=== PATIENT | female | born 1965 | race Caucasian/White ===

== ENCOUNTER 2016-03-11 06:13 | Emergency (ER) | payer MEDICAID ==
[2016-03-11] MEDS ORDERED: IPRATROPIUM/ALBUTEROL 0.5-2.5 MG/3 ML AMPUL NEB ONE (06:28)
--- NOTE | 2016-03-11 06:48 | ER Document Report ---
ED Respiratory Problem - General Mode of Arrival: Medic Information source: Patient TRAVEL OUTSIDE OF THE [place] IN LAST 30 DAYS: No - HPI Patient complains to provider of: Cough, Short of breath Onset: Yesterday Duration: Worse/persistent Quality of pain: No pain Severity: Moderate Pain Level: 0 Context: Hx COPD Short of Breath: Moderate Similar symptoms previously: Yes Recently seen / treated by doctor: Yes <PRABHAKAR RODRÍGUEZ - Last Filed: 03/11/16 10:29> <NORM DA SILVA - Last Filed: 03/11/16 23:45> - General Chief Complaint: COPD Exacerbation Stated Complaint: DIFFICULTIY BREATHING Notes: Patient is a 50-year-old female that presents to the emergency department today with complaints of shortness of breath. Patient is frequently seen in this emergency department for respiratory failure. Patient states that she feels like she needs to cough however she "just cannot cough". Patient has been intubated 3 times in the past for respiratory failure. Patient admits to cocaine usage yesterday. Patient also complains of a headache and blurry vision. (PRABHAKAR RODRÍGUEZ) - Related Data Allergies/Adverse Reactions: No Known Allergies Allergy (Verified 09/16/15 05:50) Home Medications: Current Home Medications Furosemide [Lasix 40 mg Tablet] 40 mg PO QAM 03/11/16 [History] Omeprazole 40 mg PO BID 03/11/16 [History] Past Medical History - General Information source: Patient, [facility] Records - Social History Smoking Status: Current Every Day Smoker Cigarette use (# per day): Yes Frequency of alcohol use: Occasional Drug Abuse: Cocaine Lives with: Family Family History: Reviewed & Not Pertinent, Other - Mother with COPD - Past Medical History Cardiac Medical History: Reports: Hx Congestive Heart Failure, Hx Hypertension Pulmonary Medical History: Reports: Hx Asthma, Hx Bronchitis, Hx COPD, Hx Pneumonia, Hx Intubation, Hx Respiratory Failure, Hx Sleep Apnea Endocrine Medical History: Reports: Hx Diabetes Mellitus Type 2 GI Medical History: Reports: Hx Hepatitis - HEP-C Musculoskeltal Medical History: Reports Hx Arthritis Skin Medical History: Reports Hx Cellulitis Psychiatric Medical History: Reports: Hx Anxiety, Hx Bipolar Disorder, Hx Depression Infectious Medical History: Reports: Hx Hepatitis - HEP-C Past Surgical History: Reports: Hx Cardiac Catheterization, Hx Hysterectomy - Immunizations Immunizations up to date: Yes Hx Diphtheria, Pertussis, Tetanus Vaccination: Yes Hx Pneumococcal Vaccination: 04/10/10 <PRABHAKAR RODRÍGUEZ - Last Filed: 03/11/16 10:29> Review of Systems - Review of Systems Constitutional: No symptoms reported EENT: See HPI, Blurred vision Cardiovascular: No symptoms reported Respiratory: See HPI, Short of breath Gastrointestinal: No symptoms reported Genitourinary: No symptoms reported Female Genitourinary: No symptoms reported Musculoskeletal: No symptoms reported Skin: No symptoms reported Hematologic/Lymphatic: No symptoms reported Neurological/Psychological: See HPI, Headaches -: Yes All other systems reviewed and negative <PRABHAKAR RODRÍGUEZ - Last Filed: 03/11/16 10:29> Physical Exam - General General appearance: Alert In distress: Mild - HEENT Head: Normocephalic, Atraumatic Eyes: Normal Cornea: Normal Extraocular movements intact: Yes - Respiratory Respiratory status: Respiratory distress - mild, Retractions - slight intracostal retractions Breath sounds: Decreased air movement - Cardiovascular Rhythm: Regular Heart sounds: Normal auscultation - Abdominal Inspection: Obese Tenderness: Nontender - Extremities General upper extremity: Normal inspection, Nontender, Normal ROM General lower extremity: Normal inspection, Nontender, Normal ROM - Neurological Neuro grossly intact: Yes Cognition: Normal Orientation: AAOx4 - Psychological Associated symptoms: Normal affect, Normal mood - Skin Skin Temperature: Warm Skin Moisture: Dry Skin Color: Normal <PRABHAKAR RODRÍGUEZ - Last Filed: 03/11/16 10:29> Course - Laboratory Result Diagrams: 03/11/16 06:45 03/11/16 06:45 <JERMAINE RODRÍGUEZON - Last Filed: 03/11/16 10:29> - Laboratory Result Diagrams: 03/11/16 06:45 03/11/16 06:45 <NORM DA SILVA - Last Filed: 03/11/16 23:45> - Re-evaluation Re-evalutation: 03/11/16 11:57 I personally performed the services described in the documentation, reviewed and edited the documentation which was dictated to my scribe in my presence, and it accurately records my words and actions. Patient seen and evaluated for COPD exacerbation. On ED arrival O2 sat 97% on room air the necessary put her on the BiPAP machine because she comes here frequently COPD and requires that. She was awake and alert not hypoxic a little tachypneic. Acute chest x-ray shows COPD with comparison to the previous. She signs out AMA prior to the full radiology report I do not see any consolidation. Patient clinically does not have Rales or peripheral edema no acute clinical concerns for KS PE or dissection. Long discussion with the patient off BiPAP satting 98% with close friend at the bedside. We talked for about 15 minutes about her wanting to sign out AGAINST MEDICAL ADVICE. She has to go home and take care of her nieces is no one else to do so. I told her specifically that the treatment that we gave her here was merely temporizing measure and that she could get sick very quickly likely willing could even as a result of that she is alert and oriented 3 with no altered mental status despite recent use of cocaine is of sound mind and judgment able to make her own decisions family members at bedside confirming this. She does have a stable right home at this point and at this point I do not feel like I can force her to stay here against her will. So she is signing out AMA. Told her take her breathing treatments at home I encouraged her to return in 6-12 hours for recheck reevaluation primary care physician one to 2 days and discussed specifically reasons for ED return sooner 03/11/16 23:45 (NORM DA SILVA) - Vital Signs Vital signs: Temp Pulse Resp BP Pulse Ox 98.2 F 78 16 110/60 94 03/11/16 06:18 03/11/16 06:18 03/11/16 12:00 03/11/16 11:59 03/11/16 12:00 (PRABHAKAR RODRÍGUEZ) (NORM DA SILVA) - Laboratory Laboratory results interpreted by me: 03/11/16 03/11/16 03/11/16 06:45 06:45 06:45 Hgb 11.0 L Hct 34.5 L MCV 74 L MCH 23.6 L MCHC 31.8 L RDW 21.0 H Carbonic Acid 1.56 H ABG pCO2 51.9 H ABG HCO3 31.6 H ABG Total CO2 33.2 H Glucose 125 H Urine Blood 03/11/16 09:23 Hgb Hct MCV MCH MCHC RDW Carbonic Acid ABG pCO2 ABG HCO3 ABG Total CO2 Glucose Urine Blood SMALL H (NORM DA SILVA) - EKG Interpretation by Me Additional EKG results interpreted by me: 03/11/16 23:45 KG interpreted myself to reveal sinus rhythm at [address] depression in V1 and V2 and V3 compared to EKG on 02/12/16. (NORM DA SILVA) Discharge <PRABHAKAR RODRÍGUEZ - Last Filed: 03/11/16 10:29> <NORM DA SILVA - Last Filed: 03/11/16 23:45> - Discharge Clinical Impression: Obstructive chronic bronchitis with exacerbation, Cocaine abuse, Left against medical advice Condition: Stable Disposition: HOME, SELF-CARE Instructions: Chronic Obstructive Lung Disease ([facility]) Forms: Smoking Cessation Education Referrals: BLAYNE CHO DO [Primary Care Provider] - Follow up as needed (Return to the emergency department for recheck reevaluation in 6-12 hours sooner for increasing worsening or new symptoms follow primary care physician one to 2 days please stop smoking and cocaine.) Scribe Documentation - Scribe Written by Manju:: Manju Retana, 1040 03/11/2016 acting as scribe for :: Greg <PRABHAKAR RODRÍGUEZ - Last Filed: 03/11/16 10:29>
[2016-03-11] MEDS ORDERED: METHYLPREDNISOLONE INJ 125 MG/2 ML SDV IV ONE (06:54)
[2016-03-11] MEDS: MAGNESIUM SULFATE/D5W 100 ML IV SCH ×2 (07:03→08:29)
[2016-03-11] MEDS ORDERED: IPRATROPIUM BROMIDE 0.02% NEB 0.5 MG/2.5 ML AMPUL NEB ONE (07:10)
[2016-03-11] MEDS ORDERED: ALBUTEROL SULFATE 0.083% NEB 2.5 MG/3 ML AMPUL NEB ONE (07:10)
[2016-03-11 07:12] LABS: ABSOLUTE BASOPHILS # (AUTO) 0.1 10^3/uL (0.0-0.2); ABSOLUTE EOSINOPHILS # (AUTO) 0.2 10^3/uL (0.0-0.6); ABSOLUTE LYMPHOCYTES (AUTO) 1.6 10^3/uL (0.5-4.7); ABSOLUTE MONOCYTES (AUTO) 0.7 10^3/uL (0.1-1.4); ABSOLUTE NEUT (AUTO) 7.1 10^3/uL (1.7-8.2); BASOPHILS % (AUTO) 0.6 % (0-2); EOSINOPHILS % (AUTO) 2.4 % (0-6); HEMATOCRIT 34.5 % (36.0-47.0); HGB HCT DIFFERENCE -1.5; LYMPHOCYTES % (AUTO) 16.8 % (13-45); MEAN CORPUSCULAR HEMOGLOBIN 23.6 pg (27.0-33.4); MEAN CORPUSCULAR HGB CONC 31.8 g/dL (32.0-36.0); MEAN CORPUSCULAR VOLUME 74 fl (80-97); MONOCYTES % (AUTO) 7.1 % (3-13); RED BLOOD COUNT 4.64 10^6/uL (3.72-5.28); SEGMENTED NEUTROPHILS % (AUTO) 73.1 % (42-78); WHITE BLOOD COUNT 9.7 10^3/uL (4.0-10.5)
[2016-03-11 07:23] LABS: ANION GAP 12 (5-19); BLOOD UREA NITROGEN 20 mg/dL (7-20); CARBON DIOXIDE 30 mmol/L (22-30); CHLORIDE 99 mmol/L (98-107); CREATININE RESULT 0.59 mg/dL (0.52-1.25); GLUCOSE 125 mg/dL (75-110); POTASSIUM 4.2 mmol/L (3.6-5.0); SODIUM 140.8 mmol/L (137-145)
[2016-03-11 07:25] LABS: ARTERIAL BLOOD BASE EXCESS 5.7 mmol/L; ARTERIAL BLOOD O2 SATURATION 97.4 % (94-98)
[2016-03-11 07:35] LABS: CREATINE KINASE MB 0.36 ng/mL (<4.55)
[2016-03-11 07:36] LABS: TROPONIN I < 0.012 ng/mL
--- NOTE | 2016-03-11 09:20 | EKG REPORT ---
SEVERITY:- NORMAL ECG - SINUS RHYTHM : Confirmed by: Jacob Garrison 11-Mar-2016 09:18:49
[2016-03-11 09:38] LABS: APPEARANCE,URINE CLEAR; BILIRUBIN,URINE NEGATIVE (NEGATIVE); GLUCOSE, URINE NEGATIVE (NEGATIVE); KETONES,URINE NEGATIVE (NEGATIVE); LEUKOCYTE ESTERASE,URINE NEGATIVE (NEGATIVE); NITRITE,URINE NEGATIVE (NEGATIVE); PROTEIN,URINE NEGATIVE (NEGATIVE); URINE SPECIFIC GRAVITY 1.005; UROBILINOGEN,URINE NEGATIVE mg/dL (<2.0)
[2016-03-11 09:54] LABS: URINE BARBITURATES SCREEN NEGATIVE; URINE METHADONE SCREEN NEGATIVE; URINE PHENCYCLIDINE SCREEN NEGATIVE
[2016-03-11 12:06] VITALS: BP 110/60
== END 2016-03-11 12:06 | disposition home or self-care (01) ==
LOC: ER 06:13
DX: J44.1 Chronic obstructive pulmonary disease with (acute) exacerbation (principal); F14.90 Cocaine use, unspecified, uncomplicated; R05 Cough; R06.02 Shortness of breath; F17.210 Nicotine dependence, cigarettes, uncomplicated; I50.9 Heart failure, unspecified; I10 Essential (primary) hypertension; J45.909 Unspecified asthma, uncomplicated; E11.9 Type 2 diabetes mellitus without complications; Z86.19 Personal history of other infectious and parasitic diseases; Z90.710 Acquired absence of both cervix and uterus
CPT/HCPCS: 93005; 94640 ×2; 99285; 51701; 96375; 96365; 96366; 36415; 82553; 82803; 83605; 85025; 80048; 81001; 84484; 83880; 71010; 93010; 94660; G0479; J2930; J3475; J3490; J7620; 80307

== ENCOUNTER 2016-03-28 14:33 | Emergency (ER) | payer MEDICAID ==
[2016-03-28] MEDS ORDERED: METHYLPREDNISOLONE INJ 125 MG/2 ML SDV IV ONE (14:49)
[2016-03-28] MEDS ORDERED: IPRATROPIUM/ALBUTEROL 0.5-2.5 MG/3 ML AMPUL NEB ONE (14:49)
[2016-03-28] MEDS ORDERED: LIDOCAINE 1% INJ-PF (10 MG/ML) 30 ML SDV INJ ONE (15:11)
[2016-03-28] MEDS ORDERED: HYDROMORPHONE HCL INJ/PF 2 MG/ML AMPULE IV ONE ×2 (15:11→15:45)
[2016-03-28 15:12] LABS: ABSOLUTE BASOPHILS # (AUTO) 0.1 10^3/uL (0.0-0.2); ABSOLUTE EOSINOPHILS # (AUTO) 0.1 10^3/uL (0.0-0.6); ABSOLUTE LYMPHOCYTES (AUTO) 1.2 10^3/uL (0.5-4.7); ABSOLUTE MONOCYTES (AUTO) 0.8 10^3/uL (0.1-1.4); ABSOLUTE NEUT (AUTO) 12.4 10^3/uL (1.7-8.2); BASOPHILS % (AUTO) 0.7 % (0-2); HEMATOCRIT 33.1 % (36.0-47.0); HGB HCT DIFFERENCE -3.1; LYMPHOCYTES % (AUTO) 8.1 % (13-45); MEAN CORPUSCULAR HEMOGLOBIN 22.9 pg (27.0-33.4); MEAN CORPUSCULAR HGB CONC 30.2 g/dL (32.0-36.0); MEAN CORPUSCULAR VOLUME 76 fl (80-97); MONOCYTES % (AUTO) 5.4 % (3-13); RED BLOOD COUNT 4.37 10^6/uL (3.72-5.28); RED CELL DISTRIBUTION WIDTH 20.5 % (11.5-14.0); SEGMENTED NEUTROPHILS % (AUTO) 84.8 % (42-78); WHITE BLOOD COUNT 14.7 10^3/uL (4.0-10.5)
[2016-03-28 15:31] LABS: ALANINE AMINOTRANSFERASE 18 U/L (9-52); ALBUMIN 3.4 g/dL (3.5-5.0); ALKALINE PHOSPHATASE 61 U/L (38-126); ANION GAP 12 (5-19); ASPARTATE AMINO TRANSFERASE 12 U/L (14-36); BILIRUBIN,TOTAL 0.7 mg/dL (0.2-1.3); BLOOD UREA NITROGEN 23 mg/dL (7-20); CALCIUM 8.7 mg/dL (8.4-10.2); CARBON DIOXIDE 30 mmol/L (22-30); CHLORIDE 97 mmol/L (98-107); CREATININE RESULT 0.57 mg/dL (0.52-1.25); GLUCOSE 100 mg/dL (75-110); MAGNESIUM 1.8 mg/dL (1.6-2.3); POTASSIUM 4.1 mmol/L (3.6-5.0); SODIUM 138.7 mmol/L (137-145)
[2016-03-28 15:32] LABS: CREATINE KINASE < 20 U/L (30-135)
[2016-03-28 15:41] LABS: CREATINE KINASE MB 0.22 ng/mL (<4.55); TROPONIN I < 0.012 ng/mL
--- NOTE | 2016-03-28 17:09 | ER Document Report ---
[id number] 4Bd Clinical Impression: COPD (chronic obstructive pulmonary disease), Abscess Condition: Stable Disposition: HOME, SELF-CARE Instructions: Abscess ([facility]), Cephalexin ([facility]), Oral Narcotic Medication ([facility]), Post Incision and Drainage, Trimethoprim-Sulfa ([facility]) Additional Instructions: Return to emergency Department in 2 days for reevaluation and possible repacking of your abscess Prescriptions: Cephalexin Monohydrate [Keflex 500 mg Capsule] 500 mg PO QID #40 capsule Sulfamethoxazole/Trimethoprim [Bactrim Ds Tablet] 1 each PO BID #20 tablet Tramadol HCl 50 mg PO BID #14 tablet Referrals: BLAYNE CHO DO [Primary Care Provider] - Follow up as needed Original Note: ED General - General Chief Complaint: Abscess Stated Complaint: DIFFICULTY BREATHING Time seen by provider: 14:40 Mode of Arrival: Medic Information source: Patient Notes: 50-year-old female who complains about a 2 day history of pain redness and swelling in her left axilla. Patient says she had 5 pimples in that area and she says that she held a safety pin to the flame and then attempted to puncture one of them. He says that since that time a different area inferior to the area where she worked has become very red swollen and tender. She reports no prior history of symptoms like this. 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 She denies fever, chills, nausea, vomiting, cough worse than baseline, shortness of breath worse than baseline, chest pain, abdominal pain, back pain, or swelling to extremities worse than her baseline. Physical Exam: General: Alert, appears well. HEENT: Normocephalic. Atraumatic. PERRLA. Extraocular movements intact. Oropharynx clear. Neck: Supple. Non-tender. Respiratory: No respiratory distress. Scattered rhonchi bilaterally breath sounds equal good aeration no accessory muscle use Cardiovascular: Regular rate and rhythm. Abdominal: Normal Inspection. Soft, non-tender. No distension. Normal Bowel Sounds. Back: Non-tender. No deformity or step off. Extremities: Moves all four extremities. Examination left upper extremity shows a broad area of erythema in the axilla approximately 7 x 7 cm. There is a 3 x 3 cm area in the central portion of this which appears to have an eschar suggestive of maturing abscess. Closer to the arm itself there are 2 small pustules and one area of open skin approximately 5 mm long with a hole protruding to subcutaneous tissue. There is no active bleeding or purulent drainage from the site. Left upper trait otherwise is warm with 2+ pulses and brisk cap refill Right upper extremity has a 5 mm area of swelling in the axilla which is not tender to palpation in 2+ radial pulses and brisk cap refill Lower extremities warm with 2+ pulses of cyanosis no edema Neurological: Speech clear mentation normal moves extremities well Psychological: Normal affect. Normal Mood. Skin: Warm. Dry. Normal color. TRAVEL OUTSIDE OF THE [place] IN LAST 30 DAYS: No - Related Data Allergies/Adverse Reactions: No Known Allergies Allergy (Verified 09/16/15 05:50) Past Medical History - Social History Smoking Status: Current Every Day Smoker Family History: Reviewed & Not Pertinent, Other - Mother with COPD - Past Medical History Cardiac Medical History: Reports: Hx Congestive Heart Failure, Hx Hypertension Pulmonary Medical History: Reports: Hx Asthma, Hx Bronchitis, Hx COPD, Hx Pneumonia, Hx Intubation, Hx Respiratory Failure, Hx Sleep Apnea Endocrine Medical History: Reports: Hx Diabetes Mellitus Type 2 GI Medical History: Reports: Hx Hepatitis - HEP-C Musculoskeltal Medical History: Reports Hx Arthritis Skin Medical History: Reports Hx Cellulitis Psychiatric Medical History: Reports: Hx Anxiety, Hx Bipolar Disorder, Hx Depression Infectious Medical History: Reports: Hx Hepatitis - HEP-C Past Surgical History: Reports: Hx Cardiac Catheterization, Hx Hysterectomy - Immunizations Immunizations up to date: Yes Hx Diphtheria, Pertussis, Tetanus Vaccination: Yes Hx Pneumococcal Vaccination: 04/10/10 Review of Systems - Review of Systems Constitutional: denies: Chills, Fever EENT: denies: Ear pain, Throat pain Cardiovascular: Dyspnea. denies: Chest pain Respiratory: Cough, Short of breath Gastrointestinal: denies: Abdominal pain, Diarrhea, Nausea, Vomiting Genitourinary: denies: Burning, Dysuria Musculoskeletal: denies: Back pain Neurological/Psychological: denies: Weakness, Numbness Physical Exam - Vital signs Vitals: Temp Pulse Resp BP Pulse Ox 98.4 F 92 14 123/102 H 97 03/28/16 14:35 03/28/16 14:35 03/28/16 14:35 03/28/16 14:35 03/28/16 14:35 Course - Re-evaluation Re-evalutation: 03/28/16 18:13 Chest x-ray was read as congestive heart failure but clinically the patient did not have this intermittent Clem peptide was unremarkable. Her oxygen saturation improved probably just by placing her back on her baseline oxygen and she is and related about the department with no respiratory distress. She reports she believes her breathing status is at her baseline and I concur. I believe her leukocytosis is due to the abscess and cellulitis in her left axilla and she is going to be placed on antibiotics for that with instructions to return in 2 days for wound recheck and possible repacking. Given the size of the abscess she will also require pain medication and this will also be prescribed - Vital Signs Vital signs: Temp Pulse Resp BP Pulse Ox 98.4 F 92 14 117/92 H 95 03/28/16 14:35 03/28/16 14:35 03/28/16 16:25 03/28/16 16:25 03/28/16 16:25 - Laboratory Result Diagrams: 03/28/16 14:56 03/28/16 14:56 Laboratory results interpreted by me: 03/28/16 03/28/16 14:56 14:56 WBC 14.7 H Hgb 10.0 L Hct 33.1 L MCV 76 L MCH 22.9 L MCHC 30.2 L RDW 20.5 H Seg Neutrophils % 84.8 H Lymphocytes % 8.1 L Absolute Neutrophils 12.4 H Chloride 97 L BUN 23 H AST 12 L Creatine Kinase < 20 L Total Protein 6.0 L Albumin 3.4 L - Diagnostic Test Radiology reviewed: Image reviewed, Reports reviewed - EKG Interpretation by Me Additional EKG results interpreted by me: 03/28/16 18:09 EKG reviewed by myself sinus rhythm at 89. Minimal nonspecific T-wave changes Procedures - Incision and Drainage Left Anterior Shoulder Time completed: 17:55 Type: Complex Anesthetic type: 1% Lidocaine mL's of anesthetic: 5 Blade size: 11 I&D procedure: Shurclens applied, Iodoform packing placed, Sterile dressing applied Incision Method: Incision made by scalpel Amount/type of drainage: 5 mL purulent material Notes: 03/28/16 18:11 Patient had Dilaudid total of 2 mg IV prior to procedure and anesthesia with lidocaine plain 1% locally. Middle of the abscess was incised with prompt return of serous followed by purulent material. Wound was deeply probed and appears to extend anteriorly and superiorly. It did not communicate with the open wound more proximally in the axilla.. Several discrete loculations were broken up. Iodoform packing was placed. Patient tolerated procedure well and good hemostasis no complications Discharge - Discharge Clinical Impression: Abscess COPD (chronic obstructive pulmonary disease) Qualifiers: COPD type: COPD with acute exacerbation Qualified Code(s): J44.1 - Chronic obstructive pulmonary disease with (acute) exacerbation Condition: Stable Disposition: HOME, SELF-CARE Instructions: Abscess ([facility]), Oral Narcotic Medication ([facility]), Cephalexin ([facility]), Trimethoprim-Sulfa ([facility]), Post Incision and Drainage Prescriptions: Cephalexin Monohydrate [Keflex 500 mg Capsule] 500 mg PO QID #40 capsule Sulfamethoxazole/Trimethoprim [Bactrim Ds Tablet] 1 each PO BID #20 tablet Tramadol HCl 50 mg PO BID #14 tablet
[2016-03-28] MEDS ORDERED: SULFAMETHOXAZOLE/TRIMETHOPRIM 800-160 MG TABLET PO ONE (18:18)
[2016-03-28] MEDS ORDERED: CEPHALEXIN 500 MG CAPSULE PO ONE (18:18)
[2016-03-28 18:46] VITALS: BP 127/80
--- NOTE | 2016-03-28 19:09 | EKG REPORT ---
SEVERITY:- BORDERLINE ECG - SINUS RHYTHM PROBABLE LEFT ATRIAL ABNORMALITY LOW VOLTAGE IN FRONTAL LEADS NONSPECIFIC ST-T CHANGES ANTERIOR LEADS : Confirmed by: Jorge Luis Dee MD 28-Mar-2016 19:07:39
== END 2016-03-28 18:46 | disposition home or self-care (01) ==
LOC: ER 14:33
PROC: 0H9CXZZ Drainage of Left Upper Arm Skin, External Approach (ICD-10-PCS; principal; 2016-03-28)
DX: J44.9 Chronic obstructive pulmonary disease, unspecified (principal); L02.412 Cutaneous abscess of left axilla; F17.210 Nicotine dependence, cigarettes, uncomplicated
CPT/HCPCS: 93005; 96376; 94640; 99284; 96374; 96375; 36415; 82553; 82550; 83735; 85025; 80053; 84484; 83880; 71010; 93010; 10060; J3490 ×2; J2930; J1170; J7620

== ENCOUNTER 2016-05-27 15:53 | Inpatient (IN) | payer MEDICAID ==
[2016-05-27 17:07] LABS: VENOUS BLOOD BASE EXCESS 5.1 mmol/L; VENOUS BLOOD HCO3 35.2 mmol/L (20-32); VENOUS BLOOD PH 7.25 (7.30-7.42)
[2016-05-27 17:09] LABS: APPEARANCE,URINE CLEAR; BILIRUBIN,URINE NEGATIVE (NEGATIVE); GLUCOSE, URINE NEGATIVE (NEGATIVE); KETONES,URINE NEGATIVE (NEGATIVE); LEUKOCYTE ESTERASE,URINE NEGATIVE (NEGATIVE); NITRITE,URINE NEGATIVE (NEGATIVE); PROTEIN,URINE NEGATIVE (NEGATIVE); URINE SPECIFIC GRAVITY 1.003; UROBILINOGEN,URINE NEGATIVE mg/dL (<2.0)
[2016-05-27 17:11] LABS: VENOUS BLOOD PCO2 82.6 mmHg (35-63)
[2016-05-27] MEDS ORDERED: IPRATROPIUM/ALBUTEROL 0.5-2.5 MG/3 ML AMPUL NEB ONE ×2 (17:21→17:22)
[2016-05-27] MEDS ORDERED: METHYLPREDNISOLONE INJ 125 MG/2 ML SDV IV ONE (17:21)
[2016-05-27 17:25] LABS: URINE BARBITURATES SCREEN NEGATIVE; URINE METHADONE SCREEN NEGATIVE; URINE OPIATES LOW NEGATIVE; URINE PHENCYCLIDINE SCREEN NEGATIVE
[2016-05-27 17:26] LABS: ABSOLUTE EOSINOPHILS # (AUTO) 0.2 10^3/uL (0.0-0.6); ABSOLUTE LYMPHOCYTES (AUTO) 1.2 10^3/uL (0.5-4.7); ABSOLUTE MONOCYTES (AUTO) 0.5 10^3/uL (0.1-1.4); ABSOLUTE NEUT (AUTO) 6.6 10^3/uL (1.7-8.2); ALANINE AMINOTRANSFERASE 20 U/L (9-52); ALBUMIN 3.8 g/dL (3.5-5.0); ALKALINE PHOSPHATASE 75 U/L (38-126); ANION GAP 12 (5-19); ASPARTATE AMINO TRANSFERASE 16 U/L (14-36); BASOPHILS % (AUTO) 0.1 % (0-2); BILIRUBIN,DIRECT 0.3 mg/dL (0.0-0.4); BILIRUBIN,TOTAL 0.5 mg/dL (0.2-1.3); BLOOD UREA NITROGEN 17 mg/dL (7-20); CALCIUM 9.2 mg/dL (8.4-10.2); CARBON DIOXIDE 31 mmol/L (22-30); CHLORIDE 100 mmol/L (98-107); CREATININE RESULT 0.62 mg/dL (0.52-1.25); EOSINOPHILS % (AUTO) 1.8 % (0-6); GLUCOSE 103 mg/dL (75-110); HEMATOCRIT 38.5 % (36.0-47.0); HEMOGLOBIN 11.7 g/dL (12.0-15.5); HGB HCT DIFFERENCE -3.4; LYMPHOCYTES % (AUTO) 14.4 % (13-45); MEAN CORPUSCULAR HEMOGLOBIN 22.4 pg (27.0-33.4); MEAN CORPUSCULAR HGB CONC 30.5 g/dL (32.0-36.0); MEAN CORPUSCULAR VOLUME 74 fl (80-97); MONOCYTES % (AUTO) 5.7 % (3-13); POTASSIUM 4.5 mmol/L (3.6-5.0); RED BLOOD COUNT 5.23 10^6/uL (3.72-5.28); RED CELL DISTRIBUTION WIDTH 20.5 % (11.5-14.0); SODIUM 143.3 mmol/L (137-145); WHITE BLOOD COUNT 8.5 10^3/uL (4.0-10.5)
--- NOTE | 2016-05-27 17:39 | ER Document Report ---
ED Respiratory Problem - General Chief Complaint: Shortness Of Breath Stated Complaint: RESPIRATORY DISTRESS Mode of Arrival: Medic Information source: Patient, Emergency Med Personnel, [facility] Records Notes: This patient is a 50 year old female with past medical history of COPD, chronic respiratory failure, pneumonia, tobacco abuse, cocaine abuse, left ventricular diastolic dysfunction that presents with increasing shortness of breath for the past day. She states she has been using her breathing treatments all day. She is concerned that she might have pneumonia again. Of note she was admitted here from February 11 through 02/15/2016 with COPD, respiratory failure, and pneumonia. She has been seen multiple times for respiratory failure and has required BiPAP and at times intubation in the past. She denies any fevers. She does state she has been coughing up yellow sputum. TRAVEL OUTSIDE OF THE [place] IN LAST 30 DAYS: No - Related Data Allergies/Adverse Reactions: No Known Allergies Allergy (Verified 09/16/15 05:50) Home Medications: Current Home Medications Albuterol Sulfate [Proair Hfa Inhalation Aerosol 8.5 gm Mdi] 2 puff IH Q6HP PRN 05/27/16 [History] Carvedilol [Coreg 3.125 mg Tablet] 3.125 mg PO Q12 05/27/16 [History] Escitalopram Oxalate [Lexapro 10 mg Tablet] 10 mg PO QHS 05/27/16 [History] Furosemide [Lasix] 40 mg PO DAILY 05/27/16 [History] Lisinopril [Prinivil 5 mg Tablet] 5 mg PO DAILY 05/27/16 [History] Metformin HCl [Glucophage] 500 mg PO BID 05/27/16 [History] Omeprazole 40 mg PO BIDACBS 05/27/16 [History] Past Medical History - General Information source: Patient, [facility] Records - Social History Smoking Status: Current Every Day Smoker Drug Abuse: Cocaine Lives with: Alone Family History: Reviewed & Not Pertinent, Other - Mother with COPD - Past Medical History Cardiac Medical History: Reports: Hx Congestive Heart Failure, Hx Hypertension Pulmonary Medical History: Reports: Hx Asthma, Hx Bronchitis, Hx COPD, Hx Pneumonia, Hx Intubation, Hx Respiratory Failure, Hx Sleep Apnea Endocrine Medical History: Reports: Hx Diabetes Mellitus Type 2 GI Medical History: Reports: Hx Hepatitis - HEP-C Musculoskeltal Medical History: Reports Hx Arthritis Skin Medical History: Reports Hx Cellulitis Psychiatric Medical History: Reports: Hx Anxiety, Hx Bipolar Disorder, Hx Depression Infectious Medical History: Reports: Hx Hepatitis - HEP-C Past Surgical History: Reports: Hx Cardiac Catheterization, Hx Hysterectomy - Immunizations Immunizations up to date: Yes Hx Diphtheria, Pertussis, Tetanus Vaccination: Yes Hx Pneumococcal Vaccination: 04/10/10 Review of Systems - Review of Systems Constitutional: denies: Chills, Fever EENT: No symptoms reported Cardiovascular: See HPI, Dyspnea. denies: Chest pain Respiratory: See HPI, Cough, Short of breath, Sputum, Wheezing. denies: Hurts to breathe Gastrointestinal: No symptoms reported Genitourinary: No symptoms reported Musculoskeletal: No symptoms reported Skin: No symptoms reported Neurological/Psychological: No symptoms reported Physical Exam - Vital signs Vitals: Resp Pulse Ox 19 97 05/27/16 16:20 05/27/16 16:20 - Notes Notes: PHYSICAL EXAMINATION: GENERAL: Ill-appearing, obese female who is disheveled but alert and conversant. Mild to moderate respiratory distress. HEAD: Atraumatic, normocephalic. EYES: Pupils equal round and reactive to light, extraocular movements intact, sclera anicteric, conjunctiva are normal. ENT: nares patent, oropharynx clear without exudates. Mucous membranes somewhat dry. NECK: Normal range of motion, supple without lymphadenopathy LUNGS: Breath sounds are tight bilaterally with scattered inspiratory and expiratory wheezes. No rhonchi. HEART: Regular rate and rhythm without murmurs ABDOMEN: Soft, obese nontender, normoactive bowel sounds. No guarding, no rebound. EXTREMITIES: Normal range of motion NEUROLOGICAL: Cranial nerves grossly intact. Normal speech. No gross focal motor or sensory deficits appreciated. PSYCH: Normal mood, somewhat anxious affect SKIN: Warm, Dry, normal turgor, no rashes or lesions noted. Course - Re-evaluation Re-evalutation: 05/27/16 17:36 Patient noted to be alert and conversant but in mild respiratory distress and her PCO2 is about 80 on her VBG. BiPAP has been ordered, as well as DuoNeb's and IV Solu-Medrol. 05/27/16 18:25 Patient is showing improvement on BiPAP. She does admit to recent cocaine use in the past couple of days. Her troponin is negative. Her chest x-ray does not show sign of infiltrate. As discussed with hospitalist Dr. Kumar patient to be admitted to the [facility] [place] 05/27/16 23:39 Patient has been admitted to the hospitalist however she is still awaiting bed placement upstairs. It was noted that she has become upset and agitated with her long wait. She had pulled herself off the monitors and started walking down the quiroz to leave. Her nurse and I were able to convince her to walk back to the room and she still had an IV in place. I had a discussion with the patient regarding her diagnosis and my concerns for her to clinically worse and should she leave without completing her medical therapy. At this time patient decides to stay. She is alert and oriented and neurologically intact. She does appear competent to make her own decisions. At this time she states that she will stay as long as she can have something to eat and drink. - Vital Signs Vital signs: Temp Pulse Resp BP Pulse Ox 17 144/76 H 95 05/27/16 22:01 05/27/16 22:01 05/27/16 22:01 - Laboratory Result Diagrams: 05/27/16 16:45 05/27/16 16:45 Laboratory results interpreted by me: 05/27/16 05/27/16 05/27/16 16:45 16:45 16:45 Hgb MCV MCH MCHC RDW VBG pH 7.25 L VBG pCO2 82.6 H* VBG HCO3 35.2 H Carbon Dioxide 31 H Creatine Kinase Urine Blood SMALL H 05/27/16 05/27/16 16:45 16:45 Hgb 11.7 L MCV 74 L MCH 22.4 L MCHC 30.5 L RDW 20.5 H VBG pH VBG pCO2 VBG HCO3 Carbon Dioxide Creatine Kinase 26 L Urine Blood - EKG Interpretation by Me Additional EKG results interpreted by me: 05/27/16 17:39 EKG at 1617 pressure is normal sinus rhythm with a rate of 78. She does have T- wave changes anteriorly which are unchanged from her prior EKG. There is no ST segment elevation or depression. Discharge - Discharge Clinical Impression: Obstructive chronic bronchitis with exacerbation, Cocaine abuse Acute respiratory failure Qualifiers: Respiratory failure complication: hypercapnia Qualified Code(s): J96.02 - Acute respiratory failure with hypercapnia Condition: Fair Disposition: ADMITTED INPATIENT Admitting Provider: Hospitalist - Dr Kumar Unit Admitted: [facility]
[2016-05-27 17:47] LABS: CREATINE KINASE MB 0.45 ng/mL (<4.55)
[2016-05-27 17:50] LABS: TROPONIN I < 0.012 ng/mL
[2016-05-27] MEDS ORDERED: LEVOFLOXACIN 750 MG/D5W RTU 150 ML IV ONE (18:16)
--- NOTE | 2016-05-27 18:35 | EKG REPORT ---
SEVERITY:- BORDERLINE ECG - SINUS RHYTHM BORDERLINE T ABNORMALITIES, ANTERIOR LEADS : Confirmed by: Jorge Luis Dee MD 27-May-2016 18:34:52
[2016-05-27] MEDS ORDERED: ACETAMINOPHEN 325 MG TABLET PO PRN (18:50)
[2016-05-27] MEDS ORDERED: ONDANSETRON HCL INJ/PF 4 MG/2 ML SDV IV PRN (18:50)
[2016-05-27] MEDS ORDERED: ALBUTEROL SULFATE 0.083% NEB 2.5 MG/3 ML AMPUL NEB PRN (18:50)
[2016-05-27] MEDS ORDERED: DEXTROSE 40% GEL 15 GM TUBE PO PRN ×2 (19:11)
[2016-05-27] MEDS ORDERED: DEXTROSE 50%-WATER 25 GM/50 ML DISP.SYRIN IV PRN ×2 (19:11)
[2016-05-27] MEDS ORDERED: GLUCAGON,HUMAN RECOMB 1 MG INJ IM PRN (19:11)
--- NOTE | 2016-05-27 19:11 | PDOC H&P ---
History of Present Illness Admission Date/PCP: BLAYNE CHO DO Patient complains of: Difficulty breathing History of Present Illness: POLLY CRESPO is a 50 year old female who has a long history of COPD, cocaine abuse, tobacco abuse who presents with shortness of breath. Patient reports that she's been using her nebulizer all day and since yesterday. She last used cocaine yesterday but has continued to smoke. The patient related this to the emergency physician however by the time I saw her she was responding to painful stimuli but would not answer any questions. The history is taken from the vertex the room physician as well as medical records. Patient was started on Levaquin because of the possibility of recurrent pneumonia although chest x-ray looks clear she has had wheezing. Past Medical History Cardiac Medical History: Reports: Congestive Heart Failure - Diastolic dysfunction, Hypertension Pulmonary Medical History: Reports: Asthma, Bronchitis, Chronic Obstructive Pulmonary Disease (COPD), Intubation, Pneumonia, Respiratory Failure, Sleep Apnea Endocrine Medical History: Reports: Diabetes Mellitus Type 2 Malignancy Medical History: Reports: None GI Medical History: Reports: Hepatitis - HEP-C Musculoskeltal Medical History: Reports: Arthritis Psychiatric Medical History: Reports: Bipolar Disorder, Depression, Substance Abuse Hematology: Denies: Anemia Past Surgical History Past Surgical History: Reports: Cardiac Catheterization, Hysterectomy Social History Information Source: Emergency Med Personnel, ON LICENSE OF [facility] Records Lives with: Alone Smoking Status: Current Every Day Smoker Frequency of Alcohol Use: None Hx Recreational Drug Use: Yes Drugs: Cocaine Hx Prescription Drug Abuse: No - Advance Directive Resuscitation Status: Full Code Surrogate healthcare decision maker:: Unknown Family History Family History: Other - Mother with COPD Parental Family History Reviewed: No - patient unable to give any history Children Family History Reviewed: No Sibling(s) Family History Reviewed.: No Medication/Allergy Home Medications: Albuterol Sulfate [Proair HFA] 1 - 2 puff IH Q4 PRN #1 [email or web address] 02/09/15 Allergies/Adverse Reactions: No Known Allergies Allergy (Verified 09/16/15 05:50) Review of Systems ROS unobtainable: Due to mental status Physical Exam Vital Signs: Temp Pulse Resp BP Pulse Ox 14 98 05/27/16 17:35 05/27/16 17:35 General appearance: PRESENT: disheveled, morbidly obese, severe distress Head exam: PRESENT: atraumatic, normocephalic Eye exam: PRESENT: conjunctiva pink, EOMI, PERRLA. ABSENT: scleral icterus Ear exam: PRESENT: normal external ear exam Neck exam: ABSENT: carotid bruit, JVD, lymphadenopathy, thyromegaly Respiratory exam: PRESENT: tachypnea, wheezes - Bilateral expiratory wheezes. Cardiovascular exam: PRESENT: RRR. ABSENT: diastolic murmur, rubs, systolic murmur Vascular exam: PRESENT: normal capillary refill GI/Abdominal exam: PRESENT: normal bowel sounds, soft. ABSENT: distended, guarding, mass, organolmegaly, rebound, tenderness Extremities exam: ABSENT: calf tenderness, clubbing, pedal edema Neurological exam: PRESENT: alert, awake, oriented to person, oriented to place , oriented to time, oriented to situation, CN II-XII grossly intact. ABSENT: motor sensory deficit Psychiatric exam: PRESENT: other - Unable to assess Skin exam: PRESENT: dry, intact, warm. ABSENT: cyanosis, rash Results Laboratory Results: 05/27/16 16:45 05/27/16 16:45 05/27/16 05/27/16 05/27/16 16:45 16:45 16:45 WBC RBC Hgb Hct MCV MCH MCHC RDW Plt Count Seg Neutrophils % Lymphocytes % Monocytes % Eosinophils % Basophils % Absolute Neutrophils Absolute Lymphocytes Absolute Monocytes Absolute Eosinophils Absolute Basophils VBG pH 7.25 L VBG pCO2 82.6 H* VBG HCO3 35.2 H VBG Base Excess 5.1 Sodium 143.3 Cancelled Potassium 4.5 Cancelled Chloride 100 Cancelled Carbon Dioxide 31 H Cancelled Anion Gap 12 Cancelled BUN 17 Cancelled Creatinine 0.62 Cancelled Est GFR ( Amer) > 60 Cancelled Est GFR (Non-Af Amer) > 60 Cancelled Glucose 103 Cancelled Calcium 9.2 Cancelled Total Bilirubin 0.5 AST 16 ALT 20 Alkaline Phosphatase 75 Total Protein 7.0 Albumin 3.8 Urine Color Urine Appearance Urine pH Ur Specific Goodrich Urine Protein Urine Glucose (UA) Urine Ketones Urine Blood Urine Nitrite Ur Leukocyte Esterase Urine WBC (Auto) Urine RBC (Auto) 05/27/16 05/27/16 16:45 16:45 WBC 8.5 RBC 5.23 Hgb 11.7 L Hct 38.5 MCV 74 L MCH 22.4 L MCHC 30.5 L RDW 20.5 H Plt Count 270 Seg Neutrophils % 78.0 Lymphocytes % 14.4 Monocytes % 5.7 Eosinophils % 1.8 Basophils % 0.1 Absolute Neutrophils 6.6 Absolute Lymphocytes 1.2 Absolute Monocytes 0.5 Absolute Eosinophils 0.2 Absolute Basophils 0.0 VBG pH VBG pCO2 VBG HCO3 VBG Base Excess Sodium Potassium Chloride Carbon Dioxide Anion Gap BUN Creatinine Est GFR ( Amer) Est GFR (Non-Af Amer) Glucose Calcium Total Bilirubin AST ALT Alkaline Phosphatase Total Protein Albumin Urine Color COLORLESS Urine Appearance CLEAR Urine pH 6.0 Ur Specific Goodrich 1.003 Urine Protein NEGATIVE Urine Glucose (UA) NEGATIVE Urine Ketones NEGATIVE Urine Blood SMALL H Urine Nitrite NEGATIVE Ur Leukocyte Esterase NEGATIVE Urine WBC (Auto) 0 Urine RBC (Auto) 0 05/27/16 05/27/16 16:45 16:45 Creatine Kinase 26 L CK-MB (CK-2) 0.45 Troponin I < 0.012 Impressions: Chest X-Ray 05/27/16 17:23 IMPRESSION: NO ACUTE RADIOGRAPHIC FINDING IN THE CHEST. Assessment & Plan - Diagnosis (1) Acute respiratory failure Qualifiers: Respiratory failure complication: hypercapnia Qualified Code(s): J96.02 - Acute respiratory failure with hypercapnia Is this a current diagnosis for this admission?: YesPlan: The patient has had a decreased mental status. An ABG has been ordered but has not yet obtained. We will admit the patient to the intensive care unit and continue the BiPAP until the results of the ABG are known. If the ABG is better enough we may need to intubate however we can hopefully just treat with BiPAP. Patient's respiratory failure most likely secondary to acute COPD exacerbation. Patient has a history of congestive heart failure but appears to be euvolemic. She also has a history of pneumonia but does not have an obvious infiltrate on chest x-ray. (2) COPD exacerbation Is this a current diagnosis for this admission?: YesPlan: We'll check ABG. Continue with Solu-Medrol, nebulizers and BiPAP. (3) Cocaine abuse Is this a current diagnosis for this admission?: YesPlan: Patient tested positive for cocaine but told the emergency physician that she last used yesterday. (4) Acute encephalopathy Is this a current diagnosis for this admission?: YesPlan: Most likely this is secondary to carbon dioxide retention. Await ABG results. (5) Anemia Qualifiers: Anemia type: iron deficiency Iron deficiency anemia type: unspecified iron deficiency Qualified Code(s): D50.9 - Iron deficiency anemia, unspecified Is this a current diagnosis for this admission?: YesPlan: Patient most likely is anemia of chronic disease. No evidence for active bleeding. (6) Anxiety Is this a current diagnosis for this admission?: Yes (7) Arthritis Is this a current diagnosis for this admission?: Yes (8) Diabetes Is this a current diagnosis for this admission?: YesPlan: We'll cover with sliding scale insulin. (9) Diastolic dysfunction Is this a current diagnosis for this admission?: YesPlan: Patient appears to be euvolemic at this time. (10) Hypertension Is this a current diagnosis for this admission?: Yes (11) Depression Is this a current diagnosis for this admission?: Yes (12) Hepatitis C Qualifiers: Viral hepatitis chronicity: unspecified Hepatic coma status: without hepatic coma Qualified Code(s): B19.20 - Unspecified viral hepatitis C without hepatic coma Is this a current diagnosis for this admission?: Yes - Time Time Spent: 50 to 70 Minutes - Inpatient Certification Medical Necessity: Need Close Monitoring Due to Risk of Patient Decompensation, Need for IV Antibiotics - Plan Summary Plan Summary: Patient is a full code. Will admit to the intensive care unit as a regular admission as this will require greater than 2 midnight stay because of her acute on chronic respiratory failure
[2016-05-27] MEDS ORDERED: ENOXAPARIN SODIUM INJ 40 MG/0.4 ML DISP.SYRIN SUBCUT ONE (20:00)
[2016-05-27 20:57] LABS: CREATINE KINASE MB 0.51 ng/mL (<4.55)
[2016-05-27 21:00] LABS: TROPONIN I < 0.012 ng/mL
[2016-05-27 21:13] LABS: ARTERIAL BLOOD O2 SATURATION 92.9 % (94-98)
[2016-05-27] MEDS ORDERED: NALOXONE HCL INJ 2 MG/2 ML DISP.SYRIN IV ONE (22:00)
[2016-05-27] MEDS: FAMOTIDINE INJ/PF 20 MG/2 ML SDV IV SCH (22:59)
[2016-05-28] MEDS: METHYLPREDNISOLONE INJ 40 MG/1 ML SDV IV SCH ×2 (02:00→09:03)
[2016-05-28 02:32] LABS: CREATINE KINASE MB 0.41 ng/mL (<4.55)
[2016-05-28 02:36] LABS: TROPONIN I < 0.012 ng/mL
[2016-05-28] MEDS: INSULIN LISPRO 100 UNIT/ML 3 ML VIAL SUBCUT PRN ×2 (02:42→12:54)
[2016-05-28] MEDS ORDERED: ENOXAPARIN SODIUM INJ 40 MG/0.4 ML DISP.SYRIN SUBCUT SCH (08:00)
[2016-05-28 08:01] LABS: ABSOLUTE LYMPHOCYTES (AUTO) 0.5 10^3/uL (0.5-4.7); ABSOLUTE MONOCYTES (AUTO) 0.2 10^3/uL (0.1-1.4); ABSOLUTE NEUT (AUTO) 6.7 10^3/uL (1.7-8.2); BASOPHILS % (AUTO) 0.1 % (0-2); HEMATOCRIT 38.9 % (36.0-47.0); HGB HCT DIFFERENCE -2.9; LYMPHOCYTES % (AUTO) 7.1 % (13-45); MEAN CORPUSCULAR HEMOGLOBIN 22.6 pg (27.0-33.4); MEAN CORPUSCULAR HGB CONC 30.8 g/dL (32.0-36.0); MEAN CORPUSCULAR VOLUME 73 fl (80-97); MONOCYTES % (AUTO) 2.2 % (3-13); SEGMENTED NEUTROPHILS % (AUTO) 90.6 % (42-78); WHITE BLOOD COUNT 7.4 10^3/uL (4.0-10.5)
[2016-05-28 08:24] LABS: ALANINE AMINOTRANSFERASE 25 U/L (9-52); ALBUMIN 3.8 g/dL (3.5-5.0); ALKALINE PHOSPHATASE 68 U/L (38-126); ANION GAP 12 (5-19); ASPARTATE AMINO TRANSFERASE 13 U/L (14-36); BILIRUBIN,DIRECT 0.3 mg/dL (0.0-0.4); BILIRUBIN,TOTAL 0.4 mg/dL (0.2-1.3); BLOOD UREA NITROGEN 20 mg/dL (7-20); CALCIUM 9.8 mg/dL (8.4-10.2); CARBON DIOXIDE 34 mmol/L (22-30); CHLORIDE 101 mmol/L (98-107); CREATININE RESULT 0.58 mg/dL (0.52-1.25); GLUCOSE 127 mg/dL (75-110); POTASSIUM 5.3 mmol/L (3.6-5.0); SODIUM 146.9 mmol/L (137-145); TOTAL PROTEIN 7.1 g/dL (6.3-8.2)
[2016-05-28 08:32] LABS: CREATINE KINASE MB 0.33 ng/mL (<4.55)
[2016-05-28 08:37] LABS: TROPONIN I < 0.012 ng/mL
[2016-05-28] MEDS: FAMOTIDINE INJ/PF 20 MG/2 ML SDV IV SCH (09:04)
[2016-05-28] MEDS ORDERED: 1/2 NORMAL SALINE 1,000 ML IV PRN (11:39)
--- NOTE | 2016-05-28 11:51 | PDOC PROGRESS REPORT ---
Subjective Progress Note for:: 05/28/16 Subjective:: Patient voiced no complaints but sleepy and lethargic. He remained on the BiPAP. Patient got agitated last night after Narcan was given. No reported respiratory distress, temperature spikes, nausea or vomiting, nor diarrhea. Physical Exam Vital Signs: Temp Pulse Resp BP Pulse Ox 97.6 F 77 18 129/59 H 98 05/28/16 07:43 05/28/16 07:43 05/28/16 07:43 05/28/16 07:43 05/28/16 07:43 Intake & Output 05/27/16 05/28/16 05/29/16 06:59 06:59 06:59 Intake Total 5 Output Total 300 Balance -295 Weight 100.2 kg General appearance: PRESENT: no acute distress, morbidly obese, other - On BiPAP Head exam: PRESENT: normocephalic Eye exam: PRESENT: conjunctiva pink Mouth exam: PRESENT: moist, neck supple Neck exam: ABSENT: JVD Respiratory exam: PRESENT: decreased breath sounds. ABSENT: rhonchi, unlabored , wheezes Cardiovascular exam: PRESENT: RRR. ABSENT: gallop GI/Abdominal exam: PRESENT: hypoactive bowel sounds, soft. ABSENT: distended, tenderness Extremities exam: ABSENT: pedal edema Neurological exam: PRESENT: altered - Lethargic but arousable Skin exam: PRESENT: dry, warm. ABSENT: cyanosis Results Laboratory Results: 05/28/16 07:27 05/28/16 07:27 05/27/16 05/28/16 05/28/16 20:54 07:27 07:27 WBC 7.4 RBC 5.30 H Hgb 12.0 Hct 38.9 MCV 73 L MCH 22.6 L MCHC 30.8 L RDW 20.0 H Plt Count 311 Seg Neutrophils % 90.6 H Lymphocytes % 7.1 L Monocytes % 2.2 L Eosinophils % 0.0 Basophils % 0.1 Absolute Neutrophils 6.7 Absolute Lymphocytes 0.5 Absolute Monocytes 0.2 Absolute Eosinophils 0.0 Absolute Basophils 0.0 Carbonic Acid 2.44 H HCO3/H2CO3 Ratio 14:1 ABG pH 7.25 L ABG pCO2 81.0 H* ABG pO2 78.4 L ABG HCO3 34.8 H ABG O2 Saturation 92.9 L ABG Base Excess 5.0 FiO2 40% Sodium 146.9 H Potassium 5.3 H Chloride 101 Carbon Dioxide 34 H Anion Gap 12 BUN 20 Creatinine 0.58 Est GFR ( Amer) > 60 Est GFR (Non-Af Amer) > 60 Glucose 127 H Calcium 9.8 Total Bilirubin 0.4 AST 13 L ALT 25 Alkaline Phosphatase 68 Total Protein 7.1 Albumin 3.8 05/27/16 05/27/16 05/28/16 20:04 20:04 01:55 Creatine Kinase 24 L 23 L CK-MB (CK-2) 0.51 Troponin I < 0.012 05/28/16 05/28/16 05/28/16 01:55 07:27 07:27 Creatine Kinase < 20 L CK-MB (CK-2) 0.41 0.33 Troponin I < 0.012 < 0.012 Impressions: Chest X-Ray 05/27/16 17:23 IMPRESSION: NO ACUTE RADIOGRAPHIC FINDING IN THE CHEST. Assessment & Plan - Diagnosis (1) Acute respiratory failure Qualifiers: Respiratory failure complication: hypercapnia Qualified Code(s): J96.02 - Acute respiratory failure with hypercapnia Is this a current diagnosis for this admission?: Yes (2) COPD exacerbation Is this a current diagnosis for this admission?: Yes (3) Cocaine abuse Is this a current diagnosis for this admission?: Yes (4) Hypernatremia Is this a current diagnosis for this admission?: Yes (5) Hyperkalemia Is this a current diagnosis for this admission?: Yes (6) Anemia Qualifiers: Anemia type: unspecified type Qualified Code(s): D64.9 - Anemia, unspecified Is this a current diagnosis for this admission?: Yes (7) Arthritis Is this a current diagnosis for this admission?: Yes (8) Diabetes Qualifiers: Diabetes mellitus type: type 2 Diabetes mellitus complication status: with unspecified complications Diabetes mellitus terminologist insulin use: without detention use Qualified Code(s): E11.8 - Type 2 diabetes mellitus with unspecified complications Is this a current diagnosis for this admission?: Yes (9) Hypertension Qualifiers: Hypertension type: essential hypertension Qualified Code(s): I10 - Essential (primary) hypertension Is this a current diagnosis for this admission?: Yes (10) Depression Qualifiers: Depression Type: unspecified Qualified Code(s): F32.9 - Major depressive disorder, single episode, unspecified Is this a current diagnosis for this admission?: Yes (11) Hepatitis C Qualifiers: Viral hepatitis chronicity: unspecified Hepatic coma status: without hepatic coma Qualified Code(s): B19.20 - Unspecified viral hepatitis C without hepatic coma Is this a current diagnosis for this admission?: Yes (12) Anemia of chronic disease Is this a current diagnosis for this admission?: Yes (13) Obstructive sleep apnea Is this a current diagnosis for this admission?: Yes (14) Bipolar disorder Qualifiers: Active/Remission status: remission status unspecified Qualified Code (s): F31.9 - Bipolar disorder, unspecified Is this a current diagnosis for this admission?: Yes (15) Diastolic heart failure Qualifiers: Heart failure chronicity: chronic Qualified Code(s): I50.32 - Chronic diastolic (congestive) heart failure Is this a current diagnosis for this admission?: Yes - Time Time Spent with patient: 25-34 minutes - Plan Summary Plan Summary: We will do a follow-up ABG on current setting. Reportedly patient without any sedatives at this time. Mental status improved with Narcan however. And continue antibiotics, steroids, nebulizer. Give Kayexalate, begin gentle IV hydration and recheck electrolytes in the morning. We will continue to monitor.
[2016-05-28] MEDS ORDERED: SODIUM POLYSTYRENE SULFONATE 15 GM/60 ML PO ONE (12:00)
[2016-05-28 12:34] VITALS: BP 148/62
[2016-05-28 13:00] LABS: ARTERIAL BLOOD BASE EXCESS 6.6 mmol/L; ARTERIAL BLOOD O2 SATURATION 97.1 % (94-98)
[2016-05-28] MEDS ORDERED: NICOTINE 21 MG/24 HR PATCH.TD24 TD ONE (13:30)
[2016-05-28] MEDS ORDERED: LEVOFLOXACIN 750 MG/D5W RTU 750 MG/150 ML RTUPB IV SCH (18:00)
--- NOTE | 2016-05-28 18:25 | PDOC DISCHARGE SUMMARY ---
General - Admit/Disc Date/PCP Admission Date/Primary Care Provider: 05/27/16 18:50 BLAYNE CHO, Discharge Date: 05/28/16 - Discharge Diagnosis (1) Acute respiratory failure Is this a current diagnosis for this admission?: Yes (2) COPD exacerbation Is this a current diagnosis for this admission?: Yes (3) Cocaine abuse Is this a current diagnosis for this admission?: Yes (4) Hypernatremia Is this a current diagnosis for this admission?: Yes (5) Hyperkalemia Is this a current diagnosis for this admission?: Yes (6) Anemia Is this a current diagnosis for this admission?: Yes (7) Arthritis Is this a current diagnosis for this admission?: Yes (8) Diabetes Is this a current diagnosis for this admission?: Yes (9) Hypertension Is this a current diagnosis for this admission?: Yes (10) Depression Is this a current diagnosis for this admission?: Yes (11) Hepatitis C Is this a current diagnosis for this admission?: Yes (12) Anemia of chronic disease Is this a current diagnosis for this admission?: Yes (13) Obstructive sleep apnea Is this a current diagnosis for this admission?: Yes (14) Bipolar disorder Is this a current diagnosis for this admission?: Yes (15) Diastolic heart failure Is this a current diagnosis for this admission?: Yes - Additional Information Resuscitation Status: Full Code Home Medications: Albuterol Sulfate [Proair HFA] 1 - 2 puff IH Q4 PRN #1 [email or web address] 02/09/15 Albuterol Sulfate [Proair Hfa Inhalation Aerosol 8.5 gm Mdi] 2 puff IH Q6HP PRN 05/27/16 Carvedilol [Coreg 3.125 mg Tablet] 3.125 mg PO Q12 05/27/16 Escitalopram Oxalate [Lexapro 10 mg Tablet] 10 mg PO QHS 05/27/16 Furosemide [Lasix] 40 mg PO DAILY 05/27/16 Lisinopril [Prinivil 5 mg Tablet] 5 mg PO DAILY 05/27/16 Metformin HCl [Glucophage] 500 mg PO BID 05/27/16 Omeprazole 40 mg PO BIDACBS 05/27/16 Additional Information: Return to the emergency room if symptoms recur or condition worsens History of Present Illness Patient complains of: Shortness of breath History of Present Illness: POLLY CRESPO is a 50 year old female, with history of COPD, cocaine abuse, tobacco abuse presents to the hospital because of shortness of breath for a few days without significant relief from using her nebulizers. The patient abuses cocaine, and continues to smoke. Patient was given Levaquin in the emergency room for possible recurrent pneumonia and was referred for admission. For details please refer to history and physical examination performed by the admitting physician. Hospital Course Hospital Course: The patient initially was admitted to the intensive care unit but downgraded to [facility]. She was started on intravenous steroids, antibiotics, and nebulizers. She was placed on BiPAP as on ABG, carbon dioxide level was high, and her PTH was low. On-call physician gave the patient Narcan and eventually the patient' s mental status from initially which is altered significantly improved. The patient awake and wants to leave the hospital. Patient however decided to stay overnight instead of leaving. The following morning the patient's ABG was repeated and still with some improvement in the pH, and oxygenation, but her PCO2 remained high. Her oxygen was therefore decreased. Subsequently the patient woke up and was awake and alert and oriented. She called her uncle and told her uncle because her up as she was going to be discharged. Eventually when the family arrived in the hospital the patient wants to leave AGAINST MEDICAL ADVICE. Her BiPAP was discontinued and her respiratory status did not worsen. No alteration in level of consciousness was noted. She was counseled to stay but she refused. Family was at bedside and unable to convince the patient as well. Family reports that she does this all the time when she gets admitted to the hospital and symptoms improved somehow. Instruction was given to the family to bring her back to the emergency room if her condition worsens or symptoms recur. Patient eventually left the hospital AGAINST MEDICAL ADVICE. Physical Exam Vital Signs: Temp Pulse Resp BP Pulse Ox 97.2 F 75 254 H 148/62 H 98 05/28/16 11:30 05/28/16 11:30 05/28/16 11:55 05/28/16 11:30 05/28/16 11:55 Intake & Output 05/27/16 05/28/16 05/29/16 06:59 06:59 06:59 Intake Total 5 695 Output Total 300 Balance -295 695 Weight 100.2 kg Patient left the hospital AGAINST MEDICAL ADVICE Results Laboratory Results: 05/28/16 07:27 05/28/16 07:27 05/27/16 05/28/16 05/28/16 20:54 07:27 07:27 WBC 7.4 RBC 5.30 H Hgb 12.0 Hct 38.9 MCV 73 L MCH 22.6 L MCHC 30.8 L RDW 20.0 H Plt Count 311 Seg Neutrophils % 90.6 H Lymphocytes % 7.1 L Monocytes % 2.2 L Eosinophils % 0.0 Basophils % 0.1 Absolute Neutrophils 6.7 Absolute Lymphocytes 0.5 Absolute Monocytes 0.2 Absolute Eosinophils 0.0 Absolute Basophils 0.0 Carbonic Acid 2.44 H HCO3/H2CO3 Ratio 14:1 ABG pH 7.25 L ABG pCO2 81.0 H* ABG pO2 78.4 L ABG HCO3 34.8 H ABG O2 Saturation 92.9 L ABG Base Excess 5.0 FiO2 40% Sodium 146.9 H Potassium 5.3 H Chloride 101 Carbon Dioxide 34 H Anion Gap 12 BUN 20 Creatinine 0.58 Est GFR ( Amer) > 60 Est GFR (Non-Af Amer) > 60 Glucose 127 H Calcium 9.8 Total Bilirubin 0.4 AST 13 L ALT 25 Alkaline Phosphatase 68 Total Protein 7.1 Albumin 3.8 05/28/16 11:55 WBC RBC Hgb Hct MCV MCH MCHC RDW Plt Count Seg Neutrophils % Lymphocytes % Monocytes % Eosinophils % Basophils % Absolute Neutrophils Absolute Lymphocytes Absolute Monocytes Absolute Eosinophils Absolute Basophils Carbonic Acid 2.44 H HCO3/H2CO3 Ratio 14:1 ABG pH 7.27 L ABG pCO2 81.2 H* ABG pO2 108.6 H ABG HCO3 36.4 H ABG O2 Saturation 97.1 ABG Base Excess 6.6 FiO2 45% Sodium Potassium Chloride Carbon Dioxide Anion Gap BUN Creatinine Est GFR ( Amer) Est GFR (Non-Af Amer) Glucose Calcium Total Bilirubin AST ALT Alkaline Phosphatase Total Protein Albumin 05/27/16 05/27/16 05/28/16 20:04 20:04 01:55 Creatine Kinase 24 L 23 L CK-MB (CK-2) 0.51 Troponin I < 0.012 05/28/16 05/28/16 05/28/16 01:55 07:27 07:27 Creatine Kinase < 20 L CK-MB (CK-2) 0.41 0.33 Troponin I < 0.012 < 0.012 Impressions: Chest X-Ray 05/27/16 17:23 IMPRESSION: NO ACUTE RADIOGRAPHIC FINDING IN THE CHEST. Qualifiers PATEINT BEING DISCHARGED WITH ANY OF THE FOLLOWING DIAGNOSIS?: No Plan Discharge Plan: Patient left the hospital AGAINST MEDICAL ADVICE. Advised to see her primary physician in 24-48 hours. Time Spent: Less than 30 Minutes
[2016-05-29] MEDS ORDERED: NICOTINE 21 MG/24 HR PATCH.TD24 TD SCH (10:00)
== END 2016-05-28 15:16 | disposition left against medical advice (07) | DRG 190 ==
LOC: ER 15:53 → EH 18:50 → 3S 05-28 03:47
PROVIDERS: ADMIT Internal Medicine; ATTEND Internal Medicine
PROC: 5A09357 Assistance with Respiratory Ventilation, Less than 24 Consecutive Hours, Continuous Positive Airway Pressure (ICD-10-PCS; principal; 2016-05-27)
PROC: 3E0F73Z Introduction of Anti-inflammatory into Respiratory Tract, Via Natural or Artificial Opening (ICD-10-PCS; 2016-05-28)
DX: J44.1 Chronic obstructive pulmonary disease with (acute) exacerbation (principal); J96.02 Acute respiratory failure with hypercapnia; E87.0 Hyperosmolality and hypernatremia; I50.32 Chronic diastolic (congestive) heart failure; F14.10 Cocaine abuse, uncomplicated; E87.6 Hypokalemia; M19.90 Unspecified osteoarthritis, unspecified site; B19.20 Unspecified viral hepatitis C without hepatic coma; D63.8 Anemia in other chronic diseases classified elsewhere; G47.33 Obstructive sleep apnea (adult) (pediatric); F31.9 Bipolar disorder, unspecified; I11.0 Hypertensive heart disease with heart failure; E11.8 Type 2 diabetes mellitus with unspecified complications; F17.210 Nicotine dependence, cigarettes, uncomplicated; J45.909 Unspecified asthma, uncomplicated; F41.9 Anxiety disorder, unspecified; D50.9 Iron deficiency anemia, unspecified; Z53.21 Procedure and treatment not carried out due to patient leaving prior to being seen by health care provider; Z79.899 Other long term (current) drug therapy; Z90.710 Acquired absence of both cervix and uterus; Z82.5 Family history of asthma and other chronic lower respiratory diseases
CPT/HCPCS: 36415; 36600; 71010; 80053; 80307; 81001; 82550; 82553; 82803; 82962; 84484; 85025; 87040; 93005; 93010; 94640; 94660; 96365; 96375; 99285; J1650; J1815; J1956; J2310; J2920; J2930; J3490; J7620; S0028

== ENCOUNTER 2016-07-21 10:30 | Emergency (ER) | payer MEDICAID ==
--- NOTE | 2016-07-21 10:57 | ER Document Report ---
ED General - General Stated Complaint: SHORTNESS OF BREATH Time Seen by Provider: 07/21/16 10:38 Mode of Arrival: Medic Information source: Patient, [facility] Records Notes: This is a 50-year-old female with a history of oxygen-dependent COPD, ongoing tobacco use, and substance abuse including cocaine as recently as yesterday, among other medical problems, who presents after an episode of breathing difficulty. Patient states that she fell asleep on her recliner without her CPAP machine last night. She states that this morning her roommate had to wake her up because she "stopped breathing". Her roommate placed her CPAP machine on her and gave her a neb treatment and she began breathing better. On EMS arrival she was not wheezing and she did not receive another neb in route. Patient states that she was breathing much better now and her only complaint at this time is that of a headache for the past 2 days. She denies any fevers or chills. No nausea or vomiting. No change in vision. No neck pain or stiffness. No paresthesias or weakness. Of note she was last admitted on May 27 for COPD exacerbation and left the next day AGAINST MEDICAL ADVICE. TRAVEL OUTSIDE OF THE [place] IN LAST 30 DAYS: No - Related Data Allergies/Adverse Reactions: No Known Allergies Allergy (Verified 09/16/15 05:50) Past Medical History - General Information source: [facility] Records - Social History Smoking Status: Current Every Day Smoker Frequency of alcohol use: Rare Drug Abuse: Cocaine Lives with: Friend Family History: Reviewed & Not Pertinent, Other - Mother with COPD - Past Medical History Cardiac Medical History: Reports: Hx Congestive Heart Failure, Hx Hypertension Pulmonary Medical History: Reports: Hx Asthma, Hx Bronchitis, Hx COPD, Hx Pneumonia, Hx Intubation, Hx Respiratory Failure, Hx Sleep Apnea Endocrine Medical History: Reports: Hx Diabetes Mellitus Type 2 GI Medical History: Reports: Hx Hepatitis - HEP-C Musculoskeltal Medical History: Reports Hx Arthritis Skin Medical History: Reports Hx Cellulitis Psychiatric Medical History: Reports: Hx Anxiety, Hx Bipolar Disorder, Hx Depression Infectious Medical History: Reports: Hx Hepatitis - HEP-C Past Surgical History: Reports: Hx Cardiac Catheterization, Hx Hysterectomy - Immunizations Immunizations up to date: Yes Hx Diphtheria, Pertussis, Tetanus Vaccination: Yes Hx Pneumococcal Vaccination: 04/10/10 Review of Systems - Review of Systems Notes: REVIEW OF SYSTEMS: CONSTITUTIONAL : Denies fever, chills, or sweats. Denies recent illness. EENT: Denies eye, ear, throat, or mouth pain or symptoms. Denies nasal or sinus congestion. CARDIOVASCULAR: Denies chest pain. RESPIRATORY: As per history of present illness GASTROINTESTINAL: Denies abdominal pain. Denies nausea, vomiting, or diarrhea. Denies constipation. GENITOURINARY: Denies difficulty urinating, painful urination, burning, frequency, or blood in urine. MUSCULOSKELETAL: Denies neck or back pain or joint pain or swelling. SKIN: Denies rash or skin lesions. HEMATOLOGIC : Denies easy bruising or bleeding. LYMPHATIC: Denies swollen, enlarged glands. NEUROLOGICAL: As per history of present illness PSYCHIATRIC: Denies anxiety or stress or depression. ALL OTHER SYSTEMS REVIEWED AND NEGATIVE. Physical Exam - Vital signs Vitals: Resp 11 L 07/21/16 10:41 - Notes Notes: PHYSICAL EXAMINATION: GENERAL: Well-appearing, well-nourished and in no acute distress. Alert, conversant in full sentences without dyspnea HEAD: Atraumatic, normocephalic. EYES: Pupils equal round and reactive to light, extraocular movements intact, sclera anicteric, conjunctiva are normal. ENT: nares patent, oropharynx clear without exudates. Moist mucous membranes. NECK: Normal range of motion, supple without lymphadenopathy LUNGS: Breath sounds clear to auscultation bilaterally and equal. No wheezes rales or rhonchi. HEART: Regular rate and rhythm without murmurs ABDOMEN: Soft, obese, nontender, normoactive bowel sounds. No guarding, no rebound. No masses appreciated. EXTREMITIES: Normal range of motion. No edema. NEUROLOGICAL: Cranial nerves grossly intact. Normal speech. No gross focal motor or sensory deficits appreciated. PSYCH: Normal mood, normal affect. Course - Re-evaluation Re-evalutation: 07/21/16 13:22 Patient states that she has already called her cab and she is ready to go. Discussed results of head CT and labwork which is reassuring. Again had discussion regarding the ongoing tobacco and cocaine abuse... she is resistant to changing this lifestyle and states that "all of my medical problems cannot be blamed just on cocaine". We discussed dangers of drug use. She is to follow up PCP. Return precautions discussed. - Vital Signs Vital signs: Temp Pulse Resp BP Pulse Ox 98.0 F 79 27 H 140/103 H 96 07/21/16 10:51 07/21/16 10:51 07/21/16 12:14 07/21/16 12:14 07/21/16 12:14 - Laboratory Result Diagrams: 07/21/16 10:40 07/21/16 10:40 Laboratory results interpreted by me: 07/21/16 07/21/16 10:40 10:40 Hgb 11.7 L Hct 35.7 L MCV 74 L MCH 24.3 L RDW 20.4 H Seg Neutrophils % 79.1 H Carbon Dioxide 31 H BUN 23 H Glucose 125 H Discharge - Discharge Clinical Impression: Noncompliance, Cocaine abuse COPD (chronic obstructive pulmonary disease) Qualifiers: COPD type: unspecified COPD Qualified Code(s): J44.9 - Chronic obstructive pulmonary disease, unspecified Condition: Stable Disposition: HOME, SELF-CARE Additional Instructions: HEADACHE: The physician does not feel that the headache you are experiencing has a serious underlying cause. Most headaches are due to emotional stress, with resultant muscle tension (tension headache). Occasionally, headaches are secondary to changes in the blood vessels of the scalp (vascular headache and migraine headache). Sometimes, a headache is the first symptom of another developing illness, such as a viral infection. You have no evidence of stroke, bleeding, meningitis, or other serious cause of your headache. The treatment of headaches varies with the severity and cause of the pain. Not all headaches need pain shots. In fact, there is evidence that using narcotics for headaches may make them worse in the long run. The physician will determine the therapy that's in your best interest. If you develop a fever, if the headache is different from any you've previously experienced, or if the headache progressively worsens, then call your physician at once or go to the emergency room. Chronic Obstructive Lung Disease You have chronic obstructive lung disease (COPD). The symptoms come from emphysema (damage to small airways, with trapping of air in large sacks in the lung) and chronic bronchitis (repeated infection and damage to larger airways). The cause is almost always cigarette smoking, although dust exposure, asthma, and infections contribute. You should avoid fumes, dust, and smoke (especially tobacco smoke). Your condition will flare from time to time. There is no cure, but the symptoms can be treated. Bronchodilators (asthma medicine) are often helpful. Antibiotics help when infection is present. When shortness of breath is severe, we may prescribe cortisone medication. If medicine doesn't help enough, we can arrange for you to have an oxygen tank at home. Notify your doctor at once if sputum becomes thick, foul, or bloody, if you develop a fever or chest pain, or if your shortness of breath worsens. SMOKING: If you smoke, you should stop smoking. The tar and chemicals in cigarette smoke are harmful. Smoking has been shown to cause: emphysema chronic bronchitis lung cancer mouth and throat cancer stomach and pancreas cancer premature aging defects In addition, smoking increases ear and lung infections in children of smokers. FOLLOW-UP CARE: If you have been referred to a physician for follow-up care, call the physician s office for an appointment as you were instructed or within the next two days. If you experience worsening or a significant change in your symptoms, notify the physician immediately or return to the Emergency Department at any time for re-evaluation. Referrals: BLAYNE CHO, [Primary Care Provider] - Follow up tomorrow
[2016-07-21 11:04] LABS: ABSOLUTE EOSINOPHILS # (AUTO) 0.1 10^3/uL (0.0-0.6); ABSOLUTE LYMPHOCYTES (AUTO) 1.3 10^3/uL (0.5-4.7); ABSOLUTE MONOCYTES (AUTO) 0.5 10^3/uL (0.1-1.4); ABSOLUTE NEUT (AUTO) 7.1 10^3/uL (1.7-8.2); BASOPHILS % (AUTO) 0.2 % (0-2); HEMATOCRIT 35.7 % (36.0-47.0); HEMOGLOBIN 11.7 g/dL (12.0-15.5); HGB HCT DIFFERENCE -0.6; LYMPHOCYTES % (AUTO) 14.1 % (13-45); MEAN CORPUSCULAR HEMOGLOBIN 24.3 pg (27.0-33.4); MEAN CORPUSCULAR HGB CONC 32.7 g/dL (32.0-36.0); MEAN CORPUSCULAR VOLUME 74 fl (80-97); MONOCYTES % (AUTO) 5.6 % (3-13); RED CELL DISTRIBUTION WIDTH 20.4 % (11.5-14.0); SEGMENTED NEUTROPHILS % (AUTO) 79.1 % (42-78)
[2016-07-21 11:20] LABS: ALANINE AMINOTRANSFERASE 23 U/L (9-52); ALBUMIN 3.5 g/dL (3.5-5.0); ALKALINE PHOSPHATASE 69 U/L (38-126); ANION GAP 7 (5-19); ASPARTATE AMINO TRANSFERASE 17 U/L (14-36); BILIRUBIN,DIRECT 0.4 mg/dL (0.0-0.4); BILIRUBIN,TOTAL 0.6 mg/dL (0.2-1.3); BLOOD UREA NITROGEN 23 mg/dL (7-20); CALCIUM 9.1 mg/dL (8.4-10.2); CARBON DIOXIDE 31 mmol/L (22-30); CHLORIDE 102 mmol/L (98-107); GLUCOSE 125 mg/dL (75-110); POTASSIUM 4.2 mmol/L (3.6-5.0); SODIUM 140.1 mmol/L (137-145); TOTAL PROTEIN 6.7 g/dL (6.3-8.2)
--- NOTE | 2016-07-21 11:46 | EKG REPORT ---
SEVERITY:- BORDERLINE ECG - SINUS RHYTHM BORDERLINE T ABNORMALITIES, ANTERIOR LEADS : Confirmed by: Jacob Garrison 21-Jul-2016 11:44:39
[2016-07-21 13:08] LABS: URINE BARBITURATES SCREEN NEGATIVE; URINE METHADONE SCREEN NEGATIVE; URINE OPIATES LOW NEGATIVE; URINE PHENCYCLIDINE SCREEN NEGATIVE
[2016-07-21 19:35] VITALS: BP 164/93
== END 2016-07-21 14:20 | disposition home or self-care (01) ==
LOC: ER 10:30
DX: J44.9 Chronic obstructive pulmonary disease, unspecified (principal); Z99.81 Dependence on supplemental oxygen; Z91.19 Patient's noncompliance with other medical treatment and regimen; F14.10 Cocaine abuse, uncomplicated; R51 Headache; E11.9 Type 2 diabetes mellitus without complications; F17.200 Nicotine dependence, unspecified, uncomplicated
CPT/HCPCS: 36415; 70450; 71010; 80053; 80307; 85025; 87040; 93005; 93010; 99285

== ENCOUNTER 2016-10-03 18:45 | Emergency (ER) | payer MEDICAID ==
[2016-10-03 18:52] VITALS: BP 139/82
[2016-10-03] MEDS ORDERED: MUPIROCIN 2% OINTMENT 22 GM TP ONE (19:12)
[2016-10-03] MEDS ORDERED: CEPHALEXIN 500 MG CAPSULE PO ONE (19:12)
[2016-10-03] MEDS ORDERED: SULFAMETHOXAZOLE/TRIMETHOPRIM 800-160 MG TABLET PO ONE (19:12)
--- NOTE | 2016-10-03 19:18 | ER Document Report ---
HPI - HPI Patient complains to provider of: skin wounds Onset: Other - 2 wks Onset/Duration: Persistent Quality of pain: Burning Pain Level: 5 Context: Complains of skin wounds to her axilla and right breast. Patient states she has had these for the past 2 weeks. 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 Patient states that she does use cocaine and is concerned that her skin looks like "sheep goat", she explains is a skin condition that people develop after using cocaine that has been cut with other substances. States that she has not tested positive for MRSA in the past. Associated Symptoms: Other - Skin wounds Exacerbated by: Denies Relieved by: Denies Similar symptoms previously: Yes Recently seen / treated by doctor: Yes - ROS ROS below otherwise negative: Yes Systems Reviewed and Negative: Yes All other systems reviewed and negative - CONSTITUTIONAL Constitutional: REPORTS: Fever. DENIES: Chills - CARDIOVASCULAR Cardiovascular: DENIES: Chest pain - RESPIRATORY Respiratory: DENIES: Coughing - GASTROINTESTINAL Gastrointestinal: DENIES: Nausea - REPRODUCTIVE Reproductive: DENIES: : - DERM Skin Color: Normal Notes: skin wounds Past Medical History - General Information source: Patient - Social History Smoking Status: Current Every Day Smoker Chew tobacco use (# tins/day): No Frequency of alcohol use: None Drug Abuse: Cocaine Occupation: none Family History: Reviewed & Not Pertinent, Other - Mother with COPD - Past Medical History Cardiac Medical History: Reports: Hx Congestive Heart Failure, Hx Hypertension Pulmonary Medical History: Reports: Hx Asthma, Hx Bronchitis, Hx COPD, Hx Pneumonia, Hx Intubation, Hx Respiratory Failure, Hx Sleep Apnea Endocrine Medical History: Reports: Hx Diabetes Mellitus Type 2 Renal/ Medical History: Denies: Hx Peritoneal Dialysis GI Medical History: Reports: Hx Hepatitis - HEP-C Musculoskeltal Medical History: Reports Hx Arthritis Skin Medical History: Reports Hx Cellulitis Psychiatric Medical History: Reports: Hx Anxiety, Hx Bipolar Disorder, Hx Depression Infectious Medical History: Reports: Hx Hepatitis - HEP-C Past Surgical History: Reports: Hx Cardiac Catheterization, Hx Hysterectomy - Immunizations Immunizations up to date: Yes Hx Diphtheria, Pertussis, Tetanus Vaccination: Yes Hx Pneumococcal Vaccination: 04/10/10 Vertical Provider Document - CONSTITUTIONAL Agree With Documented VS: Yes Exam Limitations: No Limitations General Appearance: WD/WN, No Apparent Distress - INFECTION CONTROL TRAVEL OUTSIDE OF THE [place] IN LAST 30 DAYS: No - HEENT HEENT: Atraumatic, Normocephalic - NECK Neck: Normal Inspection - RESPIRATORY Respiratory: Breath Sounds Normal, No Respiratory Distress O2 Sat by Pulse Oximetry: 96 - CARDIOVASCULAR Cardiovascular: Regular Rate, Regular Rhythm, No Murmur - BACK Back: Normal Inspection - MUSCULOSKELETAL/EXTREMETIES Musculoskeletal/Extremeties: CYDNEY MORIN - NEURO Level of Consciousness: Awake, Alert, Appropriate Motor/Sensory: No Motor Deficit - DERM Integumentary: Warm, Dry. negative: Abscess Adult Front & Back Diagram: 1 - open skin wound with honey colored crust Notes: Patient with bilateral axilla with multiple wounds in various stages of healing , no drainable abscess, no concern for cellulitis Course - Re-evaluation Re-evalutation: 10/03/16 19:15 Patient advised that the wound to her breast is not concerning for any kind of drainable abscess. Patient advised that she will need to follow-up with her primary doctor to reevaluate this wound as well as to be evaluated for possible outpatient mammogram. Patient advised that certain types of breast cancer can have atypical presentation and that she should see her primary doctor for further evaluation. Pt encouraged to abstain from using cocaine. - Vital Signs Vital signs: Temp Pulse Resp BP Pulse Ox 99.0 F 75 24 H 139/82 H 96 10/03/16 18:51 10/03/16 18:51 10/03/16 18:51 10/03/16 18:51 10/03/16 18:51 Discharge - Discharge Clinical Impression: Cocaine abuse, Multiple wounds of skin, Impetigo Disposition: HOME, SELF-CARE Instructions: Bactroban Ointment ([facility]), Impetigo ([facility]), Cephalexin ([facility]), Trimethoprim-Sulfa ([facility]) Additional Instructions: Return immediately for any new or worsening symptoms Followup with your primary care provider, call tomorrow to make a followup appointment. Your doctor can give you orders for outpatient mammogram. Avoid using cocaine Keep wound covered with a nonadherent dressing while it continues to heal You may take Tylenol or Motrin [id number] to help with your pain symptoms Prescriptions: Cephalexin Monohydrate [Keflex 500 mg Capsule] 500 mg PO Q6H 5 Days Mupirocin [Bactroban 2% Ointment 22 gm] 1 applic TP TID #22 gm Sulfamethoxazole/Trimethoprim [Bactrim Ds Tablet] 1 each PO BID #20 tablet Referrals: BLAYNE CHO DO [NO LOCAL MD] - Follow up tomorrow YONG YUSUF DO [ACTIVE STAFF] - Follow up in 3-5 days
== END 2016-10-03 19:15 | disposition home or self-care (01) ==
LOC: ER 18:45
DX: L01.00 Impetigo, unspecified (principal); F14.10 Cocaine abuse, uncomplicated; F17.200 Nicotine dependence, unspecified, uncomplicated; I10 Essential (primary) hypertension; J44.9 Chronic obstructive pulmonary disease, unspecified; E11.9 Type 2 diabetes mellitus without complications
CPT/HCPCS: 99283; J3490 ×2

== ENCOUNTER 2016-10-17 05:43 | Inpatient (IN) | payer MEDICAID ==
[2016-10-17] MEDS ORDERED: METHYLPREDNISOLONE INJ 125 MG/2 ML SDV ONE (05:59)
[2016-10-17] MEDS ORDERED: IPRATROPIUM/ALBUTEROL 0.5-2.5 MG/3 ML AMPUL NEB ONE ×4 (05:59→06:33)
[2016-10-17] MEDS ORDERED: METHYLPREDNISOLONE INJ 125 MG/2 ML SDV IV ONE (06:00)
[2016-10-17] MEDS ORDERED: ALBUTEROL SULFATE 0.083% NEB 2.5 MG/3 ML AMPUL NEB SCH ×2 (06:15→14:00)
[2016-10-17 06:24] LABS: ABSOLUTE EOSINOPHILS # (AUTO) 0.2 10^3/uL (0.0-0.6); ABSOLUTE LYMPHOCYTES (AUTO) 1.8 10^3/uL (0.5-4.7); ABSOLUTE MONOCYTES (AUTO) 0.6 10^3/uL (0.1-1.4); ABSOLUTE NEUT (AUTO) 5.8 10^3/uL (1.7-8.2); BASOPHILS % (AUTO) 0.3 % (0-2); EOSINOPHILS % (AUTO) 2.2 % (0-6); HEMATOCRIT 35.9 % (36.0-47.0); HEMOGLOBIN 11.5 g/dL (12.0-15.5); HGB HCT DIFFERENCE -1.4; LYMPHOCYTES % (AUTO) 21.2 % (13-45); MEAN CORPUSCULAR HEMOGLOBIN 25.5 pg (27.0-33.4); MEAN CORPUSCULAR HGB CONC 32.1 g/dL (32.0-36.0); MEAN CORPUSCULAR VOLUME 80 fl (80-97); MONOCYTES % (AUTO) 6.7 % (3-13); RED BLOOD COUNT 4.51 10^6/uL (3.72-5.28); RED CELL DISTRIBUTION WIDTH 18.9 % (11.5-14.0); SEGMENTED NEUTROPHILS % (AUTO) 69.6 % (42-78); WHITE BLOOD COUNT 8.3 10^3/uL (4.0-10.5)
--- NOTE | 2016-10-17 06:32 | ER Document Report ---
ED General - General Chief Complaint: Respiratory Distress Stated Complaint: TROUBLE BREATHING Time Seen by Provider: 10/17/16 06:07 Mode of Arrival: Medic Information source: Patient Notes: 50-year-old female history of chronic respiratory issues presents in respiratory distress. Patient notes she has been unable to breathe for past 20 minutes. Patient noted to be hypoxic, tachypneic tachycardic . Pt admits to recent cocaine use. Patient states her cough is productive is unable to explain color of sputum TRAVEL OUTSIDE OF THE [place] IN LAST 30 DAYS: No - HPI Onset: Just prior to arrival Onset/Duration: Sudden Quality of pain: Achy Severity: Severe Pain Level: 1 Associated symptoms: Productive cough, Shortness of breath Exacerbated by: Coughing, Deep breathing Relieved by: Denies Similar symptoms previously: Yes Recently seen / treated by doctor: Yes - Related Data Allergies/Adverse Reactions: No Known Allergies Allergy (Verified 10/17/16 05:44) Past Medical History - Social History Smoking Status: Current Every Day Smoker Cigarette use (# per day): Yes Chew tobacco use (# tins/day): No Smoking Education Provided: Yes Frequency of alcohol use: None Drug Abuse: Cocaine Family History: Reviewed & Not Pertinent, Other - Mother with COPD - Past Medical History Cardiac Medical History: Reports: Hx Congestive Heart Failure, Hx Hypertension Pulmonary Medical History: Reports: Hx Asthma, Hx Bronchitis, Hx COPD, Hx Pneumonia, Hx Intubation, Hx Respiratory Failure, Hx Sleep Apnea Endocrine Medical History: Reports: Hx Diabetes Mellitus Type 2 Renal/ Medical History: Denies: Hx Peritoneal Dialysis GI Medical History: Reports: Hx Hepatitis - HEP-C Musculoskeltal Medical History: Reports Hx Arthritis Skin Medical History: Reports Hx Cellulitis Psychiatric Medical History: Reports: Hx Anxiety, Hx Bipolar Disorder, Hx Depression Infectious Medical History: Reports: Hx Hepatitis - HEP-C Past Surgical History: Reports: Hx Cardiac Catheterization, Hx Hysterectomy - Immunizations Immunizations up to date: Yes Hx Diphtheria, Pertussis, Tetanus Vaccination: Yes Hx Pneumococcal Vaccination: 04/10/10 Review of Systems - Review of Systems Notes: REVIEW OF SYSTEMS: CONSTITUTIONAL : Denies fever, chills, or sweats. Denies recent illness. EENT: Denies eye, ear, throat, or mouth pain or symptoms. Denies nasal or sinus congestion or discharge. Denies throat, tongue, or mouth swelling or difficulty swallowing. CARDIOVASCULAR: Denies chest pain. Denies palpitations or racing or irregular heart beat. Denies ankle edema. RESPIRATORY: Admits to shortness of breath difficulty breathing coarse cough GASTROINTESTINAL: Denies abdominal pain or distention. Denies nausea, vomiting , or diarrhea. Denies blood in vomitus, stools, or per rectum. Denies black, tarry stools. Denies constipation. GENITOURINARY: Denies difficulty urinating, painful urination, burning, frequency, blood in urine, or discharge. FEMALE GENITOURINARY: Denies vaginal bleeding, heavy or abnormal periods, irregular periods. Denies vaginal discharge or odor. MUSCULOSKELETAL: Denies back or neck pain or stiffness. Denies joint pain or swelling. SKIN: Denies rash, lesions or sores. HEMATOLOGIC : Denies easy bruising or bleeding. LYMPHATIC: Denies swollen, enlarged glands. NEUROLOGICAL: Denies confusion or altered mental status. Denies passing out or loss of consciousness. Denies dizziness or lightheadedness. Denies headache. Denies weakness or paralysis or loss of use of either side. Denies problems with gait or speech. Denies sensory loss, numbness, or tingling. Denies seizures. PSYCHIATRIC: Denies anxiety or stress. Denies depression, suicidal ideation, or homicidal ideation. ALL OTHER SYSTEMS REVIEWED AND NEGATIVE. PHYSICAL EXAMINATION: GENERAL:chronically ill appearing and in significant resp distress. HEAD: Atraumatic, normocephalic. EYES: Pupils equal round and reactive to light, extraocular movements intact, conjunctiva are normal. ENT: Nares patent, oropharynx clear without exudates. Moist mucous membranes. NECK: Normal range of motion, supple without lymphadenopathy LUNGS: Intercostal and subclavicular retractions noted significant respiratory distress immediately placed on BiPAP coarse rhonchi all throughout HEART: Regular rate and rhythm without murmurs ABDOMEN: Soft, nontender, nondistended abdomen. No guarding, no rebound. No masses appreciated. Female : deferred Musculoskeletal: Normal range of motion, no pitting or edema. No cyanosis. NEUROLOGICAL: Cranial nerves grossly intact. Normal speech, normal gait. Normal sensory, motor exams PSYCH: Normal mood, normal affect. SKIN: Warm, Dry, normal turgor, no rashes or lesions noted. Dictation was performed using [employer] recognition software Physical Exam - Vital signs Vitals: Temp Pulse Resp BP Pulse Ox 98.6 F 106 H 26 H 121/73 88 L 10/17/16 05:44 10/17/16 05:44 10/17/16 05:44 10/17/16 05:44 10/17/16 05:44 Course - Re-evaluation Re-evalutation: 10/17/16 06:32 Patient was immediately placed on BiPAP, overall ill-appearing chronic female in significant respiratory distress 10/17/16 06:32 10/17/16 07:40 Patient will be admitted for COPD exacerbation on BiPAP - Vital Signs Vital signs: Temp Pulse Resp BP Pulse Ox 98.5 F 83 17 138/70 H 97 10/17/16 06:23 10/17/16 06:23 10/17/16 07:03 10/17/16 07:03 10/17/16 07:03 - Laboratory Result Diagrams: 10/17/16 06:12 10/17/16 06:12 Laboratory results interpreted by me: 10/17/16 10/17/16 10/17/16 06:12 06:12 07:05 Hgb 11.5 L Hct 35.9 L MCH 25.5 L RDW 18.9 H Carbon Dioxide 31 H BUN 22 H Glucose 155 H AST 13 L Urine Blood SMALL H - Diagnostic Test Radiology reviewed: Image reviewed, Reports reviewed - EKG Interpretation by Me EKG shows normal: Sinus rhythm, Beatrice, Intervals, QRS Complexes Critical Care Note - Critical Care Note Total time excluding time spent on procedures (mins): 34 Comments: 34 minutes of critical care time spent in direct contact evaluating and reevaluating the patient, treating symptoms, reviewing labs and studies and speaking with family and consultants excluding any procedures Discharge - Discharge Clinical Impression: Tobacco abuse, Cocaine abuse, Obstructive chronic bronchitis with exacerbation Acute and chronic respiratory failure Qualifiers: Respiratory failure complication: hypercapnia Qualified Code(s): J96.22 - Acute and chronic respiratory failure with hypercapnia Hepatitis C Qualifiers: Viral hepatitis chronicity: unspecified Hepatic coma status: without hepatic coma Qualified Code(s): B19.20 - Unspecified viral hepatitis C without hepatic coma Condition: Fair Disposition: ADMITTED INPATIENT Admitting Provider: Hospitalist Unit Admitted: [facility]
[2016-10-17 06:37] LABS: VENOUS BLOOD HCO3 29.3 mmol/L (20-32); VENOUS BLOOD PCO2 52.4 mmHg (35-63); VENOUS BLOOD PH 7.37 (7.30-7.42)
[2016-10-17 06:39] LABS: ALANINE AMINOTRANSFERASE 25 U/L (9-52); ALBUMIN 3.7 g/dL (3.5-5.0); ALKALINE PHOSPHATASE 75 U/L (38-126); ANION GAP 9 (5-19); ASPARTATE AMINO TRANSFERASE 13 U/L (14-36); BILIRUBIN,DIRECT 0.3 mg/dL (0.0-0.4); BILIRUBIN,TOTAL 0.4 mg/dL (0.2-1.3); BLOOD UREA NITROGEN 22 mg/dL (7-20); CALCIUM 8.9 mg/dL (8.4-10.2); CARBON DIOXIDE 31 mmol/L (22-30); CHLORIDE 103 mmol/L (98-107); CREATINE KINASE 31 U/L (30-135); CREATININE RESULT 0.64 mg/dL (0.52-1.25); GLUCOSE 155 mg/dL (75-110); POTASSIUM 4.1 mmol/L (3.6-5.0); SODIUM 142.7 mmol/L (137-145); TOTAL PROTEIN 6.6 g/dL (6.3-8.2)
[2016-10-17 06:52] LABS: CREATINE KINASE MB 0.92 ng/mL (<4.55)
[2016-10-17 06:53] LABS: TROPONIN I < 0.012 ng/mL
--- NOTE | 2016-10-17 06:53 | RADIOLOGY REPORT (SQ) ---
EXAM DESCRIPTION: CHEST SINGLE VIEW COMPLETED DATE/TIME: 10/17/2016 6:30 am REASON FOR STUDY: shortness of breath COMPARISON: 07/21/2016. EXAM PARAMETERS: NUMBER OF VIEWS: One view. TECHNIQUE: Single frontal radiographic view of the chest acquired. RADIATION DOSE: NA LIMITATIONS: None. FINDINGS: LUNGS AND PLEURA: With mild interstitial markings. Moderate lung volume. MEDIASTINUM AND HILAR STRUCTURES: No masses. Contour normal. HEART AND VASCULAR STRUCTURES: Heart normal in size. Normal vasculature. BONES: No acute findings. HARDWARE: None in the chest. OTHER: No other significant finding. IMPRESSION: No acute cardiopulmonary findings. TECHNICAL DOCUMENTATION: JOB ID: [id number]
[2016-10-17 07:23] LABS: APPEARANCE,URINE CLEAR; BILIRUBIN,URINE NEGATIVE (NEGATIVE); GLUCOSE, URINE NEGATIVE (NEGATIVE); KETONES,URINE NEGATIVE (NEGATIVE); LEUKOCYTE ESTERASE,URINE NEGATIVE (NEGATIVE); NITRITE,URINE NEGATIVE (NEGATIVE); PROTEIN,URINE NEGATIVE (NEGATIVE); URINE SPECIFIC GRAVITY 1.021; UROBILINOGEN,URINE NEGATIVE mg/dL (<2.0)
[2016-10-17 07:44] LABS: URINE BARBITURATES SCREEN NEGATIVE; URINE METHADONE SCREEN NEGATIVE; URINE OPIATES LOW NEGATIVE; URINE PHENCYCLIDINE SCREEN NEGATIVE
[2016-10-17] MEDS ORDERED: ALBUTEROL SULFATE 0.083% NEB 2.5 MG/3 ML AMPUL NEB PRN (08:07)
[2016-10-17] MEDS ORDERED: GLUCAGON,HUMAN RECOMB 1 MG INJ SUBCUT PRN (08:09)
[2016-10-17] MEDS ORDERED: DEXTROSE 40% GEL 15 GM TUBE PO PRN ×2 (08:09)
[2016-10-17] MEDS ORDERED: DEXTROSE 50%-WATER 25 GM/50 ML DISP.SYRIN IV PRN ×2 (08:09)
[2016-10-17] MEDS ORDERED: ACETAMINOPHEN 325 MG TABLET PO PRN (08:09)
[2016-10-17] MEDS ORDERED: NORMAL SALINE 1000 ML 1,000 ML IV PRN (08:09)
[2016-10-17] MEDS ORDERED: INSULIN LISPRO 100 UNIT/ML 3 ML VIAL SUBCUT PRN ×2 (08:11→11:11)
[2016-10-17] MEDS ORDERED: HYDRALAZINE HCL INJ/PF 20 MG/1 ML SDV IV PRN (08:12)
[2016-10-17] MEDS ORDERED: FAMOTIDINE INJ/PF 20 MG/2 ML SDV IV SCH (10:00)
[2016-10-17] MEDS ORDERED: METHYLPREDNISOLONE INJ 40 MG/1 ML SDV IV SCH (10:00)
--- NOTE | 2016-10-17 13:30 | EKG REPORT ---
SEVERITY:- ABNORMAL ECG - SINUS RHYTHM BORDERLINE R WAVE PROGRESSION, ANTERIOR LEADS PROLONGED QT INTERVAL : Confirmed by: Jacbo Garrison 17-Oct-2016 13:28:26
[2016-10-17] MEDS ORDERED: HEPARIN SOD (PORCINE) 5,000 UNIT/ML 1 ML SYRINGE SUBCUT SCH (14:00)
[2016-10-17 15:03] VITALS: BP 129/62
--- NOTE | 2016-10-17 16:03 | PDOC H&P ---
History of Present Illness Admission Date/PCP: 10/17/16 08:09 BLAYNE CHO DO Patient complains of: Shortness of breath History of Present Illness: POLLY CRESPO is a 50 year old female with past medical history of COPD, tobacco abuse, cocaine abuse, diabetes, hypertension presents with shortness of breath. I cannot obtain much history from patient as she is drowsy and on BiPAP at the time of my visit. Past Medical History Cardiac Medical History: Reports: Congestive Heart Failure, Hypertension Pulmonary Medical History: Reports: Asthma, Bronchitis, Chronic Obstructive Pulmonary Disease (COPD), Intubation, Pneumonia, Respiratory Failure, Sleep Apnea Endocrine Medical History: Reports: Diabetes Mellitus Type 2 GI Medical History: Reports: Hepatitis - HEP-C Musculoskeltal Medical History: Reports: Arthritis Psychiatric Medical History: Reports: Bipolar Disorder, Depression Hematology: Denies: Anemia Past Surgical History Past Surgical History: Reports: Cardiac Catheterization, Hysterectomy Social History Smoking Status: Current Every Day Smoker Frequency of Alcohol Use: Social Hx Recreational Drug Use: Yes Drugs: Cocaine Hx Prescription Drug Abuse: No - Advance Directive Resuscitation Status: Full Code Family History Family History: Other - Mother with COPD Parental Family History Reviewed: Yes Children Family History Reviewed: Yes Sibling(s) Family History Reviewed.: Yes Medication/Allergy Home Medications: Albuterol Sulfate [Proair HFA] 1 - 2 puff IH Q4 PRN #1 [email or web address] 02/09/15 Carvedilol [Coreg 3.125 mg Tablet] 3.125 mg PO Q12 10/17/16 Ipratropium/Albuterol Sulfate [Duoneb 3 ml Ampul] 3 ml NEB RTQID 10/17/16 Lisinopril [Prinivil 5 mg Tablet] 5 mg PO DAILY 10/17/16 Metformin HCl [Glucophage] 500 mg PO BID 10/17/16 Omeprazole 40 mg PO DAILY 10/17/16 Allergies/Adverse Reactions: No Known Allergies Allergy (Verified 10/17/16 05:44) Review of Systems ROS unobtainable: Due to mental status Physical Exam Vital Signs: Temp Pulse Resp BP Pulse Ox 98.4 F 90 20 129/62 H 94 10/17/16 14:55 10/17/16 14:57 10/17/16 14:55 10/17/16 14:55 10/17/16 14:55 Intake & Output 10/16/16 10/17/16 10/18/16 06:59 06:59 06:59 Weight 107.2 kg PHYSICAL EXAM: GENERAL: Drowsy, on BiPAP HEENT: Normocephalic, no scleral icterus, conjunctiva clear, EOEM intact, PERRLA , moist mucous membranes, edentulous NECK: trachea midline, no thyromegally RESPIRATORY: Bilateral inspiratory and expiratory wheezes, bilateral rhonchi. CARDIAC: Regular rate and rhythm, no murmur/marino/rub ABDOMEN: Soft, no distension, no tenderness, no guarding, normal bowel sounds, negative Villa sign RECTAL: deferred : deferred EXTREMITIES: No edema, cyanosis, clubbing MUSCULOSKELETAL: No joint swelling or deformity VASCULAR: normal peripheral pulses NEUROLOGIC: Drowsy, disoriented SKIN: No rash, no wounds, no worrisome skin lesions Results Laboratory Results: Labs- All tests 24 hr 10/17/16 10/17/16 10/17/16 06:12 06:12 06:12 WBC 8.3 RBC 4.51 Hgb 11.5 L Hct 35.9 L MCV 80 MCH 25.5 L MCHC 32.1 RDW 18.9 H Plt Count 270 Seg Neutrophils % 69.6 Lymphocytes % 21.2 Monocytes % 6.7 Eosinophils % 2.2 Basophils % 0.3 Absolute Neutrophils 5.8 Absolute Lymphocytes 1.8 Absolute Monocytes 0.6 Absolute Eosinophils 0.2 Absolute Basophils 0.0 VBG pH VBG pCO2 VBG HCO3 VBG Base Excess Sodium 142.7 Potassium 4.1 Chloride 103 Carbon Dioxide 31 H Anion Gap 9 BUN 22 H Creatinine 0.64 Est GFR ( Amer) > 60 Est GFR (Non-Af Amer) > 60 Glucose 155 H POC Glucose Calcium 8.9 Total Bilirubin 0.4 Direct Bilirubin 0.3 Indirect Bilirubin Not Reportable Neonat Total Bilirubin Not Reportable AST 13 L ALT 25 Alkaline Phosphatase 75 Creatine Kinase 31 CK-MB (CK-2) 0.92 Troponin I < 0.012 NT-Pro-B Natriuret Pep 68 Total Protein 6.6 Albumin 3.7 Urine Color Urine Appearance Urine pH Ur Specific [place] Urine Protein Urine Glucose (UA) Urine Ketones Urine Blood Urine Nitrite Urine Bilirubin Urine Urobilinogen Ur Leukocyte Esterase Urine WBC (Auto) Urine RBC (Auto) Squamous Epi Cells Auto Urine Mucus (Auto) Urine Ascorbic Acid Urine Opiates Screen Urine Methadone Screen Ur Barbiturates Screen Ur Phencyclidine Scrn Ur Amphetamines Screen U Benzodiazepines Scrn Urine Cocaine Screen U Marijuana (THC) Screen 10/17/16 10/17/16 10/17/16 06:12 07:05 07:05 WBC RBC Hgb Hct MCV MCH MCHC RDW Plt Count Seg Neutrophils % Lymphocytes % Monocytes % Eosinophils % Basophils % Absolute Neutrophils Absolute Lymphocytes Absolute Monocytes Absolute Eosinophils Absolute Basophils VBG pH 7.37 VBG pCO2 52.4 VBG HCO3 29.3 VBG Base Excess 3.0 Sodium Potassium Chloride Carbon Dioxide Anion Gap BUN Creatinine Est GFR ( Amer) Est GFR (Non-Af Amer) Glucose POC Glucose Calcium Total Bilirubin Direct Bilirubin Indirect Bilirubin Neonat Total Bilirubin AST ALT Alkaline Phosphatase Creatine Kinase CK-MB (CK-2) Troponin I NT-Pro-B Natriuret Pep Total Protein Albumin Urine Color YELLOW Urine Appearance CLEAR Urine pH 5.0 Ur Specific [place] 1.021 Urine Protein NEGATIVE Urine Glucose (UA) NEGATIVE Urine Ketones NEGATIVE Urine Blood SMALL H Urine Nitrite NEGATIVE Urine Bilirubin NEGATIVE Urine Urobilinogen NEGATIVE Ur Leukocyte Esterase NEGATIVE Urine WBC (Auto) 2 Urine RBC (Auto) 2 Squamous Epi Cells Auto 1 Urine Mucus (Auto) FEW Urine Ascorbic Acid NEGATIVE Urine Opiates Screen NEGATIVE Urine Methadone Screen NEGATIVE Ur Barbiturates Screen NEGATIVE Ur Phencyclidine Scrn NEGATIVE Ur Amphetamines Screen NEGATIVE U Benzodiazepines Scrn NEGATIVE Urine Cocaine Screen UNCONFIRMED POSITIVE U Marijuana (THC) Screen NEGATIVE 10/17/16 09:09 WBC RBC Hgb Hct MCV MCH MCHC RDW Plt Count Seg Neutrophils % Lymphocytes % Monocytes % Eosinophils % Basophils % Absolute Neutrophils Absolute Lymphocytes Absolute Monocytes Absolute Eosinophils Absolute Basophils VBG pH VBG pCO2 VBG HCO3 VBG Base Excess Sodium Potassium Chloride Carbon Dioxide Anion Gap BUN Creatinine Est GFR ( Amer) Est GFR (Non-Af Amer) Glucose POC Glucose 118 H Calcium Total Bilirubin Direct Bilirubin Indirect Bilirubin Neonat Total Bilirubin AST ALT Alkaline Phosphatase Creatine Kinase CK-MB (CK-2) Troponin I NT-Pro-B Natriuret Pep Total Protein Albumin Urine Color Urine Appearance Urine pH Ur Specific [place] Urine Protein Urine Glucose (UA) Urine Ketones Urine Blood Urine Nitrite Urine Bilirubin Urine Urobilinogen Ur Leukocyte Esterase Urine WBC (Auto) Urine RBC (Auto) Squamous Epi Cells Auto Urine Mucus (Auto) Urine Ascorbic Acid Urine Opiates Screen Urine Methadone Screen Ur Barbiturates Screen Ur Phencyclidine Scrn Ur Amphetamines Screen U Benzodiazepines Scrn Urine Cocaine Screen U Marijuana (THC) Screen Impressions: Chest X-Ray 10/17/16 05:49 IMPRESSION: No acute cardiopulmonary findings. Assessment & Plan - Diagnosis (1) Acute and chronic respiratory failure Qualifiers: Respiratory failure complication: hypercapnia Qualified Code(s): J96.22 - Acute and chronic respiratory failure with hypercapnia Is this a current diagnosis for this admission?: YesPlan: Continue BiPAP and oxygen supplementation. (2) COPD exacerbation Is this a current diagnosis for this admission?: YesPlan: IV Solu-Medrol. Nebulizer treatments. (3) Acute encephalopathy Is this a current diagnosis for this admission?: YesPlan: Secondary to acute illness. Supportive care. (4) Cocaine abuse Is this a current diagnosis for this admission?: Yes (5) Hepatitis C Qualifiers: Viral hepatitis chronicity: unspecified Hepatic coma status: without hepatic coma Qualified Code(s): B19.20 - Unspecified viral hepatitis C without hepatic coma Is this a current diagnosis for this admission?: Yes (6) Tobacco abuse Is this a current diagnosis for this admission?: Yes (7) Bipolar disorder Qualifiers: Active/Remission status: remission status unspecified Qualified Code (s): F31.9 - Bipolar disorder, unspecified Is this a current diagnosis for this admission?: Yes (8) Diabetes Qualifiers: Diabetes mellitus type: type 2 Diabetes mellitus complication status: with unspecified complications Diabetes mellitus 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 (9) Noncompliance Is this a current diagnosis for this admission?: Yes - Time Time Spent: Greater than 70 Minutes Anticipated discharge: Home
--- NOTE | 2016-10-17 17:22 | PDOC DISCHARGE SUMMARY ---
General - Admit/Disc Date/PCP Admission Date/Primary Care Provider: 10/17/16 08:09 BLAYNE MARQUIS, Discharge Date: 10/17/16 - Discharge Diagnosis (1) Left against medical advice Is this a current diagnosis for this admission?: Yes (2) Acute and chronic respiratory failure Is this a current diagnosis for this admission?: Yes (3) COPD exacerbation Is this a current diagnosis for this admission?: Yes (4) Acute encephalopathy Is this a current diagnosis for this admission?: Yes (5) Cocaine abuse Is this a current diagnosis for this admission?: Yes (6) Hepatitis C Is this a current diagnosis for this admission?: Yes (7) Tobacco abuse Is this a current diagnosis for this admission?: Yes (8) Bipolar disorder Is this a current diagnosis for this admission?: Yes (9) Diabetes Is this a current diagnosis for this admission?: Yes (10) Noncompliance Is this a current diagnosis for this admission?: Yes - Additional Information Resuscitation Status: Full Code Home Medications: Albuterol Sulfate [Proair HFA] 1 - 2 puff IH Q4 PRN #1 [email or web address].ad 02/09/15 Carvedilol [Coreg 3.125 mg Tablet] 3.125 mg PO Q12 10/17/16 Ipratropium/Albuterol Sulfate [Duoneb 3 ml Ampul] 3 ml NEB RTQID 10/17/16 Lisinopril [Prinivil 5 mg Tablet] 5 mg PO DAILY 10/17/16 Metformin HCl [Glucophage] 500 mg PO BID 10/17/16 Omeprazole 40 mg PO DAILY 10/17/16 History of Present Illness Patient complains of: Shortness of breath History of Present Illness: POLLY CRESPO is a 50 year old female with past medical history of COPD, tobacco abuse, cocaine abuse, diabetes, hypertension presents with shortness of breath. I cannot obtain much history from patient as she is drowsy and on BiPAP at the time of my visit. Hospital Course Hospital Course: Patient admitted for hypoxemic respiratory failure and COPD exacerbation. History of tobacco and cocaine abuse. Frequently leaves AGAINST MEDICAL ADVICE during hospitalization in the past. Patient's condition improved quickly during hospitalization and she decided to leave AGAINST MEDICAL ADVICE again. Physical Exam Vital Signs: Temp Pulse Resp BP Pulse Ox 98.4 F 90 20 129/62 H 92 10/17/16 14:55 10/17/16 14:57 10/17/16 14:55 10/17/16 14:55 10/17/16 16:05 Intake & Output 10/16/16 10/17/16 10/18/16 06:59 06:59 06:59 Weight 107.2 kg Exam not performed as patient left AGAINST MEDICAL ADVICE Results Impressions: Chest X-Ray 10/17/16 05:49 IMPRESSION: No acute cardiopulmonary findings. Plan Time Spent: Less than 30 Minutes
== END 2016-10-17 17:32 | disposition left against medical advice (07) | DRG 189 ==
LOC: ER 05:43 → UNDOADMIN 07:45 → EH 07:45 → 3W 14:45
PROVIDERS: ADMIT Family Medicine; ATTEND Family Medicine
DX: J96.22 Acute and chronic respiratory failure with hypercapnia (principal); G93.40 Encephalopathy, unspecified; J44.1 Chronic obstructive pulmonary disease with (acute) exacerbation; I50.9 Heart failure, unspecified; I11.0 Hypertensive heart disease with heart failure; E11.9 Type 2 diabetes mellitus without complications; B19.20 Unspecified viral hepatitis C without hepatic coma; F31.9 Bipolar disorder, unspecified; F14.10 Cocaine abuse, uncomplicated; F17.210 Nicotine dependence, cigarettes, uncomplicated; Z71.6 Tobacco abuse counseling; Z79.84 Long term (current) use of oral hypoglycemic drugs; Z79.51 Long term (current) use of inhaled steroids; Z79.899 Other long term (current) drug therapy; Z91.19 Patient's noncompliance with other medical treatment and regimen
CPT/HCPCS: 36415; 71010; 80053; 80307; 81001; 82550; 82553; 82803; 82962; 83880; 84484; 85025; 93005; 93010; 94640; 94660; 96374; 99291; J1644; J2920; J2930; J7030; J7620; S0028

== ENCOUNTER 2016-11-11 06:42 | Emergency (ER) | payer MEDICAID ==
[2016-11-11] MEDS ORDERED: IPRATROPIUM/ALBUTEROL 0.5-2.5 MG/3 ML AMPUL NEB ONE (06:52)
[2016-11-11] MEDS ORDERED: MAGNESIUM SULFATE/D5W 1 GM/100 ML RTUPB IV ONE (06:53)
[2016-11-11 07:18] LABS: VENOUS BLOOD BASE EXCESS 4.7 mmol/L; VENOUS BLOOD HCO3 32.1 mmol/L (20-32); VENOUS BLOOD PH 7.34 (7.30-7.42)
[2016-11-11 07:20] LABS: ABSOLUTE EOSINOPHILS # (AUTO) 0.2 10^3/uL (0.0-0.6); ABSOLUTE LYMPHOCYTES (AUTO) 1.9 10^3/uL (0.5-4.7); ABSOLUTE MONOCYTES (AUTO) 0.7 10^3/uL (0.1-1.4); ABSOLUTE NEUT (AUTO) 6.4 10^3/uL (1.7-8.2); BASOPHILS % (AUTO) 0.5 % (0-2); EOSINOPHILS % (AUTO) 2.2 % (0-6); HEMATOCRIT 36.1 % (36.0-47.0); HEMOGLOBIN 11.9 g/dL (12.0-15.5); HGB HCT DIFFERENCE -0.4; LYMPHOCYTES % (AUTO) 20.3 % (13-45); MEAN CORPUSCULAR HEMOGLOBIN 26.1 pg (27.0-33.4); MEAN CORPUSCULAR HGB CONC 32.9 g/dL (32.0-36.0); MEAN CORPUSCULAR VOLUME 79 fl (80-97); MONOCYTES % (AUTO) 7.2 % (3-13); RED BLOOD COUNT 4.55 10^6/uL (3.72-5.28); RED CELL DISTRIBUTION WIDTH 18.6 % (11.5-14.0); SEGMENTED NEUTROPHILS % (AUTO) 69.8 % (42-78); WHITE BLOOD COUNT 9.1 10^3/uL (4.0-10.5)
[2016-11-11 07:35] LABS: ALANINE AMINOTRANSFERASE 24 U/L (9-52); ALBUMIN 3.6 g/dL (3.5-5.0); ALKALINE PHOSPHATASE 78 U/L (38-126); ANION GAP 8 (5-19); ASPARTATE AMINO TRANSFERASE 14 U/L (14-36); BILIRUBIN,DIRECT 0.4 mg/dL (0.0-0.4); BILIRUBIN,TOTAL 0.7 mg/dL (0.2-1.3); BLOOD UREA NITROGEN 28 mg/dL (7-20); CALCIUM 8.9 mg/dL (8.4-10.2); CARBON DIOXIDE 33 mmol/L (22-30); CHLORIDE 101 mmol/L (98-107); CREATINE KINASE 37 U/L (30-135); GLUCOSE 86 mg/dL (75-110); MAGNESIUM 1.9 mg/dL (1.6-2.3); POTASSIUM 4.3 mmol/L (3.6-5.0); SODIUM 141.8 mmol/L (137-145); TOTAL PROTEIN 6.4 g/dL (6.3-8.2)
--- NOTE | 2016-11-11 07:46 | RADIOLOGY REPORT (SQ) ---
EXAM DESCRIPTION: CHEST SINGLE VIEW COMPLETED DATE/TIME: 11/11/2016 7:35 am REASON FOR STUDY: sob COMPARISON: Chest x-ray 10/17/2016. EXAM PARAMETERS: NUMBER OF VIEWS: One view. TECHNIQUE: Single frontal radiographic view of the chest acquired. RADIATION DOSE: NA LIMITATIONS: None. FINDINGS: LUNGS AND PLEURA: No consolidation, pneumothorax or pleural effusion. MEDIASTINUM AND HILAR STRUCTURES: No masses. Contour normal. HEART AND VASCULAR STRUCTURES: The heart is upper normal limit in size. No overt vascular congestion . BONES: Healed fracture at the right 6th rib. HARDWARE: None in the chest. IMPRESSION: No acute radiographic finding in the chest. TECHNICAL DOCUMENTATION: JOB ID: [id number]
[2016-11-11] MEDS ORDERED: LIDOCAINE 5% (700 MG) TRANSDERMAL ADH..PATCH TP ONE (09:09)
--- NOTE | 2016-11-11 09:13 | EKG REPORT ---
SEVERITY:- BORDERLINE ECG - SINUS RHYTHM NONSPECIFIC ANTERIOR ST-T CHANGES : Confirmed by: Jorge Luis Dee MD 11-Nov-2016 09:13:18
[2016-11-11 09:47] LABS: URINE BARBITURATES SCREEN NEGATIVE; URINE METHADONE SCREEN NEGATIVE; URINE OPIATES LOW UNCONFIRMED POSITIVE; URINE PHENCYCLIDINE SCREEN NEGATIVE
--- NOTE | 2016-11-11 10:00 | RADIOLOGY REPORT (SQ) ---
EXAM DESCRIPTION: HAND LEFT 3 VIEWS COMPLETED DATE/TIME: 11/11/2016 9:49 am REASON FOR STUDY: pain COMPARISON: None. EXAM PARAMETERS: NUMBER OF VIEWS: Three views. TECHNIQUE: AP, lateral and oblique radiographic images acquired of the left hand. LIMITATIONS: None. FINDINGS: MINERALIZATION: Normal. BONES: No acute fracture or dislocation. No worrisome bone lesions. JOINTS: Mild diffuse osteoarthritis predominately affecting the IP joints. SOFT TISSUES: No soft tissue swelling. No foreign body. OTHER: No other significant finding. IMPRESSION: MILD DIFFUSE OSTEOARTHRITIS. NO RADIOGRAPHIC EVIDENCE OF ACUTE INJURY. TECHNICAL DOCUMENTATION: JOB ID: [id number] [employer]- All Rights Reserved
[2016-11-11] MEDS ORDERED: KETOROLAC TROMETHAMINE INJ/PF 30 MG/1 ML SDV IV ONE (10:12)
--- NOTE | 2016-11-11 10:12 | ER Document Report ---
ED General - General Chief Complaint: Breathing Difficulty Stated Complaint: DIFFICULTY BREATHING Time Seen by Provider: 11/11/16 06:56 TRAVEL OUTSIDE OF THE [place] IN LAST 30 DAYS: No - HPI Patient complains to provider of: Difficulty breathing left hand pain Notes: Patient is well-known to this ER patient has a history of cocaine abuse history of respiratory failure after cocaine abuse and history of signing out AGAINST MEDICAL ADVICE after admissions. Patient coming in today for evaluation of left hand pain and difficulty breathing. Upon my evaluation patient is hysterical crying waiting her left arm around stating that it is very painful requesting to cut it off. Otherwise patient has no other obvious injuries. Patient is on her home O2 vital signs are otherwise unremarkable. No obvious injuries to the left arm. Patient denies fevers chills nausea vomiting patient denies any recent or current drug abuse. - Related Data Allergies/Adverse Reactions: No Known Allergies Allergy (Verified 10/17/16 05:44) Past Medical History - Social History Smoking Status: Unknown if Ever Smoked Family History: Other - Mother with COPD - Past Medical History Cardiac Medical History: Reports: Hx Congestive Heart Failure, Hx Hypertension Pulmonary Medical History: Reports: Hx Asthma, Hx Bronchitis, Hx COPD, Hx Pneumonia, Hx Intubation, Hx Respiratory Failure, Hx Sleep Apnea Endocrine Medical History: Reports: Hx Diabetes Mellitus Type 2 Renal/ Medical History: Denies: Hx Peritoneal Dialysis GI Medical History: Reports: Hx Hepatitis - HEP-C Musculoskeltal Medical History: Reports Hx Arthritis Skin Medical History: Reports Hx Cellulitis Psychiatric Medical History: Reports: Hx Anxiety, Hx Bipolar Disorder, Hx Depression Infectious Medical History: Reports: Hx Hepatitis - HEP-C Past Surgical History: Reports: Hx Cardiac Catheterization, Hx Hysterectomy - Immunizations Immunizations up to date: Yes Hx Diphtheria, Pertussis, Tetanus Vaccination: Yes Hx Pneumococcal Vaccination: 04/10/10 Review of Systems - Review of Systems Constitutional: No symptoms reported EENT: No symptoms reported Cardiovascular: No symptoms reported Respiratory: No symptoms reported, Short of breath Gastrointestinal: No symptoms reported Genitourinary: No symptoms reported Female Genitourinary: No symptoms reported Musculoskeletal: Other - Left hand pain Skin: No symptoms reported Hematologic/Lymphatic: No symptoms reported Neurological/Psychological: No symptoms reported Physical Exam - Vital signs Vitals: Resp BP Pulse Ox 19 133/82 H 96 11/11/16 07:01 11/11/16 07:01 11/11/16 07:01 Interpretation: Normal - General General appearance: Appears well, Alert - HEENT Head: Normocephalic, Atraumatic Eyes: Normal Pupils: PERRL - Respiratory Respiratory status: No respiratory distress Chest status: Nontender Breath sounds: Wheezing Chest palpation: Normal - Cardiovascular Rhythm: Regular Heart sounds: Normal auscultation Murmur: No - Abdominal Inspection: Normal Distension: No distension Bowel sounds: Normal Tenderness: Nontender Organomegaly: No organomegaly - Back Back: Normal, Nontender - Extremities General upper extremity: Normal inspection, Nontender, Normal color, Normal ROM , Normal temperature, Other - Left hand evaluated range of motion seems to be intact. Patient moving all 4 extremities. Patient has no swelling of the hand capillary refill intact. Compartments of the forearm upper arm and hand all seem to be within normal limits. There is no swelling noted General lower extremity: Normal inspection, Nontender, Normal color, Normal ROM , Normal temperature, Normal weight bearing. No: Moris's sign - Neurological Neuro grossly intact: Yes Cognition: Normal Orientation: AAOx4 [place] Coma Scale Eye Opening: Spontaneous [place] Coma Scale Verbal: Oriented [place] Coma Scale Motor: Obeys Commands Angela Coma Scale Total: 15 Speech: Normal Motor strength normal: LUE, RUE, LLE, RLE Sensory: Normal - Psychological Associated symptoms: Normal affect, Normal mood - Skin Skin Temperature: Warm Skin Moisture: Dry Skin Color: Normal Course - Re-evaluation Re-evalutation: 11/11/16 14:09 Patient coming in for evaluation left hand pain and shortness of breath. Laboratory studies not show any acute findings. Patient's urine drug screen is positive for cocaine and opiates again. Patient was seen multiple times sleeping and resting currently. Upon my evaluation patient is waving her hand in the air stating that is extremely painful. Pulses are intact range of motion of all digits are intact. Patient underwent an x-ray of her hand showing early arthritic changes according to the radiologist. Again reevaluated patient offered a lidocaine patch and Motrin. Capillary refill still intact no other traumatic findings apartments of the arm and all of the hand are all within normal limits to palpation. No swelling patient will be discharged home - Vital Signs Vital signs: Temp Pulse Resp BP Pulse Ox 98 F 79 18 130/85 H 94 11/11/16 07:22 11/11/16 10:33 11/11/16 10:33 11/11/16 10:33 11/11/16 10:33 - Laboratory Result Diagrams: 11/11/16 07:05 11/11/16 07:05 Laboratory results interpreted by me: 11/11/16 11/11/16 11/11/16 07:05 07:05 07:05 Hgb 11.9 L MCV 79 L MCH 26.1 L RDW 18.6 H VBG HCO3 32.1 H Carbon Dioxide 33 H BUN 28 H Discharge - Discharge Clinical Impression: SOB (shortness of breath) Hand pain Qualifiers: Laterality: left Qualified Code(s): M79.642 - Pain in left hand Condition: Good Disposition: HOME, SELF-CARE Instructions: Dyspnea, Nonspecific ([facility]), Myalagia (Muscle Pain) ([facility]) Additional Instructions: Follow-up with your primary care physician. Your lab today shows no signs of any significant pathology. Your lab work did return positive for opiates and cocaine. Please stop using illicit substances. Your hand pain is more likely related to arthritis that was all in your x-ray. Recommend taking anti-inflammatory medications. Return to ER symptoms worsen. Prescriptions: Ibuprofen [Motrin 600 Mg Tablet] 600 mg PO TID #30 tablet Referrals: BLAYNE CHO DO [Primary Care Provider] - Follow up as needed
[2016-11-11] MEDS ORDERED: KETOROLAC TROMETHAMINE 60 MG/2 ML SDV IM ONE (10:16)
[2016-11-11 10:34] VITALS: BP 130/85
== END 2016-11-11 10:36 | disposition home or self-care (01) ==
LOC: ER 06:42
DX: J44.9 Chronic obstructive pulmonary disease, unspecified (principal); Z99.81 Dependence on supplemental oxygen; M19.042 Primary osteoarthritis, left hand; M79.642 Pain in left hand; R06.02 Shortness of breath; I10 Essential (primary) hypertension; E11.9 Type 2 diabetes mellitus without complications; Z87.01 Personal history of pneumonia (recurrent); Z82.5 Family history of asthma and other chronic lower respiratory diseases
CPT/HCPCS: 93005; 99285; 96372; 96365; 36415; 82550; 83735; 85025; 80053; 84484; 80307; 82803; 71010; 73130; 93010; J1885; J3475; J3490; J7620

== ENCOUNTER 2016-12-27 13:57 | Emergency (ER) | payer MEDICAID ==
[2016-12-27 14:05] VITALS: BP 136/70
--- NOTE | 2016-12-27 14:19 | ER Document Report ---
ED Medical Screen (RME) - General Chief Complaint: Cyst Stated Complaint: LT LEG INJURY Time Seen by Provider: 12/27/16 14:16 Mode of Arrival: Wheelchair Information source: Patient TRAVEL OUTSIDE OF THE [place] IN LAST 30 DAYS: No - HPI Patient complains to provider of: Leg lesion Onset: Other - Pt. thinks she may have been bitten by a spider in L knee area. - Related Data Allergies/Adverse Reactions: No Known Allergies Allergy (Verified 10/17/16 05:44) Past Medical History - Past Medical History Cardiac Medical History: Reports: Hx Congestive Heart Failure, Hx Hypertension Pulmonary Medical History: Reports: Hx Asthma, Hx Bronchitis, Hx COPD, Hx Pneumonia, Hx Intubation, Hx Respiratory Failure, Hx Sleep Apnea Endocrine Medical History: Reports: Hx Diabetes Mellitus Type 2 Renal/ Medical History: Denies: Hx Peritoneal Dialysis GI Medical History: Reports: Hx Hepatitis - HEP-C Musculoskeltal Medical History: Reports Hx Arthritis Skin Medical History: Reports Hx Cellulitis Psychiatric Medical History: Reports: Hx Anxiety, Hx Bipolar Disorder, Hx Depression Infectious Medical History: Reports: Hx Hepatitis - HEP-C Past Surgical History: Reports: Hx Cardiac Catheterization, Hx Hysterectomy - Immunizations Immunizations up to date: Yes Hx Diphtheria, Pertussis, Tetanus Vaccination: Yes Physical Exam - Vital signs Vitals: Temp Pulse Resp BP Pulse Ox 97.9 F 107 H 22 H 136/70 H 93 12/27/16 13:58 12/27/16 13:58 12/27/16 13:58 12/27/16 13:58 12/27/16 13:58 Course - Vital Signs Vital signs: Temp Pulse Resp BP Pulse Ox 97.9 F 107 H 22 H 136/70 H 93 12/27/16 13:58 12/27/16 13:58 12/27/16 13:58 12/27/16 13:58 12/27/16 13:58
[2016-12-27] MEDS ORDERED: SULFAMETHOXAZOLE/TRIMETHOPRIM 800-160 MG TABLET PO ONE (14:39)
[2016-12-27] MEDS ORDERED: LIDOCAINE 1% INJ-PF (10 MG/ML) 30 ML SDV INJ ONE (14:39)
[2016-12-27] MEDS ORDERED: OXYCODONE-ACETAMINOPHEN 5-325 MG TABLET PO ONE (14:39)
[2016-12-27 14:41] LABS: ABSOLUTE BASOPHILS # (AUTO) 0.1 10^3/uL (0.0-0.2); ABSOLUTE EOSINOPHILS # (AUTO) 0.1 10^3/uL (0.0-0.6); ABSOLUTE LYMPHOCYTES (AUTO) 1.9 10^3/uL (0.5-4.7); ABSOLUTE MONOCYTES (AUTO) 0.7 10^3/uL (0.1-1.4); ABSOLUTE NEUT (AUTO) 10.2 10^3/uL (1.7-8.2); EOSINOPHILS % (AUTO) 1.1 % (0-6); HEMATOCRIT 38.7 % (36.0-47.0); HEMOGLOBIN 12.8 g/dL (12.0-15.5); HGB HCT DIFFERENCE -0.3; LYMPHOCYTES % (AUTO) 14.3 % (13-45); MEAN CORPUSCULAR HEMOGLOBIN 26.5 pg (27.0-33.4); MEAN CORPUSCULAR HGB CONC 33.1 g/dL (32.0-36.0); MEAN CORPUSCULAR VOLUME 80 fl (80-97); MONOCYTES % (AUTO) 5.3 % (3-13); RED BLOOD COUNT 4.83 10^6/uL (3.72-5.28); RED CELL DISTRIBUTION WIDTH 17.3 % (11.5-14.0); SEGMENTED NEUTROPHILS % (AUTO) 78.3 % (42-78)
--- NOTE | 2016-12-27 14:57 | ER Document Report ---
ED Skin Rash/Insect Bite/Abscs - General Chief Complaint: Cyst Stated Complaint: LT LEG INJURY Time Seen by Provider: 12/27/16 14:16 Mode of Arrival: Wheelchair Information source: Patient TRAVEL OUTSIDE OF THE [place] IN LAST 30 DAYS: No - HPI Patient complains to provider of: Tender/swollen area Onset: Yesterday Onset/Duration: Persistent Quality of pain: Pressure Severity: Moderate Skin Character: Abscess Skin Temperature: Warm Quality of rash: Painful Exacerbated by: Denies Relieved by: Denies Notes: Patient is a 51-year-old female presenting to the emergency room today complaining of tender swollen area just above the left knee that has been present for the past 2-3 days, she is concerned that she may have been bitten by a brown recluse spider because she googled what it would look like and her lesion appears to be the same, she does not know of any spider biting her and did not see any spiders at her house recently, she denies any history of similar symptoms previously, no fevers, no injury, she did attempt to stick a safety pin into the area to see if she could get any pus out and was unable to - Related Data Allergies/Adverse Reactions: No Known Allergies Allergy (Verified 10/17/16 05:44) Past Medical History - General Information source: Patient - Social History Smoking Status: Current Every Day Smoker Chew tobacco use (# tins/day): No Frequency of alcohol use: None Drug Abuse: Cocaine Family History: Other - Mother with COPD Patient has suicidal ideation: No Patient has homicidal ideation: No - Past Medical History Cardiac Medical History: Reports: Hx Congestive Heart Failure, Hx Hypertension Pulmonary Medical History: Reports: Hx Asthma, Hx Bronchitis, Hx COPD, Hx Pneumonia, Hx Intubation, Hx Respiratory Failure, Hx Sleep Apnea Endocrine Medical History: Reports: Hx Diabetes Mellitus Type 2 Renal/ Medical History: Denies: Hx Peritoneal Dialysis GI Medical History: Reports: Hx Hepatitis - HEP-C Musculoskeltal Medical History: Reports Hx Arthritis Skin Medical History: Reports Hx Cellulitis Psychiatric Medical History: Reports: Hx Anxiety, Hx Bipolar Disorder, Hx Depression Infectious Medical History: Reports: Hx Hepatitis - HEP-C Past Surgical History: Reports: Hx Cardiac Catheterization, Hx Hysterectomy - Immunizations Immunizations up to date: Yes Hx Diphtheria, Pertussis, Tetanus Vaccination: Yes Hx Pneumococcal Vaccination: 04/10/10 Review of Systems - Review of Systems Constitutional: No symptoms reported EENT: No symptoms reported Cardiovascular: No symptoms reported Respiratory: No symptoms reported Gastrointestinal: No symptoms reported Genitourinary: No symptoms reported Female Genitourinary: No symptoms reported Musculoskeletal: No symptoms reported Skin: See HPI Hematologic/Lymphatic: No symptoms reported Neurological/Psychological: No symptoms reported -: Yes All other systems reviewed and negative Physical Exam - Vital signs Vitals: Temp Pulse Resp BP Pulse Ox 97.9 F 107 H 22 H 136/70 H 93 12/27/16 13:58 12/27/16 13:58 12/27/16 13:58 12/27/16 13:58 12/27/16 13:58 - Notes Notes: - General General appearance: Appears well, Alert In distress: None - HEENT Head: Normocephalic, Atraumatic Eyes: Normal Conjunctiva: Normal Extraocular movements intact: Yes Eyelashes: Normal Pupils: PERRL - Respiratory Respiratory status: No respiratory distress - Cardiovascular Rhythm: Regular - Abdominal Inspection: Normal - Back Back: Normal - Extremities General upper extremity: Normal inspection General lower extremity: Just proximal to the left knee is an area of approximately 6 cm of erythema, induration, with central scabbing and slight necrosis, small amount of purulent drainage from the area, tender to palpate, distal sensation and motor is intact - Neurological Neuro grossly intact: Yes Orientation: AAOx4 Warren Coma Scale Eye Opening: Spontaneous [place] Coma Scale Verbal: Oriented Angela Coma Scale Motor: Obeys Commands Angela Coma Scale Total: 15 - Psychological Associated symptoms: Normal affect, Normal mood - Skin Skin Temperature: Warm Skin Moisture: Dry Skin Color: Normal Course - Re-evaluation Re-evalutation: 12/27/16 15:53 Incision and drainage was performed with small amount of purulent drainage, patient started on antibiotics and provided with pain medication, advised to return if symptoms worsen, patient acknowledges understanding and agreement with this plan - Vital Signs Vital signs: Temp Pulse Resp BP Pulse Ox 97.9 F 107 H 22 H 136/70 H 93 12/27/16 13:58 12/27/16 13:58 12/27/16 13:58 12/27/16 13:58 12/27/16 13:58 - Laboratory Result Diagrams: 12/27/16 14:28 12/27/16 14:28 Laboratory results interpreted by me: 12/27/16 12/27/16 14:28 14:28 WBC 13.0 H MCH 26.5 L RDW 17.3 H Seg Neutrophils % 78.3 H Absolute Neutrophils 10.2 H Carbon Dioxide 31 H BUN 21 H Procedures - Incision and Drainage Left Leg Time completed: 15:54 Type: Simple Anesthetic type: 1% Lidocaine mL's of anesthetic: 15 Blade size: 11 I&D procedure: Chlorprep applied Incision Method: Incision made with needle Amount/type of drainage: Small amount of purulent drainage Discharge - Discharge Clinical Impression: Abscess Condition: Stable Disposition: HOME, SELF-CARE Instructions: Abscess ([facility]), Oral Narcotic Medication ([facility]), Post Incision and Drainage, Trimethoprim-Sulfa ([facility]) Additional Instructions: Follow up with your primary care provider in one to 2 days. Return to the emergency room immediately if symptoms worsen or any additional concerns. Prescriptions: Oxycodone HCl/Acetaminophen [Percocet 5-325 mg Tablet] 1 - 2 tab PO ASDIR PRN # 15 tablet PRN Reason: Sulfamethoxazole/Trimethoprim [Bactrim Ds Tablet] 1 each PO BID #20 tablet
[2016-12-27 15:02] LABS: ALANINE AMINOTRANSFERASE 27 U/L (9-52); ALBUMIN 4.1 g/dL (3.5-5.0); ALKALINE PHOSPHATASE 80 U/L (38-126); ANION GAP 11 (5-19); ASPARTATE AMINO TRANSFERASE 17 U/L (14-36); BILIRUBIN,DIRECT 0.3 mg/dL (0.0-0.4); BILIRUBIN,TOTAL 0.5 mg/dL (0.2-1.3); BLOOD UREA NITROGEN 21 mg/dL (7-20); CALCIUM 9.1 mg/dL (8.4-10.2); CARBON DIOXIDE 31 mmol/L (22-30); CHLORIDE 100 mmol/L (98-107); CREATININE RESULT 0.76 mg/dL (0.52-1.25); GLUCOSE 90 mg/dL (75-110); POTASSIUM 4.3 mmol/L (3.6-5.0); SODIUM 141.9 mmol/L (137-145)
== END 2016-12-27 15:33 | disposition home or self-care (01) ==
LOC: ER 13:57
PROC: 0H9LXZZ Drainage of Left Lower Leg Skin, External Approach (ICD-10-PCS; principal; 2016-12-27)
DX: L02.416 Cutaneous abscess of left lower limb (principal); F17.200 Nicotine dependence, unspecified, uncomplicated; I50.9 Heart failure, unspecified; I11.0 Hypertensive heart disease with heart failure; J44.9 Chronic obstructive pulmonary disease, unspecified; E11.9 Type 2 diabetes mellitus without complications; Z86.19 Personal history of other infectious and parasitic diseases; Z90.710 Acquired absence of both cervix and uterus
CPT/HCPCS: 99283; 36415; 85025; 80053; 10060; J3490 ×2

== ENCOUNTER 2017-02-28 03:20 | Inpatient (IN) | payer MEDICAID ==
[2017-02-28] MEDS ORDERED: IPRATROPIUM/ALBUTEROL 0.5-2.5 MG/3 ML AMPUL NEB ONE ×3 (03:28→03:34)
[2017-02-28] MEDS ORDERED: PREDNISONE 20 MG TABLET PO ONE (03:28)
[2017-02-28] MEDS ORDERED: MAGNESIUM SULFATE/D5W 2 GM/200 ML RTUPB IV ONE (03:33)
[2017-02-28] MEDS ORDERED: METHYLPREDNISOLONE INJ 125 MG/2 ML SDV IV ONE (03:34)
[2017-02-28] MEDS ORDERED: MAGNESIUM SULFATE/D5W 1 GM/100 ML RTUPB IV PRN (03:34)
--- NOTE | 2017-02-28 03:37 | ER Document Report ---
ED Respiratory Problem - General Chief Complaint: Breathing Difficulty Stated Complaint: DIFFICULTY BREATHING Time Seen by Provider: 02/28/17 03:28 Notes: Patient is a 51-year-old female that comes emergency department for chief complaint of increased difficulty breathing, sweats, and chills for the past 2 days. She smokes, she has a history of COPD, she is on 2 L nasal cannula at all times, she also has a history of congestive heart failure and cocaine abuse. She reports chest tightness but denies chest pain. She states she feels like she has pneumonia. She denies any other complaints including nausea , vomiting, abdominal pain. She does have a history of hospital admissions and has been intubated in the past. TRAVEL OUTSIDE OF THE [place] IN LAST 30 DAYS: No - Related Data Allergies/Adverse Reactions: No Known Allergies Allergy (Verified 01/09/17 12:24) Past Medical History - General Information source: Patient - Social History Smoking Status: Former Smoker Frequency of alcohol use: None Drug Abuse: Cocaine Lives with: Family Family History: Other - Mother with COPD - Past Medical History Cardiac Medical History: Reports: Hx Congestive Heart Failure, Hx Hypertension Pulmonary Medical History: Reports: Hx Asthma, Hx Bronchitis, Hx COPD, Hx Pneumonia, Hx Intubation, Hx Respiratory Failure, Hx Sleep Apnea Endocrine Medical History: Reports: Hx Diabetes Mellitus Type 2 Renal/ Medical History: Denies: Hx Peritoneal Dialysis GI Medical History: Reports: Hx Hepatitis - HEP-C Musculoskeltal Medical History: Reports Hx Arthritis Skin Medical History: Reports Hx Cellulitis Psychiatric Medical History: Reports: Hx Anxiety, Hx Bipolar Disorder, Hx Depression Infectious Medical History: Reports: Hx Hepatitis - HEP-C Past Surgical History: Reports: Hx Cardiac Catheterization, Hx Hysterectomy - Immunizations Immunizations up to date: Yes Hx Diphtheria, Pertussis, Tetanus Vaccination: Yes Hx Pneumococcal Vaccination: 04/10/10 Review of Systems - Review of Systems Constitutional: See HPI EENT: No symptoms reported Cardiovascular: See HPI Respiratory: See HPI Gastrointestinal: No symptoms reported Genitourinary: No symptoms reported Female Genitourinary: No symptoms reported Musculoskeletal: No symptoms reported Skin: No symptoms reported Hematologic/Lymphatic: No symptoms reported Neurological/Psychological: No symptoms reported Physical Exam - Vital signs Vitals: Temp Pulse Resp BP Pulse Ox 97.8 F 73 32 H 145/81 H 94 02/28/17 03:24 02/28/17 03:24 12/22/17 03:24 02/28/17 03:24 02/28/17 03:24 Interpretation: Normal - General General appearance: Anxious In distress: Moderate - HEENT Head: Normocephalic, Atraumatic Eyes: Normal Pupils: PERRL - Respiratory Respiratory status: Respiratory distress - Moderate respiratory distress, Labored, Tachypnea Chest status: Nontender Breath sounds: Decreased air movement, Wheezing Chest palpation: Normal - Cardiovascular Rhythm: Regular Heart sounds: Normal auscultation Murmur: No - Abdominal Inspection: Normal Distension: No distension Bowel sounds: Normal Tenderness: Nontender. No: Tender, Guarding - Back Back: Normal, Nontender. No: Tender - Extremities General upper extremity: Normal inspection, Nontender, Normal ROM, Normal strength General lower extremity: Normal inspection, Nontender, Normal ROM, Normal strength. No: Edema - Neurological Neuro grossly intact: Yes Cognition: Normal Orientation: AAOx4 Angela Coma Scale Eye Opening: Spontaneous Angela Coma Scale Verbal: Oriented [place] Coma Scale Motor: Obeys Commands Angela Coma Scale Total: 15 Speech: Normal Motor strength normal: LUE, RUE, LLE, RLE Sensory: Normal - Psychological Associated symptoms: Anxious - Skin Skin Temperature: Warm Skin Moisture: Dry Skin Color: Flushed Course - Re-evaluation Re-evalutation: Patient presented to the emergency department and moderate respiratory distress with tachypnea and labored breathing, decreased breath sounds and wheezing. Patient immediately given DuoNeb's, magnesium, Solu-Medrol, placed on oxygen, calling respiratory to obtain BiPAP. Perform close reevaluation, patient is moving air much better, she has frequent coughing now, still has tachypnea but this is improved. Oxygen saturation trending downwards to 91 and 90%. After placed on BiPAP tachypnea resolved, labored breathing resolved, patient much more comfortable. She remains arousable. EKG showing sinus rhythm at a rate of 73, no ST segment changes, minimal T-wave inversions in V2 and V3, no significant change from prior. Chest x-ray with no acute findings. Venous blood gas showing hypercapnia at 69.8. No acidosis. Chemistry generally unremarkable, troponin not elevated, BNP not elevated. On reexamination still arousable. Discussed with Dr. Junior, internal medicine, patient will be admitted to telemetry for COPD exacerbation with hypercapnia and acute on chronic respiratory failure. - Vital Signs Vital signs: Temp Pulse Resp BP Pulse Ox 97.8 F 65 22 H 123/70 95 02/28/17 03:24 02/28/17 05:23 02/28/17 05:23 02/28/17 05:23 02/28/17 05:23 - Laboratory Result Diagrams: 02/28/17 03:40 02/28/17 03:40 Laboratory results interpreted by me: 02/28/17 02/28/17 02/28/17 03:40 03:40 03:40 RDW 18.2 H Seg Neutrophils % 79.3 H Lymphocytes % 12.2 L VBG pCO2 69.8 H* VBG HCO3 37.6 H Sodium 145.1 H Carbon Dioxide 37 H Creatine Kinase 23 L Critical Care Note - Critical Care Note Total time excluding time spent on procedures (mins): 31 - Respiratory distress , hypercapnia, hypoxia, COPD exacerbation Comments: Please allow 31 minutes of critical care time for evaluation and treatment of patient with respiratory distress, hypercarbia, hypoxia, COPD exacerbation requiring magnesium, duo nebs, Solu-Medrol, BiPAP therapy, multiple re- evaluations, consultation and admission to the hospital. Discharge - Discharge Clinical Impression: COPD exacerbation, Hypoxia Respiratory failure with hypercapnia Qualifiers: Chronicity: acute on chronic Qualified Code(s): J96.22 - Acute and chronic respiratory failure with hypercapnia Condition: Stable Disposition: ADMITTED INPATIENT Admitting Provider: Hospitalist Unit Admitted: Telemetry
[2017-02-28] MEDS ORDERED: ALBUTEROL SULFATE 0.083% NEB 2.5 MG/3 ML AMPUL NEB SCH (03:44)
[2017-02-28 03:53] LABS: VENOUS BLOOD BASE EXCESS 9.2 mmol/L; VENOUS BLOOD HCO3 37.6 mmol/L (20-32); VENOUS BLOOD PH 7.35 (7.30-7.42)
[2017-02-28 03:54] LABS: VENOUS BLOOD PCO2 69.8 mmHg (35-63)
[2017-02-28 04:03] LABS: ABSOLUTE EOSINOPHILS # (AUTO) 0.1 10^3/uL (0.0-0.6); ABSOLUTE LYMPHOCYTES (AUTO) 1.2 10^3/uL (0.5-4.7); ABSOLUTE MONOCYTES (AUTO) 0.7 10^3/uL (0.1-1.4); ABSOLUTE NEUT (AUTO) 7.7 10^3/uL (1.7-8.2); ALANINE AMINOTRANSFERASE 28 U/L (9-52); ALKALINE PHOSPHATASE 73 U/L (38-126); ANION GAP 10 (5-19); ASPARTATE AMINO TRANSFERASE 17 U/L (14-36); BASOPHILS % (AUTO) 0.2 % (0-2); BILIRUBIN,DIRECT 0.3 mg/dL (0.0-0.4); BILIRUBIN,TOTAL 0.4 mg/dL (0.2-1.3); BLOOD UREA NITROGEN 16 mg/dL (7-20); CALCIUM 9.6 mg/dL (8.4-10.2); CARBON DIOXIDE 37 mmol/L (22-30); CHLORIDE 98 mmol/L (98-107); CREATINE KINASE 23 U/L (30-135); GLUCOSE 108 mg/dL (75-110); HEMATOCRIT 40.4 % (36.0-47.0); HEMOGLOBIN 13.3 g/dL (12.0-15.5); LYMPHOCYTES % (AUTO) 12.2 % (13-45); MEAN CORPUSCULAR HEMOGLOBIN 27.1 pg (27.0-33.4); MEAN CORPUSCULAR HGB CONC 32.9 g/dL (32.0-36.0); MEAN CORPUSCULAR VOLUME 82 fl (80-97); MONOCYTES % (AUTO) 7.3 % (3-13); PLATELET COUNT 234 10^3/uL (150-450); RED CELL DISTRIBUTION WIDTH 18.2 % (11.5-14.0); SEGMENTED NEUTROPHILS % (AUTO) 79.3 % (42-78); SODIUM 145.1 mmol/L (137-145); TOTAL CELLS COUNTED % (AUTO) 100 %; TOTAL PROTEIN 6.5 g/dL (6.3-8.2); WHITE BLOOD COUNT 9.7 10^3/uL (4.0-10.5)
[2017-02-28 04:20] LABS: NT PRO BNP 36 pg/mL (5-900)
[2017-02-28 04:22] LABS: TROPONIN I < 0.012 ng/mL
--- NOTE | 2017-02-28 05:01 | RADIOLOGY REPORT (SQ) ---
EXAM DESCRIPTION: CHEST SINGLE VIEW CLINICAL HISTORY: 51 years, Female, SOB COMPARISON: 11/11/2016. LIMITATIONS: None. FINDINGS: Prominent interstitium, moderate lung volume, mild enlargement of the cardiac silhouette. Mild right sixth posterior rib deformity. Stable. IMPRESSION: No acute cardiopulmonary findings. 2011 [employer]- All Rights Reserved
[2017-02-28] MEDS ORDERED: NALOXONE HCL INJ 2 MG/2 ML DISP.SYRIN IV ONE (05:08)
[2017-02-28] MEDS ORDERED: MAGNESIUM HYDROXIDE SUSP 30 ML UDCUP PO PRN (05:36)
[2017-02-28] MEDS ORDERED: GLUCAGON,HUMAN RECOMB 1 MG INJ IM PRN (05:36)
[2017-02-28] MEDS ORDERED: DEXTROSE 40% GEL 15 GM TUBE PO PRN ×2 (05:36)
[2017-02-28] MEDS ORDERED: INSULIN LISPRO 100 UNIT/ML 3 ML VIAL SUBCUT PRN (05:36)
[2017-02-28] MEDS ORDERED: DEXTROSE 50%-WATER 25 GM/50 ML DISP.SYRIN IV PRN ×2 (05:36)
[2017-02-28 05:41] LABS: URINE AMPHETAMINES SCREEN NEGATIVE; URINE BARBITURATES SCREEN NEGATIVE; URINE BENZODIAZEPINES SCREEN NEGATIVE; URINE COCAINE SCREEN UNCONFIRMED POSITIVE; URINE MARIJUANA (THC) SCREEN NEGATIVE; URINE METHADONE SCREEN NEGATIVE; URINE PHENCYCLIDINE SCREEN NEGATIVE
--- NOTE | 2017-02-28 06:21 | PDOC H&P ---
History of Present Illness Admission Date/PCP: 02/28/17 05:10 Patient complains of: Shortness of breath History of Present Illness: POLLY CRESPO is a 51 year old female with a past medical history of morbid obesity, obstructive sleep apnea, diabetes, hypertension, COPD with ongoing tobacco dependence and cocaine abuse. Patient presents short of breath several hours after crack cocaine use. She is found to have tachypnea, PCO2 of 70 and bicarb of 37 on chemistry. She started on BiPAP and referred to the hospitalist for admission. During interview she is able to remain awake and conversational. She denies chest pain nausea or vomiting. She admits noncompliance with medications and lifestyle. Past Medical History Cardiac Medical History: Reports: Congestive Heart Failure, Hypertension Pulmonary Medical History: Reports: Asthma, Bronchitis, Chronic Obstructive Pulmonary Disease (COPD), Intubation, Pneumonia, Respiratory Failure, Sleep Apnea Endocrine Medical History: Reports: Diabetes Mellitus Type 2 GI Medical History: Reports: Hepatitis - HEP-C Musculoskeltal Medical History: Reports: Arthritis Psychiatric Medical History: Reports: Bipolar Disorder, Depression, Substance Abuse, Tobacco Dependency Hematology: Denies: Anemia Past Surgical History Past Surgical History: Reports: Cardiac Catheterization, Hysterectomy Social History Information Source: Patient, [facility] Records Smoking Status: Current Every Day Smoker Frequency of Alcohol Use: Social Hx Recreational Drug Use: Yes Drugs: Cocaine Hx Prescription Drug Abuse: No - Advance Directive Resuscitation Status: Full Code Family History Family History: COPD, Other - Mother with COPD Parental Family History Reviewed: Yes Children Family History Reviewed: Yes Sibling(s) Family History Reviewed.: Yes Medication/Allergy Home Medications: Carvedilol [Coreg 3.125 mg Tablet] 3.125 mg PO Q12 10/17/16 Ipratropium/Albuterol Sulfate [Duoneb 3 ml Ampul] 3 ml NEB RTQID 10/17/16 Lisinopril [Prinivil 5 mg Tablet] 5 mg PO DAILY 10/17/16 Metformin HCl [Glucophage] 500 mg PO BID 10/17/16 Omeprazole 40 mg PO DAILY 10/17/16 Ibuprofen [Motrin 600 Mg Tablet] 600 mg PO TID #30 tablet 11/11/16 Oxycodone HCl/Acetaminophen [Percocet 5-325 mg Tablet] 1 - 2 tab PO ASDIR PRN # 15 tablet 12/27/16 Sulfamethoxazole/Trimethoprim [Bactrim Ds Tablet] 1 each PO BID #20 tablet 12/27 Diclofenac Sodium [Voltaren 50 Mg Tablet.] 50 mg PO BID #20 tablet. Allergies/Adverse Reactions: No Known Allergies Allergy (Verified 01/09/17 12:24) Review of Systems ROS unobtainable: Due to mental status Physical Exam Vital Signs: Temp Pulse Resp BP Pulse Ox 97.8 F 65 22 H 123/70 95 02/28/17 03:24 02/28/17 05:23 02/28/17 05:23 02/28/17 05:23 02/28/17 05:23 General appearance: PRESENT: obese, severe distress Head exam: PRESENT: atraumatic, normocephalic Eye exam: PRESENT: conjunctiva pink, EOMI, PERRLA. ABSENT: scleral icterus Ear exam: PRESENT: normal external ear exam Mouth exam: PRESENT: moist, tongue midline Neck exam: ABSENT: carotid bruit, JVD, lymphadenopathy, thyromegaly Respiratory exam: PRESENT: accessory muscle use, crackles, prolonged expiratory phas, retraction, symmetrical, tachypnea. ABSENT: rhonchi, stridor, wheezes Cardiovascular exam: PRESENT: RRR. ABSENT: diastolic murmur, rubs, systolic murmur Pulses: PRESENT: normal dorsalis pedis pul Vascular exam: PRESENT: normal capillary refill GI/Abdominal exam: PRESENT: normal bowel sounds, soft. ABSENT: distended, guarding, mass, organolmegaly, rebound, tenderness Rectal exam: PRESENT: deferred Extremities exam: PRESENT: calf tenderness Neurological exam: PRESENT: alert, awake, oriented to person, oriented to place , oriented to time, oriented to situation, CN II-XII grossly intact. ABSENT: motor sensory deficit Psychiatric exam: PRESENT: appropriate affect, normal mood. ABSENT: homicidal ideation, suicidal ideation Skin exam: PRESENT: dry, intact, warm. ABSENT: cyanosis, rash Results Impressions: Chest X-Ray 02/28/17 03:29 IMPRESSION: No acute cardiopulmonary findings. 2010 [employer]- All Rights Reserved Assessment & Plan - Diagnosis (1) COPD exacerbation Is this a current diagnosis for this admission?: Yes Plan: Telemetry bed admission, albuterol and Atrovent, incentive spirometry and BiPAP (2) Respiratory failure with hypercapnia Qualifiers: Chronicity: acute on chronic Qualified Code(s): J96.22 - Acute and chronic respiratory failure with hypercapnia Is this a current diagnosis for this admission?: Yes Plan: BiPAP and education, avoid sedation given respiratory depression (3) Cocaine abuse Is this a current diagnosis for this admission?: Yes Plan: Supportive care and education (4) Diabetes Qualifiers: Diabetes mellitus type: type 2 Diabetes mellitus complication status: with unspecified complications Diabetes mellitus mcc insulin use: without middle or intermediate school principal use Qualified Code(s): E11.8 - Type 2 diabetes mellitus with unspecified complications Is this a current diagnosis for this admission?: Yes Plan: Sliding scale insulin, holding metformin - Time Time Spent: 50 to 70 Minutes - Inpatient Certification Medical Necessity: Need Close Monitoring Due to Risk of Patient Decompensation
--- NOTE | 2017-02-28 07:53 | EKG REPORT ---
SEVERITY:- NORMAL ECG - SINUS RHYTHM : Confirmed by: Jorge Luis Dee MD 28-Feb-2017 07:53:00
[2017-02-28] MEDS: IPRATROPIUM/ALBUTEROL 0.5-2.5 MG/3 ML AMPUL NEB SCH ×3 (07:59→19:31)
[2017-02-28] MEDS ORDERED: INFLUENZA ADLT QUAD (36MOS+) 2017-18 VAC 0.5 ML SYR IM PRN (08:24)
[2017-02-28] MEDS ORDERED: LANSOPRAZOLE 30 MG TAB.RAP.DR PO SCH (10:00)
[2017-02-28] MEDS: LISINOPRIL 5 MG TABLET PO SCH (10:31)
[2017-02-28] MEDS: CARVEDILOL 3.125 MG TABLET PO SCH ×2 (10:31→22:27)
[2017-02-28] MEDS: HEPARIN SOD (PORCINE) 5,000 UNIT/ML 1 ML SYRINGE SUBCUT SCH ×3 (10:31→22:27)
[2017-02-28] MEDS: ACETAMINOPHEN 325 MG TABLET PO PRN ×2 (10:32→19:51)
[2017-02-28] MEDS: DOCUSATE SODIUM 100 MG CAPSULE PO SCH ×2 (10:32→17:16)
[2017-02-28] MEDS ORDERED: OXYCODONE-ACETAMINOPHEN 5-325 MG TABLET PO PRN (13:04)
[2017-02-28] MEDS ORDERED: BENZONATATE 100 MG CAPSULE PO PRN (13:06)
--- NOTE | 2017-02-28 13:21 | Progress Note ---
Provider Note Provider Note: Pt seen, examine, and chart reviewed. Will restart home medications. Will place on Steroids Q8hrs.
[2017-02-28] MEDS ORDERED: (PENDING PHARMACY ID) (Diclofenac Sodium [Voltaren] 1 APPLIC) TP SCH (14:00)
[2017-02-28] MEDS ORDERED: NICOTINE 21 MG/24 HR PATCH.TD24 TD ONE (14:00)
[2017-02-28] MEDS: METHYLPREDNISOLONE INJ 40 MG/1 ML SDV IV SCH ×2 (14:07→22:27)
[2017-02-28 14:16] LABS: ARTERIAL BLOOD BASE EXCESS 6.9 mmol/L; ARTERIAL BLOOD H2CO3 2.22 mmol/L (1.05-1.35); ARTERIAL BLOOD O2 SATURATION 87.5 % (94-98); ARTERIAL BLOOD PH 7.31 (7.35-7.45); ARTERIAL BLOOD TOTAL CO2 38.3 mmol/L (21-25)
[2017-02-28 14:17] LABS: ARTERIAL BLOOD FIO2 3 L
[2017-02-28 14:18] LABS: ARTERIAL BLOOD PCO2 73.8 mmHg (35-45)
[2017-02-28] MEDS: LANSOPRAZOLE 30 MG TAB.RAP.DR PO SCH (16:01)
[2017-02-28] MEDS: ALPRAZOLAM 0.25 MG TABLET PO PRN (22:34)
[2017-03-01] MEDS: IPRATROPIUM/ALBUTEROL 0.5-2.5 MG/3 ML AMPUL NEB SCH ×6 (02:27→23:40)
[2017-03-01 04:55] LABS: ABSOLUTE LYMPHOCYTES (AUTO) 0.7 10^3/uL (0.5-4.7); ABSOLUTE MONOCYTES (AUTO) 0.3 10^3/uL (0.1-1.4); ABSOLUTE NEUT (AUTO) 10.3 10^3/uL (1.7-8.2); BASOPHILS % (AUTO) 0.2 % (0-2); EOSINOPHILS % (AUTO) 0.1 % (0-6); HEMATOCRIT 42.5 % (36.0-47.0); HEMOGLOBIN 13.6 g/dL (12.0-15.5); MEAN CORPUSCULAR HEMOGLOBIN 26.5 pg (27.0-33.4); MEAN CORPUSCULAR VOLUME 83 fl (80-97); MONOCYTES % (AUTO) 2.8 % (3-13); PLATELET COUNT 229 10^3/uL (150-450); RED BLOOD COUNT 5.12 10^6/uL (3.72-5.28); RED CELL DISTRIBUTION WIDTH 18.2 % (11.5-14.0); SEGMENTED NEUTROPHILS % (AUTO) 90.9 % (42-78); TOTAL CELLS COUNTED % (AUTO) 100 %; WHITE BLOOD COUNT 11.3 10^3/uL (4.0-10.5)
[2017-03-01] MEDS: HEPARIN SOD (PORCINE) 5,000 UNIT/ML 1 ML SYRINGE SUBCUT SCH ×3 (05:53→21:27)
[2017-03-01] MEDS: METHYLPREDNISOLONE INJ 40 MG/1 ML SDV IV SCH ×3 (05:53→21:26)
[2017-03-01 06:14] LABS: ANION GAP 8 (5-19); BLOOD UREA NITROGEN 19 mg/dL (7-20); CALCIUM 9.5 mg/dL (8.4-10.2); CARBON DIOXIDE 36 mmol/L (22-30); CHLORIDE 100 mmol/L (98-107); GLUCOSE 196 mg/dL (75-110); SODIUM 144.4 mmol/L (137-145)
[2017-03-01] MEDS: FLUTICASONE NASAL SPRAY 50 MCG/SPRY 120 SPRAY/16 GM NASL SCH ×2 (09:41→21:27)
[2017-03-01] MEDS: LEVOFLOXACIN 750 MG/D5W RTU 750 MG/150 ML RTUPB IV SCH (09:41)
[2017-03-01] MEDS: NICOTINE 21 MG/24 HR PATCH.TD24 TD SCH (09:42)
[2017-03-01] MEDS: MELOXICAM 15 MG TABLET PO SCH (09:42)
[2017-03-01] MEDS: LISINOPRIL 5 MG TABLET PO SCH (09:43)
[2017-03-01] MEDS: DOCUSATE SODIUM 100 MG CAPSULE PO SCH ×2 (09:43→17:40)
[2017-03-01] MEDS: CARVEDILOL 3.125 MG TABLET PO SCH ×2 (09:44→21:26)
[2017-03-01] MEDS: LANSOPRAZOLE 30 MG TAB.RAP.DR PO SCH ×2 (09:44→17:40)
[2017-03-01] MEDS ORDERED: LISINOPRIL 5 MG TABLET PO SCH (10:00)
--- NOTE | 2017-03-01 14:30 | PDOC PROGRESS REPORT ---
Subjective Progress Note for:: 03/01/17 Subjective:: Patient with COPD exacerbation. Patient states that she is not doing well. Patient states her chest is tight and that the breathing treatments are not helping. Patient requesting CPT. States she does not want to leave the hospital until she is well. Reason For Visit: POLYSUBSTANCE ABUSE, ACUTE ON CHRONIC RESP Physical Exam Vital Signs: Temp Pulse Resp BP Pulse Ox 97.5 F 75 16 113/73 97 03/01/17 11:33 03/01/17 12:13 03/01/17 12:13 03/01/17 11:33 03/01/17 12:13 Intake & Output 02/28/17 03/01/17 03/02/17 06:59 06:59 06:59 Intake Total 2895 Balance 2895 Weight 105.3 kg 104.6 kg General appearance: PRESENT: disheveled, mild distress, obese Head exam: PRESENT: normocephalic Eye exam: PRESENT: EOMI. ABSENT: scleral icterus Ear exam: PRESENT: normal external ear exam Mouth exam: PRESENT: moist Neck exam: ABSENT: carotid bruit, JVD, lymphadenopathy, thyromegaly Respiratory exam: PRESENT: clear to auscultation tara, decreased breath sounds. ABSENT: rales, rhonchi, wheezes Cardiovascular exam: PRESENT: RRR. ABSENT: diastolic murmur, rubs, systolic murmur GI/Abdominal exam: PRESENT: normal bowel sounds, soft. ABSENT: distended, guarding, mass, organolmegaly, rebound, tenderness Rectal exam: PRESENT: deferred Extremities exam: PRESENT: full ROM. ABSENT: calf tenderness, clubbing, pedal edema Neurological exam: PRESENT: alert, awake, oriented to person, oriented to place , oriented to time, oriented to situation, CN II-XII grossly intact. ABSENT: motor sensory deficit Psychiatric exam: PRESENT: appropriate affect, normal mood. ABSENT: homicidal ideation, suicidal ideation Skin exam: PRESENT: dry, intact, warm. ABSENT: cyanosis, rash Results Laboratory Results: 03/01/17 04:18 03/01/17 05:48 02/28/17 03/01/17 03/01/17 12:10 04:18 04:18 WBC 11.3 H RBC 5.12 Hgb 13.6 Hct 42.5 MCV 83 MCH 26.5 L MCHC 32.0 RDW 18.2 H Plt Count 229 Seg Neutrophils % 90.9 H Lymphocytes % 6.0 L Monocytes % 2.8 L Eosinophils % 0.1 Basophils % 0.2 Absolute Neutrophils 10.3 H Absolute Lymphocytes 0.7 Absolute Monocytes 0.3 Absolute Eosinophils 0.0 Absolute Basophils 0.0 Carbonic Acid 2.22 H HCO3/H2CO3 Ratio 16:1 ABG pH 7.31 L ABG pCO2 73.8 H* ABG pO2 60.0 L ABG HCO3 36.0 H ABG O2 Saturation 87.5 L ABG Base Excess 6.9 FiO2 3 L Sodium Cancelled Potassium Cancelled Chloride Cancelled Carbon Dioxide Cancelled Anion Gap Cancelled BUN Cancelled Creatinine Cancelled Est GFR ( Amer) Cancelled Est GFR (Non-Af Amer) Cancelled Glucose Cancelled Calcium Cancelled Magnesium 03/01/17 03/01/17 05:48 05:48 WBC RBC Hgb Hct MCV MCH MCHC RDW Plt Count Seg Neutrophils % Lymphocytes % Monocytes % Eosinophils % Basophils % Absolute Neutrophils Absolute Lymphocytes Absolute Monocytes Absolute Eosinophils Absolute Basophils Carbonic Acid HCO3/H2CO3 Ratio ABG pH ABG pCO2 ABG pO2 ABG HCO3 ABG O2 Saturation ABG Base Excess FiO2 Sodium 144.4 Potassium 5.0 Chloride 100 Carbon Dioxide 36 H Anion Gap 8 BUN 19 Creatinine 0.57 Est GFR ( Amer) > 60 Est GFR (Non-Af Amer) > 60 Glucose 196 H Calcium 9.5 Magnesium 2.2 Impressions: Chest X-Ray 02/28/17 03:29 IMPRESSION: No acute cardiopulmonary findings. 2010 [email or web address]- All Rights Reserved Assessment & Plan - Diagnosis (1) Acute and chronic respiratory failure Qualifiers: Respiratory failure complication: hypoxia and hypercapnia Qualified Code(s) : J96.21 - Acute and chronic respiratory failure with hypoxia; J96.22 - Acute and chronic respiratory failure with hypercapnia; J96.22 - Acute and chronic respiratory failure with hypercapnia; J96.22 - Acute and chronic respiratory failure with hypercapnia Is this a current diagnosis for this admission?: Yes Plan: Secondary to COPD exacerbation. Patient currently on BiPAP. Patient still with hypercapnia and hypoxia which is chronic for her. Patient is noncompliant with using her BiPAP at home. (2) COPD exacerbation Is this a current diagnosis for this admission?: Yes Plan: Possibly secondary to continued tobacco abuse and or acute viral infection. Patient started on Levaquin. Patient duo nebs increased to every 4 hours with IV steroids. Patient started on budesonide, Singulair and Mucomyst with CPT. (3) Cocaine abuse Is this a current diagnosis for this admission?: Yes Plan: She was counseled on cessation. She believes that cocaine use is not harmful and that she cannot overdose this drug. Patient was informed that she can in fact overdose on a drug that patient cause her to have strokes and/or heart attacks. (4) Diabetes Qualifiers: Diabetes mellitus type: type 2 Diabetes mellitus complication status: with unspecified complications Diabetes mellitus termite control servicer insulin use: without termite control servicer use Qualified Code(s): E11.8 - Type 2 diabetes mellitus with unspecified complications Is this a current diagnosis for this admission?: Yes Plan: Continue with sliding scale insulin patient blood glucoses have been less than 200. Will monitor closely especially with patient being on high-dose steroids for her COPD exacerbation. (5) Hypertension Qualifiers: Hypertension type: essential hypertension Qualified Code(s): I10 - Essential (primary) hypertension Plan: Blood pressures pretty well controlled. Will continue home medications. (6) Tobacco abuse Plan: Patient counseled on smoking cessation as this can induce a COPD exacerbation and can lead to other health conditions. Nicotine patch in place. - Time Time Spent with patient: 15-24 minutes Anticipated discharge: Home Within: within 72 hours - Inpatient Certification Medical Necessity: Need Close Monitoring Due to Risk of Patient Decompensation, Need for IV Antibiotics, Risk of Complication if Not Cared For in Hospital
[2017-03-01] MEDS: ACETAMINOPHEN 325 MG TABLET PO PRN (17:40)
[2017-03-01] MEDS: BUDESONIDE NEB 0.5 MG/2 ML AMPUL NEB SCH (20:39)
[2017-03-01] MEDS: ACETYLCYSTEINE 20% SOLN 800 MG/4 ML VIAL.NEB NEB SCH (20:39)
[2017-03-01] MEDS: ALPRAZOLAM 0.25 MG TABLET PO PRN (21:27)
[2017-03-01] MEDS ORDERED: MONTELUKAST SODIUM 10 MG TABLET PO SCH (22:00)
[2017-03-02] MEDS: IPRATROPIUM/ALBUTEROL 0.5-2.5 MG/3 ML AMPUL NEB SCH ×4 (04:08→16:24)
[2017-03-02] MEDS: METHYLPREDNISOLONE INJ 40 MG/1 ML SDV IV SCH ×2 (05:15→14:23)
[2017-03-02] MEDS: HEPARIN SOD (PORCINE) 5,000 UNIT/ML 1 ML SYRINGE SUBCUT SCH ×2 (05:15→14:25)
[2017-03-02 05:37] LABS: ANION GAP 12 (5-19); BLOOD UREA NITROGEN 26 mg/dL (7-20); CALCIUM 9.4 mg/dL (8.4-10.2); CARBON DIOXIDE 32 mmol/L (22-30); CHLORIDE 98 mmol/L (98-107); GLUCOSE 276 mg/dL (75-110); MAGNESIUM 1.9 mg/dL (1.6-2.3); POTASSIUM 4.5 mmol/L (3.6-5.0); SODIUM 141.8 mmol/L (137-145)
[2017-03-02] MEDS: CARVEDILOL 3.125 MG TABLET PO SCH (09:18)
[2017-03-02] MEDS: LANSOPRAZOLE 30 MG TAB.RAP.DR PO SCH ×2 (09:18→15:13)
[2017-03-02] MEDS: LISINOPRIL 5 MG TABLET PO SCH (09:19)
[2017-03-02] MEDS: NICOTINE 21 MG/24 HR PATCH.TD24 TD SCH (09:21)
[2017-03-02] MEDS: ALPRAZOLAM 0.25 MG TABLET PO PRN (09:21)
[2017-03-02] MEDS: LEVOFLOXACIN 750 MG/D5W RTU 750 MG/150 ML RTUPB IV SCH (09:22)
[2017-03-02] MEDS: DOCUSATE SODIUM 100 MG CAPSULE PO SCH ×2 (09:22→18:34)
[2017-03-02] MEDS: MELOXICAM 15 MG TABLET PO SCH (09:23)
[2017-03-02] MEDS: FLUTICASONE NASAL SPRAY 50 MCG/SPRY 120 SPRAY/16 GM NASL SCH (09:23)
[2017-03-02] MEDS: BUDESONIDE NEB 0.5 MG/2 ML AMPUL NEB SCH (09:25)
[2017-03-02] MEDS: ACETYLCYSTEINE 20% SOLN 800 MG/4 ML VIAL.NEB NEB SCH (09:26)
[2017-03-02] MEDS ORDERED: OXYCODONE-ACETAMINOPHEN 5-325 MG TABLET PO PRN (13:39)
[2017-03-02] MEDS ORDERED: SODIUM CHLORIDE NASAL SPRAY 44 ML NASL SCH (16:00)
--- NOTE | 2017-03-02 16:16 | PDOC PROGRESS REPORT ---
Subjective Progress Note for:: 03/02/17 Subjective:: Patient with COPD exacerbation. Patient states that she is not doing well. Patient states she feels a little better. She reports that her oxygen is low but it has not been lower than 90. Patient is requesting pain medications and nasal saline. Reason For Visit: POLYSUBSTANCE ABUSE, ACUTE ON CHRONIC RESP Physical Exam Vital Signs: Temp Pulse Resp BP Pulse Ox 97.7 F 91 25 H 142/84 H 97 03/02/17 12:00 03/02/17 14:00 03/02/17 15:13 03/02/17 12:00 03/02/17 12:00 Intake & Output 03/01/17 03/02/17 03/03/17 06:59 06:59 06:59 Intake Total 2895 2123 236 Output Total 200 675 Balance 2895 1923 -439 Weight 104.6 kg General appearance: PRESENT: no acute distress, obese Head exam: PRESENT: normocephalic Eye exam: PRESENT: EOMI. ABSENT: scleral icterus Ear exam: PRESENT: normal external ear exam Mouth exam: PRESENT: moist Neck exam: ABSENT: carotid bruit, JVD, lymphadenopathy, thyromegaly Respiratory exam: PRESENT: decreased breath sounds. ABSENT: rales, rhonchi, wheezes Cardiovascular exam: PRESENT: RRR. ABSENT: diastolic murmur, rubs, systolic murmur GI/Abdominal exam: PRESENT: normal bowel sounds, soft. ABSENT: distended, guarding, mass, organolmegaly, rebound, tenderness Rectal exam: PRESENT: deferred Extremities exam: PRESENT: full ROM. ABSENT: calf tenderness, clubbing, pedal edema Neurological exam: PRESENT: alert, awake, oriented to person, oriented to place , oriented to time, oriented to situation, CN II-XII grossly intact. ABSENT: motor sensory deficit Psychiatric exam: PRESENT: agitated, anxious, normal mood. ABSENT: homicidal ideation, suicidal ideation Skin exam: PRESENT: dry, intact, warm. ABSENT: cyanosis, rash Results Laboratory Results: 03/01/17 04:18 03/02/17 03:41 03/02/17 03:41 Sodium 141.8 Potassium 4.5 Chloride 98 Carbon Dioxide 32 H Anion Gap 12 BUN 26 H Creatinine 0.61 Est GFR ( Amer) > 60 Est GFR (Non-Af Amer) > 60 Glucose 276 H Calcium 9.4 Magnesium 1.9 Impressions: Chest X-Ray 02/28/17 03:29 IMPRESSION: No acute cardiopulmonary findings. 2010 [employer]- All Rights Reserved Assessment & Plan - Diagnosis (1) Acute and chronic respiratory failure Qualifiers: Respiratory failure complication: hypoxia and hypercapnia Qualified Code(s) : J96.21 - Acute and chronic respiratory failure with hypoxia; J96.22 - Acute and chronic respiratory failure with hypercapnia; J96.22 - Acute and chronic respiratory failure with hypercapnia; J96.22 - Acute and chronic respiratory failure with hypercapnia Is this a current diagnosis for this admission?: Yes Plan: Secondary to COPD exacerbation. Patient currently on BiPAP. Appears more comfortable. Will repeat ABG in the morning. Patient is noncompliant with using her BiPAP at home. (2) COPD exacerbation Is this a current diagnosis for this admission?: Yes Plan: Possibly secondary to continued tobacco abuse and or acute viral infection. Continue Levaquin, duonebs, IV steroid, mucomycst, CPT and singulair. (3) Cocaine abuse Is this a current diagnosis for this admission?: Yes Plan: She was counseled on cessation. She believes that cocaine use is not harmful and that she cannot overdose this drug. Patient was informed that she can in fact overdose on a drug that patient cause her to have strokes and/or heart attacks. (4) Hypertension Qualifiers: Hypertension type: essential hypertension Qualified Code(s): I10 - Essential (primary) hypertension Plan: Continue home medications. (5) Tobacco abuse Plan: Patient counseled on smoking cessation as this can induce a COPD exacerbation and can lead to other health conditions. Nicotine patch in place. (6) Diabetes Qualifiers: Diabetes mellitus type: type 2 Diabetes mellitus complication status: with unspecified complications Diabetes mellitus terminal manager insulin use: without terminal manager use Qualified Code(s): E11.8 - Type 2 diabetes mellitus with unspecified complications Is this a current diagnosis for this admission?: Yes Plan: Continue SSI. Blood glucoses may be higher than usual due to the use of high dose steroids for her COPD exacerbation. (7) Obesity (BMI 30-39.9) Is this a current diagnosis for this admission?: Yes Plan: Patient counseled on the importance of healthy diet, weight loss and physical activity as a healthy weight can allow her to better control her diabetes, hypertension and [place]. - Time Time Spent with patient: 15-24 minutes Anticipated discharge: Home Within: within 72 hours - Inpatient Certification Medical Necessity: Significant Comorbidiites Make Outpatient Treatment Too Risky , Need Close Monitoring Due to Risk of Patient Decompensation, Need for IV Antibiotics
[2017-03-02 18:07] VITALS: BP 152/79
--- NOTE | 2017-03-03 11:29 | PDOC DISCHARGE SUMMARY ---
General - Admit/Disc Date/PCP Admission Date/Primary Care Provider: 02/28/17 05:10 Discharge Date: 03/03/17 - Discharge Diagnosis (1) Acute and chronic respiratory failure Is this a current diagnosis for this admission?: Yes (2) COPD exacerbation Is this a current diagnosis for this admission?: Yes (3) Cocaine abuse Is this a current diagnosis for this admission?: Yes (6) Diabetes Is this a current diagnosis for this admission?: Yes (7) Obesity (BMI 30-39.9) Is this a current diagnosis for this admission?: Yes - Additional Information Resuscitation Status: Full Code Home Medications: Albuterol Sulfate [Proair HFA] 2 puff IH Q4 PRN 02/28/17 Alprazolam [Xanax 0.25 mg Tablet] 0.25 mg PO BIDP PRN 02/28/17 Carvedilol [Coreg 3.125 mg Tablet] 3.125 mg PO Q12 02/28/17 Diclofenac Sodium [Voltaren] 1 applic TP QID 02/28/17 Ipratropium/Albuterol Sulfate [Duoneb 3 ml Ampul] 3 ml NEB RTQID 02/28/17 Lisinopril [Prinivil 5 mg Tablet] 5 mg PO DAILY 02/28/17 Meloxicam [Mobic] 15 mg PO DAILY 02/28/17 Metformin HCl [Glucophage 500 mg Tablet] 500 mg PO BIDACBS 02/28/17 Omeprazole 40 mg PO BIDBS 02/28/17 Oxycodone HCl/Acetaminophen [Oxycodone-Acetaminophen 5-325] 1 tab PO Q6HP PRN History of Present Illness History of Present Illness: POLLY CRESPO is a 51 year old female presenting with shortness of breath. Patient has history of morbid obesity, obstructive sleep apnea, diabetes, hypertension, COPD and polysubstance abuse (cocaine and tobacco). Patient has a history of noncompliance. Please refer to H&P dictated by Dr. Junior for complete details. Hospital Course Hospital Course: Patient presented with COPD exacerbation. Patient was started on steroids, antibiotics and nebulizers. Patient was also placed on Bipap. Patient with hypercapnic and hypoxic on ABG. Patient does have a history of chronic hypoxic hypercapnic respiratory failure however she is noncompliant with her BiPAP at home. Patient with Mucomyst with was added thereafter as patient states that what normally works for her. Patient was placed on continuous BiPAP however she was not showing any signs of distress. Chest x-ray did not show any acute findings. Her presentation was most likely consistent with acute bronchitis with COPD exacerbation. Unfortunately, patient is noncompliant with her medications at home and continues to smoke and use cocaine. Patient UDS was positive for cocaine. She was counseled on drug and tobacco cessation. Patient was offered a nicotine patch. Patient has a history of hypertension however her blood pressures are stable on home medications. Patient also has type 2 diabetes. Initially, blood glucoses were stable on sliding scale insulin however with the continuation of high-dose steroids patient's blood glucoses became elevated. Aggressive coverage with sliding scale insulin was continued. Patient also has obesity with a BMI of 38.4. Patient was counseled on healthy diet, weight loss and physical activity as this will help her better control her obstructive sleep apnea, hypertension and diabetes. Unfortunately, patient left AMA overnight stating that she had to leave. Physical Exam Vital Signs: Temp Pulse Resp BP Pulse Ox 98.5 F 92 16 152/79 H 95 03/02/17 16:00 03/02/17 16:24 03/02/17 16:24 03/02/17 16:00 03/02/17 16:00 Intake & Output 03/02/17 03/03/17 03/04/17 06:59 06:59 06:59 Intake Total 2123 1536 Output Total 200 1825 Balance 1923 -289 Results Laboratory Results: 03/01/17 04:18 03/02/17 03:41 Impressions: Chest X-Ray 02/28/17 03:29 IMPRESSION: No acute cardiopulmonary findings. 2010 [employer]- All Rights Reserved Qualifiers PATEINT BEING DISCHARGED WITH ANY OF THE FOLLOWING DIAGNOSIS?: No Plan Time Spent: Less than 30 Minutes
== END 2017-03-02 19:45 | disposition left against medical advice (07) | DRG 189 ==
LOC: ER 03:20 → EH 05:10 → 5 06:50
PROVIDERS: ADMIT Internal Medicine; ATTEND Internal Medicine
PROC: 5A09457 Assistance with Respiratory Ventilation, 24-96 Consecutive Hours, Continuous Positive Airway Pressure (ICD-10-PCS; principal; 2017-02-28)
DX: J96.21 Acute and chronic respiratory failure with hypoxia (principal); J44.1 Chronic obstructive pulmonary disease with (acute) exacerbation; J44.0 Chronic obstructive pulmonary disease with (acute) lower respiratory infection; J96.22 Acute and chronic respiratory failure with hypercapnia; J20.9 Acute bronchitis, unspecified; E66.9 Obesity, unspecified; Z68.38 Body mass index [BMI] 38.0-38.9, adult; B19.20 Unspecified viral hepatitis C without hepatic coma; F31.9 Bipolar disorder, unspecified; F14.10 Cocaine abuse, uncomplicated; I10 Essential (primary) hypertension; E11.9 Type 2 diabetes mellitus without complications; G47.33 Obstructive sleep apnea (adult) (pediatric); Z79.84 Long term (current) use of oral hypoglycemic drugs; Z79.899 Other long term (current) drug therapy; F17.210 Nicotine dependence, cigarettes, uncomplicated; Z90.710 Acquired absence of both cervix and uterus
CPT/HCPCS: 36415; 36600; 71010; 80048; 80053; 80307; 82550; 82803; 83735; 83880; 84484; 85025; 87040; 87070; 87077; 87186; 87205; 93005; 93010; 94640; 94660; 94668; 96374; 96375; 99291; J1644; J1956; J2310; J2920; J2930; J3475; J3490; J7620

== ENCOUNTER 2017-04-16 23:12 | Emergency (ER) | payer MEDICAID ==
[2017-04-16] MEDS ORDERED: METHYLPREDNISOLONE INJ 125 MG/2 ML SDV IV ONE (23:18)
[2017-04-16] MEDS ORDERED: IPRATROPIUM/ALBUTEROL 0.5-2.5 MG/3 ML AMPUL NEB ONE (23:18)
[2017-04-16] MEDS: ALBUTEROL SULFATE 0.083% NEB 2.5 MG/3 ML AMPUL NEB SCH ×2 (23:25→23:57)
[2017-04-16] MEDS: MAGNESIUM SULFATE/D5W 1 GM/100 ML RTUPB IV SCH ×2 (23:57→23:59)
--- NOTE | 2017-04-16 23:57 | RADIOLOGY REPORT (SQ) ---
EXAM DESCRIPTION: CHEST SINGLE VIEW COMPLETED DATE/TIME: 04/16/2017 11:32 pm REASON FOR STUDY: difficulty breathing COMPARISON: 02/28/2017 EXAM PARAMETERS: NUMBER OF VIEWS: One view. TECHNIQUE: Single frontal radiographic view of the chest acquired. RADIATION DOSE: NA LIMITATIONS: None. FINDINGS: LUNGS AND PLEURA: No acute opacities, masses or pneumothorax. No pleural effusion. MEDIASTINUM AND HILAR STRUCTURES: Stable. HEART AND VASCULAR STRUCTURES: Stable. BONES: No acute findings. HARDWARE: None in the chest. OTHER: No other significant finding. IMPRESSION: NO ACUTE RADIOGRAPHIC FINDING IN THE CHEST. TECHNICAL DOCUMENTATION: JOB ID: [id number] [place]-72 2010 [employer]- All Rights Reserved
[2017-04-17 00:18] LABS: ABSOLUTE BASOPHILS # (AUTO) 0.1 10^3/uL (0.0-0.2); ABSOLUTE EOSINOPHILS # (AUTO) 0.1 10^3/uL (0.0-0.6); ABSOLUTE LYMPHOCYTES (AUTO) 1.8 10^3/uL (0.5-4.7); ABSOLUTE MONOCYTES (AUTO) 0.7 10^3/uL (0.1-1.4); ABSOLUTE NEUT (AUTO) 7.8 10^3/uL (1.7-8.2); BASOPHILS % (AUTO) 0.8 % (0-2); EOSINOPHILS % (AUTO) 1.1 % (0-6); HEMATOCRIT 38.2 % (36.0-47.0); HEMOGLOBIN 12.7 g/dL (12.0-15.5); LYMPHOCYTES % (AUTO) 17.4 % (13-45); MEAN CORPUSCULAR HEMOGLOBIN 27.8 pg (27.0-33.4); MEAN CORPUSCULAR HGB CONC 33.2 g/dL (32.0-36.0); MEAN CORPUSCULAR VOLUME 84 fl (80-97); MONOCYTES % (AUTO) 6.7 % (3-13); PLATELET COUNT 235 10^3/uL (150-450); RED BLOOD COUNT 4.56 10^6/uL (3.72-5.28); TOTAL CELLS COUNTED % (AUTO) 100 %; WHITE BLOOD COUNT 10.5 10^3/uL (4.0-10.5)
[2017-04-17 00:34] LABS: ALANINE AMINOTRANSFERASE 25 U/L (9-52); ALBUMIN 3.7 g/dL (3.5-5.0); ALKALINE PHOSPHATASE 61 U/L (38-126); ANION GAP 8 (5-19); ASPARTATE AMINO TRANSFERASE 18 U/L (14-36); BILIRUBIN,DIRECT 0.2 mg/dL (0.0-0.4); BILIRUBIN,TOTAL 0.3 mg/dL (0.2-1.3); BLOOD UREA NITROGEN 22 mg/dL (7-20); CARBON DIOXIDE 32 mmol/L (22-30); CHLORIDE 101 mmol/L (98-107); GLUCOSE 120 mg/dL (75-110); POTASSIUM 3.9 mmol/L (3.6-5.0); SODIUM 141.3 mmol/L (137-145)
[2017-04-17 02:38] LABS: VENOUS BLOOD BASE EXCESS -2.5 mmol/L; VENOUS BLOOD HCO3 24.7 mmol/L (20-32); VENOUS BLOOD PCO2 53.4 mmHg (35-63); VENOUS BLOOD PH 7.28 (7.30-7.42)
[2017-04-17 02:55] VITALS: BP 132/67
[2017-04-17] MEDS ORDERED: ALBUTEROL SULFATE 0.083% NEB 2.5 MG/3 ML AMPUL NEB ONE (03:06)
--- NOTE | 2017-04-17 03:07 | ER Document Report ---
ED General - General Chief Complaint: Shortness Of Breath Stated Complaint: SHORTNESS OF BREATH Time Seen by Provider: 04/16/17 23:31 Notes: She is 51-year-old female with a history of COPD who is very well-known to our ER who presents with complaint difficulty breathing. She says she knows at home oxygen saturation was in the 80s therefore she came to the ER. She usually wears 2-3 L of oxygen via nasal cannula at home. She continues to smoke. She does have history of cocaine abuse and in the past some of her exacerbations are made worse after she used cocaine. She says "last time I used powder was 1-2 days ago". Denies any fevers. No vomiting. No chest pain. She says she has had an intermittent headache. No other complaints at this time. TRAVEL OUTSIDE OF THE [place] IN LAST 30 DAYS: No - Related Data Allergies/Adverse Reactions: No Known Allergies Allergy (Verified 01/09/17 12:24) Past Medical History - Social History Smoking Status: Current Every Day Smoker Frequency of alcohol use: None Drug Abuse: Cocaine Family History: Other - Mother with COPD Patient has suicidal ideation: No Patient has homicidal ideation: No - Past Medical History Cardiac Medical History: Reports: Hx Congestive Heart Failure, Hx Hypertension Pulmonary Medical History: Reports: Hx Asthma, Hx Bronchitis, Hx COPD, Hx Pneumonia, Hx Intubation, Hx Respiratory Failure, Hx Sleep Apnea Endocrine Medical History: Reports: Hx Diabetes Mellitus Type 2 Renal/ Medical History: Denies: Hx Peritoneal Dialysis GI Medical History: Reports: Hx Hepatitis - HEP-C Musculoskeltal Medical History: Reports Hx Arthritis Skin Medical History: Reports Hx Cellulitis Psychiatric Medical History: Reports: Hx Anxiety, Hx Bipolar Disorder, Hx Depression Infectious Medical History: Reports: Hx Hepatitis - HEP-C Past Surgical History: Reports: Hx Cardiac Catheterization, Hx Hysterectomy - Immunizations Immunizations up to date: Yes Hx Diphtheria, Pertussis, Tetanus Vaccination: Yes Hx Pneumococcal Vaccination: 04/10/10 Review of Systems - Review of Systems Notes: My Normal Review Basic REVIEW OF SYSTEMS: CONSTITUTIONAL : Denies fever, chills, or sweats. Denies recent illness. EENT: Denies eye, ear, throat, or mouth pain or symptoms. Denies nasal or sinus congestion. CARDIOVASCULAR: Denies chest pain. RESPIRATORY: Wheezing and difficulty breathing. GASTROINTESTINAL: Denies abdominal pain. Denies nausea, vomiting, or diarrhea. MUSCULOSKELETAL: Denies neck or back pain or joint pain or swelling. SKIN: Denies rash or skin lesions. NEUROLOGICAL: Denies altered mental status or loss of consciousness. Denies headache. Denies weakness or paralysis or loss of use of either side. Denies problems with gait or speech. Denies sensory or motor loss. ALL OTHER SYSTEMS REVIEWED AND NEGATIVE. Physical Exam - Vital signs Vitals: Pulse Ox 92 04/16/17 23:21 - Notes Notes: General Appearance: Well nourished, alert, cooperative, mild acute distress, no obvious discomfort. Vitals: reviewed, See vital signs table. Head: no swelling or tenderness to the head Eyes: PERRL, EOMI, Conjuctiva clear Mouth: No decreasd moisture Throat: No tonsillar inflammation, Neck: Supple, no neck tenderness, No thyromegaly Lungs: Scattered wheezing. Good to fair air movement. No accessory muscle use. mild Tachypnea. Able to speak in full sentences. Heart: Normal rate, Regular rythm, No murmur, no rub Abdomen: Normal BS, soft, No rigidity, No abdominal tenderness, No guarding, no rebound, no abdominal masses, no organomegaly Extremities: strength 5/5 in all extremities, good pulses in all extremities, no swelling or tenderness in the extremities, no edema. Skin: warm, dry, appropriate color, no rash Neuro: speech clear, oriented x 3, normal affect, responds appropriately to questions. Course - Re-evaluation Re-evalutation: 04/17/17 03:06 Patient's lung garay are sounding improved, but she still has some scattered wheezing. i will give another breathing treatment. She currently looks well and is actually sitting at the end of her bed of oxygen and her O2 sat is 92%. 04/17/17 04:34 She is lungs are much better auscultations.. She still has some scattered wheezing but not much. She is good air movement. She wants to leave. She refuses to stay for any further treatments. I informed her that she could get worse especially if she continues not wear her oxygen. Patient showed understanding of this but it is very stubborn at the same time. She was I left the room the patient took off her oxygen and again walk to the bathroom. She claims a headache. I informed her that she has a headache but she continues to not wear oxygen move around and she becomes hypoxic. She is requesting opiate medications. I informed her will not give her opiates as I do not want to suppress respiratory drive to being that she is a COPD patient. I offered Tylenol but patient refused. I informed her that she needs to stop smoking also stop using cocaine as both both of these will have make her continue to have difficulty breathing and make her breathing worse. I informed her that she continues to use his medications and also does not wear oxygen she will eventually most likely . Patient demonstrates understanding of this but I am not convinced that she will be compliant as in the past she never has been. I informed her that we want to take care of her and I strongly encouraged her to return to ER immediately if she has worsening difficulty breathing or she feels unwell in any way. Patient agrees with plan will be discharged home as she requests. Patient's oxygen is 96% on her home 2 L. - Vital Signs Vital signs: Temp Pulse Resp BP Pulse Ox 22 H 132/67 H 92 04/17/17 04:00 04/17/17 02:03 04/17/17 04:00 - Laboratory Result Diagrams: 04/17/17 00:00 04/17/17 00:00 Laboratory results interpreted by me: 04/17/17 04/17/17 04/17/17 00:00 00:00 02:25 RDW 18.0 H VBG pH 7.28 L Carbon Dioxide 32 H BUN 22 H Glucose 120 H Total Protein 6.0 L - EKG Interpretation by Me Additional EKG results interpreted by me: 04/17/17 04:30 EKG is reviewed and interpreted by me. EKG shows normal sinus rhythm with rate of [address] segment elevation or depression. No ischemic T-wave inversions. NH interval, QRS duration, QTc intervals are within normal range. Old EKG for comparison is from February 28, 2017. Discharge - Discharge Clinical Impression: COPD exacerbation Condition: Good Disposition: HOME, SELF-CARE Additional Instructions: Chronic Obstructive Lung Disease You have chronic obstructive lung disease (COPD). The symptoms come from emphysema (damage to small airways, with trapping of air in large sacks in the lung) and chronic bronchitis (repeated infection and damage to larger airways). The cause is almost always cigarette smoking, although dust exposure, asthma, and infections contribute. You should avoid fumes, dust, and smoke (especially tobacco smoke). Your condition will flare from time to time. There is no cure, but the symptoms can be treated. Bronchodilators (asthma medicine) are often helpful. Antibiotics help when infection is present. When shortness of breath is severe, we may prescribe cortisone medication. If medicine doesn't help enough, we can arrange for you to have an oxygen tank at home. Notify your doctor at once if sputum becomes thick, foul, or bloody, if you develop a fever or chest pain, or if your shortness of breath worsens. PLesae use the inhaler as 2 puffs every 4 hours for diffiuclty breathing. Please return to [facility] ER if you have recurrent wheezing not responding to your inhaler, fever,s worsening difficulty breathing, or if you feel unwell. Please quit smoking. Plesae stop using cocaine. Please wear your oxygen. If you do not wear your oxygen your oxygen level will drop which can lead to a heart attack and kill you. Follow up with your doctor tomorrow for reevaluation. Prescriptions: Prednisone [Deltasone 20 mg Tablet] 3 tab PO DAILY 4 Days tablet
[2017-04-17] MEDS ORDERED: ALBUTEROL SULFATE HFA (90 MCG/PUFF) 8 GM MDI (1 MDI/ER DISP) IH ONE (04:29)
--- NOTE | 2017-04-17 09:22 | EKG REPORT ---
SEVERITY:- ABNORMAL ECG - SINUS RHYTHM PROBABLE ANTEROSEPTAL INFARCT, AGE INDETERM : Confirmed by: Jacob Garrison 17-Apr-2017 09:21:13
== END 2017-04-17 04:49 | disposition home or self-care (01) ==
LOC: ER 23:12
DX: J44.1 Chronic obstructive pulmonary disease with (acute) exacerbation (principal); F17.200 Nicotine dependence, unspecified, uncomplicated; I50.9 Heart failure, unspecified; I11.0 Hypertensive heart disease with heart failure; E11.9 Type 2 diabetes mellitus without complications; Z99.81 Dependence on supplemental oxygen; Z86.19 Personal history of other infectious and parasitic diseases; Z90.710 Acquired absence of both cervix and uterus
CPT/HCPCS: 93005; 94640 ×2; 99285; 96375; 96365; 36415; 85025; 80053; 82803; 83880; 71045; 93010; J2930; J3475; J3490; J7620

== ENCOUNTER 2017-06-14 04:58 | Emergency (ER) | payer MEDICAID ==
[2017-06-14] MEDS ORDERED: IPRATROPIUM/ALBUTEROL 0.5-2.5 MG/3 ML AMPUL NEB ONE (05:11)
[2017-06-14] MEDS ORDERED: MAGNESIUM SULFATE/D5W 1 GM/100 ML RTUPB IV ONE (05:12)
[2017-06-14] MEDS ORDERED: METHYLPREDNISOLONE INJ 125 MG/2 ML SDV IV ONE (05:13)
[2017-06-14 05:21] LABS: ABSOLUTE BASOPHILS # (AUTO) 0.1 10^3/uL (0.0-0.2); ABSOLUTE EOSINOPHILS # (AUTO) 0.2 10^3/uL (0.0-0.6); ABSOLUTE LYMPHOCYTES (AUTO) 2.1 10^3/uL (0.5-4.7); ABSOLUTE MONOCYTES (AUTO) 1.1 10^3/uL (0.1-1.4); ABSOLUTE NEUT (AUTO) 10.3 10^3/uL (1.7-8.2); BASOPHILS % (AUTO) 0.5 % (0-2); EOSINOPHILS % (AUTO) 1.2 % (0-6); HEMATOCRIT 42.1 % (36.0-47.0); HEMOGLOBIN 13.6 g/dL (12.0-15.5); LYMPHOCYTES % (AUTO) 15.2 % (13-45); MEAN CORPUSCULAR HEMOGLOBIN 27.3 pg (27.0-33.4); MEAN CORPUSCULAR HGB CONC 32.4 g/dL (32.0-36.0); MEAN CORPUSCULAR VOLUME 84 fl (80-97); MONOCYTES % (AUTO) 8.2 % (3-13); PLATELET COUNT 246 10^3/uL (150-450); RED BLOOD COUNT 4.99 10^6/uL (3.72-5.28); RED CELL DISTRIBUTION WIDTH 16.9 % (11.5-14.0); SEGMENTED NEUTROPHILS % (AUTO) 74.9 % (42-78); TOTAL CELLS COUNTED % (AUTO) 100 %; WHITE BLOOD COUNT 13.8 10^3/uL (4.0-10.5)
[2017-06-14 05:22] LABS: VENOUS BLOOD BASE EXCESS 4.5 mmol/L; VENOUS BLOOD HCO3 33.1 mmol/L (20-32); VENOUS BLOOD PH 7.31 (7.30-7.42)
[2017-06-14 05:27] LABS: INTERNATIONAL RATION (INR) 0.96; PROTHROMBIN TIME 13.3 SEC (11.4-15.4)
[2017-06-14 05:31] LABS: VENOUS BLOOD PCO2 67.6 mmHg (35-63)
[2017-06-14 05:36] LABS: ALANINE AMINOTRANSFERASE 23 U/L (9-52); ALBUMIN 3.1 g/dL (3.5-5.0); ALKALINE PHOSPHATASE 61 U/L (38-126); ASPARTATE AMINO TRANSFERASE 11 U/L (14-36); BILIRUBIN,DIRECT 0.1 mg/dL (0.0-0.4); BILIRUBIN,TOTAL 0.2 mg/dL (0.2-1.3); BLOOD UREA NITROGEN 21 mg/dL (7-20); CALCIUM 7.8 mg/dL (8.4-10.2); GLUCOSE 60 mg/dL (75-110); POTASSIUM 3.7 mmol/L (3.6-5.0); TOTAL PROTEIN 5.3 g/dL (6.3-8.2)
--- NOTE | 2017-06-14 05:39 | ER Document Report ---
ED Medical Screen (RME) - General Chief Complaint: Breathing Difficulty Stated Complaint: DIFFICULTY BREATHING Time Seen by Provider: 06/14/17 05:13 TRAVEL OUTSIDE OF THE [place] IN LAST 30 DAYS: No - HPI Notes: 06/14/17 05:38 Patient very well-known to the ER for multiple visits respiratory distress. Patient coming in at the 12 hours of difficulty breathing. Patient states currently is smoking 2 packs a day. Patient was requesting BiPAP which she has at home upon arrival here in the ER. Patient was mildly tachypneic with respiratory rate 20-25. Patient was placed on BiPAP and tolerating BiPAP well. Lung garay wheezy throughout Solu-Medrol magnesium and bronchodilator therapy has been ordered for the patient. Patient feeling better at the BiPAP denies any chest pain hip pain abdominal pain upon my initial quick evaluation. 06/14/17 05:39 - Related Data Allergies/Adverse Reactions: No Known Allergies Allergy (Verified 01/09/17 12:24) Past Medical History - Past Medical History Cardiac Medical History: Reports: Hx Congestive Heart Failure, Hx Hypertension Pulmonary Medical History: Reports: Hx Asthma, Hx Bronchitis, Hx COPD, Hx Pneumonia, Hx Intubation, Hx Respiratory Failure, Hx Sleep Apnea Endocrine Medical History: Reports: Hx Diabetes Mellitus Type 2 Renal/ Medical History: Denies: Hx Peritoneal Dialysis GI Medical History: Reports: Hx Hepatitis - HEP-C Musculoskeltal Medical History: Reports Hx Arthritis Skin Medical History: Reports Hx Cellulitis Psychiatric Medical History: Reports: Hx Anxiety, Hx Bipolar Disorder, Hx Depression Infectious Medical History: Reports: Hx Hepatitis - HEP-C Past Surgical History: Reports: Hx Cardiac Catheterization, Hx Hysterectomy - Immunizations Immunizations up to date: Yes Hx Diphtheria, Pertussis, Tetanus Vaccination: Yes History of Influenza Vaccine for 12/2016 - 05/2017 Season: No Review of Systems - Review of Systems Constitutional: Other - Shortness of breath Physical Exam - Vital signs Vitals: Temp Pulse Resp BP Pulse Ox 98.2 F 96 22 H 109/69 95 06/14/17 05:05 06/14/17 05:05 06/14/17 05:05 06/14/17 05:05 06/14/17 05:05 - Respiratory Breath sounds: Rhonchi, Wheezing Course - Re-evaluation Re-evalutation: 06/14/17 05:40 I have greeted and performed a rapid initial assessment of this patient. A comprehensive ED assessment and evaluation of the patient, analysis of test results and completion of the medical decision making process will be conducted by additional ED providers. - Vital Signs Vital signs: Temp Pulse Resp BP Pulse Ox 98.2 F 96 22 H 109/69 95 06/14/17 05:05 06/14/17 05:05 06/14/17 05:05 06/14/17 05:05 06/14/17 05:05 - Laboratory Result Diagrams: 06/14/17 05:10 06/14/17 05:10 Laboratory results interpreted by me: 06/14/17 06/14/17 05:10 05:10 WBC 13.8 H RDW 16.9 H Absolute Neutrophils 10.3 H VBG pCO2 67.6 H* VBG HCO3 33.1 H Doctor's Discharge - Discharge Referrals: BLAYNE CHO DO [Primary Care Provider] - Follow up as needed
[2017-06-14 05:42] LABS: CARBON DIOXIDE 35 mmol/L (22-30); CHLORIDE 107 mmol/L (98-107); SODIUM 145.5 mmol/L (137-145)
[2017-06-14 05:47] LABS: ANION GAP 4 (5-19)
--- NOTE | 2017-06-14 06:06 | RADIOLOGY REPORT (SQ) ---
EXAM DESCRIPTION: CHEST SINGLE VIEW CLINICAL HISTORY: sob COMPARISON: None. FINDINGS: Single frontal view of the chest. 30 megaly. Low lung volumes. Leads overlie the chest. Linear left basilar opacities. No large effusion or pneumothorax. Right rib fracture. No acute osseous abnormality. Upper abdominal soft tissues are unremarkable. IMPRESSION: 1. Streaky bibasilar opacities may be related to low lung volumes and subsegmental atelectasis. 2. Cardiomegaly.
[2017-06-14 06:20] LABS: APPEARANCE,URINE CLEAR; BILIRUBIN,URINE NEGATIVE (NEGATIVE); COLOR,URINE STRAW; GLUCOSE, URINE NEGATIVE (NEGATIVE); KETONES,URINE NEGATIVE (NEGATIVE); LEUKOCYTE ESTERASE,URINE NEGATIVE (NEGATIVE); NITRITE,URINE NEGATIVE (NEGATIVE); PROTEIN,URINE NEGATIVE (NEGATIVE); URINE SPECIFIC GRAVITY 1.008; UROBILINOGEN,URINE NEGATIVE mg/dL (<2.0)
[2017-06-14 06:37] LABS: URINE AMPHETAMINES SCREEN NEGATIVE; URINE BARBITURATES SCREEN NEGATIVE; URINE BENZODIAZEPINES SCREEN NEGATIVE; URINE COCAINE SCREEN UNCONFIRMED POSITIVE; URINE MARIJUANA (THC) SCREEN NEGATIVE; URINE METHADONE SCREEN NEGATIVE; URINE PHENCYCLIDINE SCREEN NEGATIVE
--- NOTE | 2017-06-14 06:50 | ER Document Report ---
ED General - General Chief Complaint: Breathing Difficulty Stated Complaint: DIFFICULTY BREATHING Time Seen by Provider: 06/14/17 05:13 Mode of Arrival: Ambulatory Information source: Patient Notes: 51-year-old female history of COPD presents with complaints of difficulty breathing. Patient is on 2 L nasal cannula at home, notes that she has been getting short of breath when she sleeps. She denies any fevers or chills admits intermittent productive cough no symptoms worsen over the past week patient admits to still using cocaine TRAVEL OUTSIDE OF THE [place] IN LAST 30 DAYS: No - HPI Onset: Last week Onset/Duration: Persistent Quality of pain: No pain Severity: Mild Pain Level: 1 Associated symptoms: Nonproductive cough, Productive cough, Shortness of breath Exacerbated by: Walking, Deep breathing Relieved by: Denies Similar symptoms previously: Yes Recently seen / treated by doctor: Yes - Related Data Allergies/Adverse Reactions: No Known Allergies Allergy (Verified 01/09/17 12:24) Past Medical History - Social History Smoking Status: Current Every Day Smoker Cigarette use (# per day): Yes Chew tobacco use (# tins/day): No Smoking Education Provided: Yes - Patient counselled regarding cessation for 4 minutes Drug Abuse: None Family History: Other - Mother with COPD Patient has suicidal ideation: No Patient has homicidal ideation: No - Past Medical History Cardiac Medical History: Reports: Hx Congestive Heart Failure, Hx Hypertension Pulmonary Medical History: Reports: Hx Asthma, Hx Bronchitis, Hx COPD, Hx Pneumonia, Hx Intubation, Hx Respiratory Failure, Hx Sleep Apnea Endocrine Medical History: Reports: Hx Diabetes Mellitus Type 2 Renal/ Medical History: Denies: Hx Peritoneal Dialysis GI Medical History: Reports: Hx Hepatitis - HEP-C Musculoskeltal Medical History: Reports Hx Arthritis Skin Medical History: Reports Hx Cellulitis Psychiatric Medical History: Reports: Hx Anxiety, Hx Bipolar Disorder, Hx Depression Infectious Medical History: Reports: Hx Hepatitis - HEP-C Past Surgical History: Reports: Hx Cardiac Catheterization, Hx Hysterectomy - Immunizations Immunizations up to date: Yes Hx Diphtheria, Pertussis, Tetanus Vaccination: Yes Hx Pneumococcal Vaccination: 04/10/10 Review of Systems - Review of Systems Notes: REVIEW OF SYSTEMS: CONSTITUTIONAL : Denies fever, chills, or sweats. Denies recent illness. EENT: Denies eye, ear, throat, or mouth pain or symptoms. Denies nasal or sinus congestion or discharge. Denies throat, tongue, or mouth swelling or difficulty swallowing. CARDIOVASCULAR: Denies chest pain. Denies palpitations or racing or irregular heart beat. Denies ankle edema. RESPIRATORY: Admits to cough shortness of breath GASTROINTESTINAL: Denies abdominal pain or distention. Denies nausea, vomiting , or diarrhea. Denies blood in vomitus, stools, or per rectum. Denies black, tarry stools. Denies constipation. GENITOURINARY: Denies difficulty urinating, painful urination, burning, frequency, blood in urine, or discharge. FEMALE GENITOURINARY: Denies vaginal bleeding, heavy or abnormal periods, irregular periods. Denies vaginal discharge or odor. MUSCULOSKELETAL: Denies back or neck pain or stiffness. Denies joint pain or swelling. SKIN: Denies rash, lesions or sores. HEMATOLOGIC : Denies easy bruising or bleeding. LYMPHATIC: Denies swollen, enlarged glands. NEUROLOGICAL: Denies confusion or altered mental status. Denies passing out or loss of consciousness. Denies dizziness or lightheadedness. Denies headache. Denies weakness or paralysis or loss of use of either side. Denies problems with gait or speech. Denies sensory loss, numbness, or tingling. Denies seizures. PSYCHIATRIC: Denies anxiety or stress. Denies depression, suicidal ideation, or homicidal ideation. ALL OTHER SYSTEMS REVIEWED AND NEGATIVE. PHYSICAL EXAMINATION: GENERAL: Morbidly obese female on BiPAP. HEAD: Atraumatic, normocephalic. EYES: Pupils equal round and reactive to light, extraocular movements intact, conjunctiva are normal. ENT: Nares patent, oropharynx clear without exudates. Moist mucous membranes. NECK: Normal range of motion, supple without lymphadenopathy LUNGS: Faint inspiratory expiratory wheezing all throughout HEART: Regular rate and rhythm without murmurs ABDOMEN: Soft, nontender, nondistended abdomen. No guarding, no rebound. No masses appreciated. Female : deferred Musculoskeletal: Normal range of motion, no pitting or edema. No cyanosis. NEUROLOGICAL: Cranial nerves grossly intact. Normal speech, normal gait. Normal sensory, motor exams PSYCH: Normal mood, normal affect. SKIN: Warm, Dry, normal turgor, no rashes or lesions noted. Dictation was performed using [employer] voice recognition software Physical Exam - Vital signs Vitals: Pulse Ox 92 06/14/17 05:00 Course - Re-evaluation Re-evalutation: 06/14/17 09:01 She was initially placed on BiPAP given breathing treatments magnesium, it is noted that her breathing had improved significantly, imaging lab work is consistent with elevated white count and streaky opacities concerning for pneumonia, she overall looks well is in no distress at this time was taken off her BiPAP and put on nasal cannula and her sats were at 93-94% which is above her baseline. I discussed with the patient very strict return precautions patient states she understands and wishes to go home, I will discharge her home at this time with understand that she must return immediately for any other concerns. I have encouraged her to stop using cocaine and to stop smoking After performing a Medical Screening Examination, I estimate there is LOW risk for ACUTE CORONARY SYNDROME, PULMONARY EMBOLI, RESPIRATORY FAILURE, SEPSIS OR MENINGITIS, thus I consider the discharge disposition reasonable. I have reevaluated this patient multiple times and no significant life threatening changes are noted. The patient and I have discussed the diagnosis and risks, and we agree with discharging home with close follow-up. We also discussed returning to the Emergency Department immediately if new or worsening symptoms occur. We have discussed the symptoms which are most concerning (e.g., changing or worsening pain, trouble swallowing or breathing, neck stiffness, fever) that necessitate immediate return. - Vital Signs Vital signs: Temp Pulse Resp BP Pulse Ox 98.7 F 96 20 145/78 H 93 06/14/17 07:10 06/14/17 05:05 06/14/17 06:01 06/14/17 06:01 06/14/17 06:01 - Laboratory Result Diagrams: 06/14/17 05:10 06/14/17 05:10 Laboratory results interpreted by me: 06/14/17 06/14/17 06/14/17 05:10 05:10 05:10 WBC 13.8 H RDW 16.9 H Absolute Neutrophils 10.3 H VBG pCO2 67.6 H* VBG HCO3 33.1 H Sodium 145.5 H Carbon Dioxide 35 H Anion Gap 4 L BUN 21 H Glucose 60 L Calcium 7.8 L AST 11 L Total Protein 5.3 L Albumin 3.1 L Urine Blood 06/14/17 05:30 WBC RDW Absolute Neutrophils VBG pCO2 VBG HCO3 Sodium Carbon Dioxide Anion Gap BUN Glucose Calcium AST Total Protein Albumin Urine Blood SMALL H - Diagnostic Test Radiology reviewed: Image reviewed - Streaky bibasilar opacities concerning for pneumonia, Reports reviewed Discharge - Discharge Clinical Impression: COPD exacerbation, Cocaine use, Encounter for smoking cessation counseling Pneumonia Qualifiers: Pneumonia type: due to unspecified organism Laterality: bilateral Lung location : lower lobe of lung Qualified Code(s): J18.1 - Lobar pneumonia, unspecified organism Condition: Stable Disposition: HOME, SELF-CARE Instructions: Chronic Obstructive Lung Disease ([facility]) Prescriptions: Levofloxacin [Levaquin 750 mg Tablet] 750 mg PO DAILY #5 tablet Prednisone [Deltasone 20 mg Tablet] 3 tab PO DAILY 5 Days tablet Referrals: BLAYNE CHO DO [Primary Care Provider] - Follow up tomorrow
[2017-06-14 06:54] VITALS: BP 145/78
--- NOTE | 2017-06-14 10:14 | EKG REPORT ---
SEVERITY:- BORDERLINE ECG - SINUS RHYTHM BORDERLINE T ABNORMALITIES, ANT-LAT LEADS : Confirmed by: Jacob Garrison 14-Jun-2017 10:13:40
== END 2017-06-14 07:11 | disposition home or self-care (01) ==
LOC: ER 04:58
DX: J44.0 Chronic obstructive pulmonary disease with (acute) lower respiratory infection (principal); J18.1 Lobar pneumonia, unspecified organism; R06.02 Shortness of breath; F14.90 Cocaine use, unspecified, uncomplicated; R05 Cough; Z99.81 Dependence on supplemental oxygen; Z71.6 Tobacco abuse counseling; F17.210 Nicotine dependence, cigarettes, uncomplicated; I10 Essential (primary) hypertension; E11.9 Type 2 diabetes mellitus without complications
CPT/HCPCS: 93005; 94640; 99285; 96375; 96365; 36415; 87040; 87086; 82962; 85025; 85610; 80053; 81001; 80307; 82803; 83880; 71045; 93010; 94660; J2930; J3475; J7620

== ENCOUNTER → 2017-08-19 | Outpatient (CLI) | payer MEDICAID ==
--- NOTE | 2017-08-19 15:21 | RADIOLOGY REPORT (SQ) ---
EXAM DESCRIPTION: KNEE LEFT 4 VIEW COMPLETED DATE/TIME: 08/19/2017 3:00 pm REASON FOR STUDY: BILATERAL CHRONIC KNEE PAIN (M25.562, M25.561) M25.562 PAIN IN LEFT KNEE M25.561 PAIN IN RIGHT KNEE COMPARISON: None. NUMBER OF VIEWS: Four views. TECHNIQUE: AP, lateral, and both oblique radiographic images acquired of the left knee. LIMITATIONS: None. FINDINGS: MINERALIZATION: Normal. BONES: No acute fracture or dislocation. No worrisome bone lesions. JOINT: No effusion. Mild symmetrical degenerative narrowing of the knee joint compartments. SOFT TISSUES: No soft tissue swelling. No radio-opaque foreign body. OTHER: No other significant finding. IMPRESSION: Mild symmetrical degenerative narrowing of the knee joint compartments. TECHNICAL DOCUMENTATION: JOB ID: [email or web address]- All Rights Reserved Reading location - IP/workstation name: [email or web address]
--- NOTE | 2017-08-19 15:23 | RADIOLOGY REPORT (SQ) ---
EXAM DESCRIPTION: KNEE RIGHT 4 VIEWS COMPLETED DATE/TIME: 08/19/2017 3:00 pm REASON FOR STUDY: BILATERAL CHRONIC KNEE PAIN (M25.562, M25.561) M25.562 PAIN IN LEFT KNEE M25.561 PAIN IN RIGHT KNEE COMPARISON: None. NUMBER OF VIEWS: Four views. TECHNIQUE: AP, lateral, and both oblique radiographic images acquired of the right knee. LIMITATIONS: None. FINDINGS: MINERALIZATION: Normal. BONES: No acute fracture or dislocation. No worrisome bone lesions. Degenerative spurring medial join t compartment JOINT: No effusion. Mild to moderate degenerative compromise medial joint compartment. Mild degener ative compromise lateral compartment. OTHER: No other significant finding. IMPRESSION: Degenerative compromise -mild to moderate medial compartment with associated hypertrophi c spurring and mild lateral compartment. TECHNICAL DOCUMENTATION: JOB ID: [id number] [email or web address]- All Rights Reserved Reading location - IP/workstation name: [email or web address]
== END ==
LOC: RAD 14:24
PROVIDERS: ATTEND Family Medicine
DX: M25.562 Pain in left knee (principal); M25.561 Pain in right knee; M17.0 Bilateral primary osteoarthritis of knee

== ENCOUNTER 2017-10-20 06:06 | Emergency (ER) | payer MEDICAID ==
[2017-10-20] MEDS ORDERED: RACEPINEPHRINE HCL 2.25% NEB 0.5 ML AMPUL NEB ONE ×2 (06:19→06:20)
--- NOTE | 2017-10-20 06:21 | ER Document Report ---
ED Respiratory Problem - General Mode of Arrival: Medic Information source: Patient TRAVEL OUTSIDE OF THE [place] IN LAST 30 DAYS: No <PRABHAKAR RODRÍGUEZ - Last Filed: 10/20/17 08:21> <GINGER SAMPSON - Last Filed: 10/20/17 12:22> - General Chief Complaint: Shortness Of Breath Stated Complaint: DIFFICULTY BREATHING Time Seen by Provider: 10/20/17 06:13 Notes: 51-year-old female that presents to the emergency department today with complaints of shortness of breath. Patient has COPD and still smokes. Patient states she has a BiPAP at home that she wears most of the day, not just at night. She states that she "uses it when she needs it". Patient also complains of a cough and a hoarse voice. (PRABHAKAR RODRÍGUEZ) - Related Data Allergies/Adverse Reactions: No Known Allergies Allergy (Verified 01/09/17 12:24) Past Medical History - General Information source: Patient, [facility] Records - Social History Smoking Status: Current Every Day Smoker Cigarette use (# per day): Yes Frequency of alcohol use: None Drug Abuse: None Lives with: Family Family History: Reviewed & Not Pertinent, Other - Mother with COPD - Past Medical History Cardiac Medical History: Reports: Hx Congestive Heart Failure, Hx Hypertension Pulmonary Medical History: Reports: Hx Asthma, Hx Bronchitis, Hx COPD, Hx Pneumonia, Hx Intubation, Hx Respiratory Failure, Hx Sleep Apnea, Other - right upper lobe spiculated mass-mass just above the arytenoid cartilage Endocrine Medical History: Reports: Hx Diabetes Mellitus Type 2 GI Medical History: Reports: Hx Hepatitis - HEP-C Musculoskeletal Medical History: Reports Hx Arthritis Skin Medical History: Reports Hx Cellulitis Psychiatric Medical History: Reports: Hx Anxiety, Hx Bipolar Disorder, Hx Depression Infectious Medical History: Reports: Hx Hepatitis - HEP-C Past Surgical History: Reports: Hx Cardiac Catheterization, Hx Hysterectomy - Immunizations Immunizations up to date: Yes Hx Diphtheria, Pertussis, Tetanus Vaccination: Yes Hx Pneumococcal Vaccination: 04/10/10 <PRABHAKAR RODRÍGUEZ - Last Filed: 10/20/17 08:21> Review of Systems - Review of Systems Constitutional: denies: Fever EENT: See HPI, Other - hoarse voice Cardiovascular: No symptoms reported Respiratory: See HPI, Cough, Short of breath Gastrointestinal: No symptoms reported Genitourinary: No symptoms reported Female Genitourinary: No symptoms reported Musculoskeletal: No symptoms reported Skin: No symptoms reported Hematologic/Lymphatic: No symptoms reported Neurological/Psychological: No symptoms reported -: Yes All other systems reviewed and negative <MARCOSPRABHAKAR - Last Filed: 10/20/17 08:21> Physical Exam <MARCOSPRABHAKAR - Last Filed: 10/20/17 08:21> <GINGER SAMPSON - Last Filed: 10/20/17 12:22> - Vital signs Vitals: BP Pulse Ox 141/86 H 96 10/20/17 06:11 10/20/17 06:11 - Notes Notes: Physical Exam: General: Alert. HEENT: Normocephalic. Atraumatic. PERRL. Extraocular movements intact. Oropharynx clear. Symmetric uvula edema and erythema, no tongue swelling. Neck: Supple. Non-tender. Respiratory: Mild to moderate respiratory distress. Tachypneic. Wheezing and rhonchi bilaterally. Cardiovascular: Regular rate and rhythm. Abdominal: Obese. Non-tender. No distension. Normal Bowel Sounds. Back: Non-tender. No deformity or step off. Extremities: Moves all four extremities. Upper extremities: Normal inspection. Normal ROM. Lower extremities: Normal inspection. No edema. Normal ROM. Neurological: Normal cognition. AAOx4. Normal speech. Psychological: Normal affect. Normal Mood. Skin: Warm. Dry. Normal color. (PRABHAKAR RODRÍGUEZ) Course - Laboratory Result Diagrams: 10/20/17 06:15 10/20/17 06:15 <MARCOSPRABHAKAR - Last Filed: 10/20/17 08:21> - Laboratory Result Diagrams: 10/20/17 06:15 10/20/17 06:15 - Diagnostic Test Radiology reviewed: Image reviewed, Reports reviewed - Chest x-ray and soft tissue neck films do not show acute abnormalities. - EKG Interpretation by Ca EKG shows normal: Sinus rhythm, [place], Intervals, QRS Complexes. abnormal: ST-T Waves - Borderline anterolateral T abnormalities Rate: Normal - 76 Rhythm: NSR - Consults Dr. Wilma Velasquez Time consulted: 12:15 Consulted provider: will come to ER <GINGER SAMPSON - Last Filed: 10/20/17 12:22> - Re-evaluation Re-evalutation: 10/20/17 07:24 The patient was placed on BiPAP when she returned from the x-ray department for the portable soft tissue neck. She was brought back from the x-ray department on 15 L O2 nonrebreather. BiPAP was set at 40% FiO2 and 12/6 settings. A blood gas was drawn after she got set on the BiPAP, I expect the O2 sat will be very high due to having been on the 15 L nonrebreather. I also asked the respiratory therapist to humidify the air as the patient clinically has findings of croup-like problem in addition to her COPD exacerbation. 10/20/17 11:34 The blood gas was drawn shortly after the patient was changed from 15 L nonrebreather mask to 40% FiO2 BiPAP. That blood gas showed a pH of 7.30, PCO2 of 69.5, PO2 of 94.7 Repeat blood gas was eventually attempted by the nurse and rejected by the lab, respiratory came to try the blood gas and the patient refused to have anymore done. (GINGER SAMPSON) - Vital Signs Vital signs: Temp Pulse Resp BP Pulse Ox 98.6 F 85 16 146/86 H 96 10/20/17 06:16 10/20/17 06:16 10/20/17 12:02 10/20/17 11:01 10/20/17 12:02 - Laboratory Laboratory results interpreted by me: 10/20/17 10/20/17 10/20/17 06:15 06:15 06:30 RBC 5.38 H MCH 25.7 L MCHC 31.6 L RDW 18.3 H Carbonic Acid ABG pH ABG pCO2 ABG HCO3 ABG Total CO2 Carbon Dioxide 33 H POC Glucose 111 H Creatine Kinase 29 L Urine Blood Ur Leukocyte Esterase 10/20/17 10/20/17 07:05 07:50 RBC MCH MCHC RDW Carbonic Acid 2.09 H ABG pH 7.30 L ABG pCO2 69.5 H* ABG HCO3 33.3 H ABG Total CO2 35.4 H Carbon Dioxide POC Glucose Creatine Kinase Urine Blood SMALL H Ur Leukocyte Esterase LARGE H Critical Care Note - Critical Care Note Total time excluding time spent on procedures (mins): 40 <GINGER SAMPSON - Last Filed: 10/20/17 12:22> Discharge <PRABHAKAR RODRÍGUEZ - Last Filed: 10/20/17 08:21> - Discharge Admitting Provider: Hospitalist Unit Admitted: Telemetry <GINGER SAMPSON - Last Filed: 10/20/17 12:22> - Discharge Clinical Impression: COPD exacerbation, Acute respiratory failure with hypoxia and hypercarbia, Cocaine abuse Condition: Stable Disposition: ADMITTED INPATIENT Referrals: BLAYNE CHO DO [Primary Care Provider] - Follow up as needed Scribe Attestation: 10/20/17 08:07 I personally performed the services described in the documentation, reviewed and edited the documentation which was dictated to the scribe in my presence, and it accurately records my words and actions. (GINGER SAMPSON) Scribe Documentation - Scribe Written by Manju:: Manju Retana, 10/20/2017 0713 acting as scribe for :: Delonte <PRABHAKAR RODRÍGUEZ - Last Filed: 10/20/17 08:21>
--- NOTE | 2017-10-20 06:52 | RADIOLOGY REPORT (SQ) ---
EXAM DESCRIPTION: XR CHEST 1 VIEW COMPLETED DATE/TME: 10/20/2017 06:19 CLINICAL HISTORY: 51 years Female, SOB COMPARISON: 4.7.18 NUMBER OF VIEWS/TECHNIQUE: 1/AP FINDINGS: Adequate lung volume, prominent interstitium, normal cardiac silhouette, and mild chronic deformity of the right sixth posterior rib. IMPRESSION: No acute cardiopulmonary findings.
--- NOTE | 2017-10-20 07:08 | RADIOLOGY REPORT (SQ) ---
EXAM DESCRIPTION: XR NECK SOFT TISSUE COMPLETED DATE/TME: 10/20/2017 06:36 CLINICAL HISTORY: 51 years, Female, croup COMPARISON: CR, chest, same day. NUMBER OF VIEWS: 2 LIMITATIONS: None. FINDINGS: Patent nasopharynx and airway. No direct radiographic evidence of croup as queried. No epiglottitis. Normal appearance of the cervical spine. Prominent interstitium. IMPRESSION: No acute findings.
[2017-10-20 07:14] LABS: ABSOLUTE EOSINOPHILS # (AUTO) 0.1 10^3/uL (0.0-0.6); ABSOLUTE LYMPHOCYTES (AUTO) 1.7 10^3/uL (0.5-4.7); ABSOLUTE MONOCYTES (AUTO) 0.8 10^3/uL (0.1-1.4); ABSOLUTE NEUT (AUTO) 7.4 10^3/uL (1.7-8.2); BASOPHILS % (AUTO) 0.2 % (0-2); EOSINOPHILS % (AUTO) 0.9 % (0-6); HEMATOCRIT 43.7 % (36.0-47.0); HEMOGLOBIN 13.8 g/dL (12.0-15.5); LYMPHOCYTES % (AUTO) 17.3 % (13-45); MEAN CORPUSCULAR HEMOGLOBIN 25.7 pg (27.0-33.4); MEAN CORPUSCULAR HGB CONC 31.6 g/dL (32.0-36.0); MEAN CORPUSCULAR VOLUME 81 fl (80-97); MONOCYTES % (AUTO) 7.7 % (3-13); PLATELET COUNT 239 10^3/uL (150-450); RED BLOOD COUNT 5.38 10^6/uL (3.72-5.28); RED CELL DISTRIBUTION WIDTH 18.3 % (11.5-14.0); SEGMENTED NEUTROPHILS % (AUTO) 73.9 % (42-78); TOTAL CELLS COUNTED % (AUTO) 100 %; WHITE BLOOD COUNT 10.1 10^3/uL (4.0-10.5)
[2017-10-20 07:20] LABS: ALANINE AMINOTRANSFERASE 19 U/L (9-52); ALBUMIN 3.8 g/dL (3.5-5.0); ALKALINE PHOSPHATASE 61 U/L (38-126); ANION GAP 11 (5-19); ASPARTATE AMINO TRANSFERASE 15 U/L (14-36); BILIRUBIN,DIRECT 0.2 mg/dL (0.0-0.4); BILIRUBIN,TOTAL 0.4 mg/dL (0.2-1.3); BLOOD UREA NITROGEN 16 mg/dL (7-20); CALCIUM 9.4 mg/dL (8.4-10.2); CARBON DIOXIDE 33 mmol/L (22-30); CHLORIDE 99 mmol/L (98-107); CREATINE KINASE 29 U/L (30-135); GLUCOSE 105 mg/dL (75-110); POTASSIUM 4.2 mmol/L (3.6-5.0); SODIUM 142.8 mmol/L (137-145); TOTAL PROTEIN 7.2 g/dL (6.3-8.2)
[2017-10-20 07:31] LABS: CREATINE KINASE MB 0.73 ng/mL (<4.55)
[2017-10-20 07:31] LABS: ARTERIAL BLOOD BASE EXCESS 4.5 mmol/L; ARTERIAL BLOOD H2CO3 2.09 mmol/L (1.05-1.35); ARTERIAL BLOOD HCO3 33.3 mmol/L (20-26); ARTERIAL BLOOD O2 SATURATION 96.3 % (94-98); ARTERIAL BLOOD PO2 94.7 mmHg (80-100); ARTERIAL BLOOD TOTAL CO2 35.4 mmol/L (21-25)
[2017-10-20 07:32] LABS: TROPONIN I < 0.012 ng/mL
[2017-10-20 07:41] LABS: ARTERIAL BLOOD FIO2 80%
[2017-10-20 07:47] LABS: ARTERIAL BLOOD PCO2 69.5 mmHg (35-45)
[2017-10-20 08:27] LABS: APPEARANCE,URINE SLIGHTLY-CLOUDY; BILIRUBIN,URINE NEGATIVE (NEGATIVE); COLOR,URINE STRAW; GLUCOSE, URINE NEGATIVE (NEGATIVE); KETONES,URINE NEGATIVE (NEGATIVE); LEUKOCYTE ESTERASE,URINE LARGE (NEGATIVE); NITRITE,URINE NEGATIVE (NEGATIVE); PROTEIN,URINE NEGATIVE (NEGATIVE); URINE SPECIFIC GRAVITY 1.005; UROBILINOGEN,URINE NEGATIVE mg/dL (<2.0)
[2017-10-20 10:47] LABS: URINE AMPHETAMINES SCREEN NEGATIVE; URINE BARBITURATES SCREEN NEGATIVE; URINE BENZODIAZEPINES SCREEN NEGATIVE; URINE COCAINE SCREEN UNCONFIRMED POSITIVE; URINE MARIJUANA (THC) SCREEN NEGATIVE; URINE METHADONE SCREEN NEGATIVE; URINE PHENCYCLIDINE SCREEN NEGATIVE
--- NOTE | 2017-10-20 12:55 | EKG REPORT ---
SEVERITY:- BORDERLINE ECG - SINUS RHYTHM BORDERLINE T ABNORMALITIES, ANT-LAT LEADS : Confirmed by: Jorge Luis Dee MD 20-Oct-2017 12:55:05
[2017-10-20 16:56] VITALS: BP 144/88
--- NOTE | 2017-10-21 00:47 | PDOC H&P ---
History of Present Illness Admission Date/PCP: 10/20/17 12:33 BLAYNE CHO DO Patient complains of: Shortness of breath History of Present Illness: POLLY CRESPO is a 51 year old female seen in the emergency room for acute respiratory failure with hypercarbia and hypoxia. She states that she has frequent intermittent shortness of breath and it happened again so she came in. Patient discussed with patient about her tobacco abuse and her cocaine abuse and how threatening it is for her. Discussed with patient with the cocaine tobacco can both affect the heart and cause her to have a heart attack that it is In her interest for her health to abstain from substances and tobacco. Patient denies any chest pain right now Past Medical History Cardiac Medical History: Reports: Congestive Heart Failure, Hypertension Pulmonary Medical History: Reports: Asthma, Bronchitis, Chronic Obstructive Pulmonary Disease (COPD), Intubation, Pneumonia, Respiratory Failure, Sleep Apnea, Other - right upper lobe spiculated mass-mass just above the arytenoid cartilage Endocrine Medical History: Reports: Diabetes Mellitus Type 2 GI Medical History: Reports: Hepatitis - HEP-C Musculoskeltal Medical History: Reports: Arthritis Psychiatric Medical History: Reports: Bipolar Disorder, Depression Hematology: Denies: Anemia Past Surgical History Past Surgical History: Reports: Cardiac Catheterization, Hysterectomy Social History Lives with: Family Smoking Status: Current Every Day Smoker Frequency of Alcohol Use: None Hx Recreational Drug Use: Yes Drugs: Cocaine Hx Prescription Drug Abuse: No Family History Family History: Reviewed & Not Pertinent, Other - Mother with COPD Parental Family History Reviewed: Yes Children Family History Reviewed: NA Sibling(s) Family History Reviewed.: NA Medication/Allergy Home Medications: Albuterol Sulfate [Proair HFA Inhalation Aerosol 8.5 gm MDI] 2 puff IH Q4HP PRN 10/20/17 Carvedilol [Coreg 3.125 mg Tablet] 3.125 mg PO Q12 10/20/17 Diclofenac Sodium [Voltaren] 4 gm TOP QID 10/20/17 Fesoterodine Fumarate [Toviaz] 8 mg PO DAILY 10/20/17 Gabapentin [Neurontin 300 mg Capsule] 600 mg PO TID 10/20/17 Lisinopril [Zestril] 5 mg PO DAILY 10/20/17 Meloxicam [Mobic] 15 mg PO DAILY 10/20/17 Metformin HCl [Glucophage 500 mg Tablet] 500 mg PO DAILY 10/20/17 Omeprazole 40 mg PO BID 10/20/17 Allergies/Adverse Reactions: No Known Allergies Allergy (Verified 01/09/17 12:24) Review of Systems Constitutional: PRESENT: fatigue, weakness Cardiovascular: ABSENT: chest pain Respiratory: PRESENT: cough, dyspnea, sputum Physical Exam Vital Signs: Temp Pulse Resp BP Pulse Ox 98.6 F 85 26 H 144/88 H 95 10/20/17 06:16 10/20/17 06:16 10/20/17 16:25 10/20/17 16:01 10/20/17 16:25 General appearance: PRESENT: cooperative, morbidly obese Head exam: PRESENT: atraumatic, normocephalic Eye exam: PRESENT: conjunctival injection, EOMI Ear exam: PRESENT: normal external ear exam Respiratory exam: PRESENT: rhonchi Cardiovascular exam: PRESENT: RRR GI/Abdominal exam: PRESENT: normal bowel sounds, soft. ABSENT: tenderness Neurological exam: PRESENT: alert, awake, CN II-XII grossly intact Results Impressions: Chest X-Ray 10/20/17 06:19 IMPRESSION: No acute cardiopulmonary findings. Soft Tissue Neck X-Ray 10/20/17 06:36 IMPRESSION: No acute findings. Assessment & Plan - Diagnosis (1) Acute respiratory failure with hypoxia and hypercarbia Is this a current diagnosis for this admission?: Yes Plan: Patient to be admitted to the hospital for treatment of hypercarbic hypoxemic respiratory failure. Discussed with patient details about the risks of cocaine and tobacco abuse. Patient states she just wants something to eat and and she wants to go home because she wants to follow-up with her lung doctor. States that she has this machine at home that we are using in the emergency room.
== END 2017-10-20 18:00 | disposition other institution (70) ==
LOC: ER 06:06 → UNDOADMIN 12:33 → EH 12:33
DX: J96.02 Acute respiratory failure with hypercapnia (principal); J96.01 Acute respiratory failure with hypoxia; J44.1 Chronic obstructive pulmonary disease with (acute) exacerbation; F14.10 Cocaine abuse, uncomplicated; R05 Cough; R49.0 Dysphonia; F17.210 Nicotine dependence, cigarettes, uncomplicated; E11.9 Type 2 diabetes mellitus without complications; I10 Essential (primary) hypertension; G47.30 Sleep apnea, unspecified; Z99.89 Dependence on other enabling machines and devices; Z87.01 Personal history of pneumonia (recurrent)
CPT/HCPCS: 93005; 94640; 99291; 36415; 82553; 82962; 82803; 82550; 85025; 80053; 81001; 84484; 80307; 83605; 71045; 70360; 93010; 94660; J3490

== ENCOUNTER 2017-12-31 08:15 | Observation (INO) | payer MEDICAID ==
--- NOTE | 2017-12-31 09:31 | ER Document Report ---
ED Respiratory Problem - General Chief Complaint: Breathing Difficulty Stated Complaint: DIFFICULTY BREATHING Time Seen by Provider: 12/31/17 09:25 Notes: Patient says that she is here for difficulty breathing that is an ongoing problem. She says that she has COPD and has a home BiPAP machine, home oxygen, and uses home nebulizers. She says that she has had to be resuscitated twice in the past. Still, she smokes about a pack a day of cigarettes. Her reason for being here today she says is that she is weak and feeling very tired. She has a productive sounding cough. Unaware of any fever. TRAVEL OUTSIDE OF THE [place] IN LAST 30 DAYS: No - Related Data Allergies/Adverse Reactions: No Known Allergies Allergy (Verified 12/31/17 08:17) Past Medical History - Social History Smoking Status: Current Every Day Smoker Family History: Reviewed & Not Pertinent, Other - Mother with COPD - Past Medical History Cardiac Medical History: Reports: Hx Congestive Heart Failure, Hx Hypertension Pulmonary Medical History: Reports: Hx Asthma, Hx Bronchitis, Hx COPD, Hx Pneumonia, Hx Intubation, Hx Respiratory Failure, Hx Sleep Apnea Endocrine Medical History: Reports: Hx Diabetes Mellitus Type 2 GI Medical History: Reports: Hx Hepatitis - HEP-C Musculoskeletal Medical History: Reports Hx Arthritis Skin Medical History: Reports Hx Cellulitis Psychiatric Medical History: Reports: Hx Anxiety, Hx Bipolar Disorder, Hx Depression Infectious Medical History: Reports: Hx Hepatitis - HEP-C Past Surgical History: Reports: Hx Cardiac Catheterization, Hx Hysterectomy - Immunizations Immunizations up to date: Yes Hx Diphtheria, Pertussis, Tetanus Vaccination: Yes Hx Pneumococcal Vaccination: 04/10/10 Review of Systems - Review of Systems Notes: REVIEW OF SYSTEMS: CONSTITUTIONAL : Denies fever. EENT: Denies eye, ear, nose or mouth or throat pain or other symptoms. CARDIOVASCULAR: Denies chest pain. RESPIRATORY: See HPI.. GASTROINTESTINAL: Denies abdominal pain or nausea, vomiting, or diarrhea. GENITOURINARY: Denies difficulty or painful urinating, urinary frequency, blood in urine. MUSCULOSKELETAL: Denies back or neck pain. Denies joint pain or swelling. SKIN: Denies rash or skin lesions. NEUROLOGICAL: Denies LOC or altered mental status. Denies headache. Denies sensory loss or motor deficits. ALL OTHER SYSTEMS REVIEWED AND NEGATIVE. Physical Exam - Vital signs Vitals: Temp Pulse Resp BP Pulse Ox 97.8 F 77 20 137/70 H 94 12/31/17 08:26 12/31/17 08:26 12/31/17 08:26 12/31/17 08:26 12/31/17 08:26 Interpretation: Normal Notes: PHYSICAL EXAMINATION: GENERAL: Well-appearing, in no acute distress. Vital signs are all normal. HEAD: Atraumatic, normocephalic. EYES: Pupils equal round and reactive to light, extraocular movements intact. ENT: oropharynx clear without exudates. Moist mucous membranes. NECK: Normal range of motion, supple. LUNGS: Scattered expiratory wheezes, bilaterally. HEART: Regular rate and rhythm without murmurs. ABDOMEN: Soft, nontender. No guarding or rebound. No masses. BACK: No tenderness throughout entire back. EXTREMITIES: Normal range of motion without pain. No edema present. Negative Homans bilaterally. NEUROLOGICAL: Normal speech, normal gait. Normal sensory, motor, and reflex exams. Awake, alert, and oriented x3. Cranial nerves normal. PSYCH: Normal mood, normal affect. SKIN: Warm, dry, no rashes. Course - Re-evaluation Re-evalutation: 12/31/17 13:17 Patient's PCO2 is 76 on the venous blood gas specimen. She was started on BiPAP. All other labs essentially unremarkable. Chest x-ray is normal. Spoke with hospitalist who will admit her to [facility] on BiPAP. - Vital Signs Vital signs: Temp Pulse Resp BP Pulse Ox 97.6 F 70 18 121/50 L 95 01/01/18 12:23 01/01/18 12:23 01/01/18 12:23 01/01/18 12:23 01/01/18 12:23 - Laboratory Result Diagrams: 12/31/17 10:39 12/31/17 11:32 Laboratory results interpreted by me: 12/31/17 12/31/17 12/31/17 09:48 10:39 10:39 WBC 11.8 H RDW 18.3 H Seg Neutrophils % 81.4 H Lymphocytes % 11.6 L Absolute Neutrophils 9.6 H VBG pCO2 75.8 H* VBG HCO3 36.8 H Carbon Dioxide Anion Gap Ur Leukocyte Esterase TRACE H 12/31/17 11:32 WBC RDW Seg Neutrophils % Lymphocytes % Absolute Neutrophils VBG pCO2 VBG HCO3 Carbon Dioxide 38 H Anion Gap 4 L Ur Leukocyte Esterase Critical Care Note - Critical Care Note Total time excluding time spent on procedures (mins): 40 Discharge - Discharge Clinical Impression: COPD exacerbation, Hypercapnia Disposition: ADMITTED INPATIENT Admitting Provider: Hospitalist Unit Admitted: [facility]
[2017-12-31] MEDS ORDERED: METHYLPREDNISOLONE INJ 125 MG/2 ML SDV IV ONE (09:34)
[2017-12-31 10:19] LABS: APPEARANCE,URINE CLEAR; BILIRUBIN,URINE NEGATIVE (NEGATIVE); COLOR,URINE COLORLESS; GLUCOSE, URINE NEGATIVE (NEGATIVE); KETONES,URINE NEGATIVE (NEGATIVE); LEUKOCYTE ESTERASE,URINE TRACE (NEGATIVE); NITRITE,URINE NEGATIVE (NEGATIVE); PROTEIN,URINE NEGATIVE (NEGATIVE); URINE SPECIFIC GRAVITY 1.005; UROBILINOGEN,URINE NEGATIVE mg/dL (<2.0)
[2017-12-31 10:25] LABS: A TYPE INFLUENZA AG NEGATIVE (NEGATIVE); B INFLUENZA AG NEGATIVE (NEGATIVE)
[2017-12-31] MEDS: IPRATROPIUM/ALBUTEROL 0.5-2.5 MG/3 ML AMPUL NEB SCH ×8 (10:26→23:57)
--- NOTE | 2017-12-31 10:30 | RADIOLOGY REPORT (SQ) ---
EXAM DESCRIPTION: CHEST SINGLE VIEW COMPLETED DATE/TIME: 12/31/2017 10:06 am REASON FOR STUDY: COPD, difficulty breathing COMPARISON: Chest films 10/20/2017, 06/14/2017, 03/28/2016 EXAM PARAMETERS: NUMBER OF VIEWS: One view. TECHNIQUE: Single frontal radiographic view of the chest acquired. RADIATION DOSE: NA LIMITATIONS: None. FINDINGS: LUNGS AND PLEURA: No opacities, masses or pneumothorax. No pleural effusion. MEDIASTINUM AND HILAR STRUCTURES: No masses. Contour normal. HEART AND VASCULAR STRUCTURES: Moderate stable cardiomegaly BONES: No acute findings. HARDWARE: None in the chest. OTHER: No other significant finding. IMPRESSION: NO ACUTE RADIOGRAPHIC FINDING IN THE CHEST. TECHNICAL DOCUMENTATION: JOB ID: [id number] [employer]- All Rights Reserved Reading location - IP/workstation name: [email or web address]
[2017-12-31 10:58] LABS: ABSOLUTE BASOPHILS # (AUTO) 0.1 10^3/uL (0.0-0.2); ABSOLUTE EOSINOPHILS # (AUTO) 0.1 10^3/uL (0.0-0.6); ABSOLUTE LYMPHOCYTES (AUTO) 1.4 10^3/uL (0.5-4.7); ABSOLUTE MONOCYTES (AUTO) 0.6 10^3/uL (0.1-1.4); ABSOLUTE NEUT (AUTO) 9.6 10^3/uL (1.7-8.2); BASOPHILS % (AUTO) 0.6 % (0-2); HEMATOCRIT 42.1 % (36.0-47.0); HEMOGLOBIN 13.7 g/dL (12.0-15.5); LYMPHOCYTES % (AUTO) 11.6 % (13-45); MEAN CORPUSCULAR HEMOGLOBIN 27.2 pg (27.0-33.4); MEAN CORPUSCULAR HGB CONC 32.6 g/dL (32.0-36.0); MEAN CORPUSCULAR VOLUME 84 fl (80-97); MONOCYTES % (AUTO) 5.4 % (3-13); PLATELET COUNT 235 10^3/uL (150-450); RED BLOOD COUNT 5.05 10^6/uL (3.72-5.28); RED CELL DISTRIBUTION WIDTH 18.3 % (11.5-14.0); SEGMENTED NEUTROPHILS % (AUTO) 81.4 % (42-78); TOTAL CELLS COUNTED % (AUTO) 100 %; WHITE BLOOD COUNT 11.8 10^3/uL (4.0-10.5)
[2017-12-31 11:00] LABS: VENOUS BLOOD BASE EXCESS 7.5 mmol/L; VENOUS BLOOD HCO3 36.8 mmol/L (20-32); VENOUS BLOOD PH 7.3 (7.30-7.42)
[2017-12-31 11:10] LABS: VENOUS BLOOD PCO2 75.8 mmHg (35-63)
[2017-12-31 12:18] LABS: ALANINE AMINOTRANSFERASE 20 U/L (9-52); ALBUMIN 3.8 g/dL (3.5-5.0); ALKALINE PHOSPHATASE 67 U/L (38-126); ASPARTATE AMINO TRANSFERASE 16 U/L (14-36); BILIRUBIN,DIRECT 0.2 mg/dL (0.0-0.4); BILIRUBIN,TOTAL 0.7 mg/dL (0.2-1.3); BLOOD UREA NITROGEN 18 mg/dL (7-20); CALCIUM 8.8 mg/dL (8.4-10.2); CHLORIDE 101 mmol/L (98-107); GLUCOSE 101 mg/dL (75-110); POTASSIUM 4.7 mmol/L (3.6-5.0); TOTAL PROTEIN 6.8 g/dL (6.3-8.2)
[2017-12-31 12:23] LABS: CARBON DIOXIDE 38 mmol/L (22-30); SODIUM 142.5 mmol/L (137-145)
[2017-12-31 12:24] LABS: ANION GAP 4 (5-19)
[2017-12-31 12:30] LABS: CREATINE KINASE MB 1.19 ng/mL (<4.55); NT PRO BNP 49 pg/mL (5-900)
[2017-12-31 12:31] LABS: TROPONIN I < 0.012 ng/mL
[2017-12-31] MEDS ORDERED: AZITHROMYCIN 250 MG TABLET PO SCH (14:00)
[2017-12-31] MEDS ORDERED: BUTALB/ACETAMINOPHEN/CAFFEINE 1 TAB EACH PO ONE (14:30)
[2017-12-31] MEDS: METHYLPREDNISOLONE INJ 40 MG/1 ML SDV IV SCH ×2 (15:53→22:01)
[2017-12-31] MEDS ORDERED: ALPRAZOLAM 0.25 MG TABLET PO PRN (16:20)
[2017-12-31] MEDS ORDERED: INSULIN LISPRO 100 UNIT/ML 3 ML VIAL SUBCUT PRN (16:20)
[2017-12-31] MEDS ORDERED: GLUCAGON,HUMAN RECOMB 1 MG INJ IM PRN (16:20)
[2017-12-31] MEDS ORDERED: DEXTROSE 50%-WATER 25 GM/50 ML DISP.SYRIN IV PRN ×2 (16:20)
[2017-12-31] MEDS ORDERED: DEXTROSE 40% GEL 15 GM TUBE PO PRN ×2 (16:20)
[2017-12-31] MEDS ORDERED: CALCIUM GLUCONATE 1000 MG/10 ML INJ IV ONE (16:39)
[2017-12-31] MEDS ORDERED: INSULIN REG, HUMAN 100 UNIT/ML 3 ML VIAL (PYX) IV ONE (16:40)
--- NOTE | 2017-12-31 17:08 | PDOC H&P ---
History of Present Illness Admission Date/PCP: 12/31/17 13:25 BLAYNE CHO DO Patient complains of: cough, SOB History of Present Illness: POLLY CRESPO is a 52 year old female with a PMH of COPD, [place] on BIPAP at home, prior severe COPD exacerbations with history of intubations twice, history of right lung nodule, and hepatitis C who presented with worsening SOB and cough. Patient says h has baseline SOB and cough from his COPD but had worsening SOB and wheezing yesterday associated with cough slightly more productive than her baseline. In the ER, she was noted to have bilateral wheezing. Chest x-ray was negative for pneumonia. Patient was given breathing treatments and IV Solu-Medrol. Her VBG showed a PCO2 of 75. She was placed on BiPAP. Patient did not have any confusion or hypoxia. However she has not been compliant to the BiPAP. She does have multiple history of noncompliance and leaving AMA from the ER. Upon encounter, patient was not wearing her BiPAP. She says she does not want to use it as it makes her uncomfortable. Explained in length again the importance of using BiPAP. Patient did express that she wants to go home from the ER today. She says she wants to eat now and threatens that if she is unable to get any food in the next few minutes, she will just leave the ER [place]. Patient is coherent and is oriented x4. She verbalized that she knows she has COPD exacerbation but says that she has some steroids at home and she could just continue taking them at home. She says she has gotten some relief from the breathing treatments and thinks that she may be be able to do well at home. She also verbalized that she has chronic frontal headache and is asking if she could have some Percocet. She denies any dizziness, palpitation, nausea or vomiting. Past Medical History Cardiac Medical History: Reports: Congestive Heart Failure, Hypertension Pulmonary Medical History: Reports: Asthma, Bronchitis, Chronic Obstructive Pulmonary Disease (COPD), Intubation, Pneumonia, Respiratory Failure, Sleep Apnea Endocrine Medical History: Reports: Diabetes Mellitus Type 2 GI Medical History: Reports: Hepatitis - HEP-C Musculoskeltal Medical History: Reports: Arthritis Psychiatric Medical History: Reports: Bipolar Disorder, Depression Hematology: Denies: Anemia Past Surgical History Past Surgical History: Reports: Cardiac Catheterization, Hysterectomy Social History Smoking Status: Current Every Day Smoker Cigarettes Packs Per Day: 1 Last Time Smoked: 30 Frequency of Alcohol Use: None Hx Recreational Drug Use: Yes Drugs: Marijuana Hx Prescription Drug Abuse: No Family History Family History: Reviewed & Not Pertinent, Other - Mother with COPD Parental Family History Reviewed: Yes - no premature CAD Children Family History Reviewed: No Sibling(s) Family History Reviewed.: No Medication/Allergy Home Medications: Albuterol Sulfate [Proair HFA Inhalation Aerosol 8.5 gm MDI] 2 puff IH Q4HP PRN 12/31/17 Alprazolam [Xanax 0.25 mg Tablet] 0.25 mg PO BIDP PRN 12/31/17 Carvedilol [Coreg 3.125 mg Tablet] 3.125 mg PO Q12 12/31/17 Gabapentin [Neurontin 300 mg Capsule] 600 mg PO TID 12/31/17 Ibuprofen [Motrin 800 mg Tablet] 800 mg PO TID 12/31/17 Lisinopril [Zestril] 5 mg PO DAILY 12/31/17 Meloxicam [Mobic] 15 mg PO DAILY 12/31/17 Metformin HCl [Glucophage 500 mg Tablet] 500 mg PO BID 12/31/17 Mirabegron [Myrbetriq] 25 mg PO DAILY 12/31/17 Omeprazole 40 mg PO DAILY 12/31/17 Allergies/Adverse Reactions: No Known Allergies Allergy (Verified 12/31/17 08:17) Review of Systems All systems: reviewed and no additional remarkable complaints except as stated - as mentioned in HPI Physical Exam Vital Signs: Temp Pulse Resp BP Pulse Ox 98.8 F 99 20 121/50 L 94 12/31/17 15:07 12/31/17 15:07 12/31/17 15:07 12/31/17 15:07 12/31/17 15:07 Intake & Output 12/30/17 12/31/17 01/01/18 06:59 06:59 06:59 Weight 238 lb 15.697 oz General appearance: PRESENT: obese Head exam: PRESENT: atraumatic, normocephalic Eye exam: PRESENT: conjunctiva pink, EOMI, PERRLA. ABSENT: scleral icterus Ear exam: PRESENT: normal external ear exam Mouth exam: PRESENT: moist, tongue midline Neck exam: ABSENT: carotid bruit, JVD, lymphadenopathy, thyromegaly Respiratory exam: PRESENT: clear to auscultation tara, wheezes - moderate wheezes on the bases. ABSENT: rales, rhonchi Cardiovascular exam: PRESENT: RRR. ABSENT: diastolic murmur, rubs, systolic murmur Pulses: PRESENT: normal dorsalis pedis pul GI/Abdominal exam: PRESENT: normal bowel sounds, soft. ABSENT: distended, guarding, mass, organolmegaly, rebound, tenderness Rectal exam: PRESENT: deferred Neurological exam: PRESENT: alert, awake, oriented to person, oriented to place , oriented to time, oriented to situation, CN II-XII grossly intact. ABSENT: motor sensory deficit Results Impressions: Chest X-Ray 12/31/17 09:33 IMPRESSION: NO ACUTE RADIOGRAPHIC FINDING IN THE CHEST. Assessment & Plan - Diagnosis (1) Acute and chronic respiratory failure with hypercapnia Is this a current diagnosis for this admission?: Yes Plan: This is secondary to COPD exacerbation. Patient is being non-compliant to BIPAP and wanted to leave AMA. Discussed in length risks of doing so including further morbidity and . She agreed to stay but continues to be noncompliant to BIPAP. Even with her elevated CO2 which likely has some chronic component, she is competent. She is not confused. She is coherent and well oriented and is able to reason out with me. (2) COPD exacerbation Is this a current diagnosis for this admission?: Yes Plan: Will continue IV steroids and scheduled breathing treatments. Patient is being non-compliant to BIPAP. Discussed she is at risk for intubation if she continues to be very non-compliant. - Time Time Spent: 30 to 50 Minutes
[2017-12-31 18:25] LABS: ARTERIAL BLOOD BASE EXCESS 6.8 mmol/L; ARTERIAL BLOOD H2CO3 2.11 mmol/L (1.05-1.35); ARTERIAL BLOOD HCO3 35.6 mmol/L (20-24); ARTERIAL BLOOD PH 7.32 (7.35-7.45); ARTERIAL BLOOD PO2 56.4 mmHg (80-100); ARTERIAL BLOOD TOTAL CO2 37.7 mmol/L (21-25)
[2017-12-31 18:27] LABS: ARTERIAL BLOOD FIO2 3L
[2017-12-31 18:29] LABS: ARTERIAL BLOOD PCO2 70.1 mmHg (35-45)
[2017-12-31] MEDS ORDERED: GABAPENTIN 100 MG CAPSULE PO ONE (19:00)
[2017-12-31] MEDS: HEPARIN SOD (PORCINE) 5,000 UNIT/ML 1 ML SYRINGE SUBCUT SCH (22:01)
[2017-12-31] MEDS: ACETAMINOPHEN 325 MG TABLET PO PRN (22:02)
[2018-01-01] MEDS: IPRATROPIUM/ALBUTEROL 0.5-2.5 MG/3 ML AMPUL NEB SCH ×2 (04:27→07:56)
[2018-01-01] MEDS: METHYLPREDNISOLONE INJ 40 MG/1 ML SDV IV SCH (05:17)
[2018-01-01] MEDS: ACETAMINOPHEN 325 MG TABLET PO PRN (05:53)
[2018-01-01] MEDS: HEPARIN SOD (PORCINE) 5,000 UNIT/ML 1 ML SYRINGE SUBCUT SCH (10:04)
[2018-01-01 11:20] VITALS: BP 121/50
--- NOTE | 2018-01-01 12:15 | PDOC DISCHARGE SUMMARY ---
General - Admit/Disc Date/PCP Admission Date/Primary Care Provider: 12/31/17 13:25 BLAYNE CHO, Discharge Date: 01/01/18 - Discharge Diagnosis (1) Acute and chronic respiratory failure with hypercapnia Is this a current diagnosis for this admission?: Yes (2) COPD exacerbation Is this a current diagnosis for this admission?: Yes - Additional Information Discharge Diet: As Tolerated Discharge Activity: Activity As Tolerated Prescriptions: Albuterol Sulfate [Proair HFA Inhalation Aerosol 8.5 gm MDI] 2 puff IH Q4HP PRN #2 hfa.aer.ad PRN Reason: Shortness Of Breath Azithromycin [Zithromax 250 mg Tablet] 500 mg PO DAILY #2 tablet Budesonide/Formoterol Fumarate [Symbicort 160-4.5 Mcg Inhaler] 10.2 gm IH Q12 # 1 hfa.aer.ad Prednisone 20 mg PO BID #10 tablet Tiotropium [place] [Spiriva Handihaler 5 Cap/Kit (18 Mcg/Cap)] 1 cap IH DAILY # 5 capsule Home Medications: Carvedilol [Coreg 3.125 mg Tablet] 3.125 mg PO Q12 12/31/17 Lisinopril [Zestril] 5 mg PO DAILY 12/31/17 Metformin HCl [Glucophage 500 mg Tablet] 500 mg PO BID 12/31/17 Mirabegron [Myrbetriq] 25 mg PO DAILY 12/31/17 Omeprazole 40 mg PO DAILY 12/31/17 Albuterol Sulfate [Proair HFA Inhalation Aerosol 8.5 gm MDI] 2 puff IH Q4HP PRN #2 hfa.aer.ad 01/01/18 Azithromycin [Zithromax 250 mg Tablet] 500 mg PO DAILY #2 tablet 01/01/18 Budesonide/Formoterol Fumarate [Symbicort 160-4.5 Mcg Inhaler] 10.2 gm IH Q12 # 1 hfa.aer.ad 01/01/18 Prednisone 20 mg PO BID #10 tablet 01/01/18 Tiotropium [place] [Spiriva Handihaler 5 Cap/Kit (18 Mcg/Cap)] 1 cap IH DAILY # 5 capsule 01/01/18 History of Present Illness History of Present Illness: POLLY CRESPO is a 52 year old female with a PMH of COPD, [place] on BIPAP at home, prior severe COPD exacerbations with history of intubations twice, history of right lung nodule, and hepatitis C who presented with worsening SOB and cough. Patient says h has baseline SOB and cough from his COPD but had worsening SOB and wheezing yesterday associated with cough slightly more productive than her baseline. In the ER, she was noted to have bilateral wheezing. Chest x-ray was negative for pneumonia. Patient was given breathing treatments and IV Solu-Medrol. Her VBG showed a PCO2 of 75. She was placed on BiPAP. Patient did not have any confusion or hypoxia. However she has not been compliant to the BiPAP. She does have multiple history of noncompliance and leaving AMA from the ER. Patient eventually complied to using BIPAP last night. She says she needs to go home today or she'll be fired from work. She Hospital Course Hospital Course: Patient was admitted for COPD exacerbation. She was started on IV steroids, scheduled breathing treatments and azithromycin. Patient eventually complied to using BIPAP last night. She says she needs to go home today or she'll be fired from work. Her wheezing has resolved this morning and she feels she is back to her baseline. She is supposed to be using a BIPAP at home for her [place] but she claims she does not use it as nobody told her before the necessity of using the machine. This was discussed with her in length again. She feels she is at her baseline and denies SOB or chest pain. She will be discharged on azithromycin and 5 more days of PO steroids. She does not appear to be optimized on her COPD regimen despite multiple history of COPD exacerbation. She will be prescribed Symbicort and Spiriva as well as she only used a prn albuterol inhaler at home. She will ff-up with her PCP next week. Physical Exam Vital Signs: Temp Pulse Resp BP Pulse Ox 97.6 F 70 18 121/50 L 95 01/01/18 11:16 01/01/18 11:16 01/01/18 11:16 01/01/18 11:16 01/01/18 11:16 Intake & Output 12/31/17 01/01/18 01/02/18 06:59 06:59 06:59 Intake Total 1210 Output Total 3050 Balance -1840 Weight 241 lb 10.026 oz 241 lb 10.026 oz General appearance: PRESENT: obese Head exam: PRESENT: atraumatic, normocephalic Eye exam: PRESENT: conjunctiva pink, EOMI, PERRLA. ABSENT: scleral icterus Ear exam: PRESENT: normal external ear exam Mouth exam: PRESENT: moist, tongue midline Neck exam: ABSENT: carotid bruit, JVD, lymphadenopathy, thyromegaly Respiratory exam: PRESENT: clear to auscultation tara. ABSENT: rales, rhonchi, wheezes Cardiovascular exam: PRESENT: RRR. ABSENT: diastolic murmur, rubs, systolic murmur Pulses: PRESENT: normal dorsalis pedis pul GI/Abdominal exam: PRESENT: normal bowel sounds, soft. ABSENT: distended, guarding, mass, organolmegaly, rebound, tenderness Rectal exam: PRESENT: deferred Extremities exam: PRESENT: full ROM. ABSENT: calf tenderness, clubbing, pedal edema Neurological exam: PRESENT: alert, awake, oriented to person, oriented to place , oriented to time, oriented to situation, CN II-XII grossly intact. ABSENT: motor sensory deficit Results Laboratory Results: 12/31/17 18:10 Carbonic Acid 2.11 H HCO3/H2CO3 Ratio 16:1 ABG pH 7.32 L ABG pCO2 70.1 H* ABG pO2 56.4 L ABG HCO3 35.6 H ABG O2 Saturation 86.0 L ABG Base Excess 6.8 FiO2 3L Impressions: Chest X-Ray 12/31/17 09:33 IMPRESSION: NO ACUTE RADIOGRAPHIC FINDING IN THE CHEST. Qualifiers - * PATIENT BEING DISCHARGED WITH ANY OF THE FOLLOWING DIAGNOSIS: No
== END 2018-01-01 12:21 | disposition home or self-care (01) ==
LOC: ER 08:15 → EH 13:25 → INTOOBSV 13:25 → 3N 14:51
PROVIDERS: ADMIT Internal Medicine; ATTEND Internal Medicine
DX: J96.22 Acute and chronic respiratory failure with hypercapnia (principal); J44.1 Chronic obstructive pulmonary disease with (acute) exacerbation; G47.33 Obstructive sleep apnea (adult) (pediatric); E66.9 Obesity, unspecified; R51 Headache; F17.210 Nicotine dependence, cigarettes, uncomplicated; I10 Essential (primary) hypertension; Z79.899 Other long term (current) drug therapy; Z79.84 Long term (current) use of oral hypoglycemic drugs; Z91.14 Patient's other noncompliance with medication regimen; Z86.19 Personal history of other infectious and parasitic diseases; Z99.81 Dependence on supplemental oxygen; Z82.5 Family history of asthma and other chronic lower respiratory diseases; Z23 Encounter for immunization
CPT/HCPCS: 94640 ×4; 99291; 51702; 96374; 36415; 87040; 82553; 82962 ×2; 82803 ×2; 85025; 80053; 81001; 84484; 87804; 83880; 71045; 90686; 94660 ×2; G0378 ×3; J3490 ×5; J1644; Q0144; J2920 ×2; J2930; J7620 ×2

== ENCOUNTER 2018-01-30 05:32 | Inpatient (IN) | payer MEDICAID ==
[2018-01-30] MEDS ORDERED: IPRATROPIUM/ALBUTEROL 0.5-2.5 MG/3 ML AMPUL NEB ONE ×2 (05:36→05:40)
[2018-01-30] MEDS ORDERED: METHYLPREDNISOLONE INJ 125 MG/2 ML SDV IV ONE (05:40)
[2018-01-30] MEDS ORDERED: LORAZEPAM INJ 2 MG/1 ML VIAL IV ONE (05:41)
--- NOTE | 2018-01-30 05:43 | ER Document Report ---
Doctor's Note Notes: 01/30/18 05:42 I performed a quick triage evaluation of the patient. Patient is a 52-year-old female that is well-known to me. She has a history of COPD. Has history of continued tobacco use. Some previous history of cocaine use. She presents with complaint of difficulty breathing. She says she feels as if she cannot get air out of her lungs. She has some distress. She does not have a lot of wheezing or rhonchus breath sounds in her lung garay. She has some diminishment. She is using some accessory muscle use. She is 90% on room air. We will place her on BiPAP. Have ordered 3 DuoNeb treatments. I will give her magnesium and Solu-Medrol. Also give her a little bit of Ativan as she is usually extremely anxious when this occurs and the Ativan usually helps calm her down and makes her breathing much more well controlled. Dictation of this chart was performed using voice recognition software; therefore, there may be some unintended grammatical errors.
[2018-01-30] MEDS: MAGNESIUM SULFATE/D5W 1 GM/100 ML RTUPB IV SCH ×2 (05:45→05:54)
[2018-01-30 05:57] LABS: ABSOLUTE EOSINOPHILS # (AUTO) 0.1 10^3/uL (0.0-0.6); ABSOLUTE LYMPHOCYTES (AUTO) 1.5 10^3/uL (0.5-4.7); ABSOLUTE MONOCYTES (AUTO) 0.7 10^3/uL (0.1-1.4); ABSOLUTE NEUT (AUTO) 9.4 10^3/uL (1.7-8.2); BASOPHILS % (AUTO) 0.4 % (0-2); HEMATOCRIT 41.9 % (36.0-47.0); HEMOGLOBIN 13.7 g/dL (12.0-15.5); LYMPHOCYTES % (AUTO) 12.6 % (13-45); MEAN CORPUSCULAR HEMOGLOBIN 27.3 pg (27.0-33.4); MEAN CORPUSCULAR HGB CONC 32.8 g/dL (32.0-36.0); MEAN CORPUSCULAR VOLUME 83 fl (80-97); MONOCYTES % (AUTO) 5.7 % (3-13); PLATELET COUNT 232 10^3/uL (150-450); RED BLOOD COUNT 5.03 10^6/uL (3.72-5.28); RED CELL DISTRIBUTION WIDTH 17.8 % (11.5-14.0); SEGMENTED NEUTROPHILS % (AUTO) 80.3 % (42-78); TOTAL CELLS COUNTED % (AUTO) 100 %; WHITE BLOOD COUNT 11.6 10^3/uL (4.0-10.5)
[2018-01-30 05:59] LABS: VENOUS BLOOD BASE EXCESS 5.5 mmol/L; VENOUS BLOOD HCO3 32.8 mmol/L (20-32); VENOUS BLOOD PCO2 59.1 mmHg (35-63); VENOUS BLOOD PH 7.36 (7.30-7.42)
[2018-01-30 06:17] LABS: ALANINE AMINOTRANSFERASE 18 U/L (9-52); ALBUMIN 3.9 g/dL (3.5-5.0); ALKALINE PHOSPHATASE 79 U/L (38-126); ANION GAP 10 (5-19); ASPARTATE AMINO TRANSFERASE 16 U/L (14-36); BILIRUBIN,DIRECT 0.2 mg/dL (0.0-0.4); BILIRUBIN,TOTAL 0.4 mg/dL (0.2-1.3); BLOOD UREA NITROGEN 24 mg/dL (7-20); CALCIUM 9.1 mg/dL (8.4-10.2); CARBON DIOXIDE 34 mmol/L (22-30); CHLORIDE 99 mmol/L (98-107); GLUCOSE 120 mg/dL (75-110); POTASSIUM 4.6 mmol/L (3.6-5.0); SODIUM 142.6 mmol/L (137-145); TOTAL PROTEIN 6.6 g/dL (6.3-8.2)
--- NOTE | 2018-01-30 06:19 | RADIOLOGY REPORT (SQ) ---
EXAM DESCRIPTION: XR CHEST 1 VIEW COMPLETED DATE/TME: 01/30/2018 05:40 CLINICAL HISTORY: 52 years Female, dyspnea COMPARISON:12/31/2017 NUMBER OF VIEWS/TECHNIQUE: 1/AP FINDINGS: Adequate lung volume, clear parenchyma, moderate-severe enlargement of the cardiac silhouette, and intact bony thorax. IMPRESSION: No acute cardiopulmonary findings. Moderate to severe cardiac enlargement.
[2018-01-30] MEDS ORDERED: ALBUTEROL SULFATE 0.083% NEB 2.5 MG/3 ML AMPUL NEB ONE (06:31)
--- NOTE | 2018-01-30 06:32 | ER Document Report ---
ED Respiratory Problem - General Information source: [facility] Records TRAVEL OUTSIDE OF THE [place] IN LAST 30 DAYS: No <PRABHAKAR RODRÍGUEZ - Last Filed: 01/30/18 09:28> <EITAN GREENFIELD - Last Filed: 01/30/18 09:31> - General Chief Complaint: Shortness Of Breath Stated Complaint: BREATHING DIFFICULTY Time Seen by Provider: 01/30/18 05:41 Notes: 52-year-old female with a history of COPD and cocaine abuse the presents to the emergency department today with complaints of shortness of breath. Patient reported to the triage doctor that she feels as if she cannot get air out of her lungs. Patient was saturating at 90% on room air upon arrival. Patient was given Ativan because of her anxiety so history is limited. Patient denies fevers, chest pain, or a cough for the triage doctor. (PRABHAKAR RODRÍGUEZ) - Related Data Allergies/Adverse Reactions: No Known Allergies Allergy (Verified 01/30/18 08:23) Past Medical History - General Information source: [facility] Records - Social History Smoking Status: Current Every Day Smoker Cigarette use (# per day): Yes Chew tobacco use (# tins/day): No Frequency of alcohol use: Rare Drug Abuse: None Lives with: Family Family History: Reviewed & Not Pertinent, Other - Mother with COPD Patient has suicidal ideation: No Patient has homicidal ideation: No - Past Medical History Cardiac Medical History: Reports: Hx Congestive Heart Failure, Hx Hypertension Pulmonary Medical History: Reports: Hx Asthma, Hx Bronchitis, Hx COPD, Hx Pneumonia, Hx Intubation, Hx Respiratory Failure, Hx Sleep Apnea Endocrine Medical History: Reports: Hx Diabetes Mellitus Type 2 GI Medical History: Reports: Hx Hepatitis - HEP-C Musculoskeletal Medical History: Reports Hx Arthritis Skin Medical History: Reports Hx Cellulitis Psychiatric Medical History: Reports: Hx Anxiety, Hx Bipolar Disorder, Hx Depression Infectious Medical History: Reports: Hx Hepatitis - HEP-C Past Surgical History: Reports: Hx Cardiac Catheterization, Hx Hysterectomy - Immunizations Immunizations up to date: Yes Hx Diphtheria, Pertussis, Tetanus Vaccination: Yes Hx Pneumococcal Vaccination: 04/10/10 <PRABHAKAR RODRÍGUEZ - Last Filed: 01/30/18 09:28> Review of Systems - Review of Systems -: Yes ROS unobtainable due to patient's medical condition <PRABHAKAR RODRÍGUEZ - Last Filed: 01/30/18 09:28> Physical Exam <PRABHAKAR RODRÍGUEZ - Last Filed: 01/30/18 09:28> <EITAN GREENFIELD - Last Filed: 01/30/18 09:31> - Vital signs Vitals: Temp 97.9 F 01/30/18 05:35 - Notes Notes: PHYSICAL EXAM GENERAL: Sleeping, will not answer questions, was given 1mg of ativan prior to exam. Opens eyes to name and makes eye contact but falls right back asleep. Pulse oximetry interpretation: On BiPap, FiO2 of 30%,saturating at 92%, rises to 98% after cough, hypoxic, as interpreted by me. HEAD: Normocephalic, atraumatic. EYES: Pupils equal, round, and reactive to light. Extraocular movements intact. ENT: Oral mucosa moist, tongue midline. NECK: Supple. Trachea midline. LUNGS: Expiratory rhonchi and expiratory wheezing bilaterally. No rales. HEART: Mild tachycardia, regular rhythm. No murmurs, gallops, or rubs. ABDOMEN: Soft, non-tender. Non-distended. Bowel sounds present in all 4 quadrants. No guarding, rigidity, or rebound. EXTREMITIES: Moves all 4 extremities spontaneously. Trace pitting edema bilaterally, radial and dorsalis pedis pulses 2/4 bilaterally. No cyanosis. NEUROLOGICAL: Drowsy, wakes up and makes eye contact but does not answer questions. PSYCH: Unable to assess SKIN: Warm and dry. No rashes or lesions noted. (PRABHAKAR RODRÍGUEZ) Course - Laboratory Result Diagrams: 01/30/18 05:47 01/30/18 05:47 <PRABHAKAR RODRÍGUEZ - Last Filed: 01/30/18 09:28> - Laboratory Result Diagrams: 01/30/18 05:47 01/30/18 05:47 <EITAN GREENFIELD - Last Filed: 01/30/18 09:31> - Re-evaluation Re-evalutation: 01/30/18 07:53 CBC shows slight leukocytosis at 11.6, venous blood gas is a pH of 7.36, PCO2 of 59.1, bicarb of 32.8, CMP shows slightly elevated BUN at 24, slightly elevated CO2 at 34, glucose mildly elevated at 120 otherwise unremarkable, chest x-ray shows no acute process. Patient initially hypoxic, hypoxia did improve slightly with breathing treatments and magnesium, patient was started on BiPAP and given Ativan for her anxiety, patient did have intermittent episodes of hypoxia even when on the BiPAP that then cleared with cough. After being given Ativan the patient did become quite somnolent although she would wake up and look at you she would not answer questions. She did have some persistent wheezing and she was given steroids and for albuterol. Patient did not have fever or increased sputum production with her COPD exacerbation so she was not started on antibiotics. Discussed the case with Dr. Guajardo who agreed to admit the patient to his service on the IMCU given her somnolence. (EITAN GREENFIELD) - Vital Signs Vital signs: Temp Pulse Resp BP Pulse Ox 97.9 F 22 H 145/80 H 95 01/30/18 05:35 01/30/18 07:48 01/30/18 07:25 01/30/18 07:48 - Laboratory Laboratory results interpreted by me: 01/30/18 01/30/18 01/30/18 05:47 05:47 05:47 WBC 11.6 H RDW 17.8 H Seg Neutrophils % 80.3 H Lymphocytes % 12.6 L Absolute Neutrophils 9.4 H VBG HCO3 32.8 H Carbon Dioxide 34 H BUN 24 H Glucose 120 H - EKG Interpretation by Me Additional EKG results interpreted by me: 01/30/18 07:51 EKG shows sinus rhythm at a rate of 85, normal axis, normal intervals, no ST segment elevations or depressions, T wave flattening noted in aVL, T wave are biphasic in V2 and V3, poor R wave progression per my interpretation. (EITAN GREENFIELD) Critical Care Note - Critical Care Note Total time excluding time spent on procedures (mins): 45 <EITAN GREENFIELD - Last Filed: 01/30/18 09:31> Discharge <PRABHAKAR RODRÍGUEZ - Last Filed: 01/30/18 09:28> - Discharge Admitting Provider: Hospitalist - [facility] Unit Admitted: [facility] <EITAN GREENFIELD - Last Filed: 01/30/18 09:31> - Discharge Clinical Impression: COPD exacerbation, Acute respiratory failure with hypoxia Condition: Fair Disposition: ADMITTED INPATIENT Scribe Attestation: 01/30/18 09:31 I personally performed the services described in the documentation, reviewed and edited the documentation which was dictated to the scribe in my presence, and it accurately records my words and actions. (EITAN GREENFIELD) Scribe Documentation - Scribe Written by Manju:: Manju Retana, 01/30/2018 0900 acting as scribe for :: Avinash <PRABHAKAR RODRÍGUEZ - Last Filed: 01/30/18 09:28>
[2018-01-30] MEDS ORDERED: IPRATROPIUM/ALBUTEROL 0.5-2.5 MG/3 ML AMPUL NEB PRN (09:47)
--- NOTE | 2018-01-30 10:22 | PDOC H&P ---
History of Present Illness Admission Date/PCP: 01/30/18 07:53 BLAYNE CHO DO Patient complains of: Shortness of breath History of Present Illness: POLLY CRESPO is a 52 year old female past medical history of COPD with several exacerbation and multiple hospitalization and intubation, tobacco abuse, cocaine abuse, hepatitis C, diabetes, RICO, anxiety and CHF diastolic heart failure with history of medical noncompliance. Patient presented to ED complaining of worsening shortness of breath and generalized weakness. In ED she was found to be wheezing and mild respiratory distress with mild leukocytosis. Hospital was consulted for admission for COPD exacerbation. Patient denies any fever, chills, nausea, vomiting, chest pain, diarrhea, constipation or any urinary symptoms. Last hospitalization 12/31/2017 admitted for acute on chronic respiratory failure with hypercapnia and COPD exacerbation. Past Medical History Cardiac Medical History: Reports: Congestive Heart Failure, Hypertension Pulmonary Medical History: Reports: Asthma, Bronchitis, Chronic Obstructive Pulmonary Disease (COPD), Intubation, Pneumonia, Respiratory Failure, Sleep Apnea Endocrine Medical History: Reports: Diabetes Mellitus Type 2 GI Medical History: Reports: Hepatitis - HEP-C Musculoskeltal Medical History: Reports: Arthritis Psychiatric Medical History: Reports: Bipolar Disorder, Depression Hematology: Denies: Anemia Past Surgical History Past Surgical History: Reports: Cardiac Catheterization, Hysterectomy Social History Lives with: Family Smoking Status: Current Every Day Smoker Frequency of Alcohol Use: None Hx Recreational Drug Use: Yes Drugs: Marijuana Hx Prescription Drug Abuse: No Family History Family History: Reviewed & Not Pertinent, Other - Mother with COPD Parental Family History Reviewed: Yes Children Family History Reviewed: Yes Sibling(s) Family History Reviewed.: Yes Medication/Allergy Home Medications: Carvedilol [Coreg 3.125 mg Tablet] 3.125 mg PO Q12 12/31/17 Lisinopril [Zestril] 5 mg PO DAILY 12/31/17 Metformin HCl [Glucophage 500 mg Tablet] 500 mg PO BID 12/31/17 Mirabegron [Myrbetriq] 25 mg PO DAILY 12/31/17 Omeprazole 40 mg PO DAILY 12/31/17 Albuterol Sulfate [Proair HFA Inhalation Aerosol 8.5 gm MDI] 2 puff IH Q4HP PRN #2 hfa.aer.ad 01/01/18 Azithromycin [Zithromax 250 mg Tablet] 500 mg PO DAILY #2 tablet 01/01/18 Budesonide/Formoterol Fumarate [Symbicort 160-4.5 Mcg Inhaler] 10.2 gm IH Q12 # 1 hfa.aer.ad 01/01/18 Prednisone 20 mg PO BID #10 tablet 01/01/18 Tiotropium [place] [Spiriva Handihaler 5 Cap/Kit (18 Mcg/Cap)] 1 cap IH DAILY # 5 capsule 01/01/18 Allergies/Adverse Reactions: No Known Allergies Allergy (Verified 01/30/18 08:23) Review of Systems Review of Systems: As per HPI Physical Exam Vital Signs: Temp Pulse Resp BP Pulse Ox 97.9 F 17 143/72 H 94 01/30/18 05:35 01/30/18 09:08 01/30/18 09:08 01/30/18 09:08 General appearance: PRESENT: mild distress, morbidly obese Respiratory exam: PRESENT: crackles, decreased breath sounds, prolonged expiratory phas, wheezes - Prior to wheezes.. ABSENT: rales, rhonchi Cardiovascular exam: PRESENT: RRR. ABSENT: diastolic murmur, rubs, systolic murmur GI/Abdominal exam: PRESENT: normal bowel sounds, soft. ABSENT: distended, guarding, mass, organolmegaly, rebound, tenderness Neurological exam: PRESENT: alert, awake, oriented to person, oriented to place , oriented to time, oriented to situation, CN II-XII grossly intact. ABSENT: motor sensory deficit Skin exam: PRESENT: dry, intact, warm. ABSENT: cyanosis, rash Results Impressions: Chest X-Ray 01/30/18 05:40 IMPRESSION: No acute cardiopulmonary findings. Moderate to severe cardiac enlargement. Assessment & Plan - Diagnosis (1) Acute respiratory failure with hypoxia Is this a current diagnosis for this admission?: Yes Plan: Secondary to COPD exacerbation. Continue DuoNeb, BiPAP, IV steroids, long-acting anticholinergics and empiric antibiotics. (2) COPD exacerbation Is this a current diagnosis for this admission?: Yes Plan: Secondary to continued use of tobacco abuse. As problem #1. (3) Anxiety Is this a current diagnosis for this admission?: Yes Plan: As needed benzos. 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 A1c 5.8 in 2016. Will obtain new A1c. (5) Hypertension Qualifiers: Hypertension type: essential hypertension Qualified Code(s): I10 - Essential (primary) hypertension Is this a current diagnosis for this admission?: Yes Plan: Restart home meds. Avoid beta-blockers due to history of cocaine abuse. Adjust meds as needed. (6) Obstructive sleep apnea Is this a current diagnosis for this admission?: Yes Plan: Nocturnal BiPAP. Weight loss and lifestyle modification. (7) Tobacco abuse Is this a current diagnosis for this admission?: Yes Plan: Strongly advised on quitting. NicoDerm patch
[2018-01-30] MEDS ORDERED: FAMOTIDINE INJ/PF 20 MG/2 ML SDV IV SCH (11:00)
[2018-01-30] MEDS ORDERED: NICOTINE 14 MG/24 HR PATCH.TD24 TD SCH (11:00)
[2018-01-30] MEDS ORDERED: TIOTROPIUM BROMIDE DPI 5 CAP/KIT (18 MCG/CAP) IH SCH (11:00)
[2018-01-30] MEDS ORDERED: GUAIFENESIN 600 MG TABLET.SA PO SCH (11:00)
[2018-01-30] MEDS ORDERED: LISINOPRIL 5 MG TABLET PO SCH (11:00)
[2018-01-30] MEDS ORDERED: LEVOFLOXACIN 750 MG/D5W RTU 750 MG/150 ML RTUPB IV SCH (12:00)
[2018-01-30 12:17] LABS: URINE AMPHETAMINES SCREEN NEGATIVE; URINE BARBITURATES SCREEN NEGATIVE; URINE BENZODIAZEPINES SCREEN NEGATIVE; URINE COCAINE SCREEN UNCONFIRMED POSITIVE; URINE MARIJUANA (THC) SCREEN NEGATIVE; URINE METHADONE SCREEN NEGATIVE; URINE PHENCYCLIDINE SCREEN NEGATIVE
[2018-01-30 12:38] LABS: ARTERIAL BLOOD FIO2 2LNC
[2018-01-30 12:39] LABS: ARTERIAL BLOOD BASE EXCESS 0.6 mmol/L; ARTERIAL BLOOD H2CO3 1.94 mmol/L (1.05-1.35); ARTERIAL BLOOD HCO3 29.2 mmol/L (20-24); ARTERIAL BLOOD O2 SATURATION 88.3 % (94-98); ARTERIAL BLOOD PCO2 64.4 mmHg (35-45); ARTERIAL BLOOD PH 7.27 (7.35-7.45); ARTERIAL BLOOD PO2 62.6 mmHg (80-100); ARTERIAL BLOOD TOTAL CO2 31.2 mmol/L (21-25)
[2018-01-30] MEDS ORDERED: METHYLPREDNISOLONE INJ 40 MG/1 ML SDV IV SCH (14:00)
[2018-01-30] MEDS ORDERED: IPRATROPIUM/ALBUTEROL 0.5-2.5 MG/3 ML AMPUL NEB SCH (14:00)
[2018-01-30] MEDS ORDERED: HEPARIN SOD (PORCINE) 5,000 UNIT/ML 1 ML SYRINGE SUBCUT SCH (14:00)
[2018-01-30 14:21] VITALS: BP 142/74
--- NOTE | 2018-01-30 19:19 | EKG REPORT ---
SEVERITY:- BORDERLINE ECG - SINUS RHYTHM BORDERLINE T ABNORMALITIES, ANT-LAT LEADS : Confirmed by: Debra Lockwood MD 30-Jan-2018 19:17:53
--- NOTE | 2018-02-04 14:33 | PDOC DISCHARGE SUMMARY ---
General - Admit/Disc Date/PCP Admission Date/Primary Care Provider: 01/30/18 07:53 BLAYNE CHO, Discharge Date: 01/30/18 - Discharge Diagnosis (1) Acute respiratory failure with hypoxia Is this a current diagnosis for this admission?: Yes (2) COPD exacerbation Is this a current diagnosis for this admission?: Yes (3) Anxiety Is this a current diagnosis for this admission?: Yes (4) Diabetes Is this a current diagnosis for this admission?: No (5) Hypertension Is this a current diagnosis for this admission?: Yes (6) Obstructive sleep apnea Is this a current diagnosis for this admission?: Yes (7) Tobacco abuse Is this a current diagnosis for this admission?: Yes - Additional Information Home Medications: Carvedilol [Coreg 3.125 mg Tablet] 3.125 mg PO Q12 12/31/17 Lisinopril [Zestril] 5 mg PO DAILY 12/31/17 Metformin HCl [Glucophage 500 mg Tablet] 500 mg PO BID 12/31/17 Mirabegron [Myrbetriq] 25 mg PO DAILY 12/31/17 Omeprazole 40 mg PO BID 12/31/17 Albuterol Sulfate [Proair HFA Inhalation Aerosol 8.5 gm MDI] 2 puff IH Q4HP PRN #2 hfa.aer.ad 01/01/18 Tiotropium [place] [Spiriva Handihaler 5 Cap/Kit (18 Mcg/Cap)] 1 cap IH DAILY # 5 capsule 01/01/18 Alprazolam [Xanax 0.25 mg Tablet] 0.25 mg PO Q12HP PRN 01/30/18 Gabapentin [Neurontin 300 mg Capsule] 600 mg PO Q8 01/30/18 Ibuprofen [Motrin 800 mg Tablet] 800 mg PO MEALS 01/30/18 Meloxicam [Mobic] 15 mg PO DAILY 01/30/18 History of Present Illness History of Present Illness: POLLY CRESPO is a 52 year old female past medical history of COPD with several exacerbation and multiple hospitalization and intubation, tobacco abuse, cocaine abuse, hepatitis C, diabetes, [place], anxiety and CHF diastolic heart failure with history of medical noncompliance. Patient presented to ED complaining of worsening shortness of breath and generalized weakness. In ED she was found to be wheezing and mild respiratory distress with mild leukocytosis. Hospital was consulted for admission for COPD exacerbation. Patient denies any fever, chills, nausea, vomiting, chest pain, diarrhea, constipation or any urinary symptoms. Last hospitalization 12/31/2017 admitted for acute on chronic respiratory failure with hypercapnia and COPD exacerbation. Hospital Course Hospital Course: Left AMA because of "family emergency" Pt was counseled extensively about risk of leaving AMA 1) Acute respiratory failure with hypoxia Secondary to COPD exacerbation. Started Continue DuoNeb, BiPAP, IV steroids, long-acting anticholinergics and empiric antibiotics. (2) COPD exacerbation Secondary to continued use of tobacco abuse. As problem #1. (3) Anxiety As needed benzos. (4) Diabetes Was started on Accu-Chek, long-acting insulin, sliding scale, diabetic diet. A1c 5.8 in 2016. Will obtain new A1c. (5) Hypertension Restart home meds. Avoid beta-blockers due to history of cocaine abuse. Adjust meds as needed. (6) Obstructive sleep apnea Nocturnal BiPAP. Weight loss and lifestyle modification. (7) Tobacco abuse Strongly advised on quitting. NicoDerm patch Physical Exam Vital Signs: Temp Pulse Resp BP Pulse Ox 98.5 F 99 20 142/74 H 95 01/30/18 14:19 01/30/18 14:19 01/30/18 14:31 01/30/18 14:19 01/30/18 14:31 Results Laboratory Results: 01/30/18 11:33 Blood Blood Culture - Final NO GROWTH IN 5 DAYS 01/30/18 10:30 Blood Blood Culture - Final NO GROWTH IN 5 DAYS Impressions: Chest X-Ray 01/30/18 05:40 IMPRESSION: No acute cardiopulmonary findings. Moderate to severe cardiac enlargement. Qualifiers - * PATIENT BEING DISCHARGED WITH ANY OF THE FOLLOWING DIAGNOSIS: No
== END 2018-01-30 16:14 | disposition left against medical advice (07) | DRG 189 ==
LOC: ER 05:32 → EH 07:53 → 4N 13:57
PROVIDERS: ADMIT Internal Medicine; ATTEND Internal Medicine
PROC: 5A09357 Assistance with Respiratory Ventilation, Less than 24 Consecutive Hours, Continuous Positive Airway Pressure (ICD-10-PCS; principal; 2018-01-30)
DX: J96.01 Acute respiratory failure with hypoxia (principal); J44.1 Chronic obstructive pulmonary disease with (acute) exacerbation; I50.32 Chronic diastolic (congestive) heart failure; F41.9 Anxiety disorder, unspecified; I10 Essential (primary) hypertension; G47.33 Obstructive sleep apnea (adult) (pediatric); B19.20 Unspecified viral hepatitis C without hepatic coma; I11.0 Hypertensive heart disease with heart failure; E11.9 Type 2 diabetes mellitus without complications; M19.90 Unspecified osteoarthritis, unspecified site; F32.9 Major depressive disorder, single episode, unspecified; F14.10 Cocaine abuse, uncomplicated; Z90.710 Acquired absence of both cervix and uterus; F17.200 Nicotine dependence, unspecified, uncomplicated; Z79.51 Long term (current) use of inhaled steroids; Z82.5 Family history of asthma and other chronic lower respiratory diseases
CPT/HCPCS: 36415; 36600; 71045; 80053; 80307; 82803; 85025; 87040; 93005; 93010; 94640; 94660; 96365; 96375; 99285; J1644; J1956; J2060; J2920; J2930; J3475; J3490; J7620; S0028

== ENCOUNTER 2018-02-21 08:52 | Emergency (ER) | payer MEDICAID ==
[2018-02-21] MEDS ORDERED: IPRATROPIUM/ALBUTEROL 0.5-2.5 MG/3 ML AMPUL NEB ONE (09:44)
[2018-02-21] MEDS ORDERED: METHYLPREDNISOLONE INJ 125 MG/2 ML SDV IV ONE (09:53)
--- NOTE | 2018-02-21 10:05 | RADIOLOGY REPORT (SQ) ---
EXAM DESCRIPTION: CHEST SINGLE VIEW COMPLETED DATE/TIME: 02/21/2018 9:55 am REASON FOR STUDY: bed 4 db COMPARISON: 01/30/2018 NUMBER OF VIEWS: One view. TECHNIQUE: Single frontal radiographic view of the chest acquired. LIMITATIONS: Positioning. Body habitus. FINDINGS: LUNGS AND PLEURA: Airspace disease in the lung bases. No large effusions. MEDIASTINUM AND HILAR STRUCTURES: No masses or contour abnormality. HEART AND VASCULATURE: Cardiac enlargement. Vascular congestion. BONES: No acute findings. HARDWARE: None in the chest. OTHER: No other significant finding. IMPRESSION: CARDIAC ENLARGEMENT. VASCULAR CONGESTION. TECHNICAL DOCUMENTATION: JOB ID: [id number] [employer]- All Rights Reserved Reading location - IP/workstation name: [email or web address]
[2018-02-21 10:17] LABS: ABSOLUTE LYMPHOCYTES (AUTO) 1.4 10^3/uL (0.5-4.7); ABSOLUTE MONOCYTES (AUTO) 0.8 10^3/uL (0.1-1.4); ABSOLUTE NEUT (AUTO) 11.6 10^3/uL (1.7-8.2); BASOPHILS % (AUTO) 0.2 % (0-2); EOSINOPHILS % (AUTO) 0.3 % (0-6); HEMATOCRIT 40.7 % (36.0-47.0); HEMOGLOBIN 13.2 g/dL (12.0-15.5); MEAN CORPUSCULAR HEMOGLOBIN 27.1 pg (27.0-33.4); MEAN CORPUSCULAR HGB CONC 32.5 g/dL (32.0-36.0); MEAN CORPUSCULAR VOLUME 84 fl (80-97); MONOCYTES % (AUTO) 5.6 % (3-13); PLATELET COUNT 256 10^3/uL (150-450); RED BLOOD COUNT 4.87 10^6/uL (3.72-5.28); RED CELL DISTRIBUTION WIDTH 17.6 % (11.5-14.0); SEGMENTED NEUTROPHILS % (AUTO) 83.9 % (42-78); TOTAL CELLS COUNTED % (AUTO) 100 %; WHITE BLOOD COUNT 13.8 10^3/uL (4.0-10.5)
[2018-02-21] MEDS: IPRATROPIUM/ALBUTEROL 0.5-2.5 MG/3 ML AMPUL NEB SCH ×2 (10:19→10:39)
--- NOTE | 2018-02-21 10:30 | ER Document Report ---
ED Respiratory Problem - General Chief Complaint: Shortness Of Breath Stated Complaint: DIFFICULTY BREATHING Time Seen by Provider: 02/21/18 09:53 Information source: Patient Notes: Patient is a 52-year-old female with past medical history as recorded including COPD on 3 L of oxygen with intermittent BiPAP at home with previous history of intubation, who presents today with 2 days of runny nose, cough, without fevers , chest pain, calf pain or leg swelling. She denies any vomiting. She denies any diarrhea. On review of systems the patient states that last night she also had some pain to the top of her head and felt some transient blurry vision bilaterally. She denies any double vision. She denies any weakness or numbness to the arms or legs. Patient is requesting a Bull catheter. She states that "I always get a Bull when I come here". Patient states she has baseline incontinence. She denies any back pain, fevers, weakness or numbness of her legs. She wears pull-ups at home. TRAVEL OUTSIDE OF THE [place] IN LAST 30 DAYS: No - HPI Patient complains to provider of: Other - See above Onset: Other Duration: Continuous Initiating Event: Other - See above Quality of pain: No pain Severity: Moderate Pain Level: Denies Context: Other - See above Short of Breath: Moderate Associated symptoms: Other - See above Similar symptoms previously: Yes Recently seen / treated by doctor: Yes - Related Data Allergies/Adverse Reactions: No Known Allergies Allergy (Verified 02/21/18 08:58) Past Medical History - Social History Smoking Status: Current Every Day Smoker Frequency of alcohol use: None Drug Abuse: None Family History: Reviewed & Not Pertinent, Other - Mother with COPD Patient has suicidal ideation: No Patient has homicidal ideation: No - Past Medical History Cardiac Medical History: Reports: Hx Congestive Heart Failure, Hx Hypertension Pulmonary Medical History: Reports: Hx Asthma, Hx Bronchitis, Hx COPD, Hx Pneumonia, Hx Intubation, Hx Respiratory Failure, Hx Sleep Apnea Endocrine Medical History: Reports: Hx Diabetes Mellitus Type 2 Renal/ Medical History: Denies: Hx Peritoneal Dialysis GI Medical History: Reports: Hx Hepatitis - HEP-C Musculoskeletal Medical History: Reports Hx Arthritis Skin Medical History: Reports Hx Cellulitis Psychiatric Medical History: Reports: Hx Anxiety, Hx Bipolar Disorder, Hx Depression Infectious Medical History: Reports: Hx Hepatitis - HEP-C Past Surgical History: Reports: Hx Cardiac Catheterization, Hx Hysterectomy - Immunizations Immunizations up to date: Yes Hx Diphtheria, Pertussis, Tetanus Vaccination: Yes Hx Pneumococcal Vaccination: 04/10/10 Review of Systems - Review of Systems Constitutional: denies: Fever EENT: Nose congestion. denies: Eye discharge, Nose discharge Cardiovascular: denies: Chest pain, Palpitations Respiratory: Cough, Short of breath. denies: Hurts to breathe, Hemoptysis Gastrointestinal: denies: Vomiting Genitourinary: denies: Dysuria Musculoskeletal: denies: Leg swelling Skin: Other - no hives. denies: Rash Neurological/Psychological: Other - no slurred speech -: Yes All other systems reviewed and negative Physical Exam - Vital signs Vitals: Temp Pulse Resp BP Pulse Ox 99 F 98 20 130/84 H 93 02/21/18 09:03 02/21/18 09:03 02/21/18 09:03 02/21/18 09:03 02/21/18 09:03 Notes: Reviewed vital signs and nursing note as charted by RN. CONSTITUTIONAL: Alert and oriented and responds appropriately to questions. Well -appearing; well-nourished HEAD: Normocephalic; atraumatic EYES: PERRL; Conjunctivae clear, sclerae non-icteric ENT: Normal nose; bilateral nonpurulent nasal rhinorrhea; moist mucous membranes ; pharynx without lesions noted NECK: Supple without meningismus; non-tender; no cervical lymphadenopathy, no masses CARD: Regular rate and rhythm; no murmurs; symmetric distal pulses RESP: Normal chest excursion without splinting; mild tachypnea; breath sounds bilaterally; scant wheezing without rhonchi present ABD/GI: Normal bowel sounds; elevated BMI; soft, non-tender; no palpable organomegaly or masses BACK: The back appears normal and is non-tender to palpation EXT: Normal ROM in all joints; non-tender to palpation; no edema SKIN: No acute lesions noted NEURO: CN 2-12 intact; 5/5 bilateral upper and lower extremity strength with sensation intact to light touch PSYCH: The patient's mood and manner are appropriate. Grooming and personal hygiene are appropriate. Course - Re-evaluation Re-evalutation: 02/21/18 10:28 Given the above history and physical examination with the patient having multiple intubations in the past, with some tachypnea, we have placed the patient on 3 back to back do nebulizers, have ordered an ABG, will place the patient on BiPAP. Regarding the patient's transient blurry vision bilaterally, with no double vision, currently with no headaches, no neck pain, no focal neurological deficits, I will obtain a CT scan of the head. I do believe subarachnoid hemorrhage and/or stroke/TIA, and/or acute bacterial meningitis to be extremely unlikely. Given that the patient is chronically on BiPAP, I am unsure of the need for admission at this time. We will await laboratory values and we assessment and CO2 level on the ABG. 02/21/18 11:16 EKG shows a heart of 100, sinus tachycardia, normal axis, no ST elevation or depression, inverted T waves in lead V2 Patient's breathing is improved. Labs as recorded. Normal troponin. CT scan of the head as recorded. Patient still has no focal neurological deficits. X-ray of the chest shows an enlarged heart with some vascular congestion with no obvious infiltrates consistent with the patient's history. 02/21/18 11:46 3 duo nebulizers have been provided. Patient's breathing is much improved. I am awaiting on the ABG. 02/21/18 12:27 ABG as recorded. Comparing to the previous ABGs, the patient's CO2 level does appear to be increased. I do believe the patient would benefit for at least observation/admission secondary to the need for possible continued BiPAP to help blow off more CO2. 02/21/18 12:33 Patient adamant about going home. Both myself and the nose attempted to talk to the patient multiple times about staying. We have expressed that I do believe that the patient may go into respiratory distress/failure if she goes home. Patient is adamant about going home and states that she will come back if she gets worse. I have explained given her elevated CO2, I am concerned about her safety including permanent disability and . She understands this and is still adamant about going home. Patient is well aware of her rights. Despite the patient's elevated CO2, she is oriented x4 and is refusing to stay. We have tried to coax on many different ways in order to have her stay with the patient still refuses. I will therefore have the patient sign AGAINST MEDICAL ADVICE and provide a 5-day course of steroids with antibiotics. - Vital Signs Vital signs: Temp Pulse Resp BP Pulse Ox 99 F 98 18 134/81 H 95 02/21/18 09:03 02/21/18 09:03 02/21/18 12:01 02/21/18 12:01 02/21/18 12:01 - Laboratory Result Diagrams: 02/21/18 09:57 02/21/18 09:57 Laboratory results interpreted by me: 02/21/18 02/21/18 02/21/18 09:57 09:57 11:53 WBC 13.8 H RDW 17.6 H Seg Neutrophils % 83.9 H Lymphocytes % 10.0 L Absolute Neutrophils 11.6 H Carbonic Acid 2.82 H ABG pH 7.27 L ABG pCO2 93.8 H* ABG pO2 76.8 L ABG HCO3 42.4 H ABG Total CO2 45.3 H ABG O2 Saturation 92.7 L Chloride 96 L Carbon Dioxide 38 H BUN 21 H Glucose 117 H Creatine Kinase 23 L Critical Care Note - Critical Care Note Total time excluding time spent on procedures (mins): 35 Discharge - Discharge Clinical Impression: Respiratory acidosis, Acute respiratory failure with hypoxia and hypercarbia Headache Qualifiers: Headache type: unspecified Headache chronicity pattern: unspecified pattern Intractability: not intractable Qualified Code(s): R51 - Headache Condition: Serious Disposition: AGAINST MEDICAL ADVICE Additional Instructions: Comeback immediately at any time that you would like for further assessment and treatment. Please make sure you follow-up with your doctor immediately. Please make sure that you take the steroids and antibiotics we have prescribed. Prescriptions: Azithromycin [Zithromax 250 mg Tablet] 250 mg PO ASDIR PRN #6 tablet PRN Reason: Prednisone [Deltasone 20 mg Tablet] 3 tab PO DAILY 5 Days tablet Referrals: BLAYNE CHO DO [Primary Care Provider] - Follow up as needed
[2018-02-21 10:32] LABS: ALANINE AMINOTRANSFERASE 21 U/L (9-52); ALBUMIN 3.6 g/dL (3.5-5.0); ALKALINE PHOSPHATASE 63 U/L (38-126); ANION GAP 5 (5-19); ASPARTATE AMINO TRANSFERASE 14 U/L (14-36); BILIRUBIN,DIRECT 0.3 mg/dL (0.0-0.4); BILIRUBIN,TOTAL 0.7 mg/dL (0.2-1.3); BLOOD UREA NITROGEN 21 mg/dL (7-20); CALCIUM 8.7 mg/dL (8.4-10.2); CARBON DIOXIDE 38 mmol/L (22-30); CHLORIDE 96 mmol/L (98-107); CREATINE KINASE 23 U/L (30-135); GLUCOSE 117 mg/dL (75-110); POTASSIUM 4.2 mmol/L (3.6-5.0); SODIUM 138.5 mmol/L (137-145); TOTAL PROTEIN 6.3 g/dL (6.3-8.2)
[2018-02-21 10:44] LABS: CREATINE KINASE MB 0.62 ng/mL (<4.55)
--- NOTE | 2018-02-21 10:47 | RADIOLOGY REPORT (SQ) ---
EXAM DESCRIPTION: CT HEAD WITHOUT COMPLETED DATE/TIME: 02/21/2018 10:35 am REASON FOR STUDY: 4, headache with blurry vision COMPARISON: None. TECHNIQUE: Axial images acquired through the brain without intravenous contrast. Images reviewed wi th bone, brain and subdural windows. Additional sagittal and coronal reconstructions were generated. Images stored on PACS. All CT scanners at this facility use dose modulation, iterative reconstruction, and/or weight based d osing when appropriate to reduce radiation dose to as low as reasonably achievable (ALARA). [facility]: Dose Right [facility]: CareDose [facility]: Dose Right [facility]: Teradose 4D [facility]: Smart [employer] RADIATION DOSE: CT Rad equipment meets quality standard of care and radiation dose reduction techniq ues were employed. CTDIvol: 53.2 mGy. DLP: 1070 mGy-cm. mGy. LIMITATIONS: None. FINDINGS: VENTRICLES: Normal size and contour. CEREBRUM: No masses. No hemorrhage. No midline shift. No evidence for acute infarction. Normal gra y/white matter differentiation. No areas of low density in the white matter. CEREBELLUM: No masses. No hemorrhage. No alteration of density. No evidence for acute infarction. EXTRAAXIAL SPACES: No fluid collections. No masses. ORBITS AND GLOBE: No intra- or extraconal masses. Normal contour of globe without masses. CALVARIUM: No fracture. PARANASAL SINUSES: No fluid or mucosal thickening. SOFT TISSUES: No mass or hematoma. OTHER: No other significant finding. IMPRESSION: NORMAL BRAIN CT WITHOUT CONTRAST. EVIDENCE OF ACUTE STROKE: NO. COMMENT: Quality ID # [id number]: Final reports with documentation of one or more dose reduction techniques (e.g., Automated exposure control, adjustment of the mA and/or kV according to patient size, use of iterative reconstruction technique) TECHNICAL DOCUMENTATION: JOB ID: [id number] [employer]- All Rights Reserved Reading location - IP/workstation name: [email or web address]
[2018-02-21 10:56] LABS: TROPONIN I < 0.012 ng/mL
[2018-02-21 12:07] VITALS: BP 134/81
[2018-02-21 12:18] LABS: ARTERIAL BLOOD BASE EXCESS 11.2 mmol/L; ARTERIAL BLOOD H2CO3 2.82 mmol/L (1.05-1.35); ARTERIAL BLOOD HCO3 42.4 mmol/L (20-24); ARTERIAL BLOOD O2 SATURATION 92.7 % (94-98); ARTERIAL BLOOD PH 7.27 (7.35-7.45); ARTERIAL BLOOD PO2 76.8 mmHg (80-100); ARTERIAL BLOOD TOTAL CO2 45.3 mmol/L (21-25)
[2018-02-21 12:19] LABS: ARTERIAL BLOOD FIO2 40%; ARTERIAL BLOOD PCO2 93.8 mmHg (35-45)
[2018-02-21] MEDS ORDERED: AZITHROMYCIN 250 MG TABLET PO ONE (12:37)
--- NOTE | 2018-02-23 00:59 | EKG REPORT ---
SEVERITY:- OTHERWISE NORMAL ECG - SINUS TACHYCARDIA : Confirmed by: Debra Lockwood MD 23-Feb-2018 00:57:07
== END 2018-02-21 12:42 | disposition left against medical advice (07) ==
LOC: ER 08:52
DX: E87.2 Acidosis (principal); J96.02 Acute respiratory failure with hypercapnia; J96.01 Acute respiratory failure with hypoxia; J44.9 Chronic obstructive pulmonary disease, unspecified; R51 Headache; I50.9 Heart failure, unspecified; F17.200 Nicotine dependence, unspecified, uncomplicated; I11.0 Hypertensive heart disease with heart failure; E11.9 Type 2 diabetes mellitus without complications; Z99.81 Dependence on supplemental oxygen; Z86.19 Personal history of other infectious and parasitic diseases; Z90.710 Acquired absence of both cervix and uterus
CPT/HCPCS: 93005; 36600; 94640 ×2; 99291; 96374; 36415; 82553; 82803; 82550; 85025; 80053; 84484; 71045; 70450; 93010; 94660; Q0144; J2930; J7620

== ENCOUNTER 2018-02-23 06:02 | Inpatient (IN) | payer MEDICAID ==
--- NOTE | 2018-02-23 06:34 | ER Document Report ---
ED General - General Chief Complaint: Chest Pain Stated Complaint: SHORTNESS OF BREATH Time Seen by Provider: 02/23/18 06:08 Notes: Patient is a 52-year-old female with CHF, COPD and diabetes that presents to the emergency department for chief complaint of shortness of breath, difficulty breathing, and chest heaviness. Patient reports that she started having the symptoms 2 days ago, she did come to the ED at that time, she is mainly feeling short of breath at that time, she was evaluated, noted to be hypercapnic, on an ABG, however she did not want to stay, and left AGAINST MEDICAL ADVICE at that time. She states that since that time, she has been more short of breath and become progressively worse, she states she wears BiPAP at night at home, which she has been doing, but states she feels like it has not been helping, she does wear 2 L of oxygen during the day as well. She states she has not slept well because she is felt so short of breath, particular with lying down. She describes her chest heaviness is a 2 out of 10, which is seemingly worse from 2 days ago as well, she states she did not mention her chest pain 2 days ago because she felt her breathing was more the issue. Past Medical History: Bipolar disorder, diabetes mellitus, CHF, COPD, hepatitis C Past Surgical History: Left heart catheterization, hysterectomy Social History: Admits to smoking cigarettes, denies alcohol use, history of cocaine use but denies currently Family History: Reviewed and noncontributory for presenting illness Allergies: Reviewed, see documented allergy list. REVIEW OF SYSTEMS: Other than noted above, the 12 point review of systems was reviewed with the patient and were negative, all pertinent findings are included in the HPI. PHYSICAL EXAMINATION: Vital signs reviewed, nursing noted reviewed. GENERAL: Morbidly obese, chronically ill-appearing female, in mild to moderate distress HEAD: Atraumatic, normocephalic. EYES: Eyes appear normal, extraocular movements intact, sclera anicteric, conjunctiva are normal. ENT: nares patent, oropharynx clear without exudates. Moist mucous membranes. NECK: Normal range of motion, supple without lymphadenopathy LUNGS: Lungs sound significantly diminished, crackles at the bases, and faint expiratory wheezing, patient has conversational dyspnea HEART: Regular rate and rhythm without murmurs ABDOMEN: Soft, morbidly obese, nontender, normoactive bowel sounds. No rebound , guarding, or rigidity. No masses appreciated. EXTREMITIES: Nontender, good range of motion, no pitting or edema. NEUROLOGICAL: No focal neurological deficits. Moves all extremities spontaneously Motor and sensory grossly intact on exam. PSYCH: Appears anxious, but answering questions appropriately SKIN: Warm, Dry, normal turgor, no rashes or lesions noted on exposed skin TRAVEL OUTSIDE OF THE [place] IN LAST 30 DAYS: No - Related Data Allergies/Adverse Reactions: No Known Allergies Allergy (Verified 02/21/18 08:58) Past Medical History - Social History Smoking Status: Current Every Day Smoker Drug Abuse: Cocaine Family History: Reviewed & Not Pertinent, Other - Mother with COPD - Past Medical History Cardiac Medical History: Reports: Hx Congestive Heart Failure, Hx Hypertension Pulmonary Medical History: Reports: Hx Asthma, Hx Bronchitis, Hx COPD, Hx Pneumonia, Hx Intubation, Hx Respiratory Failure, Hx Sleep Apnea Endocrine Medical History: Reports: Hx Diabetes Mellitus Type 2 Renal/ Medical History: Denies: Hx Peritoneal Dialysis GI Medical History: Reports: Hx Hepatitis - HEP-C Musculoskeletal Medical History: Reports Hx Arthritis Skin Medical History: Reports Hx Cellulitis Psychiatric Medical History: Reports: Hx Anxiety, Hx Bipolar Disorder, Hx Depression Infectious Medical History: Reports: Hx Hepatitis - HEP-C Past Surgical History: Reports: Hx Cardiac Catheterization, Hx Hysterectomy - Immunizations Immunizations up to date: Yes Hx Diphtheria, Pertussis, Tetanus Vaccination: Yes Hx Pneumococcal Vaccination: 04/10/10 Physical Exam - Vital signs Vitals: BP Pulse Ox 141/83 H 90 L 02/23/18 06:09 02/23/18 06:09 Course - Re-evaluation Re-evalutation: Patient seen and examined vital signs reviewed. Laboratory data and imaging were ordered as appropriate for the patient's presenting symptoms and complaint, with consideration of any critical or life threatening conditions that may be associated with their obtained history and exam as noted above. Patient was treated with DuoNeb breathing treatments, and IV Solu-Medrol 125 mg , and placed on BiPAP continuously, as the patient is having conversational dyspnea, and recent blood gas demonstrated acute on chronic respiratory failure , with hypercapnia. Results were reviewed when available and demonstrated blood gas after the patient had been on continuous BiPAP for 45 minutes, did demonstrate improvement from the patient's previous blood gas, PCO2 seem to be back down to the patient's baseline. She did have a mild leukocytosis, but she had received steroid recently, no evidence of acute infection at this time, no tachycardia, or evidence of pneumonia on her chest x-ray. The patient was re-evaluated and was improved on BiPAP, she was hypoxemic, and had increase FiO2 to 50% on the BiPAP however, patient was continually monitored , and improved, while maintaining on the BiPAP. Patient was requesting Bull catheter, this was placed, she has urinary incontinence, and is currently BiPAP dependent, urinalysis and culture ordered. Evaluation was most consistent with acute on chronic respiratory failure with hypercapnia and hypoxemia Results were discussed with the patient at this point after careful consideration I feel that that patient should be admitted to the hospital. This was discussed with the patient that it is in the best interest for their care to be admitted for further evaluation and management. Patient agreed with this plan of care. A call was placed to the admitted physician, Dr. Rubi who graciously accepted the patient onto their service. *Note is created using voice recognition software and may contain spelling, syntax or grammatical errors. Laboratory 02/23/18 02/23/18 02/23/18 06:29 06:29 06:29 WBC 13.1 H RBC 5.04 Hgb 13.4 Hct 42.3 MCV 84 MCH 26.7 L MCHC 31.8 L RDW 17.5 H Plt Count 276 Seg Neutrophils % 83.9 H Lymphocytes % 9.4 L Monocytes % 6.0 Eosinophils % 0.5 Basophils % 0.2 Absolute Neutrophils 11.0 H Absolute Lymphocytes 1.2 Absolute Monocytes 0.8 Absolute Eosinophils 0.1 Absolute Basophils 0.0 Carbonic Acid HCO3/H2CO3 Ratio ABG pH ABG pCO2 ABG pO2 ABG HCO3 ABG Total CO2 ABG O2 Saturation ABG Base Excess FiO2 Sodium 139.0 Potassium 4.3 Chloride 96 L Carbon Dioxide 37 H Anion Gap 6 BUN 23 H Creatinine 0.61 Est GFR ( Amer) > 60 Est GFR (Non-Af Amer) > 60 Glucose 113 H Calcium 8.7 Total Bilirubin 0.4 Direct Bilirubin 0.1 Neonat Total Bilirubin Not Reportable Neonat Direct Bilirubin Not Reportable Neonat Indirect Bili Not Reportable AST 15 ALT 20 Alkaline Phosphatase 72 Troponin I < 0.012 NT-Pro-B Natriuret Pep 121 Total Protein 6.3 Albumin 3.6 Urine Color Urine Appearance Urine pH Ur Specific [place] Urine Protein Urine Glucose (UA) Urine Ketones Urine Blood Urine Nitrite Urine Bilirubin Urine Urobilinogen Ur Leukocyte Esterase Urine WBC (Auto) Urine RBC (Auto) Urine Bacteria (Auto) Squamous Epi Cells Auto Urine Mucus (Auto) Urine Ascorbic Acid 02/23/18 02/23/18 06:50 07:03 WBC RBC Hgb Hct MCV MCH MCHC RDW Plt Count Seg Neutrophils % Lymphocytes % Monocytes % Eosinophils % Basophils % Absolute Neutrophils Absolute Lymphocytes Absolute Monocytes Absolute Eosinophils Absolute Basophils Carbonic Acid 2.09 H HCO3/H2CO3 Ratio 18:1 ABG pH 7.37 ABG pCO2 69.6 H* ABG pO2 63.5 L ABG HCO3 39.5 H ABG Total CO2 41.7 H ABG O2 Saturation 90.8 L ABG Base Excess 11.3 FiO2 40% Sodium Potassium Chloride Carbon Dioxide Anion Gap BUN Creatinine Est GFR ( Amer) Est GFR (Non-Af Amer) Glucose Calcium Total Bilirubin Direct Bilirubin Neonat Total Bilirubin Neonat Direct Bilirubin Neonat Indirect Bili AST ALT Alkaline Phosphatase Troponin I NT-Pro-B Natriuret Pep Total Protein Albumin Urine Color YELLOW Urine Appearance SLIGHTLY-CLOUDY Urine pH 7.0 Ur Specific [place] 1.015 Urine Protein NEGATIVE Urine Glucose (UA) NEGATIVE Urine Ketones NEGATIVE Urine Blood NEGATIVE Urine Nitrite NEGATIVE Urine Bilirubin NEGATIVE Urine Urobilinogen NEGATIVE Ur Leukocyte Esterase LARGE H Urine WBC (Auto) 38 Urine RBC (Auto) 2 Urine Bacteria (Auto) TRACE Squamous Epi Cells Auto 1 Urine Mucus (Auto) RARE Urine Ascorbic Acid NEGATIVE Chest X-Ray 02/23/18 06:13 IMPRESSION: 1. Cardiomegaly. 2. Improved aeration of the lung bases. - Vital Signs Vital signs: Temp Pulse Resp BP Pulse Ox 98.2 F 86 22 H 152/78 H 93 02/23/18 06:11 02/23/18 06:11 02/23/18 07:12 02/23/18 07:12 02/23/18 07:12 - Laboratory Result Diagrams: 02/23/18 06:29 02/23/18 06:29 Laboratory results interpreted by me: 02/23/18 02/23/18 02/23/18 06:29 06:29 06:50 WBC 13.1 H MCH 26.7 L MCHC 31.8 L RDW 17.5 H Seg Neutrophils % 83.9 H Lymphocytes % 9.4 L Absolute Neutrophils 11.0 H Carbonic Acid ABG pCO2 ABG pO2 ABG HCO3 ABG Total CO2 ABG O2 Saturation Chloride 96 L Carbon Dioxide 37 H BUN 23 H Glucose 113 H Ur Leukocyte Esterase LARGE H 02/23/18 07:03 WBC MCH MCHC RDW Seg Neutrophils % Lymphocytes % Absolute Neutrophils Carbonic Acid 2.09 H ABG pCO2 69.6 H* ABG pO2 63.5 L ABG HCO3 39.5 H ABG Total CO2 41.7 H ABG O2 Saturation 90.8 L Chloride Carbon Dioxide BUN Glucose Ur Leukocyte Esterase - EKG Interpretation by Me Additional EKG results interpreted by me: EKG demonstrates sinus rhythm with a ventricular rate of 70 bpm, normal axis, normal intervals, there is T wave inversions in leads V2 and V3, this is compared with prior EKG from 02/21/2018, where the T wave inversion lead V3 is new. No ST segment changes. Critical Care Note - Critical Care Note Total time excluding time spent on procedures (mins): 45 Comments: Critical care time 45 minutes exclusive from separate billable procedures for a patient requiring complex medical decision making, and high potential for clinical deterioration. In a patient with acute on chronic respiratory failure requiring noninvasive positive pressure ventilation. Time spent obtaining history from patient or surrogate, discussions with consultants, development of treatment plan with patient or surrogate, evaluation of patient's response to treatment, examination of patient, ordering and performing treatments and interventions, ordering and review of laboratory studies, re-evaluation of patient's condition, ordering and review of radiographic studies and review of old charts Discharge - Discharge Clinical Impression: Acute on chronic respiratory failure with hypoxemia, COPD exacerbation Condition: Fair Disposition: ADMITTED INPATIENT Admitting Provider: Hospitalist - Dr. Rubi Unit Admitted: [facility]
[2018-02-23] MEDS ORDERED: IPRATROPIUM/ALBUTEROL 0.5-2.5 MG/3 ML AMPUL NEB ONE (06:37)
[2018-02-23 06:42] LABS: ABSOLUTE EOSINOPHILS # (AUTO) 0.1 10^3/uL (0.0-0.6); ABSOLUTE LYMPHOCYTES (AUTO) 1.2 10^3/uL (0.5-4.7); ABSOLUTE MONOCYTES (AUTO) 0.8 10^3/uL (0.1-1.4); BASOPHILS % (AUTO) 0.2 % (0-2); EOSINOPHILS % (AUTO) 0.5 % (0-6); HEMATOCRIT 42.3 % (36.0-47.0); HEMOGLOBIN 13.4 g/dL (12.0-15.5); LYMPHOCYTES % (AUTO) 9.4 % (13-45); MEAN CORPUSCULAR HEMOGLOBIN 26.7 pg (27.0-33.4); MEAN CORPUSCULAR HGB CONC 31.8 g/dL (32.0-36.0); MEAN CORPUSCULAR VOLUME 84 fl (80-97); PLATELET COUNT 276 10^3/uL (150-450); RED BLOOD COUNT 5.04 10^6/uL (3.72-5.28); RED CELL DISTRIBUTION WIDTH 17.5 % (11.5-14.0); SEGMENTED NEUTROPHILS % (AUTO) 83.9 % (42-78); TOTAL CELLS COUNTED % (AUTO) 100 %; WHITE BLOOD COUNT 13.1 10^3/uL (4.0-10.5)
[2018-02-23 06:59] LABS: ALANINE AMINOTRANSFERASE 20 U/L (9-52); ALBUMIN 3.6 g/dL (3.5-5.0); ALKALINE PHOSPHATASE 72 U/L (38-126); ANION GAP 6 (5-19); ASPARTATE AMINO TRANSFERASE 15 U/L (14-36); BILIRUBIN,DIRECT 0.1 mg/dL (0.0-0.4); BILIRUBIN,TOTAL 0.4 mg/dL (0.2-1.3); BLOOD UREA NITROGEN 23 mg/dL (7-20); CALCIUM 8.7 mg/dL (8.4-10.2); CARBON DIOXIDE 37 mmol/L (22-30); CHLORIDE 96 mmol/L (98-107); GLUCOSE 113 mg/dL (75-110); POTASSIUM 4.3 mmol/L (3.6-5.0); TOTAL PROTEIN 6.3 g/dL (6.3-8.2)
[2018-02-23 07:11] LABS: NT PRO BNP 121 pg/mL (5-900)
[2018-02-23 07:14] LABS: APPEARANCE,URINE SLIGHTLY-CLOUDY; BILIRUBIN,URINE NEGATIVE (NEGATIVE); COLOR,URINE YELLOW; GLUCOSE, URINE NEGATIVE (NEGATIVE); KETONES,URINE NEGATIVE (NEGATIVE); LEUKOCYTE ESTERASE,URINE LARGE (NEGATIVE); NITRITE,URINE NEGATIVE (NEGATIVE); PROTEIN,URINE NEGATIVE (NEGATIVE); URINE SPECIFIC GRAVITY 1.015; UROBILINOGEN,URINE NEGATIVE mg/dL (<2.0)
[2018-02-23 07:15] LABS: TROPONIN I < 0.012 ng/mL
[2018-02-23 07:26] LABS: ARTERIAL BLOOD BASE EXCESS 11.3 mmol/L; ARTERIAL BLOOD FIO2 40%; ARTERIAL BLOOD H2CO3 2.09 mmol/L (1.05-1.35); ARTERIAL BLOOD HCO3 39.5 mmol/L (20-24); ARTERIAL BLOOD O2 SATURATION 90.8 % (94-98); ARTERIAL BLOOD PH 7.37 (7.35-7.45); ARTERIAL BLOOD PO2 63.5 mmHg (80-100); ARTERIAL BLOOD TOTAL CO2 41.7 mmol/L (21-25)
--- NOTE | 2018-02-23 07:27 | RADIOLOGY REPORT (SQ) ---
EXAM DESCRIPTION: XR CHEST 1 VIEW COMPLETED DATE/TME: 02/23/2018 06:13 CLINICAL HISTORY: shortness of breath COMPARISON: None. FINDINGS: Single frontal view of the chest. Cardiomegaly. Low lung volumes. Leads overlie the chest. Improved aeration of the lung bases. Minimal residual linear opacities. No pneumothorax or large effusion. No displaced rib fractures identified. Upper abdominal soft tissues are unremarkable. IMPRESSION: 1. Cardiomegaly. 2. Improved aeration of the lung bases.
[2018-02-23] MEDS ORDERED: METHYLPREDNISOLONE INJ 125 MG/2 ML SDV IV ONE (07:35)
--- NOTE | 2018-02-23 07:43 | EKG REPORT ---
SEVERITY:- ABNORMAL ECG - SINUS RHYTHM NONSPECIFIC T ABNORMALITIES, ANTERIOR LEADS : Confirmed by: Jorge Luis Dee MD 23-Feb-2018 07:42:46
[2018-02-23] MEDS ORDERED: IPRATROPIUM/ALBUTEROL 0.5-2.5 MG/3 ML AMPUL NEB PRN (09:28)
--- NOTE | 2018-02-23 10:02 | PDOC H&P ---
History of Present Illness Admission Date/PCP: 02/23/18 08:02 BLAYNE CHO DO Patient complains of: Cough, shortness of breath History of Present Illness: POLLY CRESPO is a 52 year old female with history of COPD with several exacerbation and multiple hospitalization and intubation, continued tobacco abuse, cocaine abuse, hepatitis C, R[place], diastolic heart failure, among other comorbidities. Patient also with with history of medical noncompliance. She presented to ED today with complaint of worsening shortness of breath, cough with greenish/yellowish sputum, and generalized weakness. In ED she was found to be wheezing, hypoxic and labs with leukocytosis. She apparently was in the ED yesterday and ABG had revealed PCO2 90, but she is signed out AGAINST MEDICAL ADVICE. Today she was treated with nebulizers, BiPAP, with repeat ABG now shows CO2 in the 60s, which is her baseline. She was referred for admission. Patient denies any fever, chills, nausea, vomiting, chest pain, diarrhea, constipation or any urinary symptoms. Last hospitalization 01/30/2018 through 01/27/18 admitted for acute on chronic respiratory failure with hypercapnia and COPD exacerbation. Past Medical History Cardiac Medical History: Reports: Congestive Heart Failure, Hypertension Pulmonary Medical History: Reports: Asthma, Bronchitis, Chronic Obstructive Pulmonary Disease (COPD), Intubation, Pneumonia, Respiratory Failure, Sleep Apnea Endocrine Medical History: Reports: Diabetes Mellitus Type 2 GI Medical History: Reports: Hepatitis - HEP-C Musculoskeltal Medical History: Reports: Arthritis Psychiatric Medical History: Reports: Bipolar Disorder, Depression Hematology: Denies: Anemia Past Surgical History Past Surgical History: Reports: Cardiac Catheterization, Hysterectomy Social History Smoking Status: Current Every Day Smoker Frequency of Alcohol Use: None Hx Recreational Drug Use: Yes Drugs: Cocaine, Marijuana Hx Prescription Drug Abuse: No Family History Family History: Reviewed & Not Pertinent, Other - Mother with COPD Parental Family History Reviewed: Yes Children Family History Reviewed: Yes Sibling(s) Family History Reviewed.: Yes Medication/Allergy Home Medications: Carvedilol [Coreg 3.125 mg Tablet] 3.125 mg PO Q12 12/31/17 Lisinopril [Zestril] 5 mg PO DAILY 12/31/17 Mirabegron [Myrbetriq] 25 mg PO DAILY 12/31/17 Omeprazole 40 mg PO BID 12/31/17 Albuterol Sulfate [Proair HFA Inhalation Aerosol 8.5 gm MDI] 2 puff IH Q4HP PRN #2 hfa.[email or web address] 01/01/18 Tiotropium [place] [Spiriva Handihaler 5 Cap/Kit (18 Mcg/Cap)] 1 cap IH DAILY # 5 capsule 01/01/18 Gabapentin [Neurontin 300 mg Capsule] 600 mg PO TID 01/30/18 Ibuprofen [Motrin 800 mg Tablet] 800 mg PO MEALS 01/30/18 Allergies/Adverse Reactions: No Known Allergies Allergy (Verified 02/23/18 14:24) Review of Systems Review of Systems: CONSTITUTIONAL : Fever, chills -- No; unexpalined fatigue -- No EENT: Denies eye, ear, throat, or mouth pain or symptoms. Denies nasal or sinus congestion or discharge. Denies throat, tongue, or mouth swelling or difficulty swallowing. CARDIOVASCULAR: Denies chest pain. No racing heart RESPIRATORY: As in HPI. GASTROINTESTINAL: Denies abdominal pain or distention. Denies nausea, vomiting , or diarrhea. No rectal bleeding. GENITOURINARY: Urinary symptoms -- no. MUSCULOSKELETAL: No acute weakness SKIN: Denies rash, lesions or sores. HEMATOLOGIC : Denies easy bruising or bleeding. LYMPHATIC: Denies swollen, enlarged glands. NEUROLOGICAL: New weakness, headaches, slured speach - No PSYCHIATRIC: Changes anxiety or stress, depression, suicidal ideation, or homicidal ideation -- No ALL OTHER SYSTEMS REVIEWED AND NEGATIVE. Physical Exam Vital Signs: Temp Pulse Resp BP Pulse Ox 98.2 F 86 24 H 150/77 H 96 02/23/18 06:11 02/23/18 06:11 02/23/18 09:00 02/23/18 09:00 02/23/18 09:00 General appearance: PRESENT: mild distress, morbidly obese HEENT/neck exam: PRESENT: Normocephalic atraumatic, neck supple ABSENT: JVD Respiratory exam: PRESENT: crackles/diffuse wheezes, decreased breath sounds, prolonged expiratory phas, ABSENT: rales, rhonchi Cardiovascular exam: PRESENT: RRR. ABSENT: diastolic murmur, rubs, systolic murmur GI/Abdominal exam: PRESENT: normal bowel sounds, soft. ABSENT: distended, guarding, mass, organolmegaly, rebound, tenderness Neurological exam: PRESENT: alert, awake, oriented to person, oriented to place , oriented to time, oriented to situation, CN II-XII grossly intact. ABSENT: motor sensory deficit Skin exam: PRESENT: dry, intact, warm. ABSENT: cyanosis, rash Results Laboratory Results: CBC --white blood cells 13.1, hemoglobin 13.4, platelets 276. Chem-7 -- Sodium 139, potassium 4.2, BUN 23, creatinine 0.61 Impressions: Chest X-Ray 02/23/18 06:13 IMPRESSION: 1. Cardiomegaly. 2. Improved aeration of the lung bases. Assessment & Plan - Diagnosis (1) Acute on chronic respiratory failure with hypoxemia Is this a current diagnosis for this admission?: Yes (2) COPD exacerbation Is this a current diagnosis for this admission?: Yes (3) Hepatitis C Qualifiers: Viral hepatitis chronicity: unspecified Hepatic coma status: without hepatic coma Qualified Code(s): B19.20 - Unspecified viral hepatitis C without hepatic coma Is this a current diagnosis for this admission?: Yes (4) Polysubstance abuse Is this a current diagnosis for this admission?: Yes (5) Tobacco abuse Is this a current diagnosis for this admission?: Yes - Inpatient Certification Based on my medical assessment, after consideration of the patient's comorbidities, presenting symptoms, or acuity I expect that the services needed warrant INPATIENT care.: Yes I certify that my determination is in accordance with my understanding of Medicare's requirements for reasonable and necessary INPATIENT services [42 CFR 412.3e].: Yes Medical Necessity: Failure to Improve With Outpatient Therapy, Need Close Monitoring Due to Risk of Patient Decompensation - Plan Summary Plan Summary: Will admit to IMCU and continue on BiPAP. Will treat with nebulizers, O2. We will also continue with Solu-Medrol at 80 mg every 8 hours for now. Will add Zithromax 500 mg daily for possible bronchitis, given negative chest x-ray but productive cough. Patient counseled about continued smoking. Also counseled about other substance use. She is counseled about medications/treatment compliance.
[2018-02-23] MEDS: ENOXAPARIN SODIUM INJ 40 MG/0.4 ML DISP.SYRIN SUBCUT SCH (10:35)
[2018-02-23] MEDS ORDERED: METHYLPREDNISOLONE INJ 40 MG/1 ML SDV IV SCH (14:00)
[2018-02-23] MEDS: METHYLPREDNISOLONE INJ 125 MG/2 ML SDV IV SCH ×2 (15:43→21:47)
[2018-02-23] MEDS: CARVEDILOL 3.125 MG TABLET PO SCH (21:47)
[2018-02-23] MEDS: AZITHROMYCIN 500 MG in DEXTROSE 5%-WATER 250 ML IV SCH (22:37)
[2018-02-24] MEDS: METHYLPREDNISOLONE INJ 125 MG/2 ML SDV IV SCH ×3 (06:01→21:06)
[2018-02-24 08:47] LABS: ARTERIAL BLOOD PCO2 69.6 mmHg (35-45)
[2018-02-24] MEDS: IBUPROFEN 800 MG TABLET PO SCH ×3 (09:13→17:32)
[2018-02-24] MEDS: ENOXAPARIN SODIUM INJ 40 MG/0.4 ML DISP.SYRIN SUBCUT SCH (09:13)
[2018-02-24] MEDS: LANSOPRAZOLE 30 MG TAB.RAP.DR PO SCH ×2 (09:14→17:32)
[2018-02-24] MEDS: LISINOPRIL 5 MG TABLET PO SCH (09:14)
[2018-02-24] MEDS: CARVEDILOL 3.125 MG TABLET PO SCH ×2 (09:14→21:07)
[2018-02-24] MEDS: GABAPENTIN 300 MG CAPSULE PO SCH ×3 (09:14→17:32)
[2018-02-24] MEDS ORDERED: (PENDING PHARMACY ID) (Mirabegron [Myrbetriq] 25 MG) PO SCH (10:00)
[2018-02-24 10:43] LABS: ARTERIAL BLOOD BASE EXCESS 9.2 mmol/L; ARTERIAL BLOOD H2CO3 2.43 mmol/L (1.05-1.35); ARTERIAL BLOOD HCO3 38.9 mmol/L (20-24); ARTERIAL BLOOD O2 SATURATION 95.2 % (94-98); ARTERIAL BLOOD PO2 86.8 mmHg (80-100); ARTERIAL BLOOD TOTAL CO2 41.4 mmol/L (21-25)
[2018-02-24 10:45] LABS: ARTERIAL BLOOD FIO2 40%
[2018-02-24 10:47] LABS: ARTERIAL BLOOD PCO2 80.7 mmHg (35-45)
[2018-02-24] MEDS: OXYCODONE-ACETAMINOPHEN 5-325 MG TABLET PO PRN (12:07)
[2018-02-24] MEDS ORDERED: NICOTINE 14 MG/24 HR PATCH.TD24 TD SCH (18:00)
--- NOTE | 2018-02-24 18:12 | PDOC PROGRESS REPORT ---
Subjective Subjective:: Ms. Agee is a 52 years old female patient presented with chief complaint of cough and shortness of breath. Patient has underlying COPD with several exacerbation and multiple hospital admission and history of intubation. This morning I seen patient resting in bed she is on BiPAP and still she complains of some shortness of breath. Her latest ABG shows PCO2 of 69.6 yesterday it was 80.7. Despite her symptoms, patient patient asks to go home but I explained to her that she needs to stay until her shortness of breath is improved and her PCO2 corrected. Reason For Visit: ACUTE ON CHRONIC RESPIRATORY FAILURE,COPD Physical Exam Vital Signs: Temp Pulse Resp BP Pulse Ox 97.6 F 96 31 H 126/81 H 95 02/24/18 15:40 02/24/18 15:40 02/24/18 15:40 02/24/18 15:40 02/24/18 15:40 Intake & Output 02/23/18 02/24/18 02/25/18 06:59 06:59 06:59 Intake Total 1049 473 Output Total 950 Balance 99 473 Weight 107.3 kg General appearance: PRESENT: mild distress Head exam: PRESENT: atraumatic, normocephalic Neck exam: ABSENT: carotid bruit, JVD, lymphadenopathy, thyromegaly Respiratory exam: PRESENT: wheezes Cardiovascular exam: PRESENT: RRR. ABSENT: diastolic murmur, rubs, systolic murmur GI/Abdominal exam: PRESENT: normal bowel sounds, soft. ABSENT: distended, guarding, mass, organolmegaly, rebound, tenderness Extremities exam: PRESENT: full ROM. ABSENT: calf tenderness, clubbing, pedal edema Neurological exam: PRESENT: alert, awake, oriented to time, oriented to situation Psychiatric exam: PRESENT: normal mood Results Laboratory Results: 02/24/18 10:08 Carbonic Acid 2.43 H HCO3/H2CO3 Ratio 16:1 ABG pH 7.30 L ABG pCO2 80.7 H* ABG pO2 86.8 ABG HCO3 38.9 H ABG O2 Saturation 95.2 ABG Base Excess 9.2 FiO2 40% 02/23/18 10:18 Troponin I < 0.012 Impressions: Chest X-Ray 02/23/18 06:13 IMPRESSION: 1. Cardiomegaly. 2. Improved aeration of the lung bases. Assessment & Plan - Diagnosis (1) Acute and chronic respiratory failure with hypercapnia Is this a current diagnosis for this admission?: Yes Plan: I will continue DuoNeb, supplemental oxygen and Solu-Medrol (2) COPD exacerbation Is this a current diagnosis for this admission?: Yes Plan: As #1 (3) Polysubstance abuse Is this a current diagnosis for this admission?: Yes Plan: Patient advised and encouraged to quit substance abuse. (4) Bipolar disorder Qualifiers: Active/Remission status: remission status unspecified Qualified Code(s): F31.9 - Bipolar disorder, unspecified Is this a current diagnosis for this admission?: Yes Plan: Continue current regimen (5) Hypertension Is this a current diagnosis for this admission?: Yes Plan: Continue current regimen (6) Type 2 diabetes mellitus Is this a current diagnosis for this admission?: Yes Plan: Continue sliding scale and her home medication. (7) Obesity (BMI 30-39.9) Is this a current diagnosis for this admission?: Yes Plan: Patient advised her to do lifestyle modification. (8) Tobacco abuse Is this a current diagnosis for this admission?: Yes Plan: Patient advised and encouraged to quit smoking. (9) Obstructive sleep apnea Is this a current diagnosis for this admission?: Yes Plan: Continue CPAP
[2018-02-24] MEDS: AZITHROMYCIN 500 MG in DEXTROSE 5%-WATER 250 ML IV SCH (21:06)
[2018-02-25] MEDS: OXYCODONE-ACETAMINOPHEN 5-325 MG TABLET PO PRN ×2 (02:42→09:19)
[2018-02-25] MEDS: METHYLPREDNISOLONE INJ 125 MG/2 ML SDV IV SCH (06:38)
[2018-02-25] MEDS: IBUPROFEN 800 MG TABLET PO SCH ×3 (09:18→16:33)
[2018-02-25] MEDS: LISINOPRIL 5 MG TABLET PO SCH (09:18)
[2018-02-25] MEDS: LANSOPRAZOLE 30 MG TAB.RAP.DR PO SCH (09:19)
[2018-02-25] MEDS: CARVEDILOL 3.125 MG TABLET PO SCH (09:20)
[2018-02-25] MEDS: GABAPENTIN 300 MG CAPSULE PO SCH ×2 (09:20→13:54)
[2018-02-25] MEDS: ENOXAPARIN SODIUM INJ 40 MG/0.4 ML DISP.SYRIN SUBCUT SCH (10:39)
[2018-02-25] MEDS ORDERED: GLUCAGON,HUMAN RECOMB 1 MG INJ IM PRN (12:00)
[2018-02-25] MEDS ORDERED: DEXTROSE 50%-WATER SYRINGE 12.5 GM/25 ML DOSE IV PRN (12:00)
[2018-02-25] MEDS ORDERED: DEXTROSE 40% GEL 15 GM TUBE PO PRN (12:00)
[2018-02-25] MEDS ORDERED: DEXTROSE 40% GEL 15 GM TUBE X 2 PO PRN (12:00)
[2018-02-25] MEDS ORDERED: DEXTROSE 50%-WATER SYRINGE 25 GM/50 ML DOSE IV PRN (12:00)
[2018-02-25] MEDS ORDERED: INSULIN LISPRO 100 UNIT/ML 3 ML VIAL SUBCUT PRN (12:00)
[2018-02-25] MEDS ORDERED: METHYLPREDNISOLONE INJ 125 MG/2 ML SDV IV SCH (14:00)
--- NOTE | 2018-02-25 15:51 | PDOC PROGRESS REPORT ---
Subjective Progress Note for:: 02/25/18 Subjective:: I seen patient while she is resting her recliner. She has been wearing CPAP. Patient is very uncooperative. She is sneak out of the floor for smoking. Her shortness of breath is relatively improving. I tapered her prednisone from 80- 60 mg. Reason For Visit: ACUTE ON CHRONIC RESPIRATORY FAILURE,COPD Physical Exam Vital Signs: Temp Pulse Resp BP Pulse Ox 97.4 F 88 16 132/69 H 96 02/25/18 11:00 02/25/18 14:00 02/25/18 13:09 02/25/18 11:00 02/25/18 13:09 Intake & Output 02/24/18 02/25/18 02/26/18 06:59 06:59 06:59 Intake Total 1049 1423 625 Output Total 950 Balance 99 1423 625 Weight 107.3 kg General appearance: PRESENT: no acute distress Eye exam: PRESENT: conjunctiva pink Neck exam: ABSENT: carotid bruit, JVD, lymphadenopathy, thyromegaly Respiratory exam: PRESENT: clear to auscultation tara. ABSENT: rales, rhonchi, wheezes Cardiovascular exam: PRESENT: RRR. ABSENT: diastolic murmur, rubs, systolic murmur GI/Abdominal exam: PRESENT: normal bowel sounds, soft. ABSENT: distended, guarding, mass, organolmegaly, rebound, tenderness Neurological exam: PRESENT: alert, awake, oriented to time, oriented to situation Results Laboratory Results: 02/23/18 06:29 02/23/18 06:29 02/23/18 06:50 Bull Catheter Urine Culture - Final NO GROWTH 2 DAYS 02/23/18 02/23/18 06:29 10:18 Troponin I < 0.012 < 0.012 NT-Pro-B Natriuret Pep 121 Impressions: Chest X-Ray 02/23/18 06:13 IMPRESSION: 1. Cardiomegaly. 2. Improved aeration of the lung bases. Assessment & Plan - Diagnosis (1) Acute and chronic respiratory failure with hypercapnia Is this a current diagnosis for this admission?: Yes Plan: I will continue DuoNeb, supplemental oxygen and Solu-Medrol (2) COPD exacerbation Is this a current diagnosis for this admission?: Yes Plan: As #1 (3) Polysubstance abuse Is this a current diagnosis for this admission?: Yes Plan: Patient advised and encouraged to quit substance abuse. (4) Bipolar disorder Qualifiers: Active/Remission status: remission status unspecified Qualified Code(s): F31.9 - Bipolar disorder, unspecified Is this a current diagnosis for this admission?: Yes Plan: Continue current regimen (5) Hypertension Is this a current diagnosis for this admission?: Yes Plan: Continue current regimen (6) Type 2 diabetes mellitus Is this a current diagnosis for this admission?: Yes Plan: Continue sliding scale and her home medication. (7) Obesity (BMI 30-39.9) Is this a current diagnosis for this admission?: Yes Plan: Patient advised her to do lifestyle modification. (8) Tobacco abuse Is this a current diagnosis for this admission?: Yes Plan: Patient advised and encouraged to quit smoking. (9) Obstructive sleep apnea Is this a current diagnosis for this admission?: Yes Plan: Continue CPAP
[2018-02-25 17:07] VITALS: BP 113/64
--- NOTE | 2018-02-25 17:08 | Progress Note ---
Provider Note Provider Note: Ms. Agee is a 52 years old female patient presented with chief complaint of cough and shortness of breath. Patient has underlying COPD with several exacerbation and multiple hospital admission and history of intubation and medical noncompliance. This morning I seen patient resting on recliner she is on BiPAP. Patient is very difficult and uncooperative. Frequently she snuck out from the floor for smoking. She has been encouraged and counseled to quit smoking. This afternoon patient insisted to leave AMA. I myself and the nurse in charge of her try to convince her to stay behind and complete her medication and also explained to her the consequence of discharging herself AGAINST MEDICAL ADVICE she might end up in acute respiratory failure or days despite all of our advice patient was adamant and she left AGAINST MEDICAL ADVICE.
[2018-02-25] MEDS ORDERED: AZITHROMYCIN 250 MG TABLET PO SCH (22:00)
== END 2018-02-25 17:25 | disposition left against medical advice (07) | DRG 189 ==
LOC: ER 06:02 → EH 08:02 → 3W 18:20
PROVIDERS: ADMIT Internal Medicine; ATTEND Internal Medicine
DX: J96.21 Acute and chronic respiratory failure with hypoxia (principal); J44.1 Chronic obstructive pulmonary disease with (acute) exacerbation; I50.32 Chronic diastolic (congestive) heart failure; I11.0 Hypertensive heart disease with heart failure; E11.8 Type 2 diabetes mellitus with unspecified complications; F31.9 Bipolar disorder, unspecified; R07.9 Chest pain, unspecified; B19.20 Unspecified viral hepatitis C without hepatic coma; F17.210 Nicotine dependence, cigarettes, uncomplicated; F19.10 Other psychoactive substance abuse, uncomplicated; G47.33 Obstructive sleep apnea (adult) (pediatric); E66.01 Morbid (severe) obesity due to excess calories; Z91.19 Patient's noncompliance with other medical treatment and regimen
CPT/HCPCS: 36415; 36600; 51702; 71045; 80053; 81001; 82803; 82962; 83880; 84484; 85025; 87086; 93005; 93010; 94640; 94660; 96374; 99291; J0456; J1650; J1815; J2930; J7060; J7620

== ENCOUNTER 2018-03-30 06:36 | Inpatient (IN) | payer MEDICAID ==
[2018-03-30] MEDS ORDERED: ASPIRIN 81 MG TABLET, CHEWABLE PO ONE (06:43)
[2018-03-30] MEDS ORDERED: IPRATROPIUM/ALBUTEROL 0.5-2.5 MG/3 ML AMPUL NEB ONE (06:44)
[2018-03-30] MEDS ORDERED: METHYLPREDNISOLONE INJ 125 MG/2 ML SDV IV ONE (06:45)
--- NOTE | 2018-03-30 06:49 | ER Document Report ---
ED General - General Stated Complaint: TROUBLE BREATHING Time Seen by Provider: 03/30/18 06:41 Primary Care Provider: BLAYNE CHO DO [Primary Care Provider] - Follow up as needed Mode of Arrival: Ambulatory Information source: Patient Notes: 52-year-old female with a history of COPD and CHF presents the emergency department with shortness of breath that started this morning. Patient states that she is on 3 L nasal cannula at home as well as BiPAP as needed. She has been using a nebulizer without relief of symptoms. Patient has a previous history of intubation secondary to COPD exacerbations. Patient denies any fever, chills, rhinorrhea, cough, chest pain, calf pain, calf swelling. TRAVEL OUTSIDE OF THE [place] IN LAST 30 DAYS: No - HPI Onset: Just prior to arrival Onset/Duration: Sudden Quality of pain: No pain Severity: None Pain Level: Denies Associated symptoms: None Exacerbated by: Denies Relieved by: Denies Similar symptoms previously: Yes Recently seen / treated by doctor: Yes - Related Data Allergies/Adverse Reactions: No Known Allergies Allergy (Verified 03/30/18 07:01) Past Medical History - General Information source: Patient - Social History Smoking Status: Current Every Day Smoker Family History: Reviewed & Not Pertinent, Other - Mother with COPD - Past Medical History Cardiac Medical History: Reports: Hx Congestive Heart Failure, Hx Hypertension Pulmonary Medical History: Reports: Hx Asthma, Hx Bronchitis, Hx COPD, Hx Pneu monia, Hx Intubation, Hx Respiratory Failure, Hx Sleep Apnea Endocrine Medical History: Reports: Hx Diabetes Mellitus Type 2 Renal/ Medical History: Denies: Hx Peritoneal Dialysis GI Medical History: Reports: Hx Hepatitis - HEP-C Musculoskeletal Medical History: Reports Hx Arthritis Skin Medical History: Reports Hx Cellulitis Psychiatric Medical History: Reports: Hx Anxiety, Hx Bipolar Disorder, Hx Depression Infectious Medical History: Reports: Hx Hepatitis - HEP-C Past Surgical History: Reports: Hx Cardiac Catheterization, Hx Hysterectomy - Immunizations Immunizations up to date: Yes Hx Diphtheria, Pertussis, Tetanus Vaccination: Yes Hx Pneumococcal Vaccination: 04/10/10 Review of Systems - Review of Systems Constitutional: No symptoms reported EENT: No symptoms reported Cardiovascular: No symptoms reported Respiratory: Short of breath, Wheezing Gastrointestinal: No symptoms reported Genitourinary: No symptoms reported Female Genitourinary: No symptoms reported Musculoskeletal: No symptoms reported Skin: No symptoms reported Hematologic/Lymphatic: No symptoms reported Neurological/Psychological: No symptoms reported -: Yes All other systems reviewed and negative Physical Exam - Vital signs Vitals: Pulse Ox 98 03/30/18 06:38 - Notes Notes: PHYSICAL EXAMINATION: GENERAL: Well-appearing, well-nourished and in no acute distress. HEAD: Atraumatic, normocephalic. EYES: Pupils equal round and reactive to light, extraocular movements intact, conjunctiva are normal. ENT: Nares patent, oropharynx clear without exudates. Moist mucous membranes. NECK: Normal range of motion, supple without lymphadenopathy LUNGS: Wheezing to the upper lung garay. Rhonci to the lower lung garay. Speaking in complete sentences. HEART: Regular rate and rhythm without murmurs ABDOMEN: Soft, nontender, nondistended abdomen. No guarding, no rebound. No masses appreciated. Female : deferred Musculoskeletal: Normal range of motion, no pitting or edema. No cyanosis. NEUROLOGICAL: Cranial nerves grossly intact. Normal speech, normal gait. Normal sensory, motor exams PSYCH: Normal mood, normal affect. SKIN: Warm, Dry, normal turgor, no rashes or lesions noted. Course - Re-evaluation Re-evalutation: 03/30/18 07:16 EKG: Ventricular rate 67, IN interval 168, castration 90, QTc 435, normal sinus rhythm. No ST segment elevation. 03/30/18 09:17 Patient placed on BiPAP. Wheezing heard in the upper lung garay. Duoneb and solumedrol ordered. Labs and imaging obtained. Labs are remarkable for a white count of 11.8 and an ABG with a PCO2 of 80. The ABG appears similar from her previous lab in Feb. Chest XR shows mild CHF. BNP elevated. No lower extremity pitting edema but rhochi in the lower lungs heart. Patient was given 40mg IV lasix. I contacted the hospitalist for admission. Will hold antibiotics at this time as the patient is afebrile and denies productive cough. Hospitalist is agreeable with the plan of care and will admit. 03/30/18 09:18 - Vital Signs Vital signs: Temp Pulse Resp BP Pulse Ox 23 H 153/84 H 92 03/30/18 08:01 03/30/18 08:01 03/30/18 08:01 - Laboratory Result Diagrams: 03/30/18 06:45 03/30/18 06:45 Laboratory results interpreted by me: 03/30/18 03/30/18 03/30/18 06:45 06:45 06:45 WBC 11.8 H MCH 26.2 L MCHC 31.4 L RDW 19.0 H Absolute Neutrophils 9.1 H Carbonic Acid ABG pH ABG pCO2 ABG pO2 ABG HCO3 ABG Total CO2 ABG O2 Saturation Carbon Dioxide 36 H Anion Gap 4 L BUN 26 H Glucose 130 H NT-Pro-B Natriuret Pep 947 H 03/30/18 07:22 WBC MCH MCHC RDW Absolute Neutrophils Carbonic Acid 2.42 H ABG pH 7.28 L ABG pCO2 80.3 H* ABG pO2 71.1 L ABG HCO3 37.1 H ABG Total CO2 39.6 H ABG O2 Saturation 91.5 L Carbon Dioxide Anion Gap BUN Glucose NT-Pro-B Natriuret Pep Discharge - Discharge Clinical Impression: COPD exacerbation, Shortness of breath, Hypercapnia Congestive heart failure Qualifiers: Heart failure type: unspecified Heart failure chronicity: acute Qualified Code(s): I50.9 - Heart failure, unspecified Condition: Stable Disposition: ADMITTED OBSERVATION Admitting Provider: Hospitalist Unit Admitted: IMCU Referrals: BLAYNE CHO DO [Primary Care Provider] - Follow up as needed
[2018-03-30 07:08] LABS: ABSOLUTE LYMPHOCYTES (AUTO) 1.8 10^3/uL (0.5-4.7); ABSOLUTE MONOCYTES (AUTO) 0.8 10^3/uL (0.1-1.4); ABSOLUTE NEUT (AUTO) 9.1 10^3/uL (1.7-8.2); BASOPHILS % (AUTO) 0.3 % (0-2); EOSINOPHILS % (AUTO) 0.4 % (0-6); HEMATOCRIT 43.2 % (36.0-47.0); HEMOGLOBIN 13.5 g/dL (12.0-15.5); LYMPHOCYTES % (AUTO) 15.6 % (13-45); MEAN CORPUSCULAR HEMOGLOBIN 26.2 pg (27.0-33.4); MEAN CORPUSCULAR HGB CONC 31.4 g/dL (32.0-36.0); MEAN CORPUSCULAR VOLUME 84 fl (80-97); MONOCYTES % (AUTO) 6.5 % (3-13); PLATELET COUNT 254 10^3/uL (150-450); RED BLOOD COUNT 5.17 10^6/uL (3.72-5.28); SEGMENTED NEUTROPHILS % (AUTO) 77.2 % (42-78); TOTAL CELLS COUNTED % (AUTO) 100 %; WHITE BLOOD COUNT 11.8 10^3/uL (4.0-10.5)
[2018-03-30 07:27] LABS: ALANINE AMINOTRANSFERASE 25 U/L (9-52); ALKALINE PHOSPHATASE 90 U/L (38-126); ASPARTATE AMINO TRANSFERASE 20 U/L (14-36); BILIRUBIN,DIRECT 0.2 mg/dL (0.0-0.4); BILIRUBIN,TOTAL 0.3 mg/dL (0.2-1.3); BLOOD UREA NITROGEN 26 mg/dL (7-20); CALCIUM 8.9 mg/dL (8.4-10.2); CARBON DIOXIDE 36 mmol/L (22-30); GLUCOSE 130 mg/dL (75-110); POTASSIUM 4.6 mmol/L (3.6-5.0); TOTAL PROTEIN 6.6 g/dL (6.3-8.2)
[2018-03-30 07:32] LABS: CHLORIDE 100 mmol/L (98-107); SODIUM 140.1 mmol/L (137-145)
--- NOTE | 2018-03-30 07:32 | RADIOLOGY REPORT (SQ) ---
EXAM DESCRIPTION: XR CHEST 1 VIEW COMPLETED DATE/TME: 03/30/2018 06:43 CLINICAL HISTORY: 52 years Female, shortness of breath COMPARISON: February 23, 2018 NUMBER OF VIEWS/TECHNIQUE: 1/AP FINDINGS: Adequate lung volume, mild bihilar fullness, mild interstitial markings, mildly enlarged cardiac silhouette, and intact bony thorax. IMPRESSION: Mild CHF pattern. Differential diagnosis includes pulmonary edema, multifocal pneumonia, and chronic interstitial lung disease.
[2018-03-30 07:35] LABS: ANION GAP 4 (5-19)
[2018-03-30 07:42] LABS: ARTERIAL BLOOD BASE EXCESS 7.5 mmol/L; ARTERIAL BLOOD H2CO3 2.42 mmol/L (1.05-1.35); ARTERIAL BLOOD HCO3 37.1 mmol/L (20-24); ARTERIAL BLOOD O2 SATURATION 91.5 % (94-98); ARTERIAL BLOOD PH 7.28 (7.35-7.45); ARTERIAL BLOOD PO2 71.1 mmHg (80-100); ARTERIAL BLOOD TOTAL CO2 39.6 mmol/L (21-25)
[2018-03-30 07:43] LABS: ARTERIAL BLOOD FIO2 40%
[2018-03-30 07:45] LABS: ARTERIAL BLOOD PCO2 80.3 mmHg (35-45)
[2018-03-30] MEDS ORDERED: ACETAMINOPHEN 325 MG TABLET PO ONE (07:56)
[2018-03-30] MEDS ORDERED: FUROSEMIDE INJ/PF 40 MG/4 ML SDV IV ONE (09:10)
[2018-03-30] MEDS ORDERED: MAGNESIUM HYDROXIDE SUSP 30 ML UDCUP PO PRN (09:57)
[2018-03-30] MEDS ORDERED: ACETAMINOPHEN 325 MG TABLET PO PRN (09:57)
[2018-03-30] MEDS ORDERED: ALBUTEROL SULFATE 0.083% NEB 2.5 MG/3 ML AMPUL NEB PRN (09:57)
[2018-03-30] MEDS ORDERED: ONDANSETRON 4 MG TAB.RAPDIS PO PRN (09:57)
[2018-03-30] MEDS ORDERED: MAG HYDROX/AL HYDROX/SIMETH SUSP 30 ML UDCUP PO PRN (09:57)
[2018-03-30] MEDS ORDERED: FAMOTIDINE 20 MG TABLET PO SCH (10:00)
[2018-03-30] MEDS ORDERED: DOCUSATE SODIUM 100 MG CAPSULE PO SCH (10:00)
[2018-03-30] MEDS ORDERED: IBUPROFEN 600 MG TABLET PO PRN (10:10)
[2018-03-30 12:14] LABS: ARTERIAL BLOOD BASE EXCESS 8.6 mmol/L; ARTERIAL BLOOD H2CO3 2.77 mmol/L (1.05-1.35); ARTERIAL BLOOD HCO3 39.7 mmol/L (20-24); ARTERIAL BLOOD O2 SATURATION 96.4 % (94-98); ARTERIAL BLOOD PH 7.25 (7.35-7.45); ARTERIAL BLOOD PO2 102.5 mmHg (80-100); ARTERIAL BLOOD TOTAL CO2 42.5 mmol/L (21-25)
[2018-03-30 12:15] LABS: ARTERIAL BLOOD FIO2 45%
[2018-03-30 12:17] LABS: ARTERIAL BLOOD PCO2 91.9 mmHg (35-45)
[2018-03-30] MEDS ORDERED: NICOTINE 21 MG/24 HR PATCH.TD24 TD PRN (14:05)
[2018-03-30] MEDS: IPRATROPIUM/ALBUTEROL 0.5-2.5 MG/3 ML AMPUL NEB SCH ×2 (14:05→19:26)
[2018-03-30] MEDS ORDERED: HYDRALAZINE HCL INJ/PF 20 MG/1 ML SDV IV PRN (14:06)
[2018-03-30] MEDS: HEPARIN SOD (PORCINE) 5,000 UNIT/ML 1 ML SYRINGE SUBCUT SCH ×2 (14:51→22:37)
[2018-03-30] MEDS ORDERED: KETOROLAC TROMETHAMINE INJ/PF 30 MG/1 ML SDV IV ONE (15:00)
[2018-03-30 15:59] LABS: ARTERIAL BLOOD BASE EXCESS 9.7 mmol/L; ARTERIAL BLOOD H2CO3 3.17 mmol/L (1.05-1.35); ARTERIAL BLOOD HCO3 42.1 mmol/L (20-24); ARTERIAL BLOOD O2 SATURATION 91.4 % (94-98); ARTERIAL BLOOD PH 7.22 (7.35-7.45); ARTERIAL BLOOD PO2 76.6 mmHg (80-100); ARTERIAL BLOOD TOTAL CO2 45.3 mmol/L (21-25)
[2018-03-30 16:00] LABS: ARTERIAL BLOOD FIO2 45%
[2018-03-30 16:03] LABS: ARTERIAL BLOOD PCO2 105.4 mmHg (35-45)
[2018-03-30] MEDS ORDERED: ALBUTEROL SULFATE HFA (90 MCG/PUFF) 200 PUFF/8.5 GM MDI IH PRN (16:30)
[2018-03-30] MEDS ORDERED: PROPOFOL 1,000 MG/100 ML INFUS..BTL IV ONE ×2 (16:31→18:38)
[2018-03-30] MEDS ORDERED: MIDAZOLAM HCL 50 MG/100 ML RTUINJ ONE (16:58)
[2018-03-30] MEDS: MIDAZOLAM HCL 50 MG/100 ML RTUINJ IV PRN (17:00)
--- NOTE | 2018-03-30 17:42 | RADIOLOGY REPORT (SQ) ---
EXAM DESCRIPTION: CHEST SINGLE VIEW COMPLETED DATE/TIME: 03/30/2018 5:16 pm REASON FOR STUDY: ET TUBE PLACEMENT COMPARISON: 03/30/2018, 0654 hours EXAM PARAMETERS: NUMBER OF VIEWS: One view TECHNIQUE: Single frontal radiograph of the chest. RADIATION DOSE: N/A LIMITATIONS: None. FINDINGS: TEMPORARY SUPPORT DEVICES:ETT in expected location. NG tube courses below the antoine-diaphr agm in to the stomach. LUNGS AND PLEURA: No opacities. No effusions. No masses. No pneumothorax. MEDIASTINUM AND HILAR STRUCTURES: No masses. Contour normal. HEART AND VASCULAR STRUCTURES: Heart enlarged. Vascular congestion. Aorta normal for age. BONES: No acute findings. OTHER: No other significant finding. IMPRESSION: Cardiac enlargement with vascular congestion. SUPPORT DEVICE(S) IN EXPECTED LOCATIONS. TECHNICAL DOCUMENTATION: JOB ID: [id number] [employer]- All Rights Reserved Reading location - IP/workstation name: [email or web address]
[2018-03-30 17:53] LABS: ARTERIAL BLOOD BASE EXCESS 9.2 mmol/L; ARTERIAL BLOOD FIO2 100%; ARTERIAL BLOOD H2CO3 2.46 mmol/L (1.05-1.35); ARTERIAL BLOOD PO2 72.1 mmHg (80-100); ARTERIAL BLOOD TOTAL CO2 41.5 mmol/L (21-25)
[2018-03-30 17:54] LABS: ARTERIAL BLOOD PCO2 81.8 mmHg (35-45)
[2018-03-30 17:55] LABS: URINE AMPHETAMINES SCREEN NEGATIVE; URINE BARBITURATES SCREEN NEGATIVE; URINE BENZODIAZEPINES SCREEN NEGATIVE; URINE COCAINE SCREEN UNCONFIRMED POSITIVE; URINE MARIJUANA (THC) SCREEN NEGATIVE; URINE METHADONE SCREEN NEGATIVE; URINE PHENCYCLIDINE SCREEN NEGATIVE
[2018-03-30] MEDS ORDERED: ONDANSETRON 4 MG TAB.RAPDIS NG PRN (18:30)
[2018-03-30] MEDS ORDERED: MAGNESIUM HYDROXIDE SUSP 30 ML UDCUP NG PRN (18:30)
[2018-03-30] MEDS ORDERED: ACETAMINOPHEN 325 MG TABLET NG PRN (18:30)
[2018-03-30] MEDS ORDERED: MAG HYDROX/AL HYDROX/SIMETH SUSP 30 ML UDCUP NG PRN (18:30)
[2018-03-30] MEDS ORDERED: IBUPROFEN 600 MG TABLET NG PRN (18:30)
--- NOTE | 2018-03-30 18:38 | EKG REPORT ---
SEVERITY:- ABNORMAL ECG - SINUS RHYTHM BORDERLINE LEFT AXIS DEVIATION NONSPECIFIC T ABNORMALITIES, ANTERIOR LEADS : Confirmed by: Debra Lockwood MD 30-Mar-2018 18:37:02
[2018-03-30] MEDS ORDERED: DEXTROSE 50%-WATER 25 GM/50 ML DISP.SYRIN IV PRN ×2 (19:54)
[2018-03-30] MEDS ORDERED: INSULIN LISPRO 100 UNIT/ML 3 ML VIAL SUBCUT PRN (19:54)
[2018-03-30] MEDS ORDERED: GLUCAGON,HUMAN RECOMB 1 MG INJ IM PRN (19:54)
[2018-03-30] MEDS ORDERED: DEXTROSE 40% GEL 15 GM TUBE PO PRN ×2 (19:54)
--- NOTE | 2018-03-30 20:05 | PDOC H&P ---
History of Present Illness Admission Date/PCP: 03/30/18 09:45 BLAYNE CHO DO Patient complains of: shortness of breath History of Present Illness: POLLY CRESPO is a 52 year old female with a past medical history of chronic respiratory failure secondary to COPD and CHF, RICO, DM 2, hypertension, tobacco abuse with continuous use, and cocaine abuse with recent use who presented to the emergency department today with a complaint of increased shortness of breath . Evaluation in the emergency department today revealed mild leukocytosis (WBCs 11.8), unremarkable chemistry, normal troponin, proBNP minimally elevated to 947, normal TSH, and an ABG demonstrating respiratory acidosis with a PCO2 of 80.3 (at baseline). EKG demonstrated NSR with nonspecific T wave changes in the lateral leads, chest x-ray revealed mild vascular congestion. Normally the patient leaves AGAINST MEDICAL ADVICE, however, this time is agreeable to remaining in-house for admission and management of her acute on chronic respiratory failure secondary to a COPD exacerbation. Past Medical History Cardiac Medical History: Reports: Congestive Heart Failure, Hypertension Pulmonary Medical History: Reports: Asthma, Bronchitis, Chronic Obstructive Pulmonary Disease (COPD), Intubation, Pneumonia, Respiratory Failure, Sleep Apnea EENT Medical History: Reports: None Neurological Medical History: Reports: None Endocrine Medical History: Reports: Diabetes Mellitus Type 2 Renal/ Medical History: Reports: None Malignancy Medical History: Reports: None GI Medical History: Reports: Hepatitis - HEP-C Musculoskeltal Medical History: Reports: Arthritis Psychiatric Medical History: Reports: Bipolar Disorder, Depression, Substance Abuse, Tobacco Dependency Traumatic Medical History: Reports: None Hematology: Denies: Anemia Infectious Medical History: Reports: None Past Surgical History Past Surgical History: Reports: Cardiac Catheterization, Hysterectomy Social History Information Source: Patient Lives with: Alone Smoking Status: Current Every Day Smoker Cigarettes Packs Per Day: 1.5 Frequency of Alcohol Use: None Hx Recreational Drug Use: Yes Drugs: Cocaine, Marijuana Hx Prescription Drug Abuse: No - Advance Directive Resuscitation Status: Full Code Surrogate healthcare decision maker:: The patient indicates her sister, does not give name. Family History Family History: COPD Parental Family History Reviewed: Yes Children Family History Reviewed: Yes Sibling(s) Family History Reviewed.: Yes Medication/Allergy Home Medications: Albuterol Sulfate [Proair HFA Inhalation Aerosol 8.5 gm MDI] 2 puff IH Q4HP PRN 03/30/18 Carvedilol [Coreg 3.125 mg Tablet] 3.125 mg PO Q12 03/30/18 Gabapentin [Neurontin 300 mg Capsule] 600 mg PO Q8 03/30/18 Ibuprofen [Motrin 800 mg Tablet] 800 mg PO Q8 03/30/18 Meloxicam [Mobic] 15 mg PO DAILY 03/30/18 Mirabegron [Myrbetriq] 25 mg PO DAILY 03/30/18 RX: Omeprazole 40 mg PO BID 03/30/18 Tiotropium [place] [Spiriva Handihaler 5 Cap/Kit (18 Mcg/Cap)] 1 cap IH DAILY 03/30/18 Allergies/Adverse Reactions: No Known Allergies Allergy (Verified 03/30/18 09:59) Review of Systems Constitutional: PRESENT: fatigue, weakness. ABSENT: chills, fever(s), headache(s), weight gain, weight loss Eyes: ABSENT: visual disturbances Ears: ABSENT: hearing changes Cardiovascular: PRESENT: chest pain, dyspnea on exertion. ABSENT: edema, orthropnea, palpitations Respiratory: PRESENT: cough, dyspnea. ABSENT: hemoptysis Gastrointestinal: ABSENT: abdominal pain, constipation, diarrhea, hematemesis, hematochezia, nausea, vomiting Genitourinary: ABSENT: dysuria, hematuria Musculoskeletal: ABSENT: joint swelling Integumentary: ABSENT: rash, wounds Neurological: ABSENT: abnormal gait, abnormal speech, confusion, dizziness, focal weakness, syncope Psychiatric: ABSENT: anxiety, depression, homidical ideation, suicidal ideation Endocrine: ABSENT: cold intolerance, heat intolerance, polydipsia, polyuria Hematologic/Lymphatic: ABSENT: easy bleeding, easy bruising Physical Exam Vital Signs: Temp Pulse Resp BP Pulse Ox 98.1 F 77 14 101/73 94 03/30/18 18:08 03/30/18 19:26 03/30/18 19:26 03/30/18 18:08 03/30/18 19:26 Intake & Output 03/29/18 03/30/18 03/31/18 06:59 06:59 06:59 Output Total 150 Balance -150 Weight 113.3 kg General appearance: PRESENT: mild distress, morbidly obese, well-developed, well-nourished. ABSENT: cooperative - Agitated Head exam: PRESENT: atraumatic, normocephalic Eye exam: PRESENT: conjunctiva pink, EOMI, PERRLA. ABSENT: scleral icterus Ear exam: PRESENT: normal external ear exam Mouth exam: PRESENT: moist, tongue midline Neck exam: ABSENT: carotid bruit, JVD, lymphadenopathy, thyromegaly Respiratory exam: PRESENT: accessory muscle use, decreased breath sounds - Bibasilar, prolonged expiratory phas, rhonchi, symmetrical, wheezes, other - Currently on BiPAP. ABSENT: rales Cardiovascular exam: PRESENT: RRR, +S1, +S2. ABSENT: diastolic murmur, rubs, systolic murmur Pulses: PRESENT: normal dorsalis pedis pul Vascular exam: PRESENT: normal capillary refill GI/Abdominal exam: PRESENT: normal bowel sounds, soft. ABSENT: distended, guarding, mass, organolmegaly, rebound, tenderness Rectal exam: PRESENT: deferred Extremities exam: PRESENT: full ROM. ABSENT: calf tenderness, clubbing, pedal edema Neurological exam: PRESENT: alert, awake, oriented to person, oriented to place, oriented to time, oriented to situation, CN II-XII grossly intact. ABSENT: motor sensory deficit Psychiatric exam: PRESENT: agitated, appropriate affect. ABSENT: homicidal ideation, suicidal ideation Skin exam: PRESENT: dry, intact, warm. ABSENT: cyanosis, rash Results Laboratory Results: 03/30/18 06:45 03/30/18 06:45 03/30/18 03/30/18 03/30/18 06:45 06:45 06:45 WBC 11.8 H RBC 5.17 Hgb 13.5 Hct 43.2 MCV 84 MCH 26.2 L MCHC 31.4 L RDW 19.0 H Plt Count 254 Seg Neutrophils % 77.2 Lymphocytes % 15.6 Monocytes % 6.5 Eosinophils % 0.4 Basophils % 0.3 Absolute Neutrophils 9.1 H Absolute Lymphocytes 1.8 Absolute Monocytes 0.8 Absolute Eosinophils 0.0 Absolute Basophils 0.0 Carbonic Acid HCO3/H2CO3 Ratio ABG pH ABG pCO2 ABG pO2 ABG HCO3 ABG O2 Saturation ABG Base Excess FiO2 Sodium 140.1 Potassium 4.6 Chloride 100 Carbon Dioxide 36 H Anion Gap 4 L BUN 26 H Creatinine 0.58 Est GFR ( Amer) > 60 Est GFR (Non-Af Amer) > 60 Glucose 130 H Calcium 8.9 Total Bilirubin 0.3 AST 20 ALT 25 Alkaline Phosphatase 90 Total Protein 6.6 Albumin 4.0 TSH 1.52 03/30/18 03/30/18 03/30/18 07:22 12:05 15:38 WBC RBC Hgb Hct MCV MCH MCHC RDW Plt Count Seg Neutrophils % Lymphocytes % Monocytes % Eosinophils % Basophils % Absolute Neutrophils Absolute Lymphocytes Absolute Monocytes Absolute Eosinophils Absolute Basophils Carbonic Acid 2.42 H 2.77 H 3.17 H HCO3/H2CO3 Ratio 15:1 14:1 13:1 ABG pH 7.28 L 7.25 L 7.22 L ABG pCO2 80.3 H* 91.9 H* 105.4 H* ABG pO2 71.1 L 102.5 H 76.6 L ABG HCO3 37.1 H 39.7 H 42.1 H ABG O2 Saturation 91.5 L 96.4 91.4 L ABG Base Excess 7.5 8.6 9.7 FiO2 40% 45% 45% Sodium Potassium Chloride Carbon Dioxide Anion Gap BUN Creatinine Est GFR ( Amer) Est GFR (Non-Af Amer) Glucose Calcium Total Bilirubin AST ALT Alkaline Phosphatase Total Protein Albumin TSH 03/30/18 17:45 WBC RBC Hgb Hct MCV MCH MCHC RDW Plt Count Seg Neutrophils % Lymphocytes % Monocytes % Eosinophils % Basophils % Absolute Neutrophils Absolute Lymphocytes Absolute Monocytes Absolute Eosinophils Absolute Basophils Carbonic Acid 2.46 H HCO3/H2CO3 Ratio 15:1 ABG pH 7.30 L ABG pCO2 81.8 H* ABG pO2 72.1 L ABG HCO3 39.0 H ABG O2 Saturation 92.0 L ABG Base Excess 9.2 FiO2 100% Sodium Potassium Chloride Carbon Dioxide Anion Gap BUN Creatinine Est GFR ( Amer) Est GFR (Non-Af Amer) Glucose Calcium Total Bilirubin AST ALT Alkaline Phosphatase Total Protein Albumin TSH 03/30/18 03/30/18 03/30/18 06:45 06:45 14:41 Troponin I 0.013 < 0.012 NT-Pro-B Natriuret Pep 947 H Impressions: Chest X-Ray 03/30/18 06:43 IMPRESSION: Mild CHF pattern. Differential diagnosis includes pulmonary edema, multifocal pneumonia, and chronic interstitial lung disease. Assessment & Plan - Diagnosis (1) Acute and chronic respiratory failure with hypercapnia Is this a current diagnosis for this admission?: Yes Plan: Secondary to COPD and CHF exacerbation. Chest x-ray reveals mild pulmonary vascular congestion. ProBNP minimally elevated to 900. Troponin is negative. EKG is reassuring. Patient has received IV furosemide by the ED provider and placed on BiPAP. The patient was originally admitted to [facility] on continuous cardiac telemetry and BiPAP. Repeat ABGs throughout the day showed continued worsening despite BiPAP adjustments. ABG at admission demonstrated pH 7.28, PCO2 80.3, PO2 71, HCO3 37.1; this afternoon had worsened to pH of 7.22, PCO2 105.4, PO2 76.6, HCO3 45.3. The patient remained awake, alert and oriented; though with increased confusion. It was determined that the patient would require intubation for management of her acute respiratory failure with hypercapnia. She was upgraded to ICU and the anesthesia team obtained secure airway; now on PRBC support with improved follow-up ABG with pH 7.30, PCO2 81.8, PO2 72.1, HCO3 39.0. Dr. Torres is consulted for vent management and assistance in managing the patient's underlying chronic respiratory conditions. Scheduled and as needed nebulizer treatments. Continue IV Solu-Medrol. Continue gentle IV diuresis with furosemide; caution regarding patient's blood pressure she is now mildly hypotensive on sedation. Mucinex twice daily. (2) COPD exacerbation Is this a current diagnosis for this admission?: Yes Plan: As above. (3) Congestive heart failure Qualifiers: Heart failure type: unspecified Heart failure chronicity: acute Qualified Code(s): I50.9 - Heart failure, unspecified Is this a current diagnosis for this admission?: Yes Plan: Mild pulmonary edema on chest x-ray. ProBNP mildly elevated to 900. Echocardiogram is pending. Daily weights and strict I&O's. Patient currently n.p.o. secondary to sedation/mechanical ventilation. Continue IV furosemide. Continue home dose carvedilol. (4) Diabetes Qualifiers: Diabetes mellitus type: type 2 Diabetes mellitus rn long term care insulin use: without usp use Diabetes mellitus complication status: with unspecified complications Qualified Code(s): E11.8 - Type 2 diabetes mellitus with unspecified complications Is this a current diagnosis for this admission?: Yes Plan: Currently n.p.o. secondary to sedation/mechanical ventilation. Accu-Cheks every 6 hours with Humalog for sliding scale coverage and hypoglycemia protocol in place. (5) Cocaine abuse Is this a current diagnosis for this admission?: Yes Plan: UDS positive for cocaine; confirmation pending. History of the same. Discharge planning is consulted; consider mental health consultation. (6) Tobacco dependence Is this a current diagnosis for this admission?: Yes Plan: Smoking cessation was encouraged; nicotine replacement therapies are provided. - Time Time Spent: Greater than 70 Minutes Smoking Cessation Education: 3 to 10 minutes Medications reviewed and adjusted accordingly: Yes - Inpatient Certification Based on my medical assessment, after consideration of the patient's comorbidities, presenting symptoms, or acuity I expect that the services needed warrant INPATIENT care.: Yes I certify that my determination is in accordance with my understanding of Medicare's requirements for reasonable and necessary INPATIENT services [42 CFR 412.3e].: Yes Medical Necessity: Significant Comorbidiites Make Outpatient Treatment Too Risky, Need For Continuous Telemetry Monitoring - Plan Summary Plan Summary: The patient's HPI, plan of care, and progress throughout the day was discussed with Dr. Jones. Dr. Jones accompanied me to the patient's bedside for a [id number] evaluation this afternoon and assisted with the transfer to ICU for intubation.
--- NOTE | 2018-03-30 20:49 | XCELERA REPORT ---
[address] [address] Transthoracic Echocardiogram Report Name: POLLY CRESPO Age: 52 yrs Gender: Female : 1965 Patient Status: Inpatient Patient Location: [place] [address]^A Study Date: 03/30/2018 12:39 PM Procedure: A two-dimensional transthoracic echocardiogram with color flow and Doppler was performed. The study was technically difficult with many images being suboptimal in quality. The study was technically limited with all images being suboptimal in quality. Reason For Study: CHF History: CHF. Ordering Physician: LEFTY ISIDRO Performed By: Homa Calvo Interpretation Summary The left ventricle is normal in size. There is normal left ventricular wall thickness. LV EF is 65% Left ventricular systolic function is normal. Doppler measurements suggest impaired left ventricular relaxation, which is associated with grade I/IV or mild diastolic dysfunction The left ventricular wall motion is normal. The right ventricle is not well visualized secondary to technical limitations Right atrium not well visualized secondary to technical limitations The left atrium is mildly dilated. There is no evidence of mitral valve prolapse. There is no mitral valve stenosis. There is no mitral regurgitation noted. There is no aortic valve stenosis There is no LVOT obstruction. No aortic regurgitation is present. There is no tricuspid stenosis. No tricuspid regurgitation. Unable to calculate RVSP due lack of TR jet. The pulmonic valve is not well visualized. There is no pericardial effusion. MMode/2D Measurements & Calculations RVDd: 3.9 cm LVIDd: 5.2 cm FS: 33.7 % Ao root diam: 2.6 cm IVSd: 1.1 cm LVIDs: 3.4 cm EDV(Teich): 129.4 ml Ao root area: 5.4 cm2 LVPWd: 1.0 cm ESV(Teich): 49.0 ml EF(Teich): 62.1 % Doppler Measurements & Calculations MV E max jona: MV dec slope: Ao V2 max: LV V1 max P.2 cm/sec 180.9 cm/sec 7.8 mmHg MV A max jona: 421.8 cm/sec2 Ao max PG: LV V1 max: 116.1 cm/sec MV dec time: 0.17 sec13.1 mmHg 139.3 cm/sec MV E/A: 0.63 PA V2 max: 131.1 cm/sec PA max P.9 mmHg Left Ventricle The left ventricle is normal in size. There is normal left ventricular wall thickness. LV EF is 65%. Left ventricular systolic function is normal. Doppler measurements suggest impaired left ventricular relaxation, which is associated with grade I/IV or mild diastolic dysfunction. The left ventricular wall motion is normal. Right Ventricle The right ventricle is not well visualized secondary to technical limitations. Atria Right atrium not well visualized secondary to technical limitations. The left atrium is mildly dilated. Mitral Valve There is no evidence of mitral valve prolapse. There is no mitral valve stenosis. There is no mitral regurgitation noted. Aortic Valve There is no aortic valve stenosis. There is no LVOT obstruction. No aortic regurgitation is present. Tricuspid Valve There is no tricuspid stenosis. No tricuspid regurgitation. Unable to calculate RVSP due lack of TR jet. Pulmonic Valve The pulmonic valve is not well visualized. Great Vessels The aortic root is not well visualized. Effusions There is no pericardial effusion. : LETFY ISIDRO Lakshmi
[2018-03-30] MEDS ORDERED: GABAPENTIN 300 MG CAPSULE PO SCH (22:00)
[2018-03-30] MEDS ORDERED: CARVEDILOL 3.125 MG TABLET PO SCH (22:00)
[2018-03-30] MEDS ORDERED: FUROSEMIDE INJ/PF 20 MG/2 ML SDV IV SCH (22:00)
[2018-03-30] MEDS: PROPOFOL 1,000 MG/100 ML INFUS..BTL IV PRN (22:33)
[2018-03-30] MEDS: METHYLPREDNISOLONE INJ 40 MG/1 ML SDV IV SCH (22:35)
[2018-03-30] MEDS: GUAIFENESIN 600 MG TABLET.SA PO SCH (22:36)
[2018-03-30] MEDS: PANTOPRAZOLE SODIUM 40 MG VIAL IV SCH (22:36)
[2018-03-30] MEDS: GABAPENTIN 300 MG CAPSULE NG SCH (22:36)
[2018-03-30] MEDS: CARVEDILOL 3.125 MG TABLET NG SCH (22:37)
[2018-03-30] MEDS: FAMOTIDINE 20 MG TABLET NG SCH (22:37)
[2018-03-31] MEDS: PROPOFOL 1,000 MG/100 ML INFUS..BTL IV PRN ×10 (01:01→22:19)
[2018-03-31] MEDS: IPRATROPIUM/ALBUTEROL 0.5-2.5 MG/3 ML AMPUL NEB SCH ×4 (02:11→19:53)
[2018-03-31 04:13] LABS: HEMATOCRIT 44.3 % (36.0-47.0); HEMOGLOBIN 14.1 g/dL (12.0-15.5); MEAN CORPUSCULAR HEMOGLOBIN 26.1 pg (27.0-33.4); MEAN CORPUSCULAR HGB CONC 31.8 g/dL (32.0-36.0); MEAN CORPUSCULAR VOLUME 82 fl (80-97); PLATELET COUNT 227 10^3/uL (150-450); RED CELL DISTRIBUTION WIDTH 18.4 % (11.5-14.0)
[2018-03-31 04:19] LABS: ANION GAP 6 (5-19); BLOOD UREA NITROGEN 32 mg/dL (7-20); CALCIUM 8.8 mg/dL (8.4-10.2); CARBON DIOXIDE 36 mmol/L (22-30); CHLORIDE 99 mmol/L (98-107); GLUCOSE 148 mg/dL (75-110); POTASSIUM 4.8 mmol/L (3.6-5.0); SODIUM 141.1 mmol/L (137-145); TRIGLYCERIDES 112 mg/dL (<150)
[2018-03-31] MEDS: METHYLPREDNISOLONE INJ 40 MG/1 ML SDV IV SCH ×3 (05:32→22:20)
[2018-03-31] MEDS: GABAPENTIN 300 MG CAPSULE NG SCH ×3 (05:32→22:21)
[2018-03-31] MEDS: HEPARIN SOD (PORCINE) 5,000 UNIT/ML 1 ML SYRINGE SUBCUT SCH ×3 (05:33→22:21)
[2018-03-31 05:58] LABS: ARTERIAL BLOOD BASE EXCESS 12.8 mmol/L; ARTERIAL BLOOD H2CO3 2.17 mmol/L (1.05-1.35); ARTERIAL BLOOD HCO3 41.2 mmol/L (20-24); ARTERIAL BLOOD O2 SATURATION 92.8 % (94-98); ARTERIAL BLOOD PH 7.38 (7.35-7.45); ARTERIAL BLOOD PO2 69.3 mmHg (80-100); ARTERIAL BLOOD TOTAL CO2 43.4 mmol/L (21-25)
[2018-03-31 06:01] LABS: ARTERIAL BLOOD FIO2 80%
[2018-03-31] MEDS: MIDAZOLAM HCL 50 MG/100 ML RTUINJ IV PRN ×2 (08:17→16:53)
--- NOTE | 2018-03-31 08:21 | RADIOLOGY REPORT (SQ) ---
EXAM DESCRIPTION: CHEST SINGLE VIEW COMPLETED DATE/TIME: 03/31/2018 6:33 am REASON FOR STUDY: RESP FAILURE COMPARISON: 03/30/2018 EXAM PARAMETERS: NUMBER OF VIEWS: One view. TECHNIQUE: Single frontal radiographic view of the chest acquired. RADIATION DOSE: NA LIMITATIONS: None. FINDINGS: LUNGS AND PLEURA: Low lung volumes with persistent left basilar opacification with obscura tion of the left hemidiaphragm. Possible small left effusion. Known pneumothorax. MEDIASTINUM AND HILAR STRUCTURES: Stable. HEART AND VASCULAR STRUCTURES: Enlarged, stable. BONES: No acute bony abnormality. HARDWARE: Endotracheal tube tip overlies midthoracic trachea. Enteric tube tip overlies gastric body . OTHER: No other significant finding. IMPRESSION: Low lung volumes with stable left basilar opacification, likely atelectasis. TECHNICAL DOCUMENTATION: JOB ID: [id number] [employer]- All Rights Reserved Reading location - IP/workstation name: [email or web address]
[2018-03-31] MEDS: DOCUSATE SODIUM 100 MG/10 ML UDC NG SCH (09:52)
[2018-03-31] MEDS: PANTOPRAZOLE SODIUM 40 MG VIAL IV SCH ×2 (09:52→22:20)
[2018-03-31] MEDS: FAMOTIDINE 20 MG TABLET NG SCH ×2 (09:52→22:21)
[2018-03-31] MEDS: GUAIFENESIN 600 MG TABLET.SA PO SCH ×2 (09:52→22:21)
[2018-03-31] MEDS: CARVEDILOL 3.125 MG TABLET NG SCH ×2 (09:52→22:21)
[2018-03-31] MEDS: TIOTROPIUM BROMIDE DPI 5 CAP/KIT (18 MCG/CAP) IH SCH (09:53)
[2018-03-31] MEDS: FUROSEMIDE INJ/PF 20 MG/2 ML SDV IV SCH ×2 (09:53→22:21)
[2018-03-31] MEDS ORDERED: FUROSEMIDE INJ/PF 20 MG/2 ML SDV ONE (09:53)
[2018-03-31 09:57] LABS: APPEARANCE,URINE TURBID; BILIRUBIN,URINE NEGATIVE (NEGATIVE); COLOR,URINE YELLOW; GLUCOSE, URINE NEGATIVE (NEGATIVE); KETONES,URINE NEGATIVE (NEGATIVE); LEUKOCYTE ESTERASE,URINE TRACE (NEGATIVE); NITRITE,URINE NEGATIVE (NEGATIVE); PROTEIN,URINE 30 mg/dL (NEGATIVE); URINE SPECIFIC GRAVITY 1.032; UROBILINOGEN,URINE NEGATIVE mg/dL (<2.0)
[2018-03-31] MEDS ORDERED: HYDRALAZINE HCL INJ/PF 20 MG/1 ML SDV ONE (14:24)
--- NOTE | 2018-03-31 16:04 | PDOC PROGRESS REPORT ---
Subjective Progress Note for:: 03/31/18 Subjective:: POLLY CRESPO is a 52 year old female with a past medical history of chronic respiratory failure secondary to COPD and CHF, RICO, DM 2, hypertension, tobacco abuse with continuous use, and cocaine abuse with recent use who presented to the emergency department today with a complaint of increased shortness of breath. PCO2 increased to >100 yesterday. Patient was awake but confused. Intubated for airway protection in light of significant hypercapnea and AMS. Transferred to ICU. Patient remains intubated this morning. Mechanical ventilation settings listed below. She remains hypercapnic but no evidence of acidosis on ABG this morning. CXR reveals pulmonary vascular congestion. Continue diuresis. Awaiting pulmonary recommendations for vent management. Likely remain intubated today given her elevated PCO2 - higher than patient's baseline. Urine collected in [place] appears cloudy. Plan to evaluate UA for UTI. Reason For Visit: ACUTE ON CHRONIC RESP FAILURE Physical Exam Vital Signs: Temp Pulse Resp BP Pulse Ox 99.1 F 89 14 149/87 H 94 03/31/18 07:39 03/31/18 08:03 03/31/18 08:03 03/31/18 07:39 03/31/18 08:03 Intake & Output 03/30/18 03/31/18 04/01/18 06:59 06:59 06:59 Intake Total 259 Output Total 1400 Balance -1141 Weight 113.3 kg 109.5 kg General appearance: PRESENT: morbidly obese Head exam: PRESENT: atraumatic Eye exam: PRESENT: conjunctiva pink Mouth exam: PRESENT: moist Neck exam: ABSENT: tracheal deviation Respiratory exam: ABSENT: crackles, rhonchi Cardiovascular exam: PRESENT: +S1, +S2 Pulses: PRESENT: normal radial pulses, normal dorsalis pedis pul Vascular exam: PRESENT: normal capillary refill GI/Abdominal exam: PRESENT: soft. ABSENT: distended, tenderness Rectal exam: PRESENT: deferred Gentrourinary exam: PRESENT: indwelling catheter - cloudy yellow urine output Extremities exam: ABSENT: pedal edema Neurological exam: ABSENT: alert, altered, awake Skin exam: PRESENT: dry, intact, normal color Additional comments: PATIENT REMAINS INTUBATED ON MECHANICAL VENTILATION & SEDATED WITH PROPOFOL AND VERSED GTT Results Laboratory Results: 03/31/18 03:45 03/31/18 03:45 01/03/30/18 03/30/18 06:45 12:05 15:38 WBC RBC Hgb Hct MCV MCH MCHC RDW Plt Count Carbonic Acid 2.77 H 3.17 H HCO3/H2CO3 Ratio 14:1 13:1 ABG pH 7.25 L 7.22 L ABG pCO2 91.9 H* 105.4 H* ABG pO2 102.5 H 76.6 L ABG HCO3 39.7 H 42.1 H ABG O2 Saturation 96.4 91.4 L ABG Base Excess 8.6 9.7 FiO2 45% 45% Sodium Potassium Chloride Carbon Dioxide Anion Gap BUN Creatinine Est GFR ( Amer) Est GFR (Non-Af Amer) Glucose Calcium Triglycerides TSH 1.52 03/30/18 03/31/18 03/31/18 17:45 03:45 03:45 WBC 15.0 H RBC 5.40 H Hgb 14.1 Hct 44.3 MCV 82 MCH 26.1 L MCHC 31.8 L RDW 18.4 H Plt Count 227 Carbonic Acid 2.46 H HCO3/H2CO3 Ratio 15:1 ABG pH 7.30 L ABG pCO2 81.8 H* ABG pO2 72.1 L ABG HCO3 39.0 H ABG O2 Saturation 92.0 L ABG Base Excess 9.2 FiO2 100% Sodium 141.1 Potassium 4.8 Chloride 99 Carbon Dioxide 36 H Anion Gap 6 BUN 32 H Creatinine 0.60 Est GFR ( Amer) > 60 Est GFR (Non-Af Amer) > 60 Glucose 148 H Calcium 8.8 Triglycerides 112 TSH 03/31/18 05:42 WBC RBC Hgb Hct MCV MCH MCHC RDW Plt Count Carbonic Acid 2.17 H HCO3/H2CO3 Ratio 18:1 ABG pH 7.38 ABG pCO2 72.0 H* ABG pO2 69.3 L ABG HCO3 41.2 H ABG O2 Saturation 92.8 L ABG Base Excess 12.8 FiO2 80% Sodium Potassium Chloride Carbon Dioxide Anion Gap BUN Creatinine Est GFR ( Amer) Est GFR (Non-Af Amer) Glucose Calcium Triglycerides TSH 03/30/18 03/30/18 03/30/18 06:45 06:45 14:41 Troponin I 0.013 < 0.012 NT-Pro-B Natriuret Pep 947 H 03/30/18 03/31/18 20:10 03:45 Troponin I < 0.012 NT-Pro-B Natriuret Pep 379 Assessment & Plan - Diagnosis (1) Acute and chronic respiratory failure with hypercapnia Is this a current diagnosis for this admission?: Yes Plan: Secondary to COPD and CHF exacerbation. Chest x-ray reveals mild pulmonary vascular congestion. ProBNP improved from 900 -->349. Troponin is negative. EKG shows NSR with inverted T waves in V1-3 Initially admitted to [facility] on continuous cardiac telemetry and BiPAP. Repeat ABGs throughout the day showed continued worsening hypercapnea. The patient remained awake but became increasingly confused. The patient was intubated for management of her acute respiratory failure with hypercapnia and upgraded to ICU. PRBC PEEP 8 RR 14 TV 450 FiO2 80% CO2 remains elevated at 79, well above her baseline (50-60) Dr. Torres is consulted for vent management and assistance in managing the patient's underlying chronic respiratory conditions. Scheduled and as needed nebulizer treatments. Continue IV Solu-Medrol. Continue gentle IV diuresis with furosemide. Mucinex twice daily. (2) COPD exacerbation Is this a current diagnosis for this admission?: Yes Plan: As above. (3) Congestive heart failure Qualifiers: Heart failure type: unspecified Heart failure chronicity: acute Qualified Code(s): I50.9 - Heart failure, unspecified Is this a current diagnosis for this admission?: Yes Plan: Mild pulmonary edema on chest x-ray. ProBNP improved from 900-->349. Echocardiogram is unremarkable - LVEF 65% and mild grade I diastolic dysfunction Daily weights and strict I&O's. Patient currently n.p.o. secondary to sedation/mechanical ventilation. Continue IV furosemide. Continue home dose carvedilol. (4) Cocaine abuse Is this a current diagnosis for this admission?: Yes Plan: UDS positive for cocaine; confirmation pending. History of the same. Discharge planning is consulted; consider mental health consultation. (5) Diabetes Qualifiers: Diabetes mellitus type: type 2 Diabetes mellitus oysterman insulin use: without oysterman use Diabetes mellitus complication status: with unspecified complications Qualified Code(s): E11.8 - Type 2 diabetes mellitus with unspecified complications Is this a current diagnosis for this admission?: Yes Plan: Currently n.p.o. secondary to sedation/mechanical ventilation. Accu-Cheks every 6 hours with Humalog for sliding scale coverage and hypog lycemia protocol in place. Consider initiating enteral feeding if patient will remain intubated longer than 24hrs (6) Tobacco abuse Is this a current diagnosis for this admission?: Yes Plan: Smoking cessation was encouraged; nicotine replacement therapies are provided.
[2018-04-01] MEDS: IPRATROPIUM/ALBUTEROL 0.5-2.5 MG/3 ML AMPUL NEB SCH ×4 (01:06→21:47)
[2018-04-01] MEDS: PROPOFOL 1,000 MG/100 ML INFUS..BTL IV PRN ×10 (02:13→22:16)
[2018-04-01 04:29] LABS: HEMATOCRIT 42.4 % (36.0-47.0); HEMOGLOBIN 13.5 g/dL (12.0-15.5); MEAN CORPUSCULAR HEMOGLOBIN 25.5 pg (27.0-33.4); MEAN CORPUSCULAR HGB CONC 31.8 g/dL (32.0-36.0); MEAN CORPUSCULAR VOLUME 80 fl (80-97); PLATELET COUNT 237 10^3/uL (150-450); RED BLOOD COUNT 5.29 10^6/uL (3.72-5.28); RED CELL DISTRIBUTION WIDTH 18.9 % (11.5-14.0)
[2018-04-01 04:36] LABS: ARTERIAL BLOOD BASE EXCESS 14.1 mmol/L; ARTERIAL BLOOD H2CO3 1.89 mmol/L (1.05-1.35); ARTERIAL BLOOD HCO3 41.3 mmol/L (20-24); ARTERIAL BLOOD O2 SATURATION 96.8 % (94-98); ARTERIAL BLOOD PCO2 62.8 mmHg (35-45); ARTERIAL BLOOD PH 7.44 (7.35-7.45); ARTERIAL BLOOD PO2 89.5 mmHg (80-100); ARTERIAL BLOOD TOTAL CO2 43.2 mmol/L (21-25)
[2018-04-01 04:37] LABS: ARTERIAL BLOOD FIO2 80%
[2018-04-01 04:45] LABS: ALANINE AMINOTRANSFERASE 18 U/L (9-52); ALBUMIN 3.9 g/dL (3.5-5.0); ALKALINE PHOSPHATASE 60 U/L (38-126); ANION GAP 9 (5-19); ASPARTATE AMINO TRANSFERASE 13 U/L (14-36); BILIRUBIN,DIRECT 0.3 mg/dL (0.0-0.4); BILIRUBIN,TOTAL 0.5 mg/dL (0.2-1.3); BLOOD UREA NITROGEN 30 mg/dL (7-20); CALCIUM 8.8 mg/dL (8.4-10.2); CARBON DIOXIDE 37 mmol/L (22-30); CHLORIDE 95 mmol/L (98-107); GLUCOSE 139 mg/dL (75-110); POTASSIUM 4.3 mmol/L (3.6-5.0); SODIUM 140.6 mmol/L (137-145); TOTAL PROTEIN 6.5 g/dL (6.3-8.2)
[2018-04-01] MEDS ORDERED: GABAPENTIN 100 MG CAPSULE ONE (05:48)
[2018-04-01] MEDS ORDERED: GABAPENTIN 400 MG CAPSULE ONE (05:48)
[2018-04-01] MEDS: METHYLPREDNISOLONE INJ 40 MG/1 ML SDV IV SCH ×3 (06:09→22:16)
[2018-04-01] MEDS: GABAPENTIN 300 MG CAPSULE NG SCH ×3 (06:09→22:17)
[2018-04-01] MEDS: HEPARIN SOD (PORCINE) 5,000 UNIT/ML 1 ML SYRINGE SUBCUT SCH ×3 (06:11→22:17)
[2018-04-01] MEDS: MIDAZOLAM HCL 50 MG/100 ML RTUINJ IV PRN ×2 (06:33→22:15)
--- NOTE | 2018-04-01 08:55 | PDOC PROGRESS REPORT ---
Subjective Progress Note for:: 04/01/18 Subjective:: POLLY CRESPO is a 52 year old female with a past medical history of chronic respiratory failure secondary to COPD and CHF, R[place], DM 2, hypertension, tobacco abuse with continuous use, and cocaine abuse with recent use who presented to the emergency department with a complaint of increased shortness of breath. She was admitted to [facility] for a COPD exacerbation and intubated within 24 hours of admission for hypercapnea and confusiuon. Patient was awake but confused. I ntubated for airway protection and transferred to ICU. Patient remains intubated this morning. Mechanical ventilation settings PEEP 10 RR 16 TV 450 FiO2 70%. PCO2 is elevated but at patient's baseline. No evidence of acidosis on ABG this morning. CXR reveals pulmonary vascular congestion and cardiomegaly. Continue diuresis. Awaiting pulmonary recommendations for vent management. Patient requiring high levels of FiO2 (70-80%) and PEE. Likely remain intubated today given oxygen demands. UA positive for UTI, initiated Levaquin IV. Urine culture pending. Reason For Visit: ACUTE ON CHRONIC RESP FAILURE Physical Exam Vital Signs: Temp Pulse Resp BP Pulse Ox 98.6 F 80 16 133/73 H 95 04/01/18 06:00 04/01/18 01:07 04/01/18 06:00 04/01/18 05:39 04/01/18 06:00 Intake & Output 03/31/18 04/01/18 04/02/18 06:59 06:59 06:59 Intake Total 259 1316 Output Total 1400 3275 Balance -1141 -1959 Weight 109.5 kg 106.8 kg General appearance: PRESENT: no acute distress Head exam: PRESENT: atraumatic Eye exam: PRESENT: conjunctiva pink, PERRLA Mouth exam: PRESENT: moist, tongue midline Respiratory exam: PRESENT: clear to auscultation tara, symmetrical, unlabored - MECHANICAL VENTILATION Cardiovascular exam: PRESENT: +S1, +S2 Pulses: PRESENT: normal radial pulses, normal dorsalis pedis pul Vascular exam: PRESENT: normal capillary refill GI/Abdominal exam: PRESENT: normal bowel sounds, soft. ABSENT: tenderness Rectal exam: PRESENT: deferred Extremities exam: ABSENT: pedal edema Musculoskeletal exam: ABSENT: ambulatory Neurological exam: ABSENT: alert, awake - SEDATION - VERSED AND PROPOFOL Skin exam: PRESENT: intact, normal color, warm Results Laboratory Results: 04/01/18 04:02 04/01/18 04:02 03/31/18 04/01/18 04/01/18 09:31 04:02 04:02 WBC 18.0 H RBC 5.29 H Hgb 13.5 Hct 42.4 MCV 80 MCH 25.5 L MCHC 31.8 L RDW 18.9 H Plt Count 237 Carbonic Acid HCO3/H2CO3 Ratio ABG pH ABG pCO2 ABG pO2 ABG HCO3 ABG O2 Saturation ABG Base Excess FiO2 Sodium 140.6 Potassium 4.3 Chloride 95 L Carbon Dioxide 37 H Anion Gap 9 BUN 30 H Creatinine 0.55 Est GFR ( Amer) > 60 Est GFR (Non-Af Amer) > 60 Glucose 139 H Calcium 8.8 Total Bilirubin 0.5 AST 13 L ALT 18 Alkaline Phosphatase 60 Total Protein 6.5 Albumin 3.9 Urine Color YELLOW Urine Appearance TURBID Urine pH 5.0 Ur Specific [place] 1.032 Urine Protein 30 H Urine Glucose (UA) NEGATIVE Urine Ketones NEGATIVE Urine Blood SMALL H Urine Nitrite NEGATIVE Ur Leukocyte Esterase TRACE H Urine WBC (Auto) 32 Urine RBC (Auto) 138 04/01/18 04:25 WBC RBC Hgb Hct MCV MCH MCHC RDW Plt Count Carbonic Acid 1.89 H HCO3/H2CO3 Ratio 21:1 ABG pH 7.44 ABG pCO2 62.8 H ABG pO2 89.5 ABG HCO3 41.3 H ABG O2 Saturation 96.8 ABG Base Excess 14.1 FiO2 80% Sodium Potassium Chloride Carbon Dioxide Anion Gap BUN Creatinine Est GFR ( Amer) Est GFR (Non-Af Amer) Glucose Calcium Total Bilirubin AST ALT Alkaline Phosphatase Total Protein Albumin Urine Color Urine Appearance Urine pH Ur Specific [place] Urine Protein Urine Glucose (UA) Urine Ketones Urine Blood Urine Nitrite Ur Leukocyte Esterase Urine WBC (Auto) Urine RBC (Auto) 03/30/18 03/30/18 03/30/18 06:45 06:45 14:41 Troponin I 0.013 < 0.012 NT-Pro-B Natriuret Pep 947 H 03/30/18 03/31/18 20:10 03:45 Troponin I < 0.012 NT-Pro-B Natriuret Pep 379 Status: Imported from PACS Assessment & Plan - Diagnosis (1) Acute and chronic respiratory failure with hypercapnia Is this a current diagnosis for this admission?: Yes Plan: Secondary to COPD and CHF exacerbation. Chest x-ray reveals mild pulmonary vascular congestion. ProBNP improved from 900 -->349. Troponin is negative. EKG shows NSR with inverted T waves in V1-3 Initially admitted to [facility] on continuous cardiac telemetry and BiPAP. Intubated for acute respiratory failure with hypercapnia. Upgraded to ICU. PRBC PEEP 10 RR 16 TV 450 FiO2 70% CO2 remains elevated at 62.8. Improved today and closer to baseline Dr. Torres is consulted for vent management and assistance in managing the patient's underlying chronic respiratory conditions. Scheduled and as needed nebulizer treatments. Continue IV Solu-Medrol. Continue gentle IV diuresis with furosemide. Mucinex twice daily. (2) COPD exacerbation Is this a current diagnosis for this admission?: Yes Plan: As above. (3) Congestive heart failure Qualifiers: Heart failure type: unspecified Heart failure chronicity: acute Qualified Code(s): I50.9 - Heart failure, unspecified Is this a current diagnosis for this admission?: Yes Plan: Mild pulmonary edema on chest x-ray. ProBNP improved from 900-->349. Echocardiogram is unremarkable - LVEF 65% and mild grade I diastolic dysfunction Daily weights and strict I&O's. Patient currently n.p.o. secondary to sedation/mechanical ventilation. Continue IV furosemide. Continue home dose carvedilol. (4) Cocaine abuse Is this a current diagnosis for this admission?: Yes Plan: UDS positive for cocaine; confirmation pending. History of the same. Discharge planning is consulted; consider mental health consultation. (5) Diabetes Qualifiers: Diabetes mellitus type: type 2 Diabetes mellitus armed security officer insulin use: without penitentiary use Diabetes mellitus complication status: with unspecified complications Qualified Code(s): E11.8 - Type 2 diabetes mellitus with unspecified complications Is this a current diagnosis for this admission?: Yes Plan: Currently n.p.o. secondary to sedation/mechanical ventilation. Accu-Cheks every 6 hours with Humalog for sliding scale coverage and hypoglycemia protocol in place. Initiating enteral feeding today. (6) Tobacco abuse Is this a current diagnosis for this admission?: Yes Plan: Smoking cessation was encouraged; nicotine replacement therapies are provided. (7) UTI (urinary tract infection) Qualifiers: Indwelling urinary catheter type: indwelling urethral catheter Encounter type: initial encounter Is this a current diagnosis for this admission?: Yes Plan: UA (+) for UTI. Cloudy/turbid appearing urine. +WBC Unclear if this was present on admission because UA not completed in ED. Initiated Levaquin IV for complicated UTI (8) On enteral nutrition Is this a current diagnosis for this admission?: Yes Plan: Secondary to continued mechanical ventilation Discussed with registered respiratory therapist Initiate Oxepa at low rate along with free water flushes Dietary consult requested - Inpatient Certification Based on my medical assessment, after consideration of the patient's comorbidities, presenting symptoms, or acuity I expect that the services needed warrant INPATIENT care.: Yes I certify that my determination is in accordance with my understanding of Medicare's requirements for reasonable and necessary INPATIENT services [42 CFR 412.3e].: Yes Medical Necessity: Need Close Monitoring Due to Risk of Patient Decompensation, Need for IV Antibiotics - Plan Summary Plan Summary: REMAIN INTUBATED. ANTIBIOTICS FOR UTI. VENT WEANING.
--- NOTE | 2018-04-01 09:00 | RADIOLOGY REPORT (SQ) ---
EXAM DESCRIPTION: CHEST SINGLE VIEW COMPLETED DATE/TIME: 04/01/2018 7:26 am REASON FOR STUDY: intubated COMPARISON: 03/31/2018. EXAM PARAMETERS: NUMBER OF VIEWS: One view. TECHNIQUE: Single frontal radiographic view of the chest acquired. RADIATION DOSE: NA LIMITATIONS: None. FINDINGS: LUNGS AND PLEURA: Low lung volumes. No focal infiltrate, masses or pneumothorax. No pleur al effusion. MEDIASTINUM AND HILAR STRUCTURES: No masses. Contour normal. HEART AND VASCULAR STRUCTURES: Stable cardiomegaly. Mild vascular prominence. BONES: No acute findings. HARDWARE: Stable endotracheal tube and nasogastric tube. OTHER: No other significant finding. IMPRESSION: NO CHANGE IN APPEARANCE OF THE CHEST. TECHNICAL DOCUMENTATION: JOB ID: [id number] [employer]- All Rights Reserved Reading location - IP/workstation name: [email or web address]
[2018-04-01] MEDS: FAMOTIDINE 20 MG TABLET NG SCH ×2 (09:54→22:17)
[2018-04-01] MEDS: FUROSEMIDE INJ/PF 20 MG/2 ML SDV IV SCH ×2 (09:54→22:17)
[2018-04-01] MEDS: CARVEDILOL 3.125 MG TABLET NG SCH ×2 (09:54→22:17)
[2018-04-01] MEDS: LEVOFLOXACIN 750 MG/D5W RTU 750 MG/150 ML RTUPB IV SCH (09:55)
[2018-04-01] MEDS: PANTOPRAZOLE SODIUM 40 MG VIAL IV SCH ×2 (09:55→22:16)
[2018-04-01] MEDS: GUAIFENESIN 600 MG TABLET.SA PO SCH ×2 (09:55→22:18)
[2018-04-01] MEDS: TIOTROPIUM BROMIDE DPI 5 CAP/KIT (18 MCG/CAP) IH SCH (09:56)
[2018-04-01] MEDS: DOCUSATE SODIUM 100 MG/10 ML UDC NG SCH (09:57)
[2018-04-02] MEDS: PROPOFOL 1,000 MG/100 ML INFUS..BTL IV PRN ×9 (00:33→22:51)
[2018-04-02] MEDS: IPRATROPIUM/ALBUTEROL 0.5-2.5 MG/3 ML AMPUL NEB SCH ×4 (01:10→19:51)
[2018-04-02 04:45] LABS: ARTERIAL BLOOD BASE EXCESS 11.6 mmol/L; ARTERIAL BLOOD H2CO3 1.74 mmol/L (1.05-1.35); ARTERIAL BLOOD HCO3 38.1 mmol/L (20-24); ARTERIAL BLOOD O2 SATURATION 94.5 % (94-98); ARTERIAL BLOOD PCO2 57.7 mmHg (35-45); ARTERIAL BLOOD PH 7.44 (7.35-7.45); ARTERIAL BLOOD PO2 71.6 mmHg (80-100); ARTERIAL BLOOD TOTAL CO2 39.9 mmol/L (21-25)
[2018-04-02 04:50] LABS: ARTERIAL BLOOD FIO2 70%
[2018-04-02 05:29] LABS: ABSOLUTE LYMPHOCYTES (AUTO) 0.9 10^3/uL (0.5-4.7); ABSOLUTE MONOCYTES (AUTO) 0.8 10^3/uL (0.1-1.4); ABSOLUTE NEUT (AUTO) 12.4 10^3/uL (1.7-8.2); BASOPHILS % (AUTO) 0.1 % (0-2); HEMATOCRIT 42.1 % (36.0-47.0); HEMOGLOBIN 13.6 g/dL (12.0-15.5); LYMPHOCYTES % (AUTO) 6.2 % (13-45); MEAN CORPUSCULAR HEMOGLOBIN 25.9 pg (27.0-33.4); MEAN CORPUSCULAR HGB CONC 32.3 g/dL (32.0-36.0); MEAN CORPUSCULAR VOLUME 80 fl (80-97); MONOCYTES % (AUTO) 5.7 % (3-13); PLATELET COUNT 251 10^3/uL (150-450); RED BLOOD COUNT 5.25 10^6/uL (3.72-5.28); RED CELL DISTRIBUTION WIDTH 18.4 % (11.5-14.0); TOTAL CELLS COUNTED % (AUTO) 100 %
[2018-04-02] MEDS: METHYLPREDNISOLONE INJ 40 MG/1 ML SDV IV SCH ×3 (05:40→21:08)
[2018-04-02] MEDS: HEPARIN SOD (PORCINE) 5,000 UNIT/ML 1 ML SYRINGE SUBCUT SCH ×3 (05:40→21:09)
[2018-04-02 05:45] LABS: ALANINE AMINOTRANSFERASE 16 U/L (9-52); ALBUMIN 3.9 g/dL (3.5-5.0); ALKALINE PHOSPHATASE 60 U/L (38-126); ANION GAP 9 (5-19); ASPARTATE AMINO TRANSFERASE 11 U/L (14-36); BILIRUBIN,DIRECT 0.3 mg/dL (0.0-0.4); BILIRUBIN,TOTAL 0.5 mg/dL (0.2-1.3); BLOOD UREA NITROGEN 30 mg/dL (7-20); CARBON DIOXIDE 36 mmol/L (22-30); CHLORIDE 94 mmol/L (98-107); GLUCOSE 138 mg/dL (75-110); POTASSIUM 4.4 mmol/L (3.6-5.0); SODIUM 139.2 mmol/L (137-145); TOTAL PROTEIN 6.7 g/dL (6.3-8.2)
[2018-04-02] MEDS: GABAPENTIN 300 MG CAPSULE NG SCH ×3 (05:55→21:09)
--- NOTE | 2018-04-02 06:48 | RADIOLOGY REPORT (SQ) ---
EXAM DESCRIPTION: X-ray single view chest. CLINICAL HISTORY: 52 years Female, resp failure COMPARISON: 04/01/2018 and 03/31/2018 TECHNIQUE: Single portable view of the chest performed on 04/02/2018 at 6:30 AM FINDINGS: The lungs are slightly hypoinflated. There is minimal stable volume loss in the left lung base which may be due to atelectasis. There is no evidence of a pneumothorax. The cardiac silhouette is stable and enlarged. The mediastinal contours are normal. No acute osseous abnormality is identified. There is a chronic fracture of the posterior right sixth rib. No focal soft tissue abnormalities are seen. Lines and tubes: The endotracheal tube and feeding tube are grossly stable. IMPRESSION: 1. Low lung volumes. 2. Probable atelectatic changes in the left lung base. 3. Stable life support lines and tubes. 4. No significant change when compared to the prior studies.
[2018-04-02] MEDS: TIOTROPIUM BROMIDE DPI 5 CAP/KIT (18 MCG/CAP) IH SCH (09:29)
[2018-04-02] MEDS: MIDAZOLAM HCL 50 MG/100 ML RTUINJ IV PRN ×2 (09:54→21:22)
[2018-04-02] MEDS: LEVOFLOXACIN 750 MG/D5W RTU 750 MG/150 ML RTUPB IV SCH (09:56)
[2018-04-02] MEDS: PANTOPRAZOLE SODIUM 40 MG VIAL IV SCH (09:58)
[2018-04-02] MEDS: GUAIFENESIN SYRP 200 MG/10 ML UDC PO SCH ×2 (10:04→21:08)
[2018-04-02] MEDS: FAMOTIDINE 20 MG TABLET NG SCH ×2 (10:05→21:09)
[2018-04-02] MEDS: CARVEDILOL 3.125 MG TABLET NG SCH ×2 (10:06→21:10)
[2018-04-02] MEDS: DOCUSATE SODIUM 100 MG/10 ML UDC NG SCH (10:06)
[2018-04-02] MEDS: FUROSEMIDE INJ/PF 20 MG/2 ML SDV IV SCH ×2 (10:07→21:09)
[2018-04-02] MEDS: SALMETEROL XINAFOATE DISKUS 50 MCG/1 DOSE 28 DOSE IH SCH ×2 (10:26→21:11)
--- NOTE | 2018-04-02 16:28 | PDOC PROGRESS REPORT ---
Subjective Progress Note for:: 04/02/18 Subjective:: POLLY CRESPO is a 52 year old female with a past medical history of chronic respiratory failure secondary to COPD and CHF, [place], DM 2, hypertension, tobacco abuse with continuous use, and cocaine abuse with recent use who presented to the emergency department with a complaint of increased shortness of breath. [facility]ation and intubated within 24 hours of admission for hypercapnea and confusiuon. ntubated for airway protection and transferred to ICU. Patient remains intubated this morning. Mechanical ventilation settings PEEP 10 RR 16 TV 450 FiO2 70%. PCO2 remains at patient's baseline. No evidence of acidosis on ABG. CXR reveals pulmonary vascular congestion and cardiomegaly. Continue diuresis. Awaiting pulmonary recommendations for vent management. Patient requiring high levels of FiO2 (70-80%) and PEEP. Will attempt weaning today but patient will likely remain intubated today given oxygen demands. Reason For Visit: ACUTE ON CHRONIC RESP FAILURE Physical Exam Vital Signs: Temp Pulse Resp BP Pulse Ox 99.9 F 85 16 122/78 98 04/02/18 14:10 04/02/18 13:56 04/02/18 14:10 04/02/18 14:10 04/02/18 14:10 Intake & Output 04/01/18 04/02/18 04/03/18 06:59 06:59 06:59 Intake Total 1316 1325 531 Output Total 3275 4650 1320 Balance -1959 -3325 -789 Weight 106.8 kg 104.5 kg General appearance: PRESENT: no acute distress Eye exam: PRESENT: conjunctiva pink, PERRLA Mouth exam: PRESENT: moist Teeth exam: PRESENT: poor dentation Neck exam: PRESENT: full ROM Respiratory exam: PRESENT: clear to auscultation tara - mechanical ventilation, symmetrical. ABSENT: rhonchi, wheezes Cardiovascular exam: PRESENT: +S1, +S2 Pulses: PRESENT: normal radial pulses, normal dorsalis pedis pul GI/Abdominal exam: PRESENT: soft. ABSENT: distended, tenderness Rectal exam: PRESENT: deferred Extremities exam: ABSENT: full ROM Musculoskeletal exam: ABSENT: ambulatory, full ROM Neurological exam: PRESENT: other - sedated with propofol and versed gtt. ABSENT: alert, awake, oriented to person, oriented to place, oriented to time, oriented to situation Skin exam: PRESENT: normal color, warm Results Laboratory Results: 04/02/18 04:57 04/02/18 04:57 04/02/18 04/02/18 04/02/18 04:30 04:57 04:57 WBC 14.0 H RBC 5.25 Hgb 13.6 Hct 42.1 MCV 80 MCH 25.9 L MCHC 32.3 RDW 18.4 H Plt Count 251 Seg Neutrophils % 88.0 H Lymphocytes % 6.2 L Monocytes % 5.7 Eosinophils % 0.0 Basophils % 0.1 Absolute Neutrophils 12.4 H Absolute Lymphocytes 0.9 Absolute Monocytes 0.8 Absolute Eosinophils 0.0 Absolute Basophils 0.0 Carbonic Acid 1.74 H HCO3/H2CO3 Ratio 21:1 ABG pH 7.44 ABG pCO2 57.7 H ABG pO2 71.6 L ABG HCO3 38.1 H ABG O2 Saturation 94.5 ABG Base Excess 11.6 FiO2 70% Sodium 139.2 Potassium 4.4 Chloride 94 L Carbon Dioxide 36 H Anion Gap 9 BUN 30 H Creatinine 0.52 Est GFR ( Amer) > 60 Est GFR (Non-Af Amer) > 60 Glucose 138 H Calcium 9.0 Magnesium 2.4 H Total Bilirubin 0.5 AST 11 L ALT 16 Alkaline Phosphatase 60 Total Protein 6.7 Albumin 3.9 03/30/18 17:07 Sputum Gram Stain - Final 03/30/18 17:07 Sputum Sputum Culture - Final Streptococcus Pneumoniae Normal Sharita 03/30/18 03/30/18 03/30/18 06:45 06:45 14:41 Troponin I 0.013 < 0.012 NT-Pro-B Natriuret Pep 947 H 03/30/18 03/31/18 04/01/18 20:10 03:45 04:02 Troponin I < 0.012 NT-Pro-B Natriuret Pep 379 92 Impressions: Chest X-Ray 04/02/18 06:00 IMPRESSION: 1. Low lung volumes. 2. Probable atelectatic changes in the left lung base. 3. Stable life support lines and tubes. 4. No significant change when compared to the prior studies. Status: Imported from PACS Assessment & Plan - Diagnosis (1) Acute and chronic respiratory failure with hypercapnia Is this a current diagnosis for this admission?: Yes Plan: Secondary to COPD and CHF exacerbation. Chest x-ray reveals mild pulmonary vascular congestion. ProBNP improved from 900 -->349-->92 Troponin is negative. EKG shows NSR with inverted T waves in V1-3 Initially admitted to [facility] on continuous cardiac telemetry and BiPAP. Intubated for acute respiratory failure with hypercapnia. Upgraded to ICU. PRBC PEEP 10 RR 16 TV 450 FiO2 70% CO2 remains elevated but close to baseline Dr. Torres is consulted for vent management and assistance in managing the trinity simmons's underlying chronic respiratory conditions. Scheduled and as needed nebulizer treatments. Continue IV Solu-Medrol. Continue gentle IV diuresis with furosemide. Mucinex twice daily. Attempt vent weaning today but will likely remain intubated given her high O2 requirements (2) COPD exacerbation Is this a current diagnosis for this admission?: Yes Plan: As above. (3) Congestive heart failure Qualifiers: Heart failure type: unspecified Heart failure chronicity: acute Qualified Code(s): I50.9 - Heart failure, unspecified Is this a current diagnosis for this admission?: Yes Plan: Mild pulmonary edema on chest x-ray. ProBNP improved from 900-->349-->92 Echocardiogram is unremarkable - LVEF 65% and mild grade I diastolic dysfunction Daily weights and strict I&O's. Continue IV furosemide. Continue home dose carvedilol. (4) Cocaine abuse Is this a current diagnosis for this admission?: Yes Plan: UDS positive for cocaine; confirmation pending. History of the same. Discharge planning is consulted; consider mental health consultation. (5) Diabetes Qualifiers: Diabetes mellitus type: type 2 Diabetes mellitus manager terminal insulin use: without manager terminal use Diabetes mellitus complication status: with unspecified complications Qualified Code(s): E11.8 - Type 2 diabetes mellitus with unspecified complications Is this a current diagnosis for this admission?: Yes Plan: Currently n.p.o. secondary to sedation/mechanical ventilation. Accu-Cheks every 6 hours with Humalog for sliding scale coverage and hyp oglycemia protocol in place. Initiating enteral feeding today. (6) Tobacco abuse Is this a current diagnosis for this admission?: Yes Plan: Smoking cessation was encouraged; nicotine replacement therapies are provided. (7) UTI (urinary tract infection) Qualifiers: Indwelling urinary catheter type: indwelling urethral catheter Encounter type: initial encounter Is this a current diagnosis for this admission?: Yes Plan: UA (+) for UTI. Cloudy/turbid appearing urine. +WBC Unclear if this was present on admission because UA not completed in ED. Continue Levaquin IV for complicated UTI (8) On enteral nutrition Is this a current diagnosis for this admission?: Yes Plan: Secondary to continued mechanical ventilation Discussed with amortization clerk Continue Oxepa at low rate along with free water flushes per dietary recommenda tions (9) Streptococcus pneumoniae Is this a current diagnosis for this admission?: Yes Plan: Sputum culture (+) for strep pneumo Coverage with IV Levaquin (already prescribed for complicated UTI) - Time Time Spent with patient: 15-24 minutes Medications reviewed and adjusted accordingly: Yes - Inpatient Certification Based on my medical assessment, after consideration of the patient's comorbidities, presenting symptoms, or acuity I expect that the services needed warrant INPATIENT care.: Yes I certify that my determination is in accordance with my understanding of Medicare's requirements for reasonable and necessary INPATIENT services [42 CFR 412.3e].: Yes Medical Necessity: Need for Nebulizer Therapy and Monitoring of Response, Need for IV Antibiotics - Plan Summary Plan Summary: VENT WEANING. ANTIBIOTICS FOR UTI.
[2018-04-03] MEDS: PROPOFOL 1,000 MG/100 ML INFUS..BTL IV PRN ×8 (01:35→22:40)
[2018-04-03] MEDS: IPRATROPIUM/ALBUTEROL 0.5-2.5 MG/3 ML AMPUL NEB SCH ×4 (02:07→19:59)
[2018-04-03 04:18] LABS: ABSOLUTE LYMPHOCYTES (AUTO) 0.9 10^3/uL (0.5-4.7); ABSOLUTE MONOCYTES (AUTO) 0.6 10^3/uL (0.1-1.4); ABSOLUTE NEUT (AUTO) 11.5 10^3/uL (1.7-8.2); BASOPHILS % (AUTO) 0.1 % (0-2); HEMOGLOBIN 14.5 g/dL (12.0-15.5); LYMPHOCYTES % (AUTO) 6.6 % (13-45); MEAN CORPUSCULAR HEMOGLOBIN 25.8 pg (27.0-33.4); MEAN CORPUSCULAR HGB CONC 32.1 g/dL (32.0-36.0); MEAN CORPUSCULAR VOLUME 80 fl (80-97); MONOCYTES % (AUTO) 4.9 % (3-13); PLATELET COUNT 259 10^3/uL (150-450); RED CELL DISTRIBUTION WIDTH 18.2 % (11.5-14.0); SEGMENTED NEUTROPHILS % (AUTO) 88.4 % (42-78); TOTAL CELLS COUNTED % (AUTO) 100 %
[2018-04-03 04:46] LABS: ANION GAP 8 (5-19)
[2018-04-03 04:53] LABS: ALANINE AMINOTRANSFERASE 16 U/L (9-52); ALBUMIN 4.2 g/dL (3.5-5.0); ALKALINE PHOSPHATASE 56 U/L (38-126); ASPARTATE AMINO TRANSFERASE 13 U/L (14-36); BILIRUBIN,DIRECT 0.3 mg/dL (0.0-0.4); BILIRUBIN,TOTAL 0.5 mg/dL (0.2-1.3); BLOOD UREA NITROGEN 43 mg/dL (7-20); CALCIUM 9.5 mg/dL (8.4-10.2); CARBON DIOXIDE 34 mmol/L (22-30); CHLORIDE 99 mmol/L (98-107); GLUCOSE 134 mg/dL (75-110); POTASSIUM 4.8 mmol/L (3.6-5.0); SODIUM 140.8 mmol/L (137-145); TOTAL PROTEIN 7.1 g/dL (6.3-8.2)
[2018-04-03 05:06] LABS: ARTERIAL BLOOD BASE EXCESS 10.2 mmol/L; ARTERIAL BLOOD H2CO3 1.65 mmol/L (1.05-1.35); ARTERIAL BLOOD HCO3 36.4 mmol/L (20-24); ARTERIAL BLOOD O2 SATURATION 95.4 % (94-98); ARTERIAL BLOOD PCO2 54.7 mmHg (35-45); ARTERIAL BLOOD PH 7.44 (7.35-7.45); ARTERIAL BLOOD PO2 75.7 mmHg (80-100); ARTERIAL BLOOD TOTAL CO2 38.1 mmol/L (21-25)
[2018-04-03 05:10] LABS: ARTERIAL BLOOD FIO2 70%
[2018-04-03] MEDS: HEPARIN SOD (PORCINE) 5,000 UNIT/ML 1 ML SYRINGE SUBCUT SCH ×3 (05:19→21:07)
[2018-04-03] MEDS: METHYLPREDNISOLONE INJ 40 MG/1 ML SDV IV SCH ×3 (05:19→21:07)
[2018-04-03] MEDS: GABAPENTIN 300 MG CAPSULE NG SCH ×3 (06:03→21:07)
--- NOTE | 2018-04-03 07:15 | RADIOLOGY REPORT (SQ) ---
EXAM DESCRIPTION: X-ray single view chest. CLINICAL HISTORY: 52 years Female, resp. failure COMPARISON: 04/02/2018 and 04/01/2018 TECHNIQUE: Single portable view of the chest performed on 04/03/2018 at 6:19 AM FINDINGS: The lungs are well expanded. There is grossly stable volume loss in the left lung base. There is no evidence of a pneumothorax. The cardiac silhouette is stable and mildly enlarged. The mediastinal contours are normal. No acute osseous abnormality is identified. No focal soft tissue abnormalities are seen. Lines and tubes: The endotracheal tube and feeding tube are grossly stable as visualized. IMPRESSION: 1. Grossly stable volume loss in the left lung base. 2. Grossly stable life support lines and tubes. 3. Overall, no significant interval change.
[2018-04-03] MEDS: DOCUSATE SODIUM 100 MG/10 ML UDC NG SCH (09:25)
[2018-04-03] MEDS: FUROSEMIDE INJ/PF 20 MG/2 ML SDV IV SCH ×2 (09:25→21:07)
[2018-04-03] MEDS: CARVEDILOL 3.125 MG TABLET NG SCH ×2 (09:25→21:08)
[2018-04-03] MEDS: FAMOTIDINE 20 MG TABLET NG SCH ×2 (09:25→21:07)
[2018-04-03] MEDS: LEVOFLOXACIN 750 MG/D5W RTU 750 MG/150 ML RTUPB IV SCH (09:27)
[2018-04-03] MEDS: MIDAZOLAM HCL 50 MG/100 ML RTUINJ IV PRN ×3 (09:27→23:58)
[2018-04-03] MEDS: SALMETEROL XINAFOATE DISKUS 50 MCG/1 DOSE 28 DOSE IH SCH ×2 (09:28→22:12)
[2018-04-03] MEDS: GUAIFENESIN SYRP 200 MG/10 ML UDC PO SCH ×2 (09:28→21:06)
[2018-04-03] MEDS: TIOTROPIUM BROMIDE DPI 5 CAP/KIT (18 MCG/CAP) IH SCH (09:28)
--- NOTE | 2018-04-03 16:39 | PDOC PROGRESS REPORT ---
Subjective Progress Note for:: 04/03/18 Subjective:: POLLY CRESPO is a 52 year old female with a past medical history of chronic respiratory failure secondary to COPD and CHF, RICO, DM 2, hypertension, tobacco abuse with continuous use, and cocaine abuse with recent use who presented to the emergency department with a complaint of increased shortness of breath. She was admitted to [facility] for a COPD exacerbation and intubated within 24 hours of admission for hypercapnea and confusiuon. Intubated for airway protection and transferred to ICU. Patient remains intubated this morning. Mechanical ventilation settings PEEP 10 RR 16 TV 450 FiO2 70%. PCO2 remains at patient's baseline. No evidence of acidosis on ABG. No changes to CXR, mild pulmonary vascular congestion and cardiomegaly. Patient requiring high levels of FiO2 and PEEP. Will attempt weaning today - decrease PEEP from 10-->8. Will attempt to wean O2. Check ABG in AM. Reason For Visit: ACUTE ON CHRONIC RESP FAILURE Physical Exam Vital Signs: Temp Pulse Resp BP Pulse Ox 99.3 F 81 16 126/78 H 92 04/03/18 16:00 04/03/18 14:09 04/03/18 16:00 04/03/18 13:10 04/03/18 16:00 Intake & Output 04/02/18 04/03/18 04/04/18 06:59 06:59 06:59 Intake Total 1325 1554 517 Output Total 4651 2830 10040 [facility] [place] [phone] Weight 104.5 kg 102.4 kg General appearance: PRESENT: morbidly obese Eye exam: PRESENT: conjunctiva pink, PERRLA Mouth exam: PRESENT: moist Teeth exam: PRESENT: poor dentation Neck exam: PRESENT: full ROM Respiratory exam: PRESENT: symmetrical, unlabored - mechanical ventilation Cardiovascular exam: PRESENT: +S1, +S2 Pulses: PRESENT: normal radial pulses, normal dorsalis pedis pul Vascular exam: PRESENT: normal capillary refill GI/Abdominal exam: PRESENT: soft. ABSENT: distended, tenderness Rectal exam: PRESENT: deferred Gentrourinary exam: PRESENT: indwelling catheter Extremities exam: ABSENT: full ROM Musculoskeletal exam: ABSENT: ambulatory, full ROM Neurological exam: ABSENT: alert, awake - SEDATED ON PROPOFOL AND VERSED Psychiatric exam: PRESENT: appropriate affect Skin exam: PRESENT: dry, intact, normal color Results Laboratory Results: 04/03/18 04:02 04/03/18 04:02 04/03/18 04/03/18 04/03/18 04:02 04:02 04:57 WBC 13.0 H RBC 5.60 H Hgb 14.5 Hct 45.0 MCV 80 MCH 25.8 L MCHC 32.1 RDW 18.2 H Plt Count 259 Seg Neutrophils % 88.4 H Lymphocytes % 6.6 L Monocytes % 4.9 Eosinophils % 0.0 Basophils % 0.1 Absolute Neutrophils 11.5 H Absolute Lymphocytes 0.9 Absolute Monocytes 0.6 Absolute Eosinophils 0.0 Absolute Basophils 0.0 Carbonic Acid 1.65 H HCO3/H2CO3 Ratio 22:1 ABG pH 7.44 ABG pCO2 54.7 H ABG pO2 75.7 L ABG HCO3 36.4 H ABG O2 Saturation 95.4 ABG Base Excess 10.2 FiO2 70% Sodium 140.8 Potassium 4.8 Chloride 99 Carbon Dioxide 34 H Anion Gap 8 BUN 43 H Creatinine 0.58 Est GFR ( Amer) > 60 Est GFR (Non-Af Amer) > 60 Glucose 134 H Calcium 9.5 Total Bilirubin 0.5 AST 13 L ALT 16 Alkaline Phosphatase 56 Total Protein 7.1 Albumin 4.2 03/31/18 09:31 Catheterized Urine Urine Culture - Final NO GROWTH 2 DAYS 03/30/18 03/30/18 03/30/18 06:45 06:45 14:41 Troponin I 0.013 < 0.012 NT-Pro-B Natriuret Pep 947 H 03/30/18 03/31/18 04/01/18 20:10 03:45 04:02 Troponin I < 0.012 NT-Pro-B Natriuret Pep 379 92 Impressions: Chest X-Ray 04/03/18 06:00 IMPRESSION: 1. Grossly stable volume loss in the left lung base. 2. Grossly stable life support lines and tubes. 3. Overall, no significant interval change. Status: Imported from PACS Assessment & Plan - Diagnosis (1) Acute and chronic respiratory failure with hypercapnia Is this a current diagnosis for this admission?: Yes Plan: Secondary to COPD and CHF exacerbation. Stable Chest x-ray - mild pulmonary vascular congestion. ProBNP improved from 900 -->92 Troponin is negative. EKG shows NSR with inverted T waves in V1-3 Initially admitted to [facility] on continuous cardiac telemetry and BiPAP. Intubated for acute respiratory failure with hypercapnia. Upgraded to ICU. PRBC PEEP 10 RR 16 TV 450 FiO2 70% CO2 remains elevated but close to baseline Dr. Torres is consulted for vent management and assistance in managing the patient's underlying chronic respiratory conditions. Scheduled and as needed nebulizer treatments. Continue IV Solu-Medrol. Diurese with PO lasix Mucinex twice daily. Attempt vent weaning today. Decrease PEEP 10-->8. Decrease FiO2 as tolerated (2) COPD exacerbation Is this a current diagnosis for this admission?: Yes Plan: As above. (3) Congestive heart failure Qualifiers: Heart failure type: unspecified Heart failure chronicity: acute Qualified Code(s): I50.9 - Heart failure, unspecified Is this a current diagnosis for this admission?: Yes Plan: Stabilized Mild pulmonary edema on chest x-ray. ProBNP improved from 900-->92 Echocardiogram is unremarkable - LVEF 65% and mild grade I diastolic dysfunction Daily weights and strict I&O's. Continue PO furosemide. Continue home dose carvedilol. (4) Cocaine abuse Is this a current diagnosis for this admission?: Yes Plan: UDS positive for cocaine; confirmation pending. History of the same. Discharge planning is consulted; consider mental health consultation. (5) Diabetes Qualifiers: Diabetes mellitus type: type 2 Diabetes mellitus ocean transportation intermediary insulin use: without ocean transportation intermediary use Diabetes mellitus complication status: with unspecified complications Qualified Code(s): E11.8 - Type 2 diabetes mellitus with unspecified complications Is this a current diagnosis for this admission?: Yes Plan: Currently n.p.o. secondary to sedation/mechanical ventilation. Accu-Cheks every 6 hours with Humalog for sliding scale coverage and hypoglycemia protocol in place. Initiating enteral feeding today. (6) Tobacco abuse Is this a current diagnosis for this admission?: Yes Plan: Smoking cessation was encouraged; nicotine replacement therapies are provided. (7) UTI (urinary tract infection) Qualifiers: Indwelling urinary catheter type: indwelling urethral catheter Encounter type: initial encounter Is this a current diagnosis for this admission?: Yes Plan: UA (+) for UTI. Cloudy/turbid appearing urine. +WBC Unclear if this was present on admission because UA not completed in ED. Continue Levaquin IV for complicated UTI (8) On enteral nutrition Is this a current diagnosis for this admission?: Yes Plan: Secondary to continued mechanical ventilation Discussed with registered pharmacy technician Continue enteral feeding at low rate (due to high dose of propofol) along with free water flushes per dietary recommendations (9) Streptococcus pneumoniae Is this a current diagnosis for this admission?: Yes Plan: Sputum culture (+) for strep pneumo Coverage with IV Levaquin (already prescribed for complicated UTI) - Time Time Spent with patient: 15-24 minutes Medications reviewed and adjusted accordingly: Yes Anticipated discharge: Home - Inpatient Certification Based on my medical assessment, after consideration of the patient's comorbidities, presenting symptoms, or acuity I expect that the services needed warrant INPATIENT care.: Yes I certify that my determination is in accordance with my understanding of Medicare's requirements for reasonable and necessary INPATIENT services [42 CFR 412.3e].: Yes Medical Necessity: Need for IV Antibiotics, Risk of Complication if Not Cared For in Hospital - Plan Summary Plan Summary: VENT WEANING. ANTIBIOTICS.
[2018-04-04] MEDS: PROPOFOL 1,000 MG/100 ML INFUS..BTL IV PRN ×8 (01:06→23:57)
[2018-04-04] MEDS: IPRATROPIUM/ALBUTEROL 0.5-2.5 MG/3 ML AMPUL NEB SCH ×4 (01:18→19:11)
[2018-04-04 04:08] LABS: HEMATOCRIT 46.7 % (36.0-47.0); MEAN CORPUSCULAR HEMOGLOBIN 25.8 pg (27.0-33.4); MEAN CORPUSCULAR HGB CONC 32.1 g/dL (32.0-36.0); MEAN CORPUSCULAR VOLUME 80 fl (80-97); PLATELET COUNT 241 10^3/uL (150-450); RED BLOOD COUNT 5.81 10^6/uL (3.72-5.28); RED CELL DISTRIBUTION WIDTH 18.2 % (11.5-14.0); WHITE BLOOD COUNT 13.9 10^3/uL (4.0-10.5)
[2018-04-04 04:24] LABS: ALANINE AMINOTRANSFERASE 13 U/L (9-52); ALBUMIN 4.3 g/dL (3.5-5.0); ALKALINE PHOSPHATASE 55 U/L (38-126); ANION GAP 10 (5-19); ASPARTATE AMINO TRANSFERASE 15 U/L (14-36); BILIRUBIN,DIRECT 0.4 mg/dL (0.0-0.4); BILIRUBIN,TOTAL 0.7 mg/dL (0.2-1.3); BLOOD UREA NITROGEN 44 mg/dL (7-20); CALCIUM 9.4 mg/dL (8.4-10.2); CARBON DIOXIDE 32 mmol/L (22-30); CHLORIDE 96 mmol/L (98-107); GLUCOSE 140 mg/dL (75-110); POTASSIUM 4.2 mmol/L (3.6-5.0); SODIUM 137.8 mmol/L (137-145); TOTAL PROTEIN 7.1 g/dL (6.3-8.2)
[2018-04-04] MEDS: HEPARIN SOD (PORCINE) 5,000 UNIT/ML 1 ML SYRINGE SUBCUT SCH ×3 (05:12→21:24)
[2018-04-04] MEDS: GABAPENTIN 300 MG CAPSULE NG SCH ×3 (05:12→21:25)
[2018-04-04] MEDS: METHYLPREDNISOLONE INJ 40 MG/1 ML SDV IV SCH ×3 (05:12→21:25)
[2018-04-04 05:23] LABS: ARTERIAL BLOOD BASE EXCESS 8.4 mmol/L; ARTERIAL BLOOD HCO3 33.9 mmol/L (20-24); ARTERIAL BLOOD O2 SATURATION 94.5 % (94-98); ARTERIAL BLOOD PCO2 49.8 mmHg (35-45); ARTERIAL BLOOD PH 7.45 (7.35-7.45); ARTERIAL BLOOD PO2 69.6 mmHg (80-100); ARTERIAL BLOOD TOTAL CO2 35.4 mmol/L (21-25)
[2018-04-04 05:34] LABS: ARTERIAL BLOOD FIO2 65%
[2018-04-04] MEDS: MIDAZOLAM HCL 50 MG/100 ML RTUINJ IV PRN ×2 (07:35→17:11)
--- NOTE | 2018-04-04 08:59 | RADIOLOGY REPORT (SQ) ---
EXAM DESCRIPTION: CHEST SINGLE VIEW COMPLETED DATE/TIME: 04/04/2018 6:43 am REASON FOR STUDY: resp. failure COMPARISON: Chest films 04/03/2018, 04/02/2018, 04/01/2018, 04/16/2017 EXAM PARAMETERS: NUMBER OF VIEWS: One view. TECHNIQUE: Single frontal radiographic view of the chest acquired. RADIATION DOSE: NA LIMITATIONS: None. FINDINGS: LUNGS AND PLEURA: Persistent consolidation in the left retrocardiac and right retrocardiac regions from atelectasis/bar soap collapsed right and left lower lobes. Superimposed pneumonia coul d not be excluded. This is similar compared to 04/03/2018, but more prominent as compared to 9 and 04/01/2018. No gross pleural effusion or pneumothorax. No pulmonary edema. MEDIASTINUM AND HILAR STRUCTURES: No masses. Contour normal. HEART AND VASCULAR STRUCTURES: Marked cardiomegaly BONES: No acute findings. Old healed right posterolateral rib fractures HARDWARE: Endotracheal tube tip 5 cm above the sebastien. Nasogastric tube tip and side port in the sto mach. OTHER: No other significant finding. IMPRESSION: Persistent partial collapse of the right and left lower lobes in the retrocardiac region . TECHNICAL DOCUMENTATION: JOB ID: [id number] [employer]- All Rights Reserved Reading location - IP/workstation name: [email or web address]
[2018-04-04] MEDS: GUAIFENESIN SYRP 200 MG/10 ML UDC PO SCH ×2 (09:13→21:25)
[2018-04-04] MEDS: CARVEDILOL 3.125 MG TABLET NG SCH ×2 (09:13→21:25)
[2018-04-04] MEDS: SALMETEROL XINAFOATE DISKUS 50 MCG/1 DOSE 28 DOSE IH SCH (09:14)
[2018-04-04] MEDS: FAMOTIDINE 20 MG TABLET NG SCH ×2 (09:14→21:25)
[2018-04-04] MEDS: TIOTROPIUM BROMIDE DPI 5 CAP/KIT (18 MCG/CAP) IH SCH (09:14)
[2018-04-04] MEDS: FUROSEMIDE INJ/PF 20 MG/2 ML SDV IV SCH ×2 (09:14→21:24)
[2018-04-04] MEDS: DOCUSATE SODIUM 100 MG/10 ML UDC NG SCH (09:14)
[2018-04-04] MEDS: LEVOFLOXACIN 750 MG/D5W RTU 750 MG/150 ML RTUPB IV SCH (09:15)
--- NOTE | 2018-04-04 19:35 | PDOC PROGRESS REPORT ---
Subjective Progress Note for:: 04/04/18 Subjective:: POLLY CRESPO is a 52 year old female with a past medical history of chronic respiratory failure secondary to COPD and CHF, RICO, DM 2, hypertension, tobacco abuse with continuous use, and cocaine abuse with recent use who presented to the emergency department with a complaint of increased shortness of breath. She remains intubated for airway protection in the ICU. Mechanical ventilation settings PEEP 8 RR 16 TV 450 FiO2 65%. PCO2 remains at patient's baseline. No evidence of acidosis on ABG. No changes to CXR, mild pulmonary vascular congestion and cardiomegaly. Patient requiring high levels of FiO2 and PEEP. Vent weaning attempted today, the patient was able to tolerate 2 hours of CPAP. Switched back to full vent support because the patient's RR dropped to 3-4 spontaneous breaths per minute. Reason For Visit: ACUTE ON CHRONIC RESP FAILURE Physical Exam Vital Signs: Temp Pulse Resp BP Pulse Ox 99.5 F 59 L 16 116/73 94 04/04/18 18:00 04/04/18 19:12 04/04/18 19:12 04/04/18 17:12 04/04/18 19:12 Intake & Output 04/03/18 04/04/18 04/05/18 06:59 06:59 06:59 Intake Total 1554 1694 588 Output Total 2830 37130 1550 Balance -1276 -96733 -962 Weight 102.4 kg 100.6 kg General appearance: PRESENT: no acute distress, morbidly obese Head exam: PRESENT: atraumatic Eye exam: PRESENT: conjunctiva pink, PERRLA Mouth exam: PRESENT: moist, tongue midline Teeth exam: PRESENT: poor dentation Respiratory exam: PRESENT: clear to auscultation tara, symmetrical, unlabored Cardiovascular exam: PRESENT: +S1, +S2 Pulses: PRESENT: normal radial pulses, normal dorsalis pedis pul GI/Abdominal exam: PRESENT: soft. ABSENT: distended, tenderness Rectal exam: PRESENT: deferred Extremities exam: ABSENT: full ROM, pedal edema Musculoskeletal exam: ABSENT: ambulatory, full ROM Neurological exam: PRESENT: other - SEDATED ON PROPOFOL AND VERSED. ABSENT: alert, awake, oriented to person, oriented to place, oriented to time, oriented to situation Skin exam: PRESENT: dry, intact, normal color Results Laboratory Results: 04/04/18 04:02 04/04/18 04:02 04/04/18 04/04/18 04/04/18 04:02 04:02 05:05 WBC 13.9 H RBC 5.81 H Hgb 15.0 Hct 46.7 MCV 80 MCH 25.8 L MCHC 32.1 RDW 18.2 H Plt Count 241 Carbonic Acid 1.50 H HCO3/H2CO3 Ratio 22:1 ABG pH 7.45 ABG pCO2 49.8 H ABG pO2 69.6 L ABG HCO3 33.9 H ABG O2 Saturation 94.5 ABG Base Excess 8.4 FiO2 65% Sodium 137.8 Potassium 4.2 Chloride 96 L Carbon Dioxide 32 H Anion Gap 10 BUN 44 H Creatinine 0.51 L Est GFR ( Amer) > 60 Est GFR (Non-Af Amer) > 60 Glucose 140 H Calcium 9.4 Total Bilirubin 0.7 AST 15 ALT 13 Alkaline Phosphatase 55 Total Protein 7.1 Albumin 4.3 03/30/18 03/30/18 03/30/18 06:45 06:45 14:41 Troponin I 0.013 < 0.012 NT-Pro-B Natriuret Pep 947 H 03/30/18 03/31/18 04/01/18 20:10 03:45 04:02 Troponin I < 0.012 NT-Pro-B Natriuret Pep 379 92 Impressions: Chest X-Ray 04/04/18 06:00 IMPRESSION: Persistent partial collapse of the right and left lower lobes in the retrocardiac region. Status: Imported from PACS Assessment & Plan - Diagnosis (1) Acute and chronic respiratory failure with hypercapnia Is this a current diagnosis for this admission?: Yes Plan: Secondary to COPD and CHF exacerbation. Stable Chest x-ray - mild pulmonary vascular congestion. ProBNP improved from 900 -->92 Troponin is negative. EKG shows NSR with inverted T waves in V1-3 Initially admitted to [facility] on continuous cardiac telemetry and BiPAP. Intubated for acute respiratory failure with hypercapnia. Upgraded to ICU. PRBC PEEP 8 RR 16 TV 450 FiO2 65% CO2 remains elevated but close to baseline Dr. Torres is consulted for vent management and assistance in managing the patient's underlying chronic respiratory conditions. Scheduled and as needed nebulizer treatments. Continue IV Solu-Medrol. Diurese with PO lasix Mucinex twice daily. Attempt vent weaning today. Decrease FiO2 as tolerated (2) COPD exacerbation Is this a current diagnosis for this admission?: Yes Plan: As above. (3) Congestive heart failure Qualifiers: Heart failure type: unspecified Heart failure chronicity: acute Qualified Code(s): I50.9 - Heart failure, unspecified Is this a current diagnosis for this admission?: Yes Plan: Stabilized Mild pulmonary edema on chest x-ray. ProBNP improved from 900-->92 Echocardiogram is unremarkable - LVEF 65% and mild grade I diastolic dysfunction Daily weights and strict I&O's. Continue PO furosemide. Continue home dose carvedilol. (4) Cocaine abuse Is this a current diagnosis for this admission?: Yes Plan: UDS positive for cocaine; confirmation pending. History of the same. Discharge planning is consulted; consider mental health consultation. (5) Diabetes Qualifiers: Diabetes mellitus type: type 2 Diabetes mellitus fci insulin use: without intermodal dispatcher use Diabetes mellitus complication status: with unspecified complications Qualified Code(s): E11.8 - Type 2 diabetes mellitus with unspecified complications Is this a current diagnosis for this admission?: Yes Plan: Currently n.p.o. secondary to sedation/mechanical ventilation. Accu-Cheks every 6 hours with Humalog for sliding scale coverage and hypoglycemia protocol in place. Initiating enteral feeding today. (6) Tobacco abuse Is this a current diagnosis for this admission?: Yes Plan: Smoking cessation was encouraged; nicotine replacement therapies are provided. (7) UTI (urinary tract infection) Qualifiers: Indwelling urinary catheter type: indwelling urethral catheter Encounter type: initial encounter Is this a current diagnosis for this admission?: Yes Plan: UA (+) for UTI. Cloudy/turbid appearing urine. +WBC Unclear if this was present on admission because UA not completed in ED. Continue Levaquin IV for complicated UTI (8) On enteral nutrition Is this a current diagnosis for this admission?: Yes Plan: Discussed with registered nurse step down Continue enteral feeding at low rate (due to high dose of propofol) along with free water flushes per dietary recommendations (9) Streptococcus pneumoniae Is this a current diagnosis for this admission?: Yes Plan: Sputum culture (+) for strep pneumo Coverage with IV Levaquin (already prescribed for complicated UTI) - Time Time Spent with patient: 15-24 minutes Medications reviewed and adjusted accordingly: Yes Anticipated discharge: Home - Inpatient Certification Based on my medical assessment, after consideration of the patient's comorbidities, presenting symptoms, or acuity I expect that the services needed warrant INPATIENT care.: Yes I certify that my determination is in accordance with my understanding of Medicare's requirements for reasonable and necessary INPATIENT services [42 CFR 412.3e].: Yes Medical Necessity: Need For Continuous Telemetry Monitoring, Need for IV Antibiotics, Risk of Complication if Not Cared For in Hospital - Plan Summary Plan Summary: IV ANTIBIOTICS. VENT WEAN.
[2018-04-05] MEDS: SALMETEROL XINAFOATE DISKUS 50 MCG/1 DOSE 28 DOSE IH SCH ×2 (00:50→09:10)
[2018-04-05] MEDS: MIDAZOLAM HCL 50 MG/100 ML RTUINJ IV PRN ×4 (00:50→18:55)
[2018-04-05] MEDS: IPRATROPIUM/ALBUTEROL 0.5-2.5 MG/3 ML AMPUL NEB SCH ×4 (01:14→20:30)
[2018-04-05] MEDS: PROPOFOL 1,000 MG/100 ML INFUS..BTL IV PRN ×6 (03:15→21:57)
[2018-04-05 04:12] LABS: HEMATOCRIT 45.6 % (36.0-47.0); HEMOGLOBIN 14.8 g/dL (12.0-15.5); MEAN CORPUSCULAR HGB CONC 32.5 g/dL (32.0-36.0); MEAN CORPUSCULAR VOLUME 80 fl (80-97); PLATELET COUNT 215 10^3/uL (150-450); RED BLOOD COUNT 5.69 10^6/uL (3.72-5.28); RED CELL DISTRIBUTION WIDTH 18.4 % (11.5-14.0); WHITE BLOOD COUNT 13.6 10^3/uL (4.0-10.5)
[2018-04-05 04:55] LABS: ALANINE AMINOTRANSFERASE 27 U/L (9-52); ALBUMIN 4.3 g/dL (3.5-5.0); ALKALINE PHOSPHATASE 55 U/L (38-126); ANION GAP 9 (5-19); ASPARTATE AMINO TRANSFERASE 17 U/L (14-36); BILIRUBIN,DIRECT 0.3 mg/dL (0.0-0.4); BILIRUBIN,TOTAL 0.7 mg/dL (0.2-1.3); BLOOD UREA NITROGEN 44 mg/dL (7-20); CALCIUM 9.5 mg/dL (8.4-10.2); CARBON DIOXIDE 33 mmol/L (22-30); CHLORIDE 95 mmol/L (98-107); GLUCOSE 136 mg/dL (75-110); POTASSIUM 4.4 mmol/L (3.6-5.0); SODIUM 136.9 mmol/L (137-145)
[2018-04-05] MEDS: GABAPENTIN 300 MG CAPSULE NG SCH ×3 (05:39→21:56)
[2018-04-05] MEDS: METHYLPREDNISOLONE INJ 40 MG/1 ML SDV IV SCH ×3 (05:39→21:56)
[2018-04-05] MEDS: HEPARIN SOD (PORCINE) 5,000 UNIT/ML 1 ML SYRINGE SUBCUT SCH ×2 (05:39→13:24)
[2018-04-05 05:58] LABS: ARTERIAL BLOOD H2CO3 1.55 mmol/L (1.05-1.35); ARTERIAL BLOOD HCO3 36.7 mmol/L (20-24); ARTERIAL BLOOD O2 SATURATION 96.5 % (94-98); ARTERIAL BLOOD PCO2 51.4 mmHg (35-45); ARTERIAL BLOOD PH 7.47 (7.35-7.45); ARTERIAL BLOOD PO2 82.4 mmHg (80-100); ARTERIAL BLOOD TOTAL CO2 38.2 mmol/L (21-25)
[2018-04-05 06:05] LABS: ARTERIAL BLOOD FIO2 65%
--- NOTE | 2018-04-05 08:04 | PDOC PROGRESS REPORT ---
Subjective Progress Note for:: 04/05/18 Subjective:: POLLY CRESPO is a 52 year old female with a past medical history of chronic respiratory failure secondary to COPD and CHF, RICO, DM 2, hypertension, tobacco abuse with continuous use, and cocaine abuse with recent use who presented to the emergency department with a complaint of increased shortness of breath. She remains intubated for airway protection in the ICU. Mechanical ventilation settings PEEP 8 RR 16 TV 450 FiO2 50%. PCO2 remains at patient's baseline. ABG demonstrating alkalosis. CXR consistently shows mild pulmonary vascular congestion and cardiomegaly. No need for CXR this AM. Attempt vent weaning again today. Tolerated 2 hrs of CPAP yesterday. If progress continues, consider extubation in 24-48hrs. Reason For Visit: ACUTE ON CHRONIC RESP FAILURE Physical Exam Vital Signs: Temp Pulse Resp BP Pulse Ox 99.0 F 63 16 102/69 97 04/05/18 06:05 04/05/18 01:16 04/05/18 06:05 04/05/18 06:05 04/05/18 06:05 Intake & Output 04/04/18 04/05/18 04/06/18 06:59 06:59 06:59 Intake Total 1694 1296 87 Output Total 71058 3710 Balance -97193 -2575 87 Weight 100.6 kg 99.6 kg General appearance: PRESENT: no acute distress, morbidly obese Head exam: PRESENT: atraumatic Eye exam: PRESENT: conjunctiva pink, PERRLA Mouth exam: PRESENT: moist Teeth exam: PRESENT: poor dentation Neck exam: PRESENT: full ROM Respiratory exam: PRESENT: clear to auscultation tara, symmetrical, unlabored - MECHANICAL VENTILATION Cardiovascular exam: PRESENT: +S1, +S2 Pulses: PRESENT: normal radial pulses, normal dorsalis pedis pul GI/Abdominal exam: PRESENT: soft. ABSENT: distended, tenderness Rectal exam: PRESENT: deferred Extremities exam: ABSENT: pedal edema Musculoskeletal exam: PRESENT: normal inspection. ABSENT: ambulatory Neurological exam: PRESENT: other - SEDATED WITH PROPOFOL AND VERSED Skin exam: PRESENT: dry, intact, normal color Results Laboratory Results: 04/05/18 03:57 04/05/18 03:57 04/05/18 04/05/18 04/05/18 03:57 03:57 05:52 WBC 13.6 H RBC 5.69 H Hgb 14.8 Hct 45.6 MCV 80 MCH 26.0 L MCHC 32.5 RDW 18.4 H Plt Count 215 Carbonic Acid 1.55 H HCO3/H2CO3 Ratio 23:1 ABG pH 7.47 H ABG pCO2 51.4 H ABG pO2 82.4 ABG HCO3 36.7 H ABG O2 Saturation 96.5 ABG Base Excess 11.0 FiO2 65% Sodium 136.9 L Potassium 4.4 Chloride 95 L Carbon Dioxide 33 H Anion Gap 9 BUN 44 H Creatinine 0.51 L Est GFR ( Amer) > 60 Est GFR (Non-Af Amer) > 60 Glucose 136 H Calcium 9.5 Total Bilirubin 0.7 AST 17 ALT 27 Alkaline Phosphatase 55 Total Protein 7.0 Albumin 4.3 03/30/18 03/30/18 03/30/18 06:45 06:45 14:41 Troponin I 0.013 < 0.012 NT-Pro-B Natriuret Pep 947 H 03/30/18 03/31/18 04/01/18 20:10 03:45 04:02 Troponin I < 0.012 NT-Pro-B Natriuret Pep 379 92 Impressions: Chest X-Ray 04/04/18 06:00 IMPRESSION: Persistent partial collapse of the right and left lower lobes in the retrocardiac region. Status: Imported from PACS Assessment & Plan - Diagnosis (1) Acute and chronic respiratory failure with hypercapnia Is this a current diagnosis for this admission?: Yes Plan: Secondary to COPD and CHF exacerbation. Stable Chest x-ray - mild pulmonary vascular congestion. ProBNP improved from 900 -->92 Troponin is negative. EKG shows NSR with inverted T waves in V1-3 Initially admitted to [facility] on continuous cardiac telemetry and BiPAP. Intubated for acute respiratory failure with hypercapnia. Upgraded to ICU. PRBC PEEP 8 RR 16 TV 450 FiO2 50% CO2 remains elevated but close to baseline Dr. Torres is consulted for vent management and assistance in managing the patient's underlying chronic respiratory conditions. Scheduled and as needed nebulizer treatments. Continue IV Solu-Medrol. Diurese with PO lasix Mucinex twice daily. Attempt vent weaning today. Decrease FiO2 as tolerated (2) COPD exacerbation Is this a current diagnosis for this admission?: Yes Plan: As above. (3) Congestive heart failure Qualifiers: Heart failure type: unspecified Heart failure chronicity: acute Qualified Code(s): I50.9 - Heart failure, unspecified Is this a current diagnosis for this admission?: Yes Plan: Stabilized Mild pulmonary edema on chest x-ray. ProBNP improved from 900-->92 Echocardiogram is unremarkable - LVEF 65% and mild grade I diastolic dysfunction Daily weights and strict I&O's. Continue PO furosemide. Continue home dose carvedilol. (4) Cocaine abuse Is this a current diagnosis for this admission?: Yes Plan: UDS positive for cocaine; confirmation pending. History of the same. Discharge planning is consulted; consider mental health consultation. (5) Diabetes Qualifiers: Diabetes mellitus type: type 2 Diabetes mellitus metal tile setter insulin use: without nursing home use Diabetes mellitus complication status: with unspecified complications Qualified Code(s): E11.8 - Type 2 diabetes mellitus with unspecified complications Is this a current diagnosis for this admission?: Yes Plan: Currently n.p.o. secondary to sedation/mechanical ventilation. Accu-Cheks every 6 hours with Humalog for sliding scale coverage and hypoglycemia protocol in place. Initiating enteral feeding today. (6) Tobacco abuse Is this a current diagnosis for this admission?: Yes Plan: Smoking cessation was encouraged; nicotine replacement therapies are provided. (7) UTI (urinary tract infection) Qualifiers: Indwelling urinary catheter type: indwelling urethral catheter Encounter type: initial encounter Is this a current diagnosis for this admission?: Yes Plan: UA (+) for UTI. Unclear if this was present on admission because UA not completed in ED. Continue Levaquin IV for complicated UTI (8) On enteral nutrition Is this a current diagnosis for this admission?: Yes Plan: Discussed with triage registered nurse Continue enteral feeding at low rate (due to high dose of propofol) along with free water flushes per dietary recommendations (9) Streptococcus pneumoniae Is this a current diagnosis for this admission?: Yes Plan: Sputum culture (+) for strep pneumo Coverage with IV Levaquin (already prescribed for complicated UTI) - Plan Summary Plan Summary: continue antibiotics, nebulizers, enteral feeding. vent weaning today. if she continues to tolerate, plan for extubation in 24-48hrs
[2018-04-05] MEDS: CARVEDILOL 3.125 MG TABLET NG SCH ×2 (09:09→22:02)
[2018-04-05] MEDS: FUROSEMIDE INJ/PF 20 MG/2 ML SDV IV SCH ×2 (09:09→22:03)
[2018-04-05] MEDS: DOCUSATE SODIUM 100 MG/10 ML UDC NG SCH (09:09)
[2018-04-05] MEDS: GUAIFENESIN SYRP 200 MG/10 ML UDC PO SCH ×2 (09:09→21:56)
[2018-04-05] MEDS: FAMOTIDINE 20 MG TABLET NG SCH ×2 (09:09→21:57)
[2018-04-05] MEDS: MAGNESIUM HYDROXIDE SUSP 30 ML UDCUP PO SCH (09:09)
[2018-04-05] MEDS: TIOTROPIUM BROMIDE DPI 5 CAP/KIT (18 MCG/CAP) IH SCH (09:10)
[2018-04-05] MEDS: LEVOFLOXACIN 750 MG/D5W RTU 750 MG/150 ML RTUPB IV SCH (09:10)
[2018-04-05] MEDS ORDERED: LACTULOSE SYRUP 20 GM/30 ML UDCUP PO ONE (09:48)
[2018-04-06] MEDS: SALMETEROL XINAFOATE DISKUS 50 MCG/1 DOSE 28 DOSE IH SCH ×2 (00:31→12:15)
[2018-04-06] MEDS: HEPARIN SOD (PORCINE) 5,000 UNIT/ML 1 ML SYRINGE SUBCUT SCH ×4 (01:26→21:36)
[2018-04-06] MEDS: PROPOFOL 1,000 MG/100 ML INFUS..BTL IV PRN ×7 (01:34→23:38)
[2018-04-06] MEDS: IPRATROPIUM/ALBUTEROL 0.5-2.5 MG/3 ML AMPUL NEB SCH ×4 (02:37→20:29)
[2018-04-06 04:04] LABS: HEMATOCRIT 46.2 % (36.0-47.0); HEMOGLOBIN 14.9 g/dL (12.0-15.5); MEAN CORPUSCULAR HEMOGLOBIN 25.5 pg (27.0-33.4); MEAN CORPUSCULAR HGB CONC 32.2 g/dL (32.0-36.0); MEAN CORPUSCULAR VOLUME 79 fl (80-97); PLATELET COUNT 221 10^3/uL (150-450); RED BLOOD COUNT 5.83 10^6/uL (3.72-5.28); RED CELL DISTRIBUTION WIDTH 18.5 % (11.5-14.0); WHITE BLOOD COUNT 13.4 10^3/uL (4.0-10.5)
[2018-04-06 04:24] LABS: ALANINE AMINOTRANSFERASE 20 U/L (9-52); ALBUMIN 4.2 g/dL (3.5-5.0); ALKALINE PHOSPHATASE 49 U/L (38-126); ANION GAP 10 (5-19); ASPARTATE AMINO TRANSFERASE 13 U/L (14-36); BILIRUBIN,DIRECT 0.4 mg/dL (0.0-0.4); BILIRUBIN,TOTAL 0.9 mg/dL (0.2-1.3); BLOOD UREA NITROGEN 44 mg/dL (7-20); CALCIUM 9.4 mg/dL (8.4-10.2); CARBON DIOXIDE 34 mmol/L (22-30); CHLORIDE 95 mmol/L (98-107); GLUCOSE 136 mg/dL (75-110); POTASSIUM 4.2 mmol/L (3.6-5.0); SODIUM 139.3 mmol/L (137-145); TOTAL PROTEIN 6.9 g/dL (6.3-8.2)
[2018-04-06] MEDS ORDERED: GABAPENTIN 400 MG CAPSULE ONE (05:41)
[2018-04-06] MEDS ORDERED: GABAPENTIN 100 MG CAPSULE ONE (05:41)
[2018-04-06] MEDS: METHYLPREDNISOLONE INJ 40 MG/1 ML SDV IV SCH ×3 (05:43→21:36)
[2018-04-06] MEDS: GABAPENTIN 300 MG CAPSULE NG SCH ×3 (05:47→21:32)
[2018-04-06 05:58] LABS: ARTERIAL BLOOD BASE EXCESS 11.5 mmol/L; ARTERIAL BLOOD H2CO3 1.53 mmol/L (1.05-1.35); ARTERIAL BLOOD HCO3 37.1 mmol/L (20-24); ARTERIAL BLOOD O2 SATURATION 94.2 % (94-98); ARTERIAL BLOOD PCO2 50.9 mmHg (35-45); ARTERIAL BLOOD PH 7.48 (7.35-7.45); ARTERIAL BLOOD PO2 66.7 mmHg (80-100); ARTERIAL BLOOD TOTAL CO2 38.6 mmol/L (21-25)
[2018-04-06 05:59] LABS: ARTERIAL BLOOD FIO2 60%
[2018-04-06] MEDS: MIDAZOLAM HCL 50 MG/100 ML RTUINJ IV PRN ×3 (08:04→23:38)
[2018-04-06] MEDS: GUAIFENESIN SYRP 200 MG/10 ML UDC PO SCH ×2 (12:14→21:36)
[2018-04-06] MEDS: FAMOTIDINE 20 MG TABLET NG SCH ×2 (12:14→21:32)
[2018-04-06] MEDS: LEVOFLOXACIN 750 MG/D5W RTU 750 MG/150 ML RTUPB IV SCH (12:14)
[2018-04-06] MEDS: DOCUSATE SODIUM 100 MG/10 ML UDC NG SCH (12:14)
[2018-04-06] MEDS: MAGNESIUM HYDROXIDE SUSP 30 ML UDCUP PO SCH (12:14)
[2018-04-06] MEDS: CARVEDILOL 3.125 MG TABLET NG SCH ×2 (12:14→21:30)
[2018-04-06] MEDS: FUROSEMIDE INJ/PF 20 MG/2 ML SDV IV SCH ×2 (12:14→21:36)
[2018-04-06] MEDS: TIOTROPIUM BROMIDE DPI 5 CAP/KIT (18 MCG/CAP) IH SCH (12:15)
[2018-04-06] MEDS ORDERED: ONDANSETRON 4 MG TAB.RAPDIS NG PRN (15:00)
--- NOTE | 2018-04-06 16:59 | PDOC PROGRESS REPORT ---
Subjective Progress Note for:: 04/06/18 Subjective:: POLLY CRESPO is a 52 year old female with a past medical history of chronic respiratory failure secondary to COPD and CHF, RICO, DM 2, hypertension, tobacco abuse with continuous use, and cocaine abuse with recent use who presented to the emergency department with a complaint of increased shortness of breath. She remains intubated for airway protection in the ICU. Mechanical ventilation settings PEEP 8 RR 16 TV 450 FiO2 50%. PCO2 remains at patient's baseline. ABG demonstrating alkalosis. Plan to decrease RR to 14. Attempt vent weaning again today. Consulted Dr. Muñiz for vent management assistance Reason For Visit: ACUTE ON CHRONIC RESP FAILURE Physical Exam Vital Signs: Temp Pulse Resp BP Pulse Ox 98.6 F 58 L 14 102/72 96 04/06/18 16:06 04/06/18 14:00 04/06/18 16:06 04/06/18 16:06 04/06/18 16:06 Intake & Output 04/05/18 04/06/18 04/07/18 06:59 06:59 06:59 Intake Total 1296 1184 300 Output Total 2650 1710 550 Balance -1354 -526 -250 Weight 99.6 kg 98.2 kg General appearance: PRESENT: no acute distress, morbidly obese Eye exam: PRESENT: conjunctiva pink, PERRLA Mouth exam: PRESENT: moist, tongue midline Teeth exam: PRESENT: poor dentation Respiratory exam: PRESENT: clear to auscultation tara, symmetrical, unlabored, other - MECHANICAL VENTILATION Cardiovascular exam: PRESENT: +S1, +S2 Pulses: PRESENT: normal radial pulses, normal dorsalis pedis pul GI/Abdominal exam: PRESENT: distended, normal bowel sounds, soft. ABSENT: tenderness Rectal exam: PRESENT: deferred Gentrourinary exam: PRESENT: indwelling catheter Extremities exam: ABSENT: pedal edema Musculoskeletal exam: PRESENT: normal inspection. ABSENT: deformity Neurological exam: PRESENT: other - SEDATED ON PROPOFOL AND VERSED. ABSENT: awake Skin exam: PRESENT: dry, intact, normal color Results Laboratory Results: 04/06/18 03:51 04/06/18 03:51 04/06/18 04/06/18 04/06/18 03:51 03:51 05:55 WBC 13.4 H RBC 5.83 H Hgb 14.9 Hct 46.2 MCV 79 L MCH 25.5 L MCHC 32.2 RDW 18.5 H Plt Count 221 Carbonic Acid 1.53 H HCO3/H2CO3 Ratio 24:1 ABG pH 7.48 H ABG pCO2 50.9 H ABG pO2 66.7 L ABG HCO3 37.1 H ABG O2 Saturation 94.2 ABG Base Excess 11.5 FiO2 60% Sodium 139.3 Potassium 4.2 Chloride 95 L Carbon Dioxide 34 H Anion Gap 10 BUN 44 H Creatinine 0.51 L Est GFR ( Amer) > 60 Est GFR (Non-Af Amer) > 60 Glucose 136 H Calcium 9.4 Total Bilirubin 0.9 AST 13 L ALT 20 Alkaline Phosphatase 49 Total Protein 6.9 Albumin 4.2 03/30/18 03/30/18 03/30/18 06:45 06:45 14:41 Troponin I 0.013 < 0.012 NT-Pro-B Natriuret Pep 947 H 03/30/18 03/31/18 04/01/18 20:10 03:45 04:02 Troponin I < 0.012 NT-Pro-B Natriuret Pep 379 92 Impressions: Chest X-Ray 04/04/18 06:00 IMPRESSION: Persistent partial collapse of the right and left lower lobes in the retrocardiac region. Status: Imported from PACS Assessment & Plan - Diagnosis (1) Acute and chronic respiratory failure with hypercapnia Is this a current diagnosis for this admission?: Yes Plan: Secondary to COPD and CHF exacerbation. Stable Chest x-ray - mild pulmonary vascular congestion. ProBNP improved from 900 -->92, no longer trending Troponin is negative EKG shows NSR with inverted T waves in V1-[address] [facility] on continuous cardiac telemetry and BiPAP. Intubated for acute respiratory failure with hypercapnia. Upgraded to ICU. PRBC PEEP 8 RR 14 TV 450 FiO2 50% CO2 remains elevated but close to baseline Dr. Muñiz is consulted for vent management and assistance in managing the patient's underlying chronic respiratory conditions. Scheduled and as needed nebulizer treatments. Continue IV Solu-Medrol. Diurese with PO lasix Mucinex twice daily. Attempt vent weaning today. Decrease RR from 16-->14. Wean FiO2 as tolerated (2) COPD exacerbation Is this a current diagnosis for this admission?: Yes Plan: As above. (3) Congestive heart failure Qualifiers: Heart failure type: unspecified Heart failure chronicity: acute Qualified Code(s): I50.9 - Heart failure, unspecified Is this a current diagnosis for this admission?: Yes Plan: Stabilized Mild pulmonary edema on initial chest x-ray. ProBNP improved from 900-->92, no longer trending Echocardiogram is unremarkable - LVEF 65% and mild grade I diastolic dysfunction Daily weights and strict I&O's. Continue PO furosemide. Continue home dose carvedilol. (4) Cocaine abuse Is this a current diagnosis for this admission?: Yes Plan: UDS positive for cocaine; confirmation pending. History of the same. Discharge planning is consulted; consider mental health consultation. (5) Diabetes Qualifiers: Diabetes mellitus type: type 2 Diabetes mellitus mcc insulin use: without mcc use Diabetes mellitus complication status: with unspecified complications Qualified Code(s): E11.8 - Type 2 diabetes mellitus with unspecified complications Is this a current diagnosis for this admission?: Yes Plan: Currently n.p.o. secondary to sedation/mechanical ventilation. Accu-Cheks every 6 hours with Humalog for sliding scale coverage and hyp oglycemia protocol in place. Initiating enteral feeding today. (6) Tobacco abuse Is this a current diagnosis for this admission?: Yes Plan: Smoking cessation was encouraged; nicotine replacement therapies are provided. (7) UTI (urinary tract infection) Qualifiers: Indwelling urinary catheter type: indwelling urethral catheter Encounter type: initial encounter Is this a current diagnosis for this admission?: Yes Plan: UA (+) for UTI. Unclear if this was present on admission because UA not completed in ED. Continue Levaquin IV for complicated UTI (8) On enteral nutrition Is this a current diagnosis for this admission?: Yes Plan: Discussed with telemetry registered nurse Continue enteral feeding at low rate (due to high dose of propofol) along with free water flushes per dietary recommendations (9) Streptococcus pneumoniae Is this a current diagnosis for this admission?: Yes Plan: Sputum culture (+) for strep pneumo Coverage with IV Levaquin (already prescribed for complicated UTI) - Time Time Spent with patient: 15-24 minutes Total Critical Time (Minutes): 15 Medications reviewed and adjusted accordingly: Yes - Inpatient Certification Based on my medical assessment, after consideration of the patient's comorbidities, presenting symptoms, or acuity I expect that the services needed warrant INPATIENT care.: Yes I certify that my determination is in accordance with my understanding of Medicare's requirements for reasonable and necessary INPATIENT services [42 CFR 412.3e].: Yes Medical Necessity: Need Close Monitoring Due to Risk of Patient Decompensation, Need for IV Antibiotics, Risk of Complication if Not Cared For in Hospital - Plan Summary Plan Summary: CONTINUE IV ANTIBIOTICS. VENT WEANING PROTOCOL. APPRECIATE ASSISTANCE FROM PULMONARY
[2018-04-07] MEDS: IPRATROPIUM/ALBUTEROL 0.5-2.5 MG/3 ML AMPUL NEB SCH ×4 (02:49→20:34)
[2018-04-07] MEDS: PROPOFOL 1,000 MG/100 ML INFUS..BTL IV PRN ×7 (03:34→23:51)
[2018-04-07 04:02] LABS: HEMATOCRIT 44.5 % (36.0-47.0); HEMOGLOBIN 14.4 g/dL (12.0-15.5); MEAN CORPUSCULAR HEMOGLOBIN 25.8 pg (27.0-33.4); MEAN CORPUSCULAR HGB CONC 32.4 g/dL (32.0-36.0); MEAN CORPUSCULAR VOLUME 80 fl (80-97); PLATELET COUNT 232 10^3/uL (150-450); RED BLOOD COUNT 5.59 10^6/uL (3.72-5.28); RED CELL DISTRIBUTION WIDTH 18.3 % (11.5-14.0); WHITE BLOOD COUNT 13.3 10^3/uL (4.0-10.5)
[2018-04-07 04:21] LABS: ANION GAP 9 (5-19); BLOOD UREA NITROGEN 43 mg/dL (7-20); CALCIUM 9.4 mg/dL (8.4-10.2); CARBON DIOXIDE 36 mmol/L (22-30); CHLORIDE 95 mmol/L (98-107); GLUCOSE 138 mg/dL (75-110); PHOSPHORUS 4.4 mg/dL (2.5-4.5); POTASSIUM 4.1 mmol/L (3.6-5.0); SODIUM 139.9 mmol/L (137-145)
[2018-04-07 05:24] LABS: ARTERIAL BLOOD BASE EXCESS 11.4 mmol/L; ARTERIAL BLOOD H2CO3 1.62 mmol/L (1.05-1.35); ARTERIAL BLOOD HCO3 37.4 mmol/L (20-24); ARTERIAL BLOOD O2 SATURATION 95.1 % (94-98); ARTERIAL BLOOD PCO2 53.7 mmHg (35-45); ARTERIAL BLOOD PH 7.46 (7.35-7.45); ARTERIAL BLOOD PO2 72.9 mmHg (80-100); ARTERIAL BLOOD TOTAL CO2 39.1 mmol/L (21-25)
[2018-04-07 05:27] LABS: ARTERIAL BLOOD FIO2 50%
[2018-04-07] MEDS: GABAPENTIN 300 MG CAPSULE NG SCH ×3 (05:58→21:59)
[2018-04-07] MEDS: HEPARIN SOD (PORCINE) 5,000 UNIT/ML 1 ML SYRINGE SUBCUT SCH ×3 (05:59→21:59)
[2018-04-07] MEDS: METHYLPREDNISOLONE INJ 40 MG/1 ML SDV IV SCH ×3 (06:00→21:59)
[2018-04-07] MEDS: MIDAZOLAM HCL 50 MG/100 ML RTUINJ IV PRN ×3 (06:07→22:02)
--- NOTE | 2018-04-07 07:27 | RADIOLOGY REPORT (SQ) ---
EXAM DESCRIPTION: XR CHEST 1 VIEW COMPLETED DATE/TME: 04/07/2018 05:00 CLINICAL HISTORY: Respiratory Distress. 52 years Female, mechanically ventilated COMPARISON: One day prior. NUMBER OF VIEWS/TECHNIQUE: 1/AP FINDINGS: Moderate left lower lumbar/basilar opacity-effusion. Mild hazy opacity-effusion of the right lung base. Mild central edema pattern. Adequate appearing endotracheal tube. Likely adequate appearing enteric tube partially obscured. Mildly enlarged cardiac silhouette. No pneumothorax. Stable bony thorax. IMPRESSION: No significant change.
--- NOTE | 2018-04-07 09:37 | CONSULTATION REPORT E ---
Consultation Report NAME: POLLY CRESPO : 1965 AGE: 52Y DATE: 04/06/2018 ROOM: 608 A TO: PIERRE DAVEY M.D. FROM: CHUY CORADO MD Requesting Physician HISTORY OF PRESENT ILLNESS: The patient is a 52-year-old female who came in with past medical history of chronic respiratory failure, severe COPD, CHF, RICO, diabetes mellitus type 2, hepatitis C, tobacco abuse and cocaine abuse, with continuous substance use. The patient presented to the emergency room complaining of increasing shortness of breath. When the patient was admitted the patient was a little confused and eventually was intubated and mechanically ventilated for acute respiratory failure. I was consulted because the patient is still respiratory failure requiring invasive mechanical ventilation. PAST MEDICAL HISTORY: Congestive heart failure, hypertension, asthma, COPD, pneumonia, sleep apnea, diabetes mellitus type 2, hepatitis C, arthritis, bipolar disorder, depression, substance abuse and tobacco dependence. PAST SURGICAL HISTORY: Status post cardiac cath and hysterectomy. SOCIAL HISTORY: The patient lives alone. She smokes every day 1 to 1.5 packs per day. Denies alcohol abuse. Used cocaine and marijuana in the past. MEDICATIONS: Home medications include albuterol inhaler, Coreg, gabapentin, ibuprofen, Mobic, Wellbutrin, omeprazole, Spiriva inhaler. ALLERGIES: No known drug allergies. REVIEW OF SYSTEMS: Not available. The patient is ventilated and sedated. PHYSICAL EXAMINATION: GENERAL: The patient is ventilated and sedated. The patient is afebrile, not in apparent severe respiratory distress. VITAL SIGNS: Temperature 99.1 with a T-max of 99.1, heart rate 59, blood pressure 101/68, respiratory rate 18, saturation 93% on SIMV rate of 14, *------*, pressure support 10, PEEP of 8, FIO2 50%, saturating about 90, and oxygen saturation is above 93%. EYES: No jaundice or pallor. EARS, NOSE, AND THROAT: No ear drainage noted. No nasal discharge. Orotracheal tube is in place. CHEST AND LUNGS: No wheezing, no rhonchi, no coarse crackles. CARDIOVASCULAR: S1, S2 distinct. Normal rate. Regular rhythm. ABDOMEN: Flabby. Positive bowel sounds. Soft and nondistended. EXTREMITIES: No joint swelling or cellulitis. DIAGNOSTICS: Sputum culture showed Pseudomonas pneumoniae on March 30, 2018. CBC done yesterday showed a white count of 13.4, hemoglobin 14.9, hematocrit 46.2, and platelet count 221. ABG done today showed a pH of 7.48, PCO2 50.9, PO2 66.7, and saturation is 94%. Chemistry showed sodium is 139, potassium is 4.2, chloride 95, CO2 34, BUN is 44, creatinine 0.51, glucose 136. SGOT is 13, SGPT is 20, alkaline phos 49, albumin is 4.2. Urinalysis from March 31, 2018 showed trace amount of leukocyte esterase suggesting another infection. ASSESSMENT: 1. Acute respiratory failure requiring invasive mechanical ventilation. The patient is not ready to be extubated yet. Still high PEEP of 8. 2. Pseudomonas Pneumonia, possible left lower lobe with a left pleural effusion. 3. COPD/asthmatic exacerbation, currently not in acute bronchospasm. PLAN/RECOMMENDATIONS: We will continue to optimize ventilator support. We will do a chest x-ray, CBC, and chemistry tomorrow. We will try to re-evaluate the patient every day for sedation vacation and possible spontaneous breathing trials. Time spent 50 minutes in taking care of patient - assessing patient's clinical condition, labs, medicatons and treatment, discussing condition and treatment plan with patient's ICU nurse. DICTATING PHYSICIAN: PIERRE DAVEY MD,MARIPOSA,MPH [id number] PHY#: [id number] 2022 ID: [id number] JOB#: [id number] ACCT: [id number] cc:PIERRE DAVEY M.D. > MARIANNE
[2018-04-07] MEDS: LEVOFLOXACIN 750 MG/D5W RTU 750 MG/150 ML RTUPB IV SCH (10:05)
[2018-04-07] MEDS: FUROSEMIDE INJ/PF 20 MG/2 ML SDV IV SCH ×2 (10:07→21:58)
[2018-04-07] MEDS: GUAIFENESIN SYRP 200 MG/10 ML UDC PO SCH ×2 (10:07→21:59)
[2018-04-07] MEDS: FAMOTIDINE 20 MG TABLET NG SCH ×2 (10:07→22:00)
[2018-04-07] MEDS: MAGNESIUM HYDROXIDE SUSP 30 ML UDCUP PO SCH (10:07)
[2018-04-07] MEDS: CARVEDILOL 3.125 MG TABLET NG SCH ×2 (10:09→22:00)
[2018-04-07] MEDS: DOCUSATE SODIUM 100 MG/10 ML UDC NG SCH (11:39)
[2018-04-07] MEDS: INSULIN LISPRO 100 UNIT/ML 3 ML VIAL SUBCUT SCH ×3 (11:42→23:52)
--- NOTE | 2018-04-07 13:47 | PDOC PROGRESS REPORT ---
Subjective Progress Note for:: 04/07/18 Subjective:: The patient is a 52 year old female with a past medical history of chronic respiratory failure secondary to COPD and CHF, RICO, DM 2, hypertension, tobacco abuse with continuous use, and cocaine abuse with recent use who was admitted 03/30/2018 for dyspnea that decompensated throughout the day and subsequently required intubation mechanical ventilation that afternoon. The patient was seen on morning rounds with nursing and Dr. Torres at the bedside. Nursing had weaned the patient's propofol and Versed for spontaneous breathing trial. The patient was noted to continue to have prolonged periods of poor effort. She is currently on MA VC with pressure support with tidal volume 450, PEEP 8, FiO2 50%, respiratory rate 14 with ABG demonstrating persistent alkalosis. She is sedated, responsive to noxious stimuli, and appears comfortable otherwise. No concerns per nursing. Reason For Visit: ACUTE ON CHRONIC RESP FAILURE Physical Exam Vital Signs: Temp Pulse Resp BP Pulse Ox 99.7 F 61 14 96/67 L 97 04/07/18 12:00 04/07/18 12:00 04/07/18 12:00 04/07/18 12:00 04/07/18 12:00 Intake & Output 04/06/18 04/07/18 04/08/18 06:59 06:59 06:59 Intake Total 1184 1425 488 Output Total 1710 1975 805 Balance -526 -550 -317 Weight 98.2 kg 99.1 kg General appearance: PRESENT: no acute distress, morbidly obese Head exam: PRESENT: atraumatic, normocephalic Eye exam: PRESENT: conjunctiva pink, EOMI, PERRLA. ABSENT: scleral icterus Mouth exam: PRESENT: moist, tongue midline Teeth exam: PRESENT: poor dentation Respiratory exam: PRESENT: clear to auscultation tara, symmetrical, unlabored, other - Mechanically ventilated.. ABSENT: rales, rhonchi, wheezes Cardiovascular exam: PRESENT: RRR, +S1, +S2. ABSENT: diastolic murmur, rubs, systolic murmur Pulses: PRESENT: normal dorsalis pedis pul Vascular exam: PRESENT: normal capillary refill GI/Abdominal exam: PRESENT: normal bowel sounds, soft, other - OG tube with tube feedings.. ABSENT: distended, guarding, mass, organolmegaly, rebound, tenderness Rectal exam: PRESENT: deferred Gentrourinary exam: PRESENT: indwelling catheter Extremities exam: ABSENT: pedal edema Musculoskeletal exam: PRESENT: normal inspection Neurological exam: PRESENT: other - Sedated on propofol and Versed; responsive to noxious stimuli but does not follow commands Skin exam: PRESENT: dry, intact, warm. ABSENT: cyanosis, rash Results Laboratory Results: 04/07/18 03:49 04/07/18 03:49 04/07/18 04/07/18 04/07/18 03:49 03:49 04:57 WBC 13.3 H RBC 5.59 H Hgb 14.4 Hct 44.5 MCV 80 MCH 25.8 L MCHC 32.4 RDW 18.3 H Plt Count 232 Carbonic Acid 1.62 H HCO3/H2CO3 Ratio 23:1 ABG pH 7.46 H ABG pCO2 53.7 H ABG pO2 72.9 L ABG HCO3 37.4 H ABG O2 Saturation 95.1 ABG Base Excess 11.4 FiO2 50% Sodium 139.9 Potassium 4.1 Chloride 95 L Carbon Dioxide 36 H Anion Gap 9 BUN 43 H Creatinine 0.49 L Est GFR ( Amer) > 60 Est GFR (Non-Af Amer) > 60 Glucose 138 H Calcium 9.4 Phosphorus 4.4 Magnesium 2.6 H 03/30/18 03/30/18 03/30/18 06:45 06:45 14:41 Troponin I 0.013 < 0.012 NT-Pro-B Natriuret Pep 947 H 03/30/18 03/31/18 04/01/18 20:10 03:45 04:02 Troponin I < 0.012 NT-Pro-B Natriuret Pep 379 92 Impressions: Chest X-Ray 04/07/18 05:00 IMPRESSION: No significant change. Assessment & Plan - Diagnosis (1) Acute and chronic respiratory failure with hypercapnia Is this a current diagnosis for this admission?: Yes Plan: Secondary to COPD and CHF exacerbation. Chest x-ray reveals mild pulmonary vascular congestion; possible LLL pneumonia ProBNP minimally elevated to 900--> 92. Troponin is negative. EKG is reassuring. EKG shows NSR with inverted T waves in V1-3 Initially admitted to [facility] on continuous cardiac telemetry and BiPAP. Intubated for acute respiratory failure with hypercapnia. Upgraded to ICU. PRBC PEEP 8 RR 14 TV 450 FiO2 50% CO2 remains elevated but close to baseline Dr. Torres is consulted for vent management and assistance in managing the patient's underlying chronic respiratory conditions. Continue scheduled and as needed nebulizer treatments, IV Solu-Medrol, diuresing with Lasix, Mucinex twice daily. IV Levaquin for possible left lower lobe pneumonia. (2) COPD exacerbation Is this a current diagnosis for this admission?: Yes Plan: As above. (3) Congestive heart failure Qualifiers: Heart failure type: unspecified Heart failure chronicity: acute Qualified Code(s): I50.9 - Heart failure, unspecified Is this a current diagnosis for this admission?: Yes Plan: Stabilized Mild pulmonary edema on initial chest x-ray. ProBNP improved from 900-->92, no longer trending Echocardiogram is unremarkable - LVEF 65% and mild grade I diastolic dysfunction Daily weights and strict I&O's. ontinue IV furosemide; decreased from 20 mg twice daily to 10 mg twice daily. Continue home dose carvedilol. (4) Diabetes Qualifiers: Diabetes mellitus type: type 2 Diabetes mellitus alf insulin use: without alf use Diabetes mellitus complication status: with unspecified complications Qualified Code(s): E11.8 - Type 2 diabetes mellitus with unspecified complications Is this a current diagnosis for this admission?: Yes Plan: Currently n.p.o. secondary to sedation/mechanical ventilation. Accu-Cheks every 6 hours with Humalog for sliding scale coverage and hypoglycemi a protocol in place. Enteral feedings started 04/01/18; continues to have good glycemic control. Will consult the registered massage therapist. (5) Cocaine abuse Is this a current diagnosis for this admission?: Yes Plan: UDS positive for cocaine; confirmation positive. History of the same. Discharge planning is consulted; consider mental health consultation. (6) Tobacco dependence Is this a current diagnosis for this admission?: Yes Plan: Nicotine replacement therapies are provided. (7) UTI (urinary tract infection) Qualifiers: Indwelling urinary catheter type: indwelling urethral catheter Encounter type: initial encounter Is this a current diagnosis for this admission?: Yes Plan: UA (+) for UTI. Unclear if this was present on admission because UA not completed in ED. Continue Levaquin IV for complicated UTI, Day #7. (8) Pneumonia Qualifiers: Laterality: left Lung location: lower lobe of lung Qualified Code(s): J18.1 - Lobar pneumonia, unspecified organism Is this a current diagnosis for this admission?: Yes Plan: Left lower lobe consolidation by x-ray. Atelectasis versus pneumonia with effusion. Sputum culture (+) for strep pneumo Blood cultures pending. Continue IV Levaquin. Management of acute on chronic respiratory failure as above. (9) Streptococcus pneumoniae Is this a current diagnosis for this admission?: Yes Plan: Sputum culture (+) for strep pneumo Blood cultures pending. Chest xray demonstrates a moderate left lower lobe consolidation/effusion; pneumonia versus atelectasis. Continue IV Levaquin. - Time Time Spent with patient: 25-34 minutes Medications reviewed and adjusted accordingly: Yes - Inpatient Certification Based on my medical assessment, after consideration of the patient's c omorbidities, presenting symptoms, or acuity I expect that the services needed warrant INPATIENT care.: Yes I certify that my determination is in accordance with my understanding of Medicare's requirements for reasonable and necessary INPATIENT services [42 CFR 412.3e].: Yes Medical Necessity: Significant Comorbidiites Make Outpatient Treatment Too Risky, Need Close Monitoring Due to Risk of Patient Decompensation, Need For IV Fluids, Need For Continuous Telemetry Monitoring, Need for Nebulizer Therapy and Monitoring of Response, Need for IV Antibiotics
[2018-04-08] MEDS: IPRATROPIUM/ALBUTEROL 0.5-2.5 MG/3 ML AMPUL NEB SCH ×4 (02:02→19:22)
[2018-04-08] MEDS: PROPOFOL 1,000 MG/100 ML INFUS..BTL IV PRN ×7 (02:41→23:37)
[2018-04-08 03:45] LABS: ARTERIAL BLOOD BASE EXCESS 7.7 mmol/L; ARTERIAL BLOOD H2CO3 1.41 mmol/L (1.05-1.35); ARTERIAL BLOOD HCO3 32.7 mmol/L (20-24); ARTERIAL BLOOD O2 SATURATION 95.7 % (94-98); ARTERIAL BLOOD PCO2 46.8 mmHg (35-45); ARTERIAL BLOOD PH 7.46 (7.35-7.45); ARTERIAL BLOOD PO2 75.2 mmHg (80-100); ARTERIAL BLOOD TOTAL CO2 34.1 mmol/L (21-25)
[2018-04-08 03:50] LABS: ARTERIAL BLOOD FIO2 45%
[2018-04-08 04:08] LABS: ABSOLUTE BASOPHILS # (AUTO) 0.1 10^3/uL (0.0-0.2); ABSOLUTE LYMPHOCYTES (AUTO) 0.8 10^3/uL (0.5-4.7); ABSOLUTE MONOCYTES (AUTO) 0.7 10^3/uL (0.1-1.4); ABSOLUTE NEUT (AUTO) 11.8 10^3/uL (1.7-8.2); BASOPHILS % (AUTO) 0.7 % (0-2); HEMATOCRIT 44.3 % (36.0-47.0); HEMOGLOBIN 14.3 g/dL (12.0-15.5); LYMPHOCYTES % (AUTO) 6.1 % (13-45); MEAN CORPUSCULAR HEMOGLOBIN 25.8 pg (27.0-33.4); MEAN CORPUSCULAR HGB CONC 32.3 g/dL (32.0-36.0); MEAN CORPUSCULAR VOLUME 80 fl (80-97); MONOCYTES % (AUTO) 5.5 % (3-13); PLATELET COUNT 238 10^3/uL (150-450); RED BLOOD COUNT 5.56 10^6/uL (3.72-5.28); RED CELL DISTRIBUTION WIDTH 18.3 % (11.5-14.0); SEGMENTED NEUTROPHILS % (AUTO) 87.7 % (42-78); TOTAL CELLS COUNTED % (AUTO) 100 %; WHITE BLOOD COUNT 13.5 10^3/uL (4.0-10.5)
[2018-04-08] MEDS: MIDAZOLAM HCL 50 MG/100 ML RTUINJ IV PRN ×2 (04:17→14:34)
[2018-04-08 04:33] LABS: ALANINE AMINOTRANSFERASE 28 U/L (9-52); ALKALINE PHOSPHATASE 47 U/L (38-126); ANION GAP 8 (5-19); ASPARTATE AMINO TRANSFERASE 13 U/L (14-36); BILIRUBIN,DIRECT 0.4 mg/dL (0.0-0.4); BILIRUBIN,TOTAL 0.8 mg/dL (0.2-1.3); BLOOD UREA NITROGEN 42 mg/dL (7-20); CALCIUM 9.5 mg/dL (8.4-10.2); CARBON DIOXIDE 35 mmol/L (22-30); CHLORIDE 96 mmol/L (98-107); GLUCOSE 140 mg/dL (75-110); POTASSIUM 4.2 mmol/L (3.6-5.0); SODIUM 138.9 mmol/L (137-145); TOTAL PROTEIN 6.5 g/dL (6.3-8.2)
[2018-04-08] MEDS: HEPARIN SOD (PORCINE) 5,000 UNIT/ML 1 ML SYRINGE SUBCUT SCH ×3 (05:41→21:32)
[2018-04-08] MEDS: METHYLPREDNISOLONE INJ 40 MG/1 ML SDV IV SCH ×3 (05:41→21:32)
[2018-04-08] MEDS: GABAPENTIN 300 MG CAPSULE NG SCH ×3 (05:42→21:33)
[2018-04-08] MEDS: INSULIN LISPRO 100 UNIT/ML 3 ML VIAL SUBCUT SCH ×3 (06:24→18:58)
--- NOTE | 2018-04-08 06:45 | RADIOLOGY REPORT (SQ) ---
EXAM DESCRIPTION: XR CHEST 1 VIEW COMPLETED DATE/TME: 04/08/2018 06:00 CLINICAL HISTORY: Respiratory Distress. 52 years Female, resp failure COMPARISON: One day prior. NUMBER OF VIEWS/TECHNIQUE: 1/AP FINDINGS: Moderate left basilar opacity-effusion. Small obscuration/effusion of the right costophrenic angle.Adequate appearing endotracheal tube. Likely adequate appearing enteric tube partially obscured. Normal cardiac silhouette size. No pneumothorax. Stable bony thorax. IMPRESSION: No significant change.
[2018-04-08] MEDS: GUAIFENESIN SYRP 200 MG/10 ML UDC PO SCH ×2 (09:42→21:31)
[2018-04-08] MEDS: DOCUSATE SODIUM 100 MG/10 ML UDC NG SCH (09:42)
[2018-04-08] MEDS: FUROSEMIDE INJ/PF 20 MG/2 ML SDV IV SCH ×2 (09:42→21:32)
[2018-04-08] MEDS: LEVOFLOXACIN 750 MG/D5W RTU 750 MG/150 ML RTUPB IV SCH (09:42)
[2018-04-08] MEDS: CARVEDILOL 3.125 MG TABLET NG SCH ×2 (09:42→21:33)
[2018-04-08] MEDS: FAMOTIDINE 20 MG TABLET NG SCH ×2 (09:42→21:33)
[2018-04-08] MEDS: MAGNESIUM HYDROXIDE SUSP 30 ML UDCUP PO SCH (09:42)
--- NOTE | 2018-04-08 17:14 | PDOC PROGRESS REPORT ---
Subjective Progress Note for:: 04/08/18 Subjective:: The patient is a 52 year old female with a past medical history of chronic respiratory failure secondary to COPD and CHF, RICO, DM 2, hypertension, tobacco abuse with continuous use, and cocaine abuse with recent use who was admitted 03/30/2018 for dyspnea that decompensated throughout the day and subsequently required intubation mechanical ventilation that afternoon. The patient was seen on morning rounds with nursing at the bedside. She is currently on ND VC with pressure support with tidal volume 450, PEEP 8, FiO2 50%, respiratory rate 14 with ABG demonstrating persistent alkalosis; slight improvement today. Continued spontaneous breathing trials; patient with improved effort/tolerance today. She is sedated, responsive to noxious stimuli, and appears comfortable otherwise. No concerns per nursing. Reason For Visit: ACUTE ON CHRONIC RESP FAILURE Physical Exam Vital Signs: Temp Pulse Resp BP Pulse Ox 100.0 F 86 14 111/69 94 04/08/18 14:00 04/08/18 14:00 04/08/18 14:00 04/08/18 14:00 04/08/18 14:00 Intake & Output 04/07/18 04/08/18 04/09/18 06:59 06:59 06:59 Intake Total 1425 1734 512 Output Total 1975 2205 975 Balance -550 -781 -463 Weight 99.1 kg 98.1 kg General appearance: PRESENT: no acute distress, morbidly obese, well-developed, well-nourished Head exam: PRESENT: atraumatic, normocephalic Eye exam: PRESENT: conjunctiva pink, EOMI, PERRLA. ABSENT: scleral icterus Ear exam: PRESENT: normal external ear exam Mouth exam: PRESENT: moist, tongue midline Teeth exam: PRESENT: poor dentation Neck exam: ABSENT: carotid bruit, JVD, lymphadenopathy, thyromegaly Respiratory exam: PRESENT: decreased breath sounds, prolonged expiratory phas, rhonchi, other - Bibasilar mechanically ventilated. ABSENT: rales, wheezes Cardiovascular exam: PRESENT: RRR, +S1, +S2. ABSENT: diastolic murmur, rubs, systolic murmur Pulses: PRESENT: normal dorsalis pedis pul Vascular exam: PRESENT: normal capillary refill GI/Abdominal exam: PRESENT: normal bowel sounds, soft, other - OG-tube with tube feedings. ABSENT: distended, guarding, mass, organolmegaly, rebound, tenderness Rectal exam: PRESENT: deferred Gentrourinary exam: PRESENT: indwelling catheter Extremities exam: PRESENT: full ROM. ABSENT: calf tenderness, clubbing, pedal edema Neurological exam: PRESENT: CN II-XII grossly intact, other - Sedated; respon sive to noxious stimuli, does not follow commands. Becomes agitated with reduction of versed Skin exam: PRESENT: dry, intact, warm. ABSENT: cyanosis, rash Results Laboratory Results: 04/08/18 03:47 04/08/18 03:47 04/08/18 04/08/18 04/08/18 03:37 03:47 03:47 WBC 13.5 H RBC 5.56 H Hgb 14.3 Hct 44.3 MCV 80 MCH 25.8 L MCHC 32.3 RDW 18.3 H Plt Count 238 Seg Neutrophils % 87.7 H Lymphocytes % 6.1 L Monocytes % 5.5 Eosinophils % 0.0 Basophils % 0.7 Absolute Neutrophils 11.8 H Absolute Lymphocytes 0.8 Absolute Monocytes 0.7 Absolute Eosinophils 0.0 Absolute Basophils 0.1 Carbonic Acid 1.41 H HCO3/H2CO3 Ratio 23:1 ABG pH 7.46 H ABG pCO2 46.8 H ABG pO2 75.2 L ABG HCO3 32.7 H ABG O2 Saturation 95.7 ABG Base Excess 7.7 FiO2 45% Sodium 138.9 Potassium 4.2 Chloride 96 L Carbon Dioxide 35 H Anion Gap 8 BUN 42 H Creatinine 0.54 Est GFR ( Amer) > 60 Est GFR (Non-Af Amer) > 60 Glucose 140 H Calcium 9.5 Magnesium 2.4 H Total Bilirubin 0.8 AST 13 L ALT 28 Alkaline Phosphatase 47 Total Protein 6.5 Albumin 4.0 03/30/18 03/30/18 03/30/18 06:45 06:45 14:41 Troponin I 0.013 < 0.012 NT-Pro-B Natriuret Pep 947 H 03/30/18 03/31/18 04/01/18 20:10 03:45 04:02 Troponin I < 0.012 NT-Pro-B Natriuret Pep 379 92 Impressions: Chest X-Ray 04/08/18 06:00 IMPRESSION: No significant change. Assessment & Plan - Diagnosis (1) Acute and chronic respiratory failure with hypercapnia Is this a current diagnosis for this admission?: Yes Plan: Secondary to COPD and CHF exacerbation. Chest x-ray reveals mild pulmonary vascular congestion; possible LLL pneumonia ProBNP minimally elevated to 900--> 92. Troponin is negative. EKG is reassuring. EKG shows NSR with inverted T waves in V1-3 Initially admitted to [facility] on continuous cardiac telemetry and BiPAP. Intubated for acute respiratory failure with hypercapnia. Upgraded to ICU. PRBC PEEP 8 RR 14 TV 450 FiO2 50% CO2 remains elevated but close to baseline; improved ABG today Improved breathing trial tolerance today. Dr. Torres is consulted for vent management and assistance in managing the patient's underlying chronic respiratory conditions. Continue scheduled and as needed nebulizer treatments, IV Solu-Medrol, diuresing with Lasix, Mucinex twice daily. IV Levaquin for possible left lower lobe pneumonia. (2) COPD exacerbation Is this a current diagnosis for this admission?: Yes Plan: As above. (3) Congestive heart failure Qualifiers: Heart failure type: unspecified Heart failure chronicity: acute Qualified Code(s): I50.9 - Heart failure, unspecified Is this a current diagnosis for this admission?: Yes Plan: Stabilized Mild pulmonary edema on initial chest x-ray. ProBNP improved from 900-->92, no longer trending Echocardiogram is unremarkable - LVEF 65% and mild grade I diastolic dysfunction Daily weights and strict I&O's. Continue IV furosemide 10 mg twice daily. Continue home dose carvedilol. (4) Diabetes Qualifiers: Diabetes mellitus type: type 2 Diabetes mellitus extermination inspector insulin use: without half-way use Diabetes mellitus complication status: with unspecified complications Qualified Code(s): E11.8 - Type 2 diabetes mellitus with unspecified complications Is this a current diagnosis for this admission?: Yes Plan: Currently n.p.o. secondary to sedation/mechanical ventilation. Accu-Cheks every 6 hours with Humalog for sliding scale coverage and hypoglycemia protocol in place. Enteral feedings started 04/01/18; continues to have good glycemic control. Will consult the staff registered nurse. (5) Cocaine abuse Is this a current diagnosis for this admission?: Yes Plan: UDS positive for cocaine; confirmation positive. History of the same. Discharge planning is consulted; consider mental health consultation. (6) Tobacco dependence Is this a current diagnosis for this admission?: Yes Plan: Nicotine replacement therapies are provided. (7) UTI (urinary tract infection) Qualifiers: Indwelling urinary catheter type: indwelling urethral catheter Encounter type: initial encounter Is this a current diagnosis for this admission?: Yes Plan: UA (+) for UTI. Unclear if this was present on admission because UA not completed in ED. Continue Levaquin IV for complicated UTI, Day #10/17. (8) Pneumonia Qualifiers: Laterality: left Lung location: lower lobe of lung Qualified Code(s): J18.1 - Lobar pneumonia, unspecified organism Is this a current diagnosis for this admission?: Yes Plan: Left lower lobe consolidation by x-ray. Atelectasis versus pneumonia with effusion. Sputum culture (+) for strep pneumo Blood cultures negative at 24 hours. Continue IV Levaquin. Management of acute on chronic respiratory failure as above. (9) Streptococcus pneumoniae Is this a current diagnosis for this admission?: Yes Plan: Sputum culture (+) for strep pneumo Blood cultures negative at 24 hours. Repeat sputum cultures pending Chest xray demonstrates a moderate left lower lobe consolidation/effusion; pneumonia versus atelectasis. Continue IV Levaquin. - Time Time Spent with patient: 25-34 minutes Medications reviewed and adjusted accordingly: Yes
[2018-04-09] MEDS: IPRATROPIUM/ALBUTEROL 0.5-2.5 MG/3 ML AMPUL NEB SCH ×4 (01:11→20:28)
[2018-04-09] MEDS: PROPOFOL 1,000 MG/100 ML INFUS..BTL IV PRN ×6 (02:10→23:06)
[2018-04-09 04:02] LABS: ABSOLUTE LYMPHOCYTES (AUTO) 1.1 10^3/uL (0.5-4.7); ABSOLUTE MONOCYTES (AUTO) 1.1 10^3/uL (0.1-1.4); ABSOLUTE NEUT (AUTO) 12.4 10^3/uL (1.7-8.2); BASOPHILS % (AUTO) 0.3 % (0-2); HEMATOCRIT 43.5 % (36.0-47.0); HEMOGLOBIN 13.9 g/dL (12.0-15.5); LYMPHOCYTES % (AUTO) 7.7 % (13-45); MEAN CORPUSCULAR HEMOGLOBIN 25.5 pg (27.0-33.4); MEAN CORPUSCULAR VOLUME 80 fl (80-97); MONOCYTES % (AUTO) 7.5 % (3-13); PLATELET COUNT 211 10^3/uL (150-450); RED BLOOD COUNT 5.46 10^6/uL (3.72-5.28); RED CELL DISTRIBUTION WIDTH 18.5 % (11.5-14.0); SEGMENTED NEUTROPHILS % (AUTO) 84.5 % (42-78); TOTAL CELLS COUNTED % (AUTO) 100 %; WHITE BLOOD COUNT 14.7 10^3/uL (4.0-10.5)
[2018-04-09 04:38] LABS: ARTERIAL BLOOD BASE EXCESS 12.7 mmol/L; ARTERIAL BLOOD FIO2 45%; ARTERIAL BLOOD H2CO3 1.51 mmol/L (1.05-1.35); ARTERIAL BLOOD HCO3 37.9 mmol/L (20-24); ARTERIAL BLOOD O2 SATURATION 95.5 % (94-98); ARTERIAL BLOOD PCO2 50.3 mmHg (35-45); ARTERIAL BLOOD PO2 72.6 mmHg (80-100); ARTERIAL BLOOD TOTAL CO2 39.5 mmol/L (21-25)
[2018-04-09 04:41] LABS: ALANINE AMINOTRANSFERASE 24 U/L (9-52); ALBUMIN 3.7 g/dL (3.5-5.0); ALKALINE PHOSPHATASE 46 U/L (38-126); ANION GAP 7 (5-19); ASPARTATE AMINO TRANSFERASE 25 U/L (14-36); BILIRUBIN,DIRECT 0.4 mg/dL (0.0-0.4); BILIRUBIN,TOTAL 0.7 mg/dL (0.2-1.3); BLOOD UREA NITROGEN 39 mg/dL (7-20); CALCIUM 8.9 mg/dL (8.4-10.2); CARBON DIOXIDE 37 mmol/L (22-30); CHLORIDE 95 mmol/L (98-107); GLUCOSE 133 mg/dL (75-110); SODIUM 138.6 mmol/L (137-145); TOTAL PROTEIN 6.5 g/dL (6.3-8.2)
[2018-04-09] MEDS: METHYLPREDNISOLONE INJ 40 MG/1 ML SDV IV SCH ×3 (05:07→21:19)
[2018-04-09] MEDS: HEPARIN SOD (PORCINE) 5,000 UNIT/ML 1 ML SYRINGE SUBCUT SCH ×3 (05:08→21:19)
[2018-04-09] MEDS: GABAPENTIN 300 MG CAPSULE NG SCH ×3 (05:08→21:20)
[2018-04-09] MEDS: INSULIN LISPRO 100 UNIT/ML 3 ML VIAL SUBCUT SCH ×4 (06:36→17:00)
--- NOTE | 2018-04-09 07:22 | RADIOLOGY REPORT (SQ) ---
EXAM DESCRIPTION: XR CHEST 1 VIEW COMPLETED DATE/TME: 04/09/2018 06:00 CLINICAL HISTORY: 52 years Female, resp failure COMPARISON: One day prior. NUMBER OF VIEWS/TECHNIQUE: 1/AP FINDINGS: Small left basilar opacity-effusion.Adequate appearing endotracheal tube. Likely adequate appearing enteric tube partially obscured. Mildly enlarged cardiac silhouette. No pneumothorax. Stable bony thorax. IMPRESSION: No significant change.
[2018-04-09] MEDS: FUROSEMIDE INJ/PF 20 MG/2 ML SDV IV SCH ×2 (09:19→21:20)
[2018-04-09] MEDS: MAGNESIUM HYDROXIDE SUSP 30 ML UDCUP PO SCH (09:20)
[2018-04-09] MEDS: GUAIFENESIN SYRP 200 MG/10 ML UDC PO SCH ×2 (09:21→21:19)
[2018-04-09] MEDS: CARVEDILOL 3.125 MG TABLET NG SCH ×2 (09:21→21:20)
[2018-04-09] MEDS: FAMOTIDINE 20 MG TABLET NG SCH ×2 (09:21→21:20)
[2018-04-09] MEDS: DOCUSATE SODIUM 100 MG/10 ML UDC NG SCH (09:21)
[2018-04-09] MEDS: LEVOFLOXACIN 750 MG/D5W RTU 750 MG/150 ML RTUPB IV SCH (09:22)
--- NOTE | 2018-04-09 18:07 | PDOC PROGRESS REPORT ---
Subjective Progress Note for:: 04/09/18 Subjective:: The patient is a 52 year old female with a past medical history of chronic respiratory failure secondary to COPD and CHF, RICO, DM 2, hypertension, tobacco abuse with continuous use, and cocaine abuse with recent use who was admitted 03/30/2018 for dyspnea that decompensated throughout the day and subsequently required intubation mechanical ventilation that afternoon. The patient was seen on afternoon rounds with nursing at the bedside. She is currently on [place] VC with pressure support with tidal volume 450, PEEP 8, FiO2 50%, respiratory rate 14 with ABG demonstrating persistent alkalosis. The patient's Versed drip has been discontinued, continues on propofol; though wide awake. Patient is noted to be making eye contact, tracking movement in the room, pulling faces at the nurses, and attempting to communicate. Continued spontaneous breathing trials; patient with improved effort/tolerance today though now noted to be holding her breath. As the nurses are telling me that this, the patient gets my attention and then mouthed the word "watch" followed b y a very clear and purposeful holding of breath. When told that she should be helping the nurses and not holding her breath so that she can be extubated, she dramatically rolled her eyes at me. No concerns per nursing. Reason For Visit: ACUTE ON CHRONIC RESP FAILURE Physical Exam Vital Signs: Temp Pulse Resp BP Pulse Ox 100.0 F 67 18 119/69 97 04/09/18 14:35 04/09/18 14:00 04/09/18 14:35 04/09/18 14:35 04/09/18 14:35 Intake & Output 04/08/18 04/09/18 04/10/18 06:59 06:59 06:59 Intake Total 1734 1567 350 Output Total 2205 2225 1100 Balance -020 -965 -821 Weight 98.1 kg 99.3 kg General appearance: PRESENT: no acute distress, morbidly obese, well-developed, well-nourished Head exam: PRESENT: atraumatic, normocephalic Eye exam: PRESENT: conjunctiva pink, EOMI, PERRLA. ABSENT: scleral icterus Ear exam: PRESENT: normal external ear exam Mouth exam: PRESENT: moist, tongue midline Neck exam: ABSENT: carotid bruit, JVD, lymphadenopathy, thyromegaly Respiratory exam: PRESENT: decreased breath sounds - bibasilar, prolonged expiratory phas, rhonchi, symmetrical, unlabored, other - mechanically ventilated. ABSENT: rales, wheezes Cardiovascular exam: PRESENT: RRR, +S1, +S2. ABSENT: diastolic murmur, rubs, systolic murmur Pulses: PRESENT: normal dorsalis pedis pul Vascular exam: PRESENT: normal capillary refill GI/Abdominal exam: PRESENT: normal bowel sounds, soft, other - OG tube w/ tube feeds. ABSENT: distended, guarding, mass, organolmegaly, rebound, tenderness Rectal exam: PRESENT: deferred Gentrourinary exam: PRESENT: indwelling catheter Extremities exam: PRESENT: full ROM. ABSENT: calf tenderness, clubbing, pedal edema Neurological exam: PRESENT: alert, awake, CN II-XII grossly intact. ABSENT: motor sensory deficit Psychiatric exam: PRESENT: agitated, appropriate affect, normal mood. ABSENT: homicidal ideation, suicidal ideation Skin exam: PRESENT: dry, intact, warm. ABSENT: cyanosis, rash Results Laboratory Results: 04/09/18 03:54 04/09/18 03:54 04/09/18 04/09/18 04/09/18 03:54 03:54 04:25 WBC 14.7 H RBC 5.46 H Hgb 13.9 Hct 43.5 MCV 80 MCH 25.5 L MCHC 32.0 RDW 18.5 H Plt Count 211 Seg Neutrophils % 84.5 H Lymphocytes % 7.7 L Monocytes % 7.5 Eosinophils % 0.0 Basophils % 0.3 Absolute Neutrophils 12.4 H Absolute Lymphocytes 1.1 Absolute Monocytes 1.1 Absolute Eosinophils 0.0 Absolute Basophils 0.0 Carbonic Acid 1.51 H HCO3/H2CO3 Ratio 25:1 ABG pH 7.50 H ABG pCO2 50.3 H ABG pO2 72.6 L ABG HCO3 37.9 H ABG O2 Saturation 95.5 ABG Base Excess 12.7 FiO2 45% Sodium 138.6 Potassium 4.0 Chloride 95 L Carbon Dioxide 37 H Anion Gap 7 BUN 39 H Creatinine 0.48 L Est GFR ( Amer) > 60 Est GFR (Non-Af Amer) > 60 Glucose 133 H Calcium 8.9 Magnesium 2.4 H Total Bilirubin 0.7 AST 25 ALT 24 Alkaline Phosphatase 46 Total Protein 6.5 Albumin 3.7 04/06/18 23:50 Sputum Gram Stain - Final 04/06/18 23:50 Sputum Sputum Culture - Final Staphylococcus Aureus Corynebacterium Striatum Greatly Reduced Normal Sharita 03/30/18 03/30/18 03/30/18 06:45 06:45 14:41 Troponin I 0.013 < 0.012 NT-Pro-B Natriuret Pep 947 H 03/30/18 03/31/18 04/01/18 20:10 03:45 04:02 Troponin I < 0.012 NT-Pro-B Natriuret Pep 379 92 Impressions: Chest X-Ray 04/09/18 06:00 IMPRESSION: No significant change. Assessment & Plan - Diagnosis (1) Acute and chronic respiratory failure with hypercapnia Is this a current diagnosis for this admission?: Yes Plan: Secondary to COPD and CHF exacerbation. Chest x-ray reveals mild pulmonary vascular congestion; possible LLL pneumonia ProBNP minimally elevated to 900--> 92. Troponin is negative. EKG is reassuring. EKG shows NSR with inverted T waves in V1-3 Initially admitted to [facility] on continuous cardiac telemetry and BiPAP. Intubated for acute respiratory failure with hypercapnia. Upgraded to ICU. PRBC PEEP 8 RR 14 TV 450 FiO2 50% CO2 remains elevated but close to baseline Improved breathing trial tolerance today; now intentionally holding breath during trials. Dr. Torres is consulted for vent management and assistance in managing the patient's underlying chronic respiratory conditions. Continue scheduled and as needed nebulizer treatments, IV Solu-Medrol, diuresing with Lasix, Mucinex twice daily. Hopefully extubate tomorrow. (2) COPD exacerbation Is this a current diagnosis for this admission?: Yes Plan: As above. (3) Congestive heart failure Qualifiers: Heart failure type: unspecified Heart failure chronicity: acute Qualified Code(s): I50.9 - Heart failure, unspecified Is this a current diagnosis for this admission?: Yes Plan: Stabilized Mild pulmonary edema on initial chest x-ray. ProBNP improved from 900-->92, no longer trending Echocardiogram is unremarkable - LVEF 65% and mild grade I diastolic dysfunction Daily weights and strict I&O's. Continue IV furosemide 10 mg twice daily. Continue home dose carvedilol. (4) Diabetes Qualifiers: Diabetes mellitus type: type 2 Diabetes mellitus half-way insulin use: without termite helper use Diabetes mellitus complication status: with unspecified complications Qualified Code(s): E11.8 - Type 2 diabetes mellitus with unspecified complications Is this a current diagnosis for this admission?: Yes Plan: Currently n.p.o. secondary to sedation/mechanical ventilation. Accu-Cheks every 6 hours with Humalog for sliding scale coverage and hypoglycemia protocol in place. Enteral feedings started 04/01/18; continues to have good glycemic control. Will consult the registered associate. (5) Cocaine abuse Is this a current diagnosis for this admission?: Yes Plan: UDS positive for cocaine; confirmation positive. History of the same. Discharge planning is consulted; consider mental health consultation. (6) Tobacco dependence Is this a current diagnosis for this admission?: Yes Plan: Nicotine replacement therapies are provided. (7) UTI (urinary tract infection) Qualifiers: Indwelling urinary catheter type: indwelling urethral catheter Encounter type: initial encounter Is this a current diagnosis for this admission?: Yes Plan: UA (+) for UTI. Unclear if this was present on admission because UA not completed in ED. IV antibiotics transitioned to IV Zosyn (secondary to sputum culture results). (8) Pneumonia Qualifiers: Laterality: left Lung location: lower lobe of lung Qualified Code(s): J18.1 - Lobar pneumonia, unspecified organism Is this a current diagnosis for this admission?: Yes Plan: Left lower lobe consolidation by x-ray. Atelectasis versus pneumonia with effusion. Sputum culture (+) for strep pneumo Repeat sputum culture positive for staph aureus; resistant to Levaquin. Blood cultures negative at 48 hours. Levaquin discontinued; start IV Zosyn. Management of acute on chronic respiratory failure as above. (9) Streptococcus pneumoniae Is this a current diagnosis for this admission?: Yes Plan: Sputum culture (+) for strep pneumo Blood cultures negative at 48 hours. Repeat sputum cultures shows MSSA with levaquin resistance. Chest xray demonstrates a moderate left lower lobe consolidation/effusion; pneumonia versus atelectasis. DC Levaquin; start Zosyn.
[2018-04-09] MEDS: PIPERACILLIN SODIUM/TAZOBACTAM 3.375 GM in NORMAL SALINE 100 ML IV SCH (18:28)
[2018-04-10] MEDS: INSULIN LISPRO 100 UNIT/ML 3 ML VIAL SUBCUT SCH ×4 (00:29→16:49)
[2018-04-10] MEDS: PIPERACILLIN SODIUM/TAZOBACTAM 3.375 GM in NORMAL SALINE 100 ML IV SCH ×5 (00:38→23:57)
[2018-04-10] MEDS: PROPOFOL 1,000 MG/100 ML INFUS..BTL IV PRN ×3 (00:41→08:08)
[2018-04-10] MEDS: IPRATROPIUM/ALBUTEROL 0.5-2.5 MG/3 ML AMPUL NEB SCH ×4 (01:40→20:03)
[2018-04-10 03:58] LABS: ABSOLUTE BASOPHILS # (AUTO) 0.1 10^3/uL (0.0-0.2); ABSOLUTE LYMPHOCYTES (AUTO) 1.2 10^3/uL (0.5-4.7); ABSOLUTE MONOCYTES (AUTO) 1.4 10^3/uL (0.1-1.4); ABSOLUTE NEUT (AUTO) 17.1 10^3/uL (1.7-8.2); BASOPHILS % (AUTO) 0.3 % (0-2); HEMATOCRIT 43.2 % (36.0-47.0); HEMOGLOBIN 14.2 g/dL (12.0-15.5); LYMPHOCYTES % (AUTO) 6.2 % (13-45); MEAN CORPUSCULAR HEMOGLOBIN 25.9 pg (27.0-33.4); MEAN CORPUSCULAR HGB CONC 32.8 g/dL (32.0-36.0); MEAN CORPUSCULAR VOLUME 79 fl (80-97); PLATELET COUNT 201 10^3/uL (150-450); RED BLOOD COUNT 5.47 10^6/uL (3.72-5.28); RED CELL DISTRIBUTION WIDTH 18.7 % (11.5-14.0); SEGMENTED NEUTROPHILS % (AUTO) 86.5 % (42-78); TOTAL CELLS COUNTED % (AUTO) 100 %; WHITE BLOOD COUNT 19.8 10^3/uL (4.0-10.5)
[2018-04-10 04:48] LABS: ARTERIAL BLOOD BASE EXCESS 11.3 mmol/L; ARTERIAL BLOOD H2CO3 1.19 mmol/L (1.05-1.35); ARTERIAL BLOOD HCO3 34.5 mmol/L (20-24); ARTERIAL BLOOD O2 SATURATION 98.2 % (94-98); ARTERIAL BLOOD PCO2 39.7 mmHg (35-45); ARTERIAL BLOOD PH 7.56 (7.35-7.45); ARTERIAL BLOOD PO2 101.3 mmHg (80-100); ARTERIAL BLOOD TOTAL CO2 35.7 mmol/L (21-25)
[2018-04-10 04:51] LABS: ARTERIAL BLOOD FIO2 45%
[2018-04-10 05:13] LABS: ALANINE AMINOTRANSFERASE 14 U/L (9-52); ALBUMIN 3.9 g/dL (3.5-5.0); ALKALINE PHOSPHATASE 47 U/L (38-126); ANION GAP 9 (5-19); ASPARTATE AMINO TRANSFERASE 14 U/L (14-36); BILIRUBIN,DIRECT 0.3 mg/dL (0.0-0.4); BILIRUBIN,TOTAL 0.9 mg/dL (0.2-1.3); BLOOD UREA NITROGEN 33 mg/dL (7-20); CALCIUM 9.2 mg/dL (8.4-10.2); CARBON DIOXIDE 34 mmol/L (22-30); CHLORIDE 96 mmol/L (98-107); GLUCOSE 125 mg/dL (75-110); POTASSIUM 3.6 mmol/L (3.6-5.0); SODIUM 139.4 mmol/L (137-145); TOTAL PROTEIN 6.2 g/dL (6.3-8.2)
[2018-04-10] MEDS: METHYLPREDNISOLONE INJ 40 MG/1 ML SDV IV SCH ×3 (05:23→21:08)
[2018-04-10] MEDS: HEPARIN SOD (PORCINE) 5,000 UNIT/ML 1 ML SYRINGE SUBCUT SCH ×3 (05:24→21:09)
[2018-04-10] MEDS: GABAPENTIN 300 MG CAPSULE NG SCH ×3 (05:24→21:04)
--- NOTE | 2018-04-10 06:37 | RADIOLOGY REPORT (SQ) ---
EXAM DESCRIPTION: XR CHEST 1 VIEW COMPLETED DATE/TME: 04/10/2018 06:00 CLINICAL HISTORY: Respiratory Distress. 52 years Female, resp failure COMPARISON: One day prior. NUMBER OF VIEWS/TECHNIQUE: 1/AP FINDINGS: Mild interstitial markings.Adequate appearing endotracheal tube. Likely adequate appearing enteric tube partially obscured. Normal cardiac silhouette size. No pneumothorax. Stable bony thorax. IMPRESSION: No significant change.
[2018-04-10] MEDS ORDERED: HALOPERIDOL LACTATE INJ 5 MG/1 ML VIAL IV PRN (09:37)
[2018-04-10] MEDS: CARVEDILOL 3.125 MG TABLET NG SCH ×2 (11:52→21:02)
[2018-04-10] MEDS: GUAIFENESIN SYRP 200 MG/10 ML UDC PO SCH ×2 (11:52→21:07)
[2018-04-10] MEDS: FAMOTIDINE 20 MG TABLET NG SCH ×2 (11:52→21:04)
[2018-04-10] MEDS: MAGNESIUM HYDROXIDE SUSP 30 ML UDCUP PO SCH (11:53)
[2018-04-10] MEDS: FUROSEMIDE INJ/PF 20 MG/2 ML SDV IV SCH (11:53)
[2018-04-10] MEDS: DOCUSATE SODIUM 100 MG/10 ML UDC NG SCH (11:53)
[2018-04-10 12:34] LABS: ARTERIAL BLOOD H2CO3 1.65 mmol/L (1.05-1.35); ARTERIAL BLOOD HCO3 38.1 mmol/L (20-24); ARTERIAL BLOOD O2 SATURATION 88.4 % (94-98); ARTERIAL BLOOD PCO2 54.9 mmHg (35-45); ARTERIAL BLOOD PH 7.46 (7.35-7.45); ARTERIAL BLOOD TOTAL CO2 39.8 mmol/L (21-25)
[2018-04-10 12:36] LABS: ARTERIAL BLOOD FIO2 10%
--- NOTE | 2018-04-10 15:41 | PDOC PROGRESS REPORT ---
Subjective Progress Note for:: 04/10/18 Subjective:: The patient is a 52 year old female with a past medical history of chronic respiratory failure secondary to COPD and CHF, RICO, DM 2, hypertension, tobacco abuse with continuous use, and cocaine abuse with recent use who was admitted 03/30/2018 for dyspnea that decompensated throughout the day and subsequently required intubation mechanical ventilation that afternoon. The patient was seen on morning rounds with nursing at the bedside. The patient was extubated this morning; tolerated well, placed on facemask and maintained oxygen saturations in the mid to high 90s. Patient was alert and oriented x4 and was able to recall portions of our conversation from the day she was admitted 11 days ago. However, she was highly agitated with regard to the nursing staff and had several complaints. She reported that the nursing staff gave her "18 mg of blood" and intended to pippa the hospital because now she had AIDS. She requested HIV screening, which I agree to as she said that she does have multiple risk factors and has not been screened in several years (HIV screening was negative as expected). I did inform the patient that she did not receive any blood products while intubated. The patient then stated that she watched the nurses "stealing and sharing my opium." We attempted to reorientate her but she continued to grow more agitated; eventually demanding to leave AGAINST MEDICAL ADVICE. She was strongly advised against this. Dr. Torres came to the bedside and reinforced the risks of her leaving today. Despite this, the patient continued to demand to leave, therefore, psychiatry was contacted and were able to come down for IVC screening. The Mental health team did not find indications for IVC status at this time and have cleared her from a psychiatric standpoint. At the conclusion of the meeting, the patient requested to eat, and was agree able to remaining in the hospital when she was promised that a swallow screen would be done and her diet would be advanced if safe. No concerns per nursing. Reason For Visit: ACUTE ON CHRONIC RESP FAILURE Physical Exam Vital Signs: Temp Pulse Resp BP Pulse Ox 99.9 F 84 32 H 117/67 92 04/10/18 14:00 04/10/18 14:00 04/10/18 14:00 04/10/18 14:00 04/10/18 14:00 Intake & Output 04/09/18 04/10/18 04/11/18 06:59 06:59 06:59 Intake Total 1567 1321 366 Output Total 2225 2155 425 [facility] -658 -834 -59 Weight 99.3 kg 98.3 kg General appearance: PRESENT: no acute distress, disheveled, obese, well- developed. ABSENT: cooperative Head exam: PRESENT: atraumatic, normocephalic Eye exam: PRESENT: conjunctiva pink, EOMI, PERRLA. ABSENT: scleral icterus Ear exam: PRESENT: normal external ear exam Mouth exam: PRESENT: moist, tongue midline Teeth exam: PRESENT: poor dentation Neck exam: ABSENT: carotid bruit, JVD, lymphadenopathy, thyromegaly Respiratory exam: PRESENT: prolonged expiratory phas, rhonchi, symmetrical, tachypnea, unlabored, other - Supplemental oxygen. ABSENT: rales, wheezes Cardiovascular exam: PRESENT: RRR, +S1, +S2. ABSENT: diastolic murmur, rubs, systolic murmur Pulses: PRESENT: normal dorsalis pedis pul Vascular exam: PRESENT: normal capillary refill GI/Abdominal exam: PRESENT: normal bowel sounds, soft. ABSENT: distended, guarding, mass, organolmegaly, rebound, tenderness Rectal exam: PRESENT: deferred Extremities exam: PRESENT: full ROM. ABSENT: calf tenderness, clubbing, pedal edema Neurological exam: PRESENT: alert, awake, oriented to person, oriented to place, oriented to time, oriented to situation, CN II-XII grossly intact. ABSENT: motor sensory deficit Psychiatric exam: PRESENT: agitated, appropriate affect. ABSENT: homicidal ideation, suicidal ideation Focused psych exam: PRESENT: delusional, restlessness Skin exam: PRESENT: dry, intact, warm. ABSENT: cyanosis, rash Results Laboratory Results: 04/10/18 03:50 04/10/18 04:25 04/10/18 04/10/18 04/10/18 03:50 03:50 04:25 WBC 19.8 H RBC 5.47 H Hgb 14.2 Hct 43.2 MCV 79 L MCH 25.9 L MCHC 32.8 RDW 18.7 H Plt Count 201 Seg Neutrophils % 86.5 H Lymphocytes % 6.2 L Monocytes % 7.0 Eosinophils % 0.0 Basophils % 0.3 Absolute Neutrophils 17.1 H Absolute Lymphocytes 1.2 Absolute Monocytes 1.4 Absolute Eosinophils 0.0 Absolute Basophils 0.1 Carbonic Acid HCO3/H2CO3 Ratio ABG pH ABG pCO2 ABG pO2 ABG HCO3 ABG O2 Saturation ABG Base Excess FiO2 Sodium Cancelled 139.4 Potassium Cancelled 3.6 Chloride Cancelled 96 L Carbon Dioxide Cancelled 34 H Anion Gap Cancelled 9 BUN Cancelled 33 H Creatinine Cancelled 0.51 L Est GFR ( Amer) Cancelled > 60 Est GFR (Non-Af Amer) Cancelled > 60 Glucose Cancelled 125 H Calcium Cancelled 9.2 Magnesium Cancelled 2.3 Total Bilirubin Cancelled 0.9 AST Cancelled 14 ALT Cancelled 14 Alkaline Phosphatase Cancelled 47 Total Protein Cancelled 6.2 L Albumin Cancelled 3.9 04/10/18 04/10/18 04:25 12:14 WBC RBC Hgb Hct MCV MCH MCHC RDW Plt Count Seg Neutrophils % Lymphocytes % Monocytes % Eosinophils % Basophils % Absolute Neutrophils Absolute Lymphocytes Absolute Monocytes Absolute Eosinophils Absolute Basophils Carbonic Acid 1.19 1.65 H HCO3/H2CO3 Ratio 28:1 23:1 ABG pH 7.56 H 7.46 H ABG pCO2 39.7 54.9 H ABG pO2 101.3 H 53.0 L ABG HCO3 34.5 H 38.1 H ABG O2 Saturation 98.2 H 88.4 L ABG Base Excess 11.3 12.0 FiO2 45% 10% Sodium Potassium Chloride Carbon Dioxide Anion Gap BUN Creatinine Est GFR ( Amer) Est GFR (Non-Af Amer) Glucose Calcium Magnesium Total Bilirubin AST ALT Alkaline Phosphatase Total Protein Albumin 04/06/18 23:50 Sputum Gram Stain - Final 04/06/18 23:50 Sputum Sputum Culture - Final Staphylococcus Aureus Corynebacterium Striatum Greatly Reduced Normal Sharita 03/30/18 03/30/18 03/30/18 06:45 06:45 14:41 Troponin I 0.013 < 0.012 NT-Pro-B Natriuret Pep 947 H 03/30/18 03/31/18 04/01/18 20:10 03:45 04:02 Troponin I < 0.012 NT-Pro-B Natriuret Pep 379 92 Impressions: Chest X-Ray 04/10/18 06:00 IMPRESSION: No significant change. Assessment & Plan - Diagnosis (1) Acute and chronic respiratory failure with hypercapnia Is this a current diagnosis for this admission?: Yes Plan: Extubated 04/10/18. Secondary to COPD and CHF exacerbation. Chest x-ray reveals mild pulmonary vascular congestion; possible LLL pneumonia ProBNP minimally elevated to 900--> 92. Troponin is negative. EKG is reassuring. EKG shows NSR with inverted T waves in V1-3 Continue scheduled and as needed nebulizer treatments, IV Solu-Medrol, diuresing with Lasix, Mucinex twice daily. Supplemental oxygen as needed to maintain oxygen saturations >88%; patient utilizes 2-3 L via NC at baseline. (2) COPD exacerbation Is this a current diagnosis for this admission?: Yes Plan: As above. (3) Congestive heart failure Qualifiers: Heart failure type: unspecified Heart failure chronicity: acute Qualified Code(s): I50.9 - Heart failure, unspecified Is this a current diagnosis for this admission?: Yes Plan: Stabilized Mild pulmonary edema on initial chest x-ray. ProBNP improved from 900-->92, no longer trending Echocardiogram is unremarkable - LVEF 65% and mild grade I diastolic dysfunction Daily weights and strict I&O's. Transition to p.o. furosemide. Continue home dose carvedilol. (4) Diabetes Qualifiers: Diabetes mellitus type: type 2 Diabetes mellitus buttermaker continuous churn insulin use: without buttermaker continuous churn use Diabetes mellitus complication status: with unspecified complications Qualified Code(s): E11.8 - Type 2 diabetes mellitus with unspecified complications Is this a current diagnosis for this admission?: Yes Plan: Now on clear liquid diet; advanced as tolerated to consistent carb/cardiac diet. Accu-Cheks before meals and at bedtime with Humalog for sliding scale coverage and hypoglycemia protocol in place. (5) Cocaine abuse Is this a current diagnosis for this admission?: Yes Plan: UDS positive for cocaine; confirmation positive. History of the same. Discharge planning is consulted; consider mental health consultation. (6) Tobacco dependence Is this a current diagnosis for this admission?: Yes Plan: Nicotine replacement therapies are provided. (7) UTI (urinary tract infection) Qualifiers: Indwelling urinary catheter type: indwelling urethral catheter Encounter type: initial encounter Is this a current diagnosis for this admission?: Yes Plan: UA (+) for UTI. Unclear if this was present on admission because UA not completed in ED. IV antibiotics transitioned to IV Zosyn (secondary to sputum culture results). (8) Pneumonia Qualifiers: Laterality: left Lung location: lower lobe of lung Qualified Code(s): J18.1 - Lobar pneumonia, unspecified organism Is this a current diagnosis for this admission?: Yes Plan: Left lower lobe consolidation by x-ray. Atelectasis versus pneumonia with effusion. Sputum culture (+) for strep pneumo Repeat sputum culture positive for staph aureus; resistant to Levaquin. Blood cultures negative at 72 hours. Levaquin discontinued; start IV Zosyn; Day #2 Management of acute on chronic respiratory failure as above. (9) Streptococcus pneumoniae Is this a current diagnosis for this admission?: Yes Plan: Sputum culture (+) for strep pneumo Blood cultures negative at 72 hours. Repeat sputum cultures shows MSSA with levaquin resistance. Chest xray demonstrates a moderate left lower lobe consolidation/effusion; pneumonia versus atelectasis. Continue Zosyn. - Time Time Spent with patient: 35 or more minutes Medications reviewed and adjusted accordingly: Yes Anticipated discharge: SNF, Other - Patient will benefit from SNF for short-term rehab, however, likely will leave AGAINST MEDICAL ADVICE prior to redness for transfer to facility.
[2018-04-10] MEDS: FUROSEMIDE 20 MG TABLET PO SCH (17:20)
[2018-04-11] MEDS: INSULIN LISPRO 100 UNIT/ML 3 ML VIAL SUBCUT SCH ×5 (00:10→21:57)
[2018-04-11] MEDS: IPRATROPIUM/ALBUTEROL 0.5-2.5 MG/3 ML AMPUL NEB SCH ×4 (01:46→19:44)
[2018-04-11 04:19] LABS: ABSOLUTE LYMPHOCYTES (AUTO) 0.8 10^3/uL (0.5-4.7); ABSOLUTE MONOCYTES (AUTO) 0.5 10^3/uL (0.1-1.4); ABSOLUTE NEUT (AUTO) 12.9 10^3/uL (1.7-8.2); BASOPHILS % (AUTO) 0.3 % (0-2); EOSINOPHILS % (AUTO) 0.1 % (0-6); HEMATOCRIT 43.4 % (36.0-47.0); HEMOGLOBIN 14.2 g/dL (12.0-15.5); LYMPHOCYTES % (AUTO) 5.9 % (13-45); MEAN CORPUSCULAR HEMOGLOBIN 26.1 pg (27.0-33.4); MEAN CORPUSCULAR HGB CONC 32.7 g/dL (32.0-36.0); MEAN CORPUSCULAR VOLUME 80 fl (80-97); MONOCYTES % (AUTO) 3.7 % (3-13); PLATELET COUNT 219 10^3/uL (150-450); RED BLOOD COUNT 5.45 10^6/uL (3.72-5.28); TOTAL CELLS COUNTED % (AUTO) 100 %; WHITE BLOOD COUNT 14.4 10^3/uL (4.0-10.5)
[2018-04-11 04:32] LABS: ANION GAP 7 (5-19); BLOOD UREA NITROGEN 30 mg/dL (7-20); CALCIUM 9.1 mg/dL (8.4-10.2); CARBON DIOXIDE 37 mmol/L (22-30); CHLORIDE 97 mmol/L (98-107); GLUCOSE 130 mg/dL (75-110); POTASSIUM 3.9 mmol/L (3.6-5.0); SODIUM 140.7 mmol/L (137-145)
[2018-04-11 05:57] LABS: ARTERIAL BLOOD BASE EXCESS 8.6 mmol/L; ARTERIAL BLOOD H2CO3 1.39 mmol/L (1.05-1.35); ARTERIAL BLOOD HCO3 33.4 mmol/L (20-24); ARTERIAL BLOOD O2 SATURATION 91.4 % (94-98); ARTERIAL BLOOD PCO2 46.3 mmHg (35-45); ARTERIAL BLOOD PH 7.48 (7.35-7.45); ARTERIAL BLOOD PO2 57.4 mmHg (80-100); ARTERIAL BLOOD TOTAL CO2 34.8 mmol/L (21-25)
[2018-04-11 06:04] LABS: ARTERIAL BLOOD FIO2 3L
[2018-04-11] MEDS: PIPERACILLIN SODIUM/TAZOBACTAM 3.375 GM in NORMAL SALINE 100 ML IV SCH ×4 (06:26→23:07)
[2018-04-11] MEDS: HEPARIN SOD (PORCINE) 5,000 UNIT/ML 1 ML SYRINGE SUBCUT SCH ×3 (06:28→21:28)
[2018-04-11] MEDS: METHYLPREDNISOLONE INJ 40 MG/1 ML SDV IV SCH ×3 (06:28→21:28)
[2018-04-11] MEDS: GABAPENTIN 300 MG CAPSULE NG SCH ×2 (06:29→14:37)
--- NOTE | 2018-04-11 07:01 | RADIOLOGY REPORT (SQ) ---
CLINICAL HISTORY: resp failure COMPARISON: April 10 2018 TECHNIQUE: XR CHEST 1 VIEW 04/11/2018 6:00 AM EVENT STAFF FINDINGS: Cardiac silhouette is borderline in size. Lungs are clear without consolidation, atelectasis, mass or edema. There is no pleural effusion. There is no pneumothorax. There are no acute osseous findings. IMPRESSION: No definite pneumonia.
[2018-04-11] MEDS: DOCUSATE SODIUM 100 MG/10 ML UDC NG SCH (09:27)
[2018-04-11] MEDS: MAGNESIUM HYDROXIDE SUSP 30 ML UDCUP PO SCH (09:28)
[2018-04-11] MEDS: GUAIFENESIN SYRP 200 MG/10 ML UDC PO SCH ×2 (09:28→21:27)
[2018-04-11] MEDS: FAMOTIDINE 20 MG TABLET NG SCH ×2 (09:29→21:28)
[2018-04-11] MEDS: FUROSEMIDE 20 MG TABLET PO SCH ×2 (09:29→18:21)
[2018-04-11] MEDS: CARVEDILOL 3.125 MG TABLET NG SCH ×2 (09:29→21:27)
[2018-04-11] MEDS ORDERED: IBUPROFEN 600 MG TABLET PO PRN (14:48)
--- NOTE | 2018-04-11 14:58 | PDOC PROGRESS REPORT ---
Subjective Progress Note for:: 04/11/18 Subjective:: The patient is a 52 year old female with a past medical history of chronic respiratory failure secondary to COPD and CHF, RICO, DM 2, hypertension, tobacco abuse with continuous use, and cocaine abuse with recent use who was admitted 03/30/2018 for dyspnea that decompensated throughout the day and subsequently required intubation mechanical ventilation that afternoon. The patient was seen on morning rounds with nursing at the bedside. The patient was extubated yesterday, now on nasal cannula. The patient reports that she is unable to feel her arms or hands; she is very upset and tearful. As she is saying this, she is noted to have an adequate outside collector on her fork and is self eating her breakfast. On exam, she is able to differentiate between soft and sharp sensations. Silk Screen Printer are equal 3/5. She tells me that she is hoping to go home soon and is upset that the nurses are not allowing her to get out of bed (pending PT eval today). Otherwise, she has no new questions or concerns. No concerns per nursing. Reason For Visit: ACUTE ON CHRONIC RESP FAILURE Physical Exam Vital Signs: Temp Pulse Resp BP Pulse Ox 98.8 F 66 29 H 129/77 H 97 04/11/18 14:00 04/11/18 14:16 04/11/18 14:16 04/11/18 14:00 04/11/18 14:16 Intake & Output 04/10/18 04/11/18 04/12/18 06:59 06:59 06:59 Intake Total 1321 566 580 Output Total 2155 1600 445 Balance -834 -1034 135 Weight 98.3 kg 97.4 kg General appearance: PRESENT: no acute distress, disheveled, obese, well- developed, well-nourished Head exam: PRESENT: atraumatic, normocephalic Eye exam: PRESENT: conjunctiva pink, EOMI, PERRLA. ABSENT: scleral icterus Ear exam: PRESENT: normal external ear exam Mouth exam: PRESENT: moist, tongue midline Teeth exam: PRESENT: poor dentation Neck exam: ABSENT: carotid bruit, JVD, lymphadenopathy, thyromegaly Respiratory exam: PRESENT: clear to auscultation tara, rhonchi, symmetrical, unlabored, other - Supplemental oxygen via nasal cannula. ABSENT: rales, wheezes Cardiovascular exam: PRESENT: RRR, +S1, +S2. ABSENT: diastolic murmur, rubs, systolic murmur Pulses: PRESENT: normal dorsalis pedis pul Vascular exam: PRESENT: normal capillary refill GI/Abdominal exam: PRESENT: normal bowel sounds, soft. ABSENT: distended, guarding, mass, organolmegaly, rebound, tenderness Rectal exam: PRESENT: deferred Extremities exam: PRESENT: full ROM. ABSENT: calf tenderness, clubbing, pedal edema Neurological exam: PRESENT: alert, awake, oriented to person, oriented to place, oriented to time, oriented to situation, CN II-XII grossly intact. ABSENT: motor sensory deficit Psychiatric exam: PRESENT: appropriate affect, normal mood. ABSENT: homicidal ideation, suicidal ideation Skin exam: PRESENT: dry, intact, warm. ABSENT: cyanosis, rash Results Laboratory Results: 04/11/18 04:11 04/11/18 04:11 04/11/18 04/11/18 04/11/18 04:11 04:11 05:50 WBC 14.4 H RBC 5.45 H Hgb 14.2 Hct 43.4 MCV 80 MCH 26.1 L MCHC 32.7 RDW 19.0 H Plt Count 219 Seg Neutrophils % 90.0 H Lymphocytes % 5.9 L Monocytes % 3.7 Eosinophils % 0.1 Basophils % 0.3 Absolute Neutrophils 12.9 H Absolute Lymphocytes 0.8 Absolute Monocytes 0.5 Absolute Eosinophils 0.0 Absolute Basophils 0.0 Carbonic Acid 1.39 H HCO3/H2CO3 Ratio 24:1 ABG pH 7.48 H ABG pCO2 46.3 H ABG pO2 57.4 L ABG HCO3 33.4 H ABG O2 Saturation 91.4 L ABG Base Excess 8.6 FiO2 3L Sodium 140.7 Potassium 3.9 Chloride 97 L Carbon Dioxide 37 H Anion Gap 7 BUN 30 H Creatinine 0.44 L Est GFR ( Amer) > 60 Est GFR (Non-Af Amer) > 60 Glucose 130 H Calcium 9.1 Magnesium 2.3 03/30/18 03/30/18 03/30/18 06:45 06:45 14:41 Troponin I 0.013 < 0.012 NT-Pro-B Natriuret Pep 947 H 03/30/18 03/31/18 04/01/18 20:10 03:45 04:02 Troponin I < 0.012 NT-Pro-B Natriuret Pep 379 92 Impressions: Chest X-Ray 04/11/18 06:00 IMPRESSION: No definite pneumonia. Assessment & Plan - Diagnosis (1) Acute and chronic respiratory failure with hypercapnia Is this a current diagnosis for this admission?: Yes Plan: Improved; extubated 04/10/18. Secondary to COPD and CHF exacerbation. Chest x-ray reveals mild pulmonary vascular congestion; possible LLL pneumonia ProBNP minimally elevated to 900--> 92. Troponin is negative. EKG is reassuring. EKG shows NSR with inverted T waves in V1-3 Continue scheduled and as needed nebulizer treatments, IV Solu-Medrol, diuresing with Lasix, Mucinex twice daily. Supplemental oxygen as needed to maintain oxygen saturations >88%; patient utilizes 2-3 L via NC at baseline. (2) COPD exacerbation Is this a current diagnosis for this admission?: Yes Plan: As above. (3) Congestive heart failure Qualifiers: Heart failure type: unspecified Heart failure chronicity: acute Qualified Code(s): I50.9 - Heart failure, unspecified Is this a current diagnosis for this admission?: Yes Plan: Stabilized Mild pulmonary edema on initial chest x-ray. ProBNP improved from 900-->92, no longer trending Echocardiogram is unremarkable - LVEF 65% and mild grade I diastolic dysfunction Daily weights and strict I&O's. Continue p.o. furosemide. Continue home dose carvedilol. (4) Diabetes Qualifiers: Diabetes mellitus type: type 2 Diabetes mellitus shelter insulin use: without shelter use Diabetes mellitus complication status: with unspecified complications Qualified Code(s): E11.8 - Type 2 diabetes mellitus with unspecified complications Is this a current diagnosis for this admission?: Yes Plan: Now on clear liquid diet; advanced as tolerated to consistent carb/cardiac diet. Accu-Cheks before meals and at bedtime with Humalog for sliding scale coverage and hypoglycemia protocol in place. (5) Cocaine abuse Is this a current diagnosis for this admission?: Yes Plan: UDS positive for cocaine; confirmation positive. History of the same. Discharge planning is consulted; consider mental health consultation. (6) Tobacco dependence Is this a current diagnosis for this admission?: Yes Plan: Nicotine replacement therapies are provided. (7) UTI (urinary tract infection) Qualifiers: Indwelling urinary catheter type: indwelling urethral catheter Encounter type: initial encounter Is this a current diagnosis for this admission?: Yes Plan: UA (+) for UTI. Unclear if this was present on admission because UA not completed in ED. IV antibiotics transitioned to IV Zosyn (secondary to sputum culture results). (8) Pneumonia Qualifiers: Laterality: left Lung location: lower lobe of lung Qualified Code(s): J18.1 - Lobar pneumonia, unspecified organism Is this a current diagnosis for this admission?: Yes Plan: Left lower lobe consolidation by x-ray. Atelectasis versus pneumonia with effusion. Sputum culture (+) for strep pneumo Repeat sputum culture positive for staph aureus; resistant to Levaquin. Blood cultures negative at 72 hours. Levaquin discontinued; start IV Zosyn; Day #3. Anticipate transition to p.o. Augmentin if patient remains afebrile and leukocytosis continues to trends down. Management of acute on chronic respiratory failure as above. (9) Streptococcus pneumoniae Is this a current diagnosis for this admission?: Yes Plan: Sputum culture (+) for strep pneumo Blood cultures negative at 72 hours. Repeat sputum cultures shows MSSA with levaquin resistance. Chest xray demonstrates a moderate left lower lobe consolidation/effusion; pneumonia versus atelectasis. Continue Zosyn. - Time Time Spent with patient: 15-24 minutes Medications reviewed and adjusted accordingly: Yes Anticipated discharge: SNF
[2018-04-11] MEDS: GABAPENTIN 300 MG CAPSULE PO SCH (21:27)
[2018-04-11] MEDS: BUSPIRONE HCL 10 MG TABLET PO SCH (21:27)
[2018-04-12] MEDS: IPRATROPIUM/ALBUTEROL 0.5-2.5 MG/3 ML AMPUL NEB SCH ×2 (02:50→08:18)
[2018-04-12 05:03] LABS: HEMATOCRIT 43.1 % (36.0-47.0); HEMOGLOBIN 13.8 g/dL (12.0-15.5); MEAN CORPUSCULAR HEMOGLOBIN 25.5 pg (27.0-33.4); MEAN CORPUSCULAR VOLUME 80 fl (80-97); PLATELET COUNT 218 10^3/uL (150-450); RED BLOOD COUNT 5.39 10^6/uL (3.72-5.28); RED CELL DISTRIBUTION WIDTH 18.5 % (11.5-14.0); WHITE BLOOD COUNT 12.6 10^3/uL (4.0-10.5)
[2018-04-12] MEDS: GABAPENTIN 300 MG CAPSULE PO SCH (05:27)
[2018-04-12] MEDS: HEPARIN SOD (PORCINE) 5,000 UNIT/ML 1 ML SYRINGE SUBCUT SCH (05:27)
[2018-04-12] MEDS: PIPERACILLIN SODIUM/TAZOBACTAM 3.375 GM in NORMAL SALINE 100 ML IV SCH (05:27)
[2018-04-12] MEDS: METHYLPREDNISOLONE INJ 40 MG/1 ML SDV IV SCH (05:27)
[2018-04-12 07:24] LABS: ANION GAP 8 (5-19); BLOOD UREA NITROGEN 31 mg/dL (7-20); CALCIUM 9.2 mg/dL (8.4-10.2); CARBON DIOXIDE 34 mmol/L (22-30); CHLORIDE 98 mmol/L (98-107); GLUCOSE 130 mg/dL (75-110); POTASSIUM 3.7 mmol/L (3.6-5.0); SODIUM 140.2 mmol/L (137-145)
[2018-04-12] MEDS: INSULIN LISPRO 100 UNIT/ML 3 ML VIAL SUBCUT SCH (08:00)
[2018-04-12] MEDS: FAMOTIDINE 20 MG TABLET NG SCH (09:47)
[2018-04-12] MEDS: FUROSEMIDE 20 MG TABLET PO SCH (09:48)
[2018-04-12] MEDS: BUSPIRONE HCL 10 MG TABLET PO SCH (09:48)
[2018-04-12] MEDS: GUAIFENESIN SYRP 200 MG/10 ML UDC PO SCH (09:48)
[2018-04-12] MEDS: CARVEDILOL 3.125 MG TABLET NG SCH (09:48)
[2018-04-12 11:58] VITALS: BP 101/59
[2018-04-12] MEDS ORDERED: AMOXICILLIN TR/POT CLAVULANATE 500-125 MG TAB PO SCH (14:00)
[2018-04-12] MEDS ORDERED: METHYLPREDNISOLONE INJ 40 MG/1 ML SDV IV SCH (14:00)
--- NOTE | 2018-04-12 15:52 | PDOC DISCHARGE SUMMARY ---
General - Admit/Disc Date/PCP Admission Date/Primary Care Provider: 03/30/18 09:45 BLAYNE CHO, Discharge Date: 04/12/18 - Discharge Diagnosis (1) Acute and chronic respiratory failure with hypercapnia Is this a current diagnosis for this admission?: Yes Summary: Intubated 03/30/18, extubated 04/10/18. Secondary to COPD and CHF exacerbation. Chest x-ray reveals mild pulmonary vascular congestion; possible LLL pneumonia ProBNP minimally elevated to 900--> 92. Troponin is negative. EKG is reassuring. EKG shows NSR with inverted T waves in V1-3 The patient was initially admitted to the [facility] on continuous cardiac telemetry and shortly upgraded to ICU's once she required intubation and mechanical ventilation. She was supported with oxygen, steroids, Lasix for diuresis, sche duled and as needed nebulizer treatments, tube feedings, and Mucinex. The patient gradually improved and was eventually extubated on 04/10/18. She continued to demonstrate improvement and is now maintaining oxygen saturations while at rest on her baseline oxygen requirement of 3 L/min via nasal cannula. The patient left AGAINST MEDICAL ADVICE on 04/12/18. (2) COPD exacerbation Is this a current diagnosis for this admission?: Yes Summary: As above. (3) Congestive heart failure Is this a current diagnosis for this admission?: Yes Summary: Now stable and without exacerbation at this time. Mild pulmonary edema on initial chest x-ray. ProBNP improved from 900-->92, no longer trending Echocardiogram is unremarkable - LVEF 65% and mild grade I diastolic dysfunction The patient was initially supported with IV furosemide; transition to p.o. furosemide. Unfortunately, patient left AGAINST MEDICAL ADVICE prior to being provided prescriptions for her new medication regiment. (4) Diabetes Is this a current diagnosis for this admission?: Yes Summary: The patient's diabetes was managed with consistent carb diet, Accu-Cheks, and Humalog for sliding scale coverage. (5) Cocaine abuse Is this a current diagnosis for this admission?: Yes Summary: UDS positive for cocaine; confirmation positive. History of the same. (6) Tobacco dependence Is this a current diagnosis for this admission?: Yes Summary: Smoking cessation was strongly encouraged; she was provided nicotine replacement therapies while admitted. (7) UTI (urinary tract infection) Is this a current diagnosis for this admission?: Yes Summary: UA (+) for UTI. Unclear if this was present on admission because UA not completed in ED. While intubated, the patient received a full course of IV Levaquin. (8) Pneumonia Is this a current diagnosis for this admission?: Yes Summary: Left lower lobe consolidation by x-ray. Atelectasis versus pneumonia with ef fusion. Sputum culture (+) for strep pneumo Repeat sputum culture positive for staph aureus; resistant to Levaquin. Blood cultures negative at 5 days. The patient received 7 days of IV Levaquin; this was transitioned to IV Zosyn based upon sputum culture results. She received 4 days of IV Zosyn with plans to transition to p.o. Augmentin. Unfortunately, patient left AMA prior to receiving prescription for completion of therapy. (9) Streptococcus pneumoniae Is this a current diagnosis for this admission?: Yes Summary: Sputum culture (+) for strep pneumo Blood cultures negative at 5 days. Repeat sputum cultures shows MSSA with levaquin resistance. Chest xray demonstrates a moderate left lower lobe consolidation/effusion; pneumonia versus atelectasis. Antibiotics as above. - Additional Information Resuscitation Status: Full Code Discharge Diet: Cardiac Discharge Activity: Activity As Tolerated, Balance Activity w/Rest, Weigh Daily Home Medications: Albuterol Sulfate [Proair HFA Inhalation Aerosol 8.5 gm MDI] 2 puff IH Q4HP PRN 03/30/18 Carvedilol [Coreg 3.125 mg Tablet] 3.125 mg PO Q12 03/30/18 Gabapentin [Neurontin 300 mg Capsule] 600 mg PO Q8 03/30/18 Ibuprofen [Motrin 800 mg Tablet] 800 mg PO Q8 03/30/18 Meloxicam [Mobic] 15 mg PO DAILY 03/30/18 Mirabegron [Myrbetriq] 25 mg PO DAILY 03/30/18 Omeprazole 40 mg PO BID 03/30/18 Tiotropium Harmony [Spiriva Handihaler 5 Cap/Kit (18 Mcg/Cap)] 1 cap IH DAILY 03/30/18 History of Present Illness History of Present Illness: POLLY CRESPO is a 52 year old female with a past medical history of chronic respiratory failure secondary to COPD and CHF, [place], DM 2, hypertension, tobacco abuse with continuous use, and cocaine abuse with recent use who presented to the emergency department today with a complaint of increased shortness of breath. Evaluation in the emergency department today revealed mild leukocytosis (WBCs 11.8), unremarkable chemistry, normal troponin, proBNP minimally elevated to 947, normal TSH, and an ABG demonstrating respiratory acidosis with a PCO2 of 80.3 (at baseline). EKG demonstrated NSR with nonspecific T wave changes in the lateral leads, chest x-ray revealed mild vascular congestion. Normally the patient leaves AGAINST MEDICAL ADVICE, however, this time is agree able to remaining in-house for admission and management of her acute on chronic respiratory failure secondary to a COPD exacerbation. Hospital Course Hospital Course: Patient was admitted with acute respiratory failure with hypoxia and hypercapnia. On day of admission, she was placed on BiPAP with serial ABGs showing progressively worsening respiratory acidosis with increasing PCO2 despite BiPAP adjustments. The patient was upgraded to the ICU and intubated by the anesthesia team on 03/30/18. She was extubated on 04/10/18. Detailed evaluation and management as described above. Approximately 40 minutes following her extubation, the patient began stating her intent to leave AGAINST MEDICAL ADVICE. The mental health team was consulted; full screening completed and found the patient to have full capacity for determination of self-care without indications for IVC. The patient was agreeable to remaining when she was informed that she would be allowed to eat. The patient received continued care with weaning of oxygen requirement, de-escalation of antibiotic therapy, weaning of steroids, and physical therapy evaluations. Throughout the following day, the patient continued to intermittently state her intention to leave AGAINST MEDICAL ADVICE once she had the strength to do so. On 04/12/18, the patient was again evaluated by physical therapy with recommendations for home health PT. The patient requested to be discharged same day; she was informed that we were continuing to adjust her antibiotics and wean her steroids. She was advised that discharge to home was anticipated within the next 24-48 hours; the patient expressed understanding and agreement with this plan of care. However, approximately 1 hour later I was informed by the nursing staff that the patient had called her sister for a ride home as she was now leaving AGAINST MEDICAL ADVICE. Physical Exam Vital Signs: Temp Pulse Resp BP Pulse Ox 98.5 F 70 20 101/59 L 94 04/12/18 11:57 04/12/18 11:57 04/12/18 11:57 04/12/18 11:57 04/12/18 11:57 Intake & Output 04/11/18 04/12/18 04/13/18 06:59 06:59 06:59 Intake Total 566 1091 Output Total 1600 1145 Balance -1034 -54 Weight 97.4 kg 100 kg General appearance: PRESENT: no acute distress, disheveled, well-developed, well-nourished - Overweight Head exam: PRESENT: atraumatic, normocephalic Eye exam: PRESENT: conjunctiva pink, EOMI, PERRLA. ABSENT: scleral icterus Ear exam: PRESENT: normal external ear exam Mouth exam: PRESENT: moist, tongue midline Teeth exam: PRESENT: poor dentation Neck exam: ABSENT: carotid bruit, JVD, lymphadenopathy, thyromegaly Respiratory exam: PRESENT: clear to auscultation tara, prolonged expiratory phas, symmetrical, unlabored, other - Supplemental oxygen via nasal cannula. ABSENT: rales, rhonchi, wheezes Cardiovascular exam: PRESENT: RRR, +S1, +S2. ABSENT: diastolic murmur, rubs, systolic murmur Pulses: PRESENT: normal dorsalis pedis pul Vascular exam: PRESENT: normal capillary refill GI/Abdominal exam: PRESENT: normal bowel sounds, soft. ABSENT: distended, guarding, mass, organolmegaly, rebound, tenderness Rectal exam: PRESENT: deferred Extremities exam: PRESENT: full ROM. ABSENT: calf tenderness, clubbing, pedal edema Neurological exam: PRESENT: alert, awake, oriented to person, oriented to place, oriented to time, oriented to situation, CN II-XII grossly intact. ABSENT: motor sensory deficit Psychiatric exam: PRESENT: appropriate affect, normal mood, other - Impulsive. ABSENT: homicidal ideation, suicidal ideation Focused psych exam: PRESENT: restlessness Skin exam: PRESENT: dry, intact, warm. ABSENT: cyanosis, rash Results Laboratory Results: 04/12/18 04:14 04/12/18 04:14 04/12/18 04/12/18 04:14 04:14 WBC 12.6 H RBC 5.39 H Hgb 13.8 Hct 43.1 MCV 80 MCH 25.5 L MCHC 32.0 RDW 18.5 H Plt Count 218 Sodium 140.2 Potassium 3.7 Chloride 98 Carbon Dioxide 34 H Anion Gap 8 BUN 31 H Creatinine 0.34 L Est GFR ( Amer) > 60 Est GFR (Non-Af Amer) > 60 Glucose 130 H Calcium 9.2 04/07/18 15:00 Blood Blood Culture - Final NO GROWTH IN 5 DAYS 04/07/18 14:45 Blood Blood Culture - Final NO GROWTH IN 5 DAYS 03/30/18 03/30/18 03/30/18 06:45 06:45 14:41 Troponin I 0.013 < 0.012 NT-Pro-B Natriuret Pep 947 H 03/30/18 03/31/18 04/01/18 20:10 03:45 04:02 Troponin I < 0.012 NT-Pro-B Natriuret Pep 379 92 Impressions: Chest X-Ray 04/11/18 06:00 IMPRESSION: No definite pneumonia. Qualifiers - * PATIENT BEING DISCHARGED WITH ANY OF THE FOLLOWING DIAGNOSIS: No Plan Discharge Plan: The patient left AGAINST MEDICAL ADVICE. Time Spent: Less than 30 Minutes
[2018-04-12] MEDS ORDERED: IPRATROPIUM/ALBUTEROL 0.5-2.5 MG/3 ML AMPUL NEB SCH (16:00)
[2018-04-13] MEDS ORDERED: FUROSEMIDE 20 MG TABLET PO SCH (10:00)
== END 2018-04-12 13:52 | disposition left against medical advice (07) | DRG 207 ==
LOC: ER 06:36 → OBSVTOIN 09:45 → EH 09:45 → 3W 13:45 → ICU 16:33 → 3W 04-11 17:59
PROVIDERS: ADMIT Internal Medicine; ATTEND Internal Medicine
PROC: 5A1955Z Respiratory Ventilation, Greater than 96 Consecutive Hours (ICD-10-PCS; principal; 2018-03-30)
PROC: 0BH17EZ Insertion of Endotracheal Airway into Trachea, Via Natural or Artificial Opening (ICD-10-PCS; 2018-03-30)
PROC: 5A09457 Assistance with Respiratory Ventilation, 24-96 Consecutive Hours, Continuous Positive Airway Pressure (ICD-10-PCS; 2018-03-30)
DX: J96.22 Acute and chronic respiratory failure with hypercapnia (principal); J13 Pneumonia due to Streptococcus pneumoniae; I50.33 Acute on chronic diastolic (congestive) heart failure; N39.0 Urinary tract infection, site not specified; J44.1 Chronic obstructive pulmonary disease with (acute) exacerbation; J44.0 Chronic obstructive pulmonary disease with (acute) lower respiratory infection; F14.10 Cocaine abuse, uncomplicated; Z16.29 Resistance to other single specified antibiotic; G47.33 Obstructive sleep apnea (adult) (pediatric); E11.9 Type 2 diabetes mellitus without complications; J96.21 Acute and chronic respiratory failure with hypoxia; B19.20 Unspecified viral hepatitis C without hepatic coma; I11.0 Hypertensive heart disease with heart failure; F31.9 Bipolar disorder, unspecified; Z90.710 Acquired absence of both cervix and uterus; M19.90 Unspecified osteoarthritis, unspecified site; F17.210 Nicotine dependence, cigarettes, uncomplicated; Z78.1 Physical restraint status; Z99.81 Dependence on supplemental oxygen; Z79.899 Other long term (current) drug therapy; Z79.51 Long term (current) use of inhaled steroids
CPT/HCPCS: 31500; 36415; 36600; 71045; 80048; 80053; 80307; 80353; 81001; 82803; 82962; 83036; 83735; 83880; 84100; 84443; 84478; 84484; 85025; 85027; 86701; 87040; 87070; 87075; 87077; 87086; 87186; 87205; 93005; 93010; 93306; 94002; 94003; 94640; 94660; 94799; 96374; 96375; 99285; G0480; J1630; J1644; J1815; J1885; J1940; J1956; J2250; J2543; J2704; J2920; J2930; J3490; J7620; S0164